=== PATIENT | male | born 1935 | race Caucasian/White ===

== ENCOUNTER → 2017-08-29 12:03 | Outpatient (CLI) | payer MEDICARE, SELFPAY ==
[2017-08-29 13:37] LABS: Absolute Lymphocyte Count 1.17 X10^3/ul (0.83-4.51); Absolute Neutrophil Count 4.5 X10^3/uL (2.0-7.7); Basophil# 0.01 X10^3/uL; Basophil% 0.2 % (0-1); Eosinophil# 0.05 X10^3/uL; Eosinophils% 0.8 % (0-5); Hematocrit 30.3 % (40-54); Hemoglobin 9.4 g/dl (13.0-16.5); Lymphocyte # 1.17 X10^3/ul (4.0); Lymphocyte % 18.6 % (19-41); Mean Corpuscular Volume 83.9 fL (80-94); Mean Platelet Vol. 10.6 fl (6.2-12.0); Monocyte# 0.54 X10^3/uL; Monocyte% 8.6 % (0-10); Neutrophil % 71.6 % (47-70); Platelet Count 216 K/mm3 (150-450); RBC Distribution Width CV 19.3 % (11.6-14.6); RBC Distribution Width SD 59.4 fl (35.1-43.9); Red Blood Count 3.61 M/mm3 (4.6-6.2); White Blood Count 6.3 K/mm3 (4.4-11.0)
[2017-08-29 13:38] LABS: POSITIVE COUNT NO; POSITIVE DIFFERENTIAL NO; POSITIVE MORPHOLOGY NO
== END ==
PROVIDERS: Family Provider Family Medicine Geriatric Medicine; PCP Family Medicine Geriatric Medicine; Visit Provider Family Medicine Geriatric Medicine
DX: D64.9 Anemia, unspecified (principal)
CPT/HCPCS: 36415; 85025

== ENCOUNTER → 2017-09-11 12:28 | Outpatient (CLI) | payer MEDICARE, SELFPAY ==
[2017-09-11 14:30] LABS: Ferritin 17 ng/mL (26-388); Hematocrit 31.2 % (40-54); Hemoglobin 9.6 g/dl (13.0-16.5); Immature Platelet Fraction 3.8 % (1.0-7.9); Iron 30 ug/dL (65-175); Mean Corp Hgb Conc 30.8 g/gl (32-36); Mean Corpuscular Hgb 25.3 pg (27.0-32.0); Mean Corpuscular Volume 82.3 fL (80-94); Mean Platelet Vol. 10.1 fl (6.2-12.0); Platelet Count 220 K/mm3 (150-450); RBC Distribution Width CV 18.1 % (11.6-14.6); RBC Distribution Width SD 54.8 fl (35.1-43.9); RET-HE 19.5 pg (30-35); Red Blood Count 3.79 M/mm3 (4.6-6.2); White Blood Count 5.5 K/mm3 (4.4-11.0)
[2017-09-11 14:34] LABS: Scan Indicated on CBC? Y/N YES- FLAGS NOTED
== END ==
PROVIDERS: Family Provider Family Medicine Geriatric Medicine; PCP Family Medicine Geriatric Medicine; Visit Provider Internal Medicine Gastroenterology
DX: D50.9 Iron deficiency anemia, unspecified (principal)
CPT/HCPCS: 36415; 82728; 83540; 85027; 85045

== ENCOUNTER → 2017-09-16 10:05 | Outpatient (CLI) | payer MEDICARE, SELFPAY ==
[2017-09-16 11:02] LABS: Absolute Lymphocyte Count 1.08 X10^3/ul (0.83-4.51); Absolute Neutrophil Count 4.4 X10^3/uL (2.0-7.7); Eosinophil# 0.04 X10^3/uL; Eosinophils% 0.7 % (0-5); Hematocrit 30.4 % (40-54); Hemoglobin 9.4 g/dl (13.0-16.5); Lymphocyte # 1.08 X10^3/ul (4.0); Lymphocyte % 17.9 % (19-41); Mean Corp Hgb Conc 30.9 g/gl (32-36); Mean Corpuscular Hgb 25.2 pg (27.0-32.0); Mean Corpuscular Volume 81.5 fL (80-94); Mean Platelet Vol. 9.7 fl (6.2-12.0); Monocyte# 0.56 X10^3/uL; Monocyte% 9.3 % (0-10); Neutrophil # 4.36 X10^3/uL (2.7-7.7); Neutrophil % 71.9 % (47-70); Platelet Count 211 K/mm3 (150-450); RBC Distribution Width CV 18.5 % (11.6-14.6); RBC Distribution Width SD 55.3 fl (35.1-43.9); Red Blood Count 3.73 M/mm3 (4.6-6.2); White Blood Count 6.1 K/mm3 (4.4-11.0)
[2017-09-16 11:08] LABS: POSITIVE COUNT NO; POSITIVE DIFFERENTIAL NO; POSITIVE MORPHOLOGY NO
[2017-09-16 11:50] LABS: AST(SGOT) 17 U/L (15-37); Alanine Aminotransfer ALT/SGPT 15 U/L (16-61); Albumin, Serum 3.4 g/dL (3.2-5.0); Alkaline Phosphatase 130 U/L (45-117); Anion Gap 8 (5-15); BUN 36 mg/dL (7-18); BUN/Creat Ratio 22.1 RATIO (10-20); Calcium,Total 8.7 mg/dL (8.5-10.1); Chloride 105 mmol/L (98-107); Creatinine, Serum 1.63 mg/dL (0.70-1.30); EST Glomerular Filtration Rate 43 mL/min (>60); Est Glom Filt Rate - Afr Amer 52 mL/min (>60); Globulin 3.4 g/dL (2.2-4.2); Glucose 112 mg/dL (74-106); Potassium 3.8 mmol/L (3.5-5.1); Protein, Total 6.8 g/dL (6.4-8.2); Sodium Level 138 mmol/L (136-145); Thyroid Stim Hormone (TSH) 3.49 uIU/mL (0.358-3.74)
== END ==
PROVIDERS: Family Provider Family Medicine Geriatric Medicine; PCP Family Medicine Geriatric Medicine; Visit Provider Family Medicine Geriatric Medicine
DX: I10 Essential (primary) hypertension (principal)
CPT/HCPCS: 36415; 80053; 84443; 85025

== ENCOUNTER 2017-09-27 11:54 | Emergency (ER) | payer MEDICARE, SELFPAY ==
[2017-09-27 11:55] VITALS: BP 85/64; PULSE 85; RESP 22; TEMP 36.1; O2SAT 95; BMI 24.0
[2017-09-27 11:59] VITALS: BP 96/61; PULSE 95; RESP 22; O2SAT 96
--- NOTE | 2017-09-27 12:07 | EKG12_ITS ---
Test Reason : SOB Blood Pressure : / mmHG Vent. Rate : 082 BPM Atrial Rate : 048 BPM P-R Int : 000 ms QRS Dur : 110 ms QT Int : 402 ms P-R-T Axes : 000 -17 227 degrees QTc Int : 469 ms Atrial fibrillation with premature ventricular or aberrantly conducted complexes ST & T wave abnormality, consider inferolateral ischemia Prolonged QT Abnormal ECG Confirmed by DAYNE KESSLER ([id number]), advertising editor JAYLA BLOOD ([id number]) on 09/30/2017 1:34:46 PM Referred By: Confirmed By:DAYNE KESSLER
--- NOTE | 2017-09-27 12:07 | RAD_ITS ---
STUDY: X-RAY CHEST REASON FOR EXAM: Male, 81 years old. Shortness of breath. TECHNIQUE: AP and lateral views of the chest. COMPARISON: Comparison is made with prior examination dated July 06, 2017. FINDINGS: EKG electrodes are seen. Mild increase in the left pleural effusion with left basilar atelectasis. Blunting of the right costophrenic angle. Sternal cerclage wires and vascular clips are present from a prior sternotomy and coronary artery bypass graft procedure (CABG). Borderline cardiomegaly. Normal mediastinum and johny. Normal visualized pulmonary arteries. There is atherosclerotic calcification of the aortic arch with tortuosity. There are diffuse degenerative changes of the visualized thoracic spine. Normal visualized ribs, clavicles, and shoulders. There is no demonstrated abnormality of the visualized soft tissue structures of the upper abdomen. RAD/Chest PA and Lateral IMPRESSION: Increased small left pleural effusion with left basilar atelectasis. Blunting of the right costophrenic angle. Electronically Signed: Camilo Deras MD at 13:03 EDT Tel [phone], Service support ,
--- NOTE | 2017-09-27 12:14 | ED.VISSUMM ---
- ER Visit Summary Date of Service: 09/27/17 Chief Complaint: Increasing shortness of breath over the past 1 week History of Present Illness: The patient is a 81 M who is status post IL complicated by cardia pulmonary arrest 1 month ago who presents with increased shortness of breath over the past 1 week. He does report leg swelling, which is abnormal for him. He denies discoloration or pain. He denies any type of chest discomfort. He denies fever, chills night sweats. He denies runny nose, earache, sore throat postnasal drainage. He denies cough. He does complain of dyspnea on exertion. Denies orthopnea or PND. He denies any abdominal pain or back pain. He denies black or maroon stool. He denies any urologic symptoms. He denies history of PE or DVT. He is on Eliquis. He states he is compliant with his medication. Records from the [facility] were received and reviewed. Physical Examination: Vital signs remarkable blood pressure 96/61 rest rate 22. He is not hypoxic, febrile or tachycardic. Review of prior records and specifically the past 3 months his blood pressure has varied between 82 systolic to a high of 97. Head is atraumatic normocephalic. Pupils are equal round reactive. Extraocular muscles are intact. TMs are pearly white with landmarks noted. Nares patent with no drainage. Posterior pharynx without erythema or exudate. Uvula is midline. There is no dysphonia or dysphasia. Trachea is midline. There is no stridor with auscultation of the neck. Heart is irregularly regular. Lungs are clear to auscultation without rales, rhonchi or wheezing. Abdomen is soft nontender. He has a well-healed midsternal scar noted. There is no palpable subtle mass of the abdominal aorta and there is no bruit. He does have 1-2+ pitting edema of the right and left lower extremity distal to the knees. He is hard of hearing. He is alert he is oriented ?3. Motor sensory are intact. Did not assess gait. Test Results: EKG reveals atrial fibrillation with ST-T wave changes inferolateral leads which is unchanged from prior EKG dated July 06, 2017. At that time the research neuropsychologist interpreted him in to have a sinus rhythm. His rhythm was irregular. Chest x-ray reveals normal cardiac silhouette with bilateral pleural effusions and mild venous congestion. H&H 10.5 and 34.8. BUN is 48 with a creatinine of 2.86. Troponin is indeterminate at 0.20. BNP is 703. His indeterminate troponin could be related to his recent IL and CHF. Emergency Department Course and Treatment: To evaluate patient's increasing shortness breath over the past month chest x-ray was obtained to evaluate for CHF, pneumonia or pneumothorax, pleural effusion. With gradual onset and gradual becoming worse with edema unlikely pulmonary embolus. And as previously documented patient states he is compliant with his Eliquis. Treatment Plan: 80 mg of Lasix p.o. and 2.5 mg of Zaroxolyn p.o. in the emergency department and increase Lasix to 80 mg a day for the next 5 days and follow-up with Dr. Cedeño within the next 5-7 days Disposition: Discharged to home Impression: 1. Exacerbation of CHF with bilateral pleural effusions 2. Atrial fibrillation, chronic History of ischemic cardiomyopathy History of hypertension History of hypercholesterolemia History of coronary disease status post cardiopulmonary arrest This note was generated with [employer] software. It may contain incorrect words, spelling, and punctuation that were not noted in review of the chart prior to signing ED Disposition - Plan for ED Patient: Disposition: Home or Assisted Living Chief Complaint: Shortness of Breath Instructions: ED CHF General Referrals: Hardik Puga Chi, MD [Primary Care Provider] - Ko Cedeño MD [STAFF PHYSICIAN] - 5-7 Days Additional Instructions: Increase Lasix to 80 mg a day for the next [address] Cedeño's office to be seen next week.
--- NOTE | 2017-09-27 12:23 | ED.DCSUM_ITS ---
- ER Visit Summary Date of Service: 09/27/17 Chief Complaint: Increasing shortness of breath over the past 1 week History of Present Illness: The patient is a 81 M who is status post [place] complicated by cardia pulmonary arrest 1 month ago who presents with increased shortness of breath over the past 1 week. He does report leg swelling, which is abnormal for him. He denies discoloration or pain. He denies any type of chest discomfort. He denies fever, chills night sweats. He denies runny nose, earache, sore throat postnasal drainage. He denies cough. He does complain of dyspnea on exertion. Denies orthopnea or PND. He denies any abdominal pain or back pain. He denies black or maroon stool. He denies any urologic symptoms. He denies history of PE or DVT. He is on Eliquis. He states he is compliant with his medication. Records from the [facility] were received and reviewed. Physical Examination: Vital signs remarkable blood pressure 96/61 rest rate 22. He is not hypoxic, febrile or tachycardic. Review of prior records and specifically the past 3 months his blood pressure has varied between 82 systolic to a high of 97. Head is atraumatic normocephalic. Pupils are equal round reactive. Extraocular muscles are intact. TMs are pearly white with landmarks noted. Nares patent with no drainage. Posterior pharynx without erythema or exudate. Uvula is midline. There is no dysphonia or dysphasia. Trachea is midline. There is no stridor with auscultation of the neck. Heart is irregularly regular. Lungs are clear to auscultation without rales, rhonchi or wheezing. Abdomen is soft nontender. He has a well-healed midsternal scar noted. There is no palpable subtle mass of the abdominal aorta and there is no bruit. He does have 1-2+ pitting edema of the right and left lower extremity distal to the knees. He is hard of hearing. He is alert he is oriented ?3. Motor sensory are intact. Did not assess gait. Test Results: EKG reveals atrial fibrillation with ST-T wave changes inferolateral leads which is unchanged from prior EKG dated July 06, 2017. At that time the filling station equipment mechanic interpreted him in to have a sinus rhythm. His rhythm was irregular. Chest x-ray reveals normal cardiac silhouette with bilateral pleural effusions and mild venous congestion. H&H 10.5 and 34.8. BUN is 48 with a creatinine of 2.86. Troponin is indeterminate at 0.20. BNP is 703. His indeterminate troponin could be related to his recent VT and CHF. Emergency Department Course and Treatment: To evaluate patient's increasing shortness breath over the past month chest x-ray was obtained to evaluate for CHF, pneumonia or pneumothorax, pleural effusion. With gradual onset and gradual becoming worse with edema unlikely pulmonary embolus. And as previously documented patient states he is compliant with his Eliquis. Treatment Plan: 80 mg of Lasix p.o. and 2.5 mg of Zaroxolyn p.o. in the emergency department and increase Lasix to 80 mg a day for the next 5 days and follow-up with Dr. Cedeño within the next 5-7 days Disposition: Discharged to home Impression: 1. Exacerbation of CHF with bilateral pleural effusions 2. Atrial fibrillation, chronic History of ischemic cardiomyopathy History of hypertension History of hypercholesterolemia History of coronary disease status post cardiopulmonary arrest This note was generated with [employer] software. It may contain incorrect words, spelling, and punctuation that were not noted in review of the chart prior to signing ED Disposition - Plan for ED Patient: Disposition: Home or Assisted Living Chief Complaint: Shortness of Breath Instructions: ED CHF General Referrals: Hardik Puga Chi, MD [Primary Care Provider] - Ko Cedeño MD [STAFF PHYSICIAN] - 5-7 Days Additional Instructions: Increase Lasix to 80 mg a day for the next [address] Cedeño's office to be seen next week.
[2017-09-27 12:32] LABS: Absolute Lymphocyte Count 0.88 X10^3/ul (0.83-4.51); Absolute Neutrophil Count 4.3 X10^3/uL (2.0-7.7); Basophil# 0.01 X10^3/uL; Basophil% 0.2 % (0-1); Differential Indicated SCAN CRITERIA MET; Eosinophil# 0.01 X10^3/uL; Eosinophils% 0.2 % (0-5); Hematocrit 34.8 % (40-54); Hemoglobin 10.5 g/dl (13.0-16.5); Lymphocyte # 0.88 X10^3/ul (4.0); Lymphocyte % 15.2 % (19-41); Mean Corp Hgb Conc 30.2 g/gl (32-36); Mean Corpuscular Hgb 25.7 pg (27.0-32.0); Mean Corpuscular Volume 85.1 fL (80-94); Mean Platelet Vol. 10.3 fl (6.2-12.0); Monocyte% 10.3 % (0-10); Neutrophil # 4.29 X10^3/uL (2.7-7.7); Neutrophil % 73.9 % (47-70); POSITIVE COUNT NO; POSITIVE DIFFERENTIAL NO; POSITIVE MORPHOLOGY YES; Platelet Count 193 K/mm3 (150-450); RBC Distribution Width SD 64.3 fl (35.1-43.9); Red Blood Count 4.09 M/mm3 (4.6-6.2); White Blood Count 5.8 K/mm3 (4.4-11.0)
[2017-09-27 12:47] LABS: Anion Gap 14 (5-15); BUN 48 mg/dL (7-18); BUN/Creat Ratio 16.8 RATIO (10-20); Calcium,Total 9.2 mg/dL (8.5-10.1); Chloride 104 mmol/L (98-107); Creatinine, Serum 2.86 mg/dL (0.70-1.30); EST Glomerular Filtration Rate 23 mL/min (>60); Est Glom Filt Rate - Afr Amer 27 mL/min (>60); Estimated Creatinine Clearance 21.86 ml/min; Glucose 94 mg/dL (74-106); Sodium Level 138 mmol/L (136-145)
[2017-09-27 13:00] LABS: BNP,B-Type NATRIURETIC PEPTIDE 703.8 pg/mL (0-100)
[2017-09-27 13:01] LABS: Anisocytosis 1+; Burr Cells RARE
[2017-09-27 13:02] LABS: Acanthocytes RARE; Ovalocyte RARE; Platelet Estimate SLT DEC (ADEQ)
[2017-09-27 13:48] VITALS: BP 91/63; PULSE 80; RESP 16; O2SAT 94
[2017-09-27] MEDS: Furosemide 40 MG Tablet 80 MG PO (14:17)
[2017-09-27] MEDS: Metolazone 2.5 MG Tablet PO (14:18)
[2017-09-27 14:19] VITALS: BP 96/82; PULSE 98; RESP 22; O2SAT 93
[2017-09-27 15:05] VITALS: BP 91/68
[2017-09-27 15:19] VITALS: BP 91/62; PULSE 81; RESP 17; O2SAT 94
== END 2017-09-27 16:01 | disposition home or self-care (01) ==
PROVIDERS: Emergency Provider Emergency Medicine; Family Provider Family Medicine Geriatric Medicine; PCP Family Medicine Geriatric Medicine
DX: I13.2 Hypertensive heart and chronic kidney disease with heart failure and with stage 5 chronic kidney disease, or end stage renal disease (principal); N18.6 End stage renal disease; D63.1 Anemia in chronic kidney disease; I50.9 Heart failure, unspecified; J90 Pleural effusion, not elsewhere classified; I48.2 Chronic atrial fibrillation; I25.5 Ischemic cardiomyopathy; E78.00 Pure hypercholesterolemia, unspecified; I25.10 Atherosclerotic heart disease of native coronary artery without angina pectoris; I25.2 Old myocardial infarction; I45.10 Unspecified right bundle-branch block; Z87.2 Personal history of diseases of the skin and subcutaneous tissue; Z95.1 Presence of aortocoronary bypass graft; Z79.01 Long term (current) use of anticoagulants; Z79.82 Long term (current) use of aspirin; Z79.899 Other long term (current) drug therapy
CPT/HCPCS: 71046; 80048; 83880; 84484; 85025; 93005; 99285; A4216

== ENCOUNTER → 2017-10-28 11:55 | Outpatient (CLI) | payer MEDICARE, SELFPAY ==
[2017-10-28 14:23] LABS: Absolute Lymphocyte Count 1.09 X10^3/ul (0.83-4.51); Absolute Neutrophil Count 4.9 X10^3/uL (2.0-7.7); Basophil# 0.01 X10^3/uL; Basophil% 0.1 % (0-1); Eosinophil# 0.07 X10^3/uL; Hematocrit 34.9 % (40-54); Hemoglobin 11.1 g/dl (13.0-16.5); Lymphocyte # 1.09 X10^3/ul (4.0); Lymphocyte % 16.1 % (19-41); Mean Corp Hgb Conc 31.8 g/gl (32-36); Mean Corpuscular Hgb 27.1 pg (27.0-32.0); Mean Corpuscular Volume 85.3 fL (80-94); Mean Platelet Vol. 10.2 fl (6.2-12.0); Monocyte# 0.68 X10^3/uL; Neutrophil # 4.92 X10^3/uL (2.7-7.7); Neutrophil % 72.7 % (47-70); Platelet Count 285 K/mm3 (150-450); RBC Distribution Width CV 18.9 % (11.6-14.6); RBC Distribution Width SD 58.8 fl (35.1-43.9); Red Blood Count 4.09 M/mm3 (4.6-6.2); White Blood Count 6.8 K/mm3 (4.4-11.0)
[2017-10-28 14:30] LABS: POSITIVE COUNT NO; POSITIVE DIFFERENTIAL NO; POSITIVE MORPHOLOGY NO
[2017-10-28 14:31] LABS: Ferritin 41 ng/mL (26-388); Iron 60 ug/dL (65-175)
== END ==
PROVIDERS: Family Provider Family Medicine Geriatric Medicine; PCP Family Medicine Geriatric Medicine; Visit Provider Internal Medicine Gastroenterology
DX: D50.9 Iron deficiency anemia, unspecified (principal)
CPT/HCPCS: 36415; 82728; 83540; 85025

== ENCOUNTER 2017-11-19 07:01 | Inpatient (IN) | payer MEDICARE, SELFPAY ==
[2017-11-19] VITALS (16 sets, daily range): BP systolic 94–117; BP diastolic 51–69; PULSE 63–98; RESP 14–18; TEMP 36.4–36.9; O2SAT 93–98; BMI 30.3; BMI 24.2
--- NOTE | 2017-11-19 07:20 | CT_ITS ---
STUDY: CT BRAIN WITHOUT CONTRAST REASON FOR EXAM: Male, 81 years old. History of fall. Large left scalp laceration. RADIATION DOSAGE (If Supplied By Facility): CTDIvol = ( 44.99 ) mGy, DLP = ( 779.24 ) mGycm TECHNIQUE: Transaxial CT imaging of the brain was performed without administration of intravenous contrast material. Individualized dose optimization techniques were used for this CT. COMPARISON: Comparison is made with prior study dated October 09, 2014. FINDINGS: There is evidence of scalp laceration with sara overlying the left frontal parietal bone. Normal calvarium. There is mild cerebral atrophy with widening of the extra-axial spaces and ventricular dilatation. There are areas of decreased attenuation within the white matter tracts of the supratentorial brain, consistent with microvascular disease changes. Normal basal ganglia and thalami. Normal brainstem. Normal cerebellum. There is no intracranial hemorrhage. There are no findings of an acute ischemic infarction. Atherosclerotic calcification of the vertebral arteries and cavernous portions of the internal carotid arteries bilaterally. Normal visualized paranasal sinuses. CT/Brain/Head without Contrast IMPRESSION: Chronic involutional changes of the brain. Scalp laceration with metallic sutures overlying the left frontal parietal bones. Electronically Signed: Camilo Deras MD at 8:46 EDT Tel [phone], Service support ,
--- NOTE | 2017-11-19 07:21 | CT_ITS ---
STUDY: CT CERVICAL SPINE WITHOUT CONTRAST REASON FOR EXAM: Male, 81 years old. History of fall. Large left scalp laceration. RADIATION DOSAGE (If Supplied By Facility): CTDIvol = ( 21.93 ) mGy, DLP = ( 401.10 ) mGycm TECHNIQUE: High resolution transaxial imaging was performed without contrast material. Sagittal and coronal images were reconstructed. Individualized dose optimization techniques were used for this CT. COMPARISON: None FINDINGS: Normal craniovertebral junction. Normal anterior atlantoaxial articulation. Normal odontoid process. Normal cervical lordosis. Multilevel spondylosis. C2-3: Moderate degree of disc space narrowing. Spondylosis. Uncovertebral arthrosis. Facet joint osteoarthritis. C3-4: Marked degree of disc space narrowing with spondylosis and uncovertebral arthrosis. Facet joint osteoarthritis. Bilateral neural foraminal stenosis. C4-5: Marked degree of disc space narrowing with spondylosis and uncovertebral arthrosis. Facet joint osteoarthritis and hypertrophy with the neural foraminal stenosis bilaterally. C5-6: Marked degree of disc space narrowing with spondylosis. Uncovertebral arthrosis. Bilateral neural foraminal stenosis. Facet joint osteoarthritis and hypertrophy. C6-7: Marked degree of narrowing. Spondylosis. Uncovertebral arthrosis and facet joint osteoarthritis. C7-T1: Marked degree of disc space narrowing with spondylosis. Facet joint osteoarthritis. Atherosclerotic plaque seen in the right vertebral artery and the carotid bifurcations bilaterally. Bilateral pleural effusions with the scarring in the upper lobes. CT/Spine Cervical without Contras IMPRESSION: Multilevel degenerative changes, as described above. Bilateral pleural effusions and scarring in both upper lobes. Electronically Signed: Camilo Deras MD at 8:32 EDT Tel [phone], Service support ,
[2017-11-19] MEDS: 0.9% Normal Saline 1,000 ML 1000 ML IV (07:26)
[2017-11-19 07:30] LABS: Absolute Lymphocyte Count 1.29 X10^3/ul (0.83-4.51); Absolute Neutrophil Count 3.6 X10^3/uL (2.0-7.7); Basophil# 0.01 X10^3/uL; Basophil% 0.2 % (0-1); Eosinophil# 0.07 X10^3/uL; Eosinophils% 1.2 % (0-5); Hematocrit 30.9 % (40-54); Hemoglobin 9.8 g/dl (13.0-16.5); Lymphocyte # 1.29 X10^3/ul (4.0); Lymphocyte % 22.6 % (19-41); Mean Corp Hgb Conc 31.7 g/gl (32-36); Mean Corpuscular Hgb 27.6 pg (27.0-32.0); Mean Platelet Vol. 10.3 fl (6.2-12.0); Monocyte# 0.69 X10^3/uL; Monocyte% 12.1 % (0-10); Neutrophil # 3.64 X10^3/uL (2.7-7.7); Neutrophil % 63.7 % (47-70); Platelet Count 195 K/mm3 (150-450); RBC Distribution Width CV 19.3 % (11.6-14.6); RBC Distribution Width SD 59.6 fl (35.1-43.9); Red Blood Count 3.55 M/mm3 (4.6-6.2); White Blood Count 5.7 K/mm3 (4.4-11.0)
[2017-11-19 07:31] LABS: POSITIVE COUNT NO; POSITIVE DIFFERENTIAL NO; POSITIVE MORPHOLOGY NO
[2017-11-19 07:35] LABS: Anion Gap 6 (5-15); BUN 33 mg/dL (7-18); Calcium,Total 8.8 mg/dL (8.5-10.1); Chloride 103 mmol/L (98-107); Creatinine, Serum 1.32 mg/dL (0.70-1.30); EST Glomerular Filtration Rate 55 mL/min (>60); Est Glom Filt Rate - Afr Amer 67 mL/min (>60); Estimated Creatinine Clearance 44.55 ml/min; Glucose 126 mg/dL (74-106); International Normalized Ratio 1.7; Potassium 4.6 mmol/L (3.5-5.1); Prothrombin Time (Protime)PT. 19.8 SECONDS (11.7-14.9); Sodium Level 139 mmol/L (136-145)
[2017-11-19 07:36] LABS: Partial Thromboplast Time 38.2 Seconds (24.1-36.2)
--- NOTE | 2017-11-19 07:45 | ED.VISSUMM ---
- ER Visit Summary Date of Service: 11/19/17 Chief Complaint: Head injury History of Present Illness: The patient is a 81 M who presents via EMS with head injury. Patient states he got up to walk to the bathroom early this morning and fell, striking his head on a TV stand. He has a large laceration noted to the left side of his head. He denies loss of consciousness. Other than headache he denies any other complaints. Patient is currently on blood thinners and per computer report appears to be Eliquis. Physical Examination: Vital signs are unremarkable. Head neck examination reveals saturated dressing placed around the head. He has no C-spine tenderness. Heart is irregular. Lung sounds are clear. Abdomen is soft nontender. Neuro exam reveals no focal deficits. Test Results: CBC is significant for hemoglobin of 9.8 and hematocrit of 30.9. Hemoglobin was 11.1 in October. Chemistry studies reveal mild renal insufficiency with a creatinine 1.32. His INR is 1.7 and PTT is 38.2. Emergency Department Course and Treatment: Suture setup is undertaken and dressing is slowly pulled down from his wound. He appears to have a 12 cm laceration. Wound is injected with lidocaine with epinephrine locally. Wound is stapled and Surgifoam was placed over the wound with dressing. Patient was given a liter of IV fluids. On repeat evaluation blood has soaked through the dressing. It is taken back down and 3 sara were removed from the wound. Arterial bleeders were noted and tied off. Dressing is replaced. Repeat hemoglobin is obtained and is 8.2. On final repeat evaluation at this time dressing is dry. Blood pressure and heart rate have remained stable throughout his stay. I have recommended observation to monitor his hemoglobin counts and wound. Type and screen order has been placed. Dr. Kaplan presented to the emergency room to evaluate the patient. He will admit the patient to PCU for further monitoring. Treatment Plan: [] Disposition: Admit Impression: 1. Mechanical fall 2. Closed head injury 3. Scalp laceration 4. Anemia 5. Coagulopathy secondary to Eliquis This note was generated with [employer] software. It may contain incorrect words, spelling, and punctuation that were not noted in review of the chart prior to signing ED Disposition - Plan for ED Patient: Chief Complaint: Laceration Referrals: Hardik Puga Chi, MD [Primary Care Provider] -
--- NOTE | 2017-11-19 08:06 | NURSING ---
LEFT MESSAGE ON DR THOMPSON'S NURSE LINE FOR MED LIST
--- NOTE | 2017-11-19 08:50 | NURSING ---
CALLED DR ROBERTS'S OFFICE FOR MED LIST
[2017-11-19 09:28] LABS: Hemoglobin 8.4 g/dl (13.0-16.5)
--- NOTE | 2017-11-19 09:54 | NURSING ---
DR MACKENZIE FOR DR ALICEA
--- NOTE | 2017-11-19 10:06 | NURSING ---
DR MACKENZIE IN ER
--- NOTE | 2017-11-19 10:07 | NURSING ---
[place] ([facility]) [phone]
--- NOTE | 2017-11-19 10:28 | NURSING ---
PCU OBS FALL, SCALP LAC WITH ACUTE ANEMIA GURDEEP
--- NOTE | 2017-11-19 11:16 | EKG12_ITS ---
Test Reason : ADM EKG Blood Pressure : / mmHG Vent. Rate : 082 BPM Atrial Rate : 214 BPM P-R Int : 000 ms QRS Dur : 102 ms QT Int : 400 ms P-R-T Axes : 000 -02 189 degrees QTc Int : 467 ms Atrial fibrillation with premature ventricular or aberrantly conducted complexes T wave abnormality, consider anterolateral ischemia Prolonged QT Abnormal ECG Confirmed by ALEJANDRA WALDRON, BÁRBARA ([id number]), assistant production editor JAYLA BLOOD ([id number]) on 11/26/2017 2:16:35 PM Referred By: GURDEEP Confirmed By:BÁRBARA ROBERTS MD
--- NOTE | 2017-11-19 11:16 | RAD_ITS ---
STUDY: X-RAY CHEST REASON FOR EXAM: Male, 81 years old. Pleural effusion TECHNIQUE: Single AP portable view of the chest. COMPARISON: 09/27/2017 FINDINGS: Cardiac monitoring leads overlie the chest. The lungs are clear and expanded. There are bilateral pleural effusions. Sternal cerclage wires and vascular clips are present from a prior sternotomy and coronary artery bypass graft procedure (CABG). Normal mediastinum and johny. Normal visualized pulmonary arteries. Normal visualized aortic arch and descending thoracic aorta. Normal visualized thoracic spine. Normal visualized ribs, clavicles, and shoulders. There is no demonstrated abnormality of the visualized soft tissue structures of the upper abdomen. RAD/Chest 1 View (Portable) IMPRESSION: Bilateral pleural effusions. Postoperative changes of coronary artery bypass graft. Electronically Signed: Carlos Moore DO at 12:24 EDT Tel , Service support ,
--- NOTE | 2017-11-19 11:41 | HP.PCM_ITS ---
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 Qualified Code(s): D50.0 - Iron deficiency anemia secondary to blood loss (chronic) (4) Atherosclerosis of [place] coronary artery of [place] heart without angina pectoris Status: Chronic Comment: CABG 01/22/2000 NGO to LAD, reverse SVG as a sequential graft to DX and LCX, reverse SVG to the two ventricular branches of the right (5) Bilateral lower extremity edema Status: Chronic (6) Chronic systolic (congestive) heart failure Status: Chronic (7) Chronic ulcer of left leg, limited to breakdown of skin Status: Chronic (8) Coronary artery disease involving autologous artery coronary bypass graft Status: Chronic Qualifiers: Comment: CAB01/22/2000 NGO to LAD, reverse SVG as a sequential graft to DX and LCX, reverse SVG to the two ventricular branches of the right (9) Dyslipidemia Status: Chronic (10) Hypertension Status: Chronic Qualifiers: Hypertension type: essential hypertension Qualified Code(s): I10 - Essential (primary) hypertension (11) Ischemic cardiomyopathy Status: Chronic (12) Paroxysmal atrial fibrillation Status: Chronic Comment: [facility] January 2000; (13) Fall Status: Acute History of Present Illness Date of Admission: 11/19/17 Chief Complaint: Fall and head injury The patient is a 81 year old M with multiple comorbidities including paroxysmal A. fib on Eliquis 2.5 mg twice daily, chronic systolic heart failure with marked lower extremity edema was brought in to ER by squad after he had fall and hit his head on the TV stand. He said he did not feel dizzy, lightheaded or arrhythmia but he lost the balance that caused a fall. He had multiple, about 6 surgeries in the left knee and thigh including myocutaneous flap/graft artery after he had kneecap fracture and then infection possible septic arthritis in the past. In ED, his blood pressure was low 107/68, heart rate 82 but no hypoxia. Per ER physician, Dr. Lind he had about 12 cm laceration on left frontoparietal area for he had a sara. Later on in the ER dressing was soaked with blood and was found that he has arterial bleed which was tied and bleeding was controlled. CT head does not show intracranial bleed. Chest x-ray shows bilateral pleural effusion and scarring and atelectasis. H&H dropped from 9.8 g percent to 8.4%. Past Medical History Past Medical History (Chronic Problems): Chronic Problems (Last Reviewed 10/02/17 @ 11:33 by Meredith Velasquez) Bilateral lower extremity edema (Chronic) Chronic systolic (congestive) heart failure (Chronic) Paroxysmal atrial fibrillation (Chronic) DCCV January 2000; Atherosclerosis of [place] coronary artery of [place] heart without angina pectoris (Chronic) CABG 01/22/2000 NGO to LAD, reverse SVG as a sequential graft to DX and LCX, reverse SVG to the two ventricular branches of the right Ischemic cardiomyopathy (Chronic) Chronic ulcer of left leg, 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) Dyslipidemia (Chronic) Coronary artery disease involving autologous artery coronary bypass graft ( Chronic) CAB01/22/2000 NGO to LAD, reverse SVG as a sequential graft to DX and LCX, reverse SVG to the two ventricular branches of the right Hypertension (Chronic) Anemia (Chronic) Allergies No Known Allergies Allergy (Verified 10/02/17 11:34) Home Medications: Ambulatory Orders Medication Instructions Recorded Aspirin [Aspirin, Baby] 81 mg PO DAILY@0800 #30 tab.chew 10/10/14 acetaminophen 325 mg tablet 650 mg PO Q4H PRN 08/08/17 atorvastatin 20 mg tablet 20 mg PO QDAY 08/08/17 carvedilol 6.25 mg tablet 6.25 mg PO BID 08/08/17 pantoprazole 40 mg tablet,delayed 40 mg PO QDAY 08/08/17 release Citalopram [Celexa] 10 mg PO DAILY 09/27/17 Ferrous Sulfate [Iron] 325 mg PO DAILY 09/27/17 apixaban 2.5 mg tablet 2.5 mg PO BID #180 tab 10/02/17 Furosemide [Lasix] 80 mg PO DAILY 11/19/17 Surgical History: coronary bypass surgery, - Smoking Status: Never smoker - *Family History Paternal History Items: High Cholesterol, Heart Disease, Hypertension, - Review of Systems Constitutional: Denies: Chills, Fever, Weight Change HEENT: Reports: Head Aches. Denies: Sinus Congestion, Sinus Drainage Cardiovascular: Denies: Chest Pain, Palpitations Respiratory: Denies: Cough, Shortness of breath at rest, Sputum production Gastrointestinal: Denies: Abdominal Pain, Nausea, Vomiting Genitourinary: Denies: Dysuria Musculoskeletal: Reports: Joint Pain. Denies: Joint Tenderness Skin: Denies: Rash, Wounds Neurological: Denies: Numbness, Tingling, Focal weakness Psychiatric: Denies: Anxiety, Depression, Homicidal Ideations, Suicidal Ideations Hematologic/ Lymphatic: Reports: Easy Bruising, Easy Bleeding VTE Information - Inpt Only VTE Present on Admission: No VTE Pharm Prophylaxis ordered?: No Reason prophylaxis not ordered:: Medical Contraindication - Active scalp hemorrhage Patient Problems: Active and Suspected Problems (Last Reviewed 10/02/17 @ 11:33 by Meredith Velasquez) Acute blood loss anemia (Acute) Scalp laceration with hemorrhage (Acute) Fall (Acute) - Physical Exam General: Alert, Oriented x3, Cooperative HEENT: Atraumatic, PERRLA, EOMI, Normocephalic Oral: Dry Mucosa Neck: Supple, No JVD, Negative Carotid Bruits Lungs: Clear to auscultation, Diminished - In both lower lobes of lung Cardiovascular: Normal S1, Normal S2, No murmurs, Irregular Rate, - - CABG scar Abdomen: Bowel Sounds Present, Soft, Non Tender, Non-Distended Extremities: Capillary Refill Less than 3 Seconds, Edema Skin: - - Scar promise of chronic wound with myocutaneous flap at left knee joint and thigh Musculoskeletal: No Tenderness to Palpation of Joints or Extremities, Arthritic Changes Neurological: Cranial nerves II-XII grossly intact, - - No obvious signs of a stroke including new or exacerbated muscle weakness, numbness or tingling or hemianopia, diplopia or dysarthria or dysphagia Psych/Mental Status: Normal Affect, Appropriate Vital Signs Temp Pulse Resp BP Pulse Ox 98.5 F 91 17 106/58 L 96 11/19/17 10:55 11/19/17 10:55 11/19/17 10:55 11/19/17 10:55 11/19/17 10:55 Oxygen Delivery Method Room Air Weight: 178 lb 5.663 oz Body Mass Index (BMI) 24.2 Assessment/Plan Active and Suspected Problems (Last Reviewed 10/02/17 @ 11:33 by Meredith Velasquez) Acute blood loss anemia (Acute) Scalp laceration with hemorrhage (Acute) Fall (Acute) The patient is a 81 year old M with multiple comorbidities including paroxysmal A. fib on Eliquis 2.5 mg twice daily, chronic systolic heart failure with marked lower extremity edema was brought in to ER by squad after he had fall and hit his head on the TV stand. He said he did not feel dizzy, lightheaded or arrhythmia but he lost the balance that caused a fall. He had multiple, about 6 surgeries in the left knee and thigh including myocutaneous flap/graft artery after he had kneecap fracture and then infection possible septic arthritis in the past. In ED, his blood pressure was low 107/68, heart rate 82 but no hypoxia. Per ER physician, Dr. Lind he had about 12 cm laceration on left frontoparietal area for he had a sara. Later on in the ER dressing was soaked with blood and was found that he has arterial bleed which was tied and bleeding was controlled. CT head does not show intracranial bleed. Chest x-ray shows bilateral pleural effusion and scarring and atelectasis. H&H dropped from 9.8 g percent to 8.4%. The patient had 1 L of normal saline bolus in the ER 1. Fall with major scalp laceration consistent with head injury: Seems fall was mainly mechanical after he lost balance on walker. Denies near syncope or syncope symptoms. 2. Cardiac disease: Coronary artery disease status post CABG, paroxysmal A. fi status post cardioversion in 1999 and chronic systolic heart failure: Currently , denies active chest symptoms. On secured entrance monitor. Twelve-lead EKG ordered. Troponin ordered. Aspirin and Eliquis on hold in view of major hemorrhage. 2D echo done in June 2017 shows EF 47% with normal LV size. Left atrium mildly enlarged RA mildly enlarged. Normal RV size and systolic function. Mild TR, RVSP 28 mmHg. Mild eccentric MR. Mild diffuse mitral valve thickening with mild annular calcification. Mild diffuse aortic wall thickening. Resume Lasix from tomorrow. 3. Acute blood loss anemia secondary to scalp laceration and external hemorrhage: H&H monitoring every 6 hourly and if hemoglobin drops less than 8 g percent we will transfuse PRBC. On IV fluid normal saline 100 mL/h. Monitor intake and output. Avoid fluid overload/pulmonary edema as he has heart failure. 4. 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 Blood pressure is running on the lower side. Hold antihypertensive medication. DVT prophylaxis on bilateral SCDs. Pharmacological prophylaxis contraindicated This note was generated with [employer] dictation software. Every effort was made to ensure accuracy, however computerized sorter pricer mistakes may persist. Code Visit Inpatient E&M: 04559 Init Hosp L3
[2017-11-19] MEDS: 0.9% Normal Saline 1,000 ML 100 ML IV (11:54)
[2017-11-19 13:14] LABS: Hemoglobin 7.7 g/dl (13.0-16.5)
[2017-11-19] MEDS: Ferrous Sulfate 325 MG Tablet PO (17:12)
[2017-11-19 19:25] LABS: Hematocrit 23.9 % (40-54); Hemoglobin 7.5 g/dl (13.0-16.5)
[2017-11-19] MEDS: 0.9% NaCl Peripheral Flush Adult/Peds IV (20:32)
[2017-11-19] MEDS: Carvedilol 6.25 MG Tablet PO (21:34)
[2017-11-19] MEDS: Atorvastatin Calcium 20 MG Tablet PO (21:34)
[2017-11-20] VITALS (18 sets, daily range): BP systolic 100–114; BP diastolic 56–84; PULSE 71–97; RESP 16–20; TEMP 36.3–37; O2SAT 92–99
[2017-11-20] MEDS: 0.9% Normal Saline 1,000 ML 100 ML IV (00:45)
[2017-11-20 00:57] LABS: Hemoglobin 8.3 g/dl (13.0-16.5)
[2017-11-20 05:41] LABS: Hematocrit 25.5 % (40-54); Hemoglobin 8.2 g/dl (13.0-16.5); Mean Corp Hgb Conc 32.2 g/gl (32-36); Mean Corpuscular Hgb 28.1 pg (27.0-32.0); Mean Corpuscular Volume 87.3 fL (80-94); Mean Platelet Vol. 10.2 fl (6.2-12.0); Platelet Count 159 K/mm3 (150-450); RBC Distribution Width CV 18.5 % (11.6-14.6); Red Blood Count 2.92 M/mm3 (4.6-6.2)
[2017-11-20 05:46] LABS: Scan Indicated on CBC? Y/N NO
--- NOTE | 2017-11-20 05:55 | CT_ITS ---
STUDY: CT BRAIN WITHOUT CONTRAST REASON FOR EXAM: Male, 81 years old. Trauma, status post fall RADIATION DOSAGE (If Supplied By Facility): CTDIvol = ( 44.99 ) mGy, DLP = ( 762.36 ) mGycm TECHNIQUE: Transaxial CT imaging of the brain was performed without administration of intravenous contrast material. Sagittal and coronal reconstructed images are provided and reviewed. Individualized dose optimization techniques were used for this CT. COMPARISON: 11/19/2017 FINDINGS: [place] project over the left frontal and parietal scalp. Normal calvarium. There is mild cerebral atrophy with widening of the extra-axial spaces and ventricular dilatation. There are areas of decreased attenuation within the white matter tracts of the supratentorial brain, consistent with microvascular disease changes. Normal basal ganglia and thalami. Normal brainstem. Normal cerebellum. There is no intracranial hemorrhage. There are no findings of an acute ischemic infarction. Normal visualized paranasal sinuses. CT/Brain/Head without Contrast IMPRESSION: Chronic involutional changes. No acute intracranial abnormality. [place] are seen along the left scalp laceration. Electronically Signed: Carlos Moore DO at 8:21 EDT Tel , Service support ,
[2017-11-20 06:01] LABS: Anion Gap 9 (5-15); BUN 29 mg/dL (7-18); BUN/Creat Ratio 21.3 RATIO (10-20); Calcium,Total 8.3 mg/dL (8.5-10.1); Chloride 107 mmol/L (98-107); Creatinine, Serum 1.36 mg/dL (0.70-1.30); EST Glomerular Filtration Rate 53 mL/min (>60); Est Glom Filt Rate - Afr Amer 64 mL/min (>60); Estimated Creatinine Clearance 45.96 ml/min; Glucose 138 mg/dL (74-106); Potassium 4.1 mmol/L (3.5-5.1); Sodium Level 143 mmol/L (136-145)
[2017-11-20] MEDS: Ferrous Sulfate 325 MG Tablet PO ×2 (08:24→16:26)
[2017-11-20] MEDS: Furosemide 80 MG Tablet PO (08:25)
[2017-11-20] MEDS: Pantoprazole Sodium 40 MG Tablet PO (08:25)
[2017-11-20] MEDS: Carvedilol 6.25 MG Tablet PO ×2 (08:25→21:44)
[2017-11-20] MEDS: Citalopram 10 MG Tablet PO (08:25)
--- NOTE | 2017-11-20 12:00 | CASEMGMT ---
This RN CM to room to complete CM assessment and RN is at bedside completing care. Will attempt again later. SStaten RN CM
--- NOTE | 2017-11-20 13:08 | NURSING ---
wound photo: left posterior lower leg
--- NOTE | 2017-11-20 14:08 | CASEMGMT ---
Face to Face with patient for initial transition planning/care coordination assessment. RN MARIE introduced self and role at [facility], pt voices understanding and consents to assessment at this time. Pt is sitting up in chair in no distress at this time. Pt is A/O x4 at this time and answers all questions appropriately at this time. Care providers, pharmacy, and demographics verified. See attached link. Pt voices no further concerns/needs at this time. Advised pt to ask for CM if any further questions/concerns/needs arise, voices understanding. CM to f/u regarding pt's SNF decision. Doug ARREDONDO aware of pt indecision, voices understanding. PLAN: Home [facility] SUSAN SALAZAR
--- NOTE | 2017-11-20 14:17 | PCM.PN.HOSP ---
Patient Problems: Active and Suspected Problems (Last Reviewed 10/02/17 @ 11:33 by Meredith Velasquez) Acute blood loss anemia (Acute) Scalp laceration with hemorrhage (Acute) Fall (Acute) Subjective: The patient had significant drop in H&H secondary to large lacerated wound/scalp laceration in left frontoparietal region. Hemoglobin dropped to 7.5 g percent. He had 1 unit of PRBC yesterday. Patient has diarrhea, mainly semisolid mushy in consistency. Chronic in nature. Has not taken recent antibiotics most probably last one in July 2017 No abdominal pain or tenderness so C. difficile less probability stool for occult blood, WBC and C. difficile ordered Vitals/I&O's: Vital Signs Temp Pulse Resp BP Pulse Ox 98.4 F 74 16 112/82 H 97 11/20/17 13:20 11/20/17 13:20 11/20/17 13:20 11/20/17 13:20 11/20/17 13:20 Oxygen Delivery Method Room Air Weight: 178 lb 5.663 oz Body Mass Index (BMI) 24.2 Intake and Output for Last 24 Hours 11/18/17 11/19/17 11/20/17 23:59 23:59 23:59 Intake Total 2071 / 1 1661 / 1661 Output Total 300 / 300 Balance 1771 / 1771 1661 / 1661 General: Alert, Oriented x3, Cooperative HEENT: Atraumatic, PERRLA, EOMI, Normocephalic Neck: Supple, No JVD, Negative Carotid Bruits Lungs: Clear to auscultation, Normal air movement Cardiovascular: Regular rate, Normal S1, Normal S2, No murmurs Abdomen: Bowel Sounds Present, Soft, Non Tender, Non-Distended Extremities: No edema, Capillary Refill Less than 3 Seconds Skin: Ulcer/ Wound - Large stapled lacerated wound in left frontoparietal region. No active bleeding Musculoskeletal: No Tenderness to Palpation of Joints or Extremities Neurological: Cranial nerves II-XII grossly intact, Neuro grossly intact Psych/Mental Status: Normal Affect, Appropriate Microbiology Past 72 Hours 11/20/17 13:10 Stool Stool Occult Blood (KAREN) - Final 11/20/17 13:10 Stool Stool Lactoferrin - Final Laboratory Results 11/19/17 19:14: Hgb 7.5 L, Hct 23.9 L 11/20/17 00:49: Hgb 8.3 L, Hct 26.0 L 11/20/17 05:10: WBC 7.0, RBC 2.92 L, Hgb 8.2 L, Hct 25.5 L, MCV 87.3, MCH 28.1, MCHC 32.2, RDW 18.5 H, RDW Differential 58.0 H, Plt Count 159, MPV 10.2 11/20/17 05:10: Sodium 143, Potassium 4.1, Chloride 107, Carbon Dioxide 27.0, Anion Gap 9, BUN 29 H, Creatinine 1.36 H, Estim Creat Clear Calc 45.96, Est GFR (MDRD) Af Amer 64, Est GFR (MDRD) Non-Af 53 L, BUN/Creatinine Ratio 21.3 H, Glucose 138 H, Calcium 8.3 L Current Medications Acetaminophen (Tylenol) 650 mg PO Q4H PRN PRN PRN Reason: PAIN Albuterol/Ipratropium (Duoneb) 3 ml INHALATION Q4H PRN PRN PRN Reason: sob Atorvastatin Calcium (Lipitor) 20 mg PO DAILY@2200 [facility] Last Admin: 11/19/17 21:34 Dose: 20 mg Carvedilol (Coreg) 6.25 mg PO BID [facility] Last Admin: 11/20/17 08:25 Dose: 6.25 mg Citalopram Hydrobromide (Celexa) 10 mg PO DAILY [facility] Last Admin: 11/20/17 08:25 Dose: 10 mg [facility] Last Admin: 11/20/17 08:24 Dose: 325 mg Furosemide (Lasix) 80 mg PO DAILY [facility] Last Admin: 11/20/17 08:25 Dose: 80 mg Nutritional Formula (Lactose Free) (Ensure Enlive) 120 ml PO 4X/DAY [facility] Last Admin: 11/20/17 08:33 Dose: 120 ml Pantoprazole Sodium (Protonix) 40 mg PO DAILY [facility] Last Admin: 11/20/17 08:25 Dose: 40 mg Sodium Chloride () 5 - 30 ml IV UD PRN PRN Reason: SALINE FLUSH Last Admin: 11/19/17 20:32 Dose: 20 ml Medical Necessity - Tobacco Use Smoking Status: Never smoker Assessment/Plan Active and Suspected Problems (Last Reviewed 10/02/17 @ 11:33 by Meredith Velasquez) Acute blood loss anemia (Acute) Scalp laceration with hemorrhage (Acute) Fall (Acute) The patient is a 81 year old M with multiple comorbidities including paroxysmal A. fib on Eliquis 2.5 mg twice daily, chronic systolic heart failure with marked lower extremity edema was brought in to ER by squad after he had fall and hit his head on the TV stand. He said he did not feel dizzy, lightheaded or arrhythmia but he lost the balance that caused a fall. He had multiple, about 6 surgeries in the left knee and thigh including myocutaneous flap/graft artery after he had kneecap fracture and then infection possible septic arthritis in the past. In ED, his blood pressure was low 107/68, heart rate 82 but no hypoxia. Per ER physician, Dr. Lind he had about 12 cm laceration on left frontoparietal area for he had a sara. Later on in the ER dressing was soaked with blood and was found that he has arterial bleed which was tied and bleeding was controlled. CT head does not show intracranial bleed. Chest x-ray shows bilateral pleural effusion and scarring and atelectasis. H&H dropped from 9.8 g percent to 8.4%. The patient had 1 L of normal saline bolus in the ER 1. Fall with major scalp laceration with active arterial bleed, consistent with head injury; present on admission: Seems fall was mainly mechanical after he lost balance on walker. Denies near syncope or syncope symptoms. PT and OT ordered. 2. Acute blood loss anemia secondary to scalp laceration and external hemorrhage: Hemoglobin dropped from 9.8-7.5 and then 1 unit of PRBC transfused. Repeat posttransfusion H&H 8.2 g percent. One more unit to be transfused today. Posttransfusion H&H. Mild hypotension resolved. Discontinue the IV fluid Monitor intake and output. Avoid fluid overload/pulmonary edema as he has heart failure. 3. Cardiac disease: Coronary artery disease status post CABG, paroxysmal A. fi status post cardioversion in 1999 and chronic systolic heart failure: Currently, denies active chest symptoms. On color television console monitor. Twelve-lead EKG ordered. Troponin ordered. Aspirin and Eliquis on hold in view of major hemorrhage. 2D echo done in June 2017 shows EF 47% with normal LV size. Left atrium mildly enlarged RA mildly enlarged. Normal RV size and systolic function. Mild TR, RVSP 28 mmHg. Mild eccentric MR. Mild diffuse mitral valve thickening with mild annular calcification. Mild diffuse aortic wall thickening. Lasix resume today 4. Subacute/chronic diarrhea; most probably from stool softener/laxative: Stool for occult blood and lactoferrin negative. 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 Hold antihypertensive medication. Blood pressure profile is better today. DVT prophylaxis on bilateral SCDs. Pharmacological prophylaxis contraindicated. This note was generated with [employer] dictation software. Every effort was made to ensure accuracy, however computerized horologist mistakes may persist. Microbiology Past 72 Hours 11/20/17 13:10 Stool Stool Occult Blood (KAREN) - Final 11/20/17 13:10 Stool Stool Lactoferrin - Final Laboratory Results 11/19/17 07:05: Crossmatch See Detail 11/19/17 19:14: Hgb 7.5 L, Hct 23.9 L 11/20/17 00:49: Hgb 8.3 L, Hct 26.0 L 11/20/17 05:10: WBC 7.0, RBC 2.92 L, Hgb 8.2 L, Hct 25.5 L, MCV 87.3, MCH 28.1, MCHC 32.2, RDW 18.5 H, RDW Differential 58.0 H, Plt Count 159, MPV 10.2 11/20/17 05:10: Sodium 143, Potassium 4.1, Chloride 107, Carbon Dioxide 27.0, Anion Gap 9, BUN 29 H, Creatinine 1.36 H, Estim Creat Clear Calc 45.96, Est GFR (MDRD) Af Amer 64, Est GFR (MDRD) Non-Af 53 L, BUN/Creatinine Ratio 21.3 H, Glucose 138 H, Calcium 8.3 L Clinical Impression(s) from Imaging Studies Brain CT 11/19/17 07:20 IMPRESSION: Chronic involutional changes of the brain. Scalp laceration with metallic sutures overlying the left frontal parietal bones. Electronically Signed: Camilo Deras MD at 8:46 EDT Tel [phone], Service support , Cervical Spine CT 11/19/17 07:21 IMPRESSION: Multilevel degenerative changes, as described above. Bilateral pleural effusions and scarring in both upper lobes. Electronically Signed: Camilo Deras MD at 8:32 EDT Tel [phone], Service support , Chest X-Ray 11/19/17 11:16 IMPRESSION: Bilateral pleural effusions. Postoperative changes of coronary artery bypass graft. Brain CT 11/20/17 05:55 IMPRESSION: Chronic involutional changes. No acute intracranial abnormality. [place] are seen along the left scalp laceration. Code Visit Inpatient E&M: 86166 Subs Hosp L2
--- NOTE | 2017-11-20 14:26 | PN_ITS ---
Patient Problems: Active and Suspected Problems (Last Reviewed 10/02/17 @ 11:33 by Meredith Velasquez) Acute blood loss anemia (Acute) Scalp laceration with hemorrhage (Acute) Fall (Acute) Subjective: The patient had significant drop in H&H secondary to large lacerated wound/ scalp laceration in left frontoparietal region. Hemoglobin dropped to 7.5 g percent. He had 1 unit of PRBC yesterday. Patient has diarrhea, mainly semisolid mushy in consistency. Chronic in nature. Has not taken recent antibiotics most probably last one in July 2017 No abdominal pain or tenderness so C. difficile less probability stool for occult blood, WBC and C. difficile ordered Vitals/I&O's: Vital Signs Temp Pulse Resp BP Pulse Ox 98.4 F 74 16 112/82 H 97 11/20/17 13:20 11/20/17 13:20 11/20/17 13:20 11/20/17 13:20 11/20/17 13:20 Oxygen Delivery Method Room Air Weight: 178 lb 5.663 oz Body Mass Index (BMI) 24.2 Intake and Output for Last 24 Hours 11/18/17 11/19/17 11/20/17 23:59 23:59 23:59 Intake Total 2071 / 1 1661 / 1661 Output Total 300 / 300 Balance 1771 / 1771 1661 / 1661 General: Alert, Oriented x3, Cooperative HEENT: Atraumatic, PERRLA, EOMI, Normocephalic Neck: Supple, No JVD, Negative Carotid Bruits Lungs: Clear to auscultation, Normal air movement Cardiovascular: Regular rate, Normal S1, Normal S2, No murmurs Abdomen: Bowel Sounds Present, Soft, Non Tender, Non-Distended Extremities: No edema, Capillary Refill Less than 3 Seconds Skin: Ulcer/ Wound - Large stapled lacerated wound in left frontoparietal region. No active bleeding Musculoskeletal: No Tenderness to Palpation of Joints or Extremities Neurological: Cranial nerves II-XII grossly intact, Neuro grossly intact Psych/Mental Status: Normal Affect, Appropriate Microbiology Past 72 Hours 11/20/17 13:10 Stool Stool Occult Blood (KAREN) - Final 11/20/17 13:10 Stool Stool Lactoferrin - Final Laboratory Results 11/19/17 19:14: Hgb 7.5 L, Hct 23.9 L 11/20/17 00:49: Hgb 8.3 L, Hct 26.0 L 11/20/17 05:10: WBC 7.0, RBC 2.92 L, Hgb 8.2 L, Hct 25.5 L, MCV 87.3, MCH 28.1, MCHC 32.2, RDW 18.5 H, RDW Differential 58.0 H, Plt Count 159, MPV 10.2 11/20/17 05:10: Sodium 143, Potassium 4.1, Chloride 107, Carbon Dioxide 27.0, Anion Gap 9, BUN 29 H, Creatinine 1.36 H, Estim Creat Clear Calc 45.96, Est GFR (MDRD) Af Amer 64, Est GFR (MDRD) Non-Af 53 L, BUN/Creatinine Ratio 21.3 H, Glucose 138 H, Calcium 8.3 L Current Medications Acetaminophen (Tylenol) 650 mg PO Q4H PRN PRN PRN Reason: PAIN Albuterol/Ipratropium (Duoneb) 3 ml INHALATION Q4H PRN PRN PRN Reason: sob Atorvastatin Calcium (Lipitor) 20 mg PO DAILY@2200 [facility] Last Admin: 11/19/17 21:34 Dose: 20 mg Carvedilol (Coreg) 6.25 mg PO BID [facility] Last Admin: 11/20/17 08:25 Dose: 6.25 mg Citalopram Hydrobromide (Celexa) 10 mg PO DAILY [facility] Last Admin: 11/20/17 08:25 Dose: 10 mg [facility] Admin: 11/20/17 08:24 Dose: 325 mg Furosemide (Lasix) 80 mg PO DAILY [facility] Last Admin: 11/20/17 08:25 Dose: 80 mg Nutritional Formula (Lactose Free) (Ensure Enlive) 120 ml PO 4X/DAY [facility] Last Admin: 11/20/17 08:33 Dose: 120 ml Pantoprazole Sodium (Protonix) 40 mg PO DAILY [facility] Last Admin: 11/20/17 08:25 Dose: 40 mg Sodium Chloride () 5 - 30 ml IV UD PRN PRN Reason: SALINE FLUSH Last Admin: 11/19/17 20:32 Dose: 20 ml Medical Necessity - Tobacco Use Smoking Status: Never smoker Assessment/Plan Active and Suspected Problems (Last Reviewed 10/02/17 @ 11:33 by Meredith Velasquez) Acute blood loss anemia (Acute) Scalp laceration with hemorrhage (Acute) Fall (Acute) The patient is a 81 year old M with multiple comorbidities including paroxysmal A. fib on Eliquis 2.5 mg twice daily, chronic systolic heart failure with marked lower extremity edema was brought in to ER by squad after he had fall and hit his head on the TV stand. He said he did not feel dizzy, lightheaded or arrhythmia but he lost the balance that caused a fall. He had multiple, about 6 surgeries in the left knee and thigh including myocutaneous flap/graft artery after he had kneecap fracture and then infection possible septic arthritis in the past. In ED, his blood pressure was low 107/68, heart rate 82 but no hypoxia. Per ER physician, Dr. Lind he had about 12 cm laceration on left frontoparietal area for he had a oni. Later on in the ER dressing was soaked with blood and was found that he has arterial bleed which was tied and bleeding was controlled. CT head does not show intracranial bleed. Chest x-ray shows bilateral pleural effusion and scarring and atelectasis. H&H dropped from 9.8 g percent to 8.4%. The patient had 1 L of normal saline bolus in the ER 1. Fall with major scalp laceration with active arterial bleed, consistent with head injury; present on admission: Seems fall was mainly mechanical after he lost balance on walker. Denies near syncope or syncope symptoms. PT and OT ordered. 2. Acute blood loss anemia secondary to scalp laceration and external hemorrhage: Hemoglobin dropped from 9.8-7.5 and then 1 unit of PRBC transfused. Repeat posttransfusion H&H 8.2 g percent. One more unit to be transfused today. Posttransfusion H&H. Mild hypotension resolved. Discontinue the IV fluid Monitor intake and output. Avoid fluid overload/pulmonary edema as he has heart failure. 3. Cardiac disease: Coronary artery disease status post CABG, paroxysmal A. fi status post cardioversion in 1999 and chronic systolic heart failure: Currently , denies active chest symptoms. 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 Twelve-lead EKG ordered. Troponin ordered. Aspirin and Eliquis on hold in view of major hemorrhage. 2D echo done in June 2017 shows EF 47% with normal LV size. Left atrium mildly enlarged RA mildly enlarged. Normal RV size and systolic function. Mild TR, RVSP 28 mmHg. Mild eccentric MR. Mild diffuse mitral valve thickening with mild annular calcification. Mild diffuse aortic wall thickening. Lasix resume today 4. Subacute/chronic diarrhea; most probably from stool softener/laxative: Stool for occult blood and lactoferrin negative. 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 Hold antihypertensive medication. Blood pressure profile is better today. DVT prophylaxis on bilateral SCDs. Pharmacological prophylaxis contraindicated. This note was generated with [employer] dictation software. Every effort was made to ensure accuracy, however computerized refinery operator mistakes may persist. Microbiology Past 72 Hours 11/20/17 13:10 Stool Stool Occult Blood (KAREN) - Final 11/20/17 13:10 Stool Stool Lactoferrin - Final Laboratory Results 11/19/17 07:05: Crossmatch See Detail 11/19/17 19:14: Hgb 7.5 L, Hct 23.9 L 11/20/17 00:49: Hgb 8.3 L, Hct 26.0 L 11/20/17 05:10: WBC 7.0, RBC 2.92 L, Hgb 8.2 L, Hct 25.5 L, MCV 87.3, MCH 28.1, MCHC 32.2, RDW 18.5 H, RDW Differential 58.0 H, Plt Count 159, MPV 10.2 11/20/17 05:10: Sodium 143, Potassium 4.1, Chloride 107, Carbon Dioxide 27.0, Anion Gap 9, BUN 29 H, Creatinine 1.36 H, Estim Creat Clear Calc 45.96, Est GFR (MDRD) Af Amer 64, Est GFR (MDRD) Non-Af 53 L, BUN/Creatinine Ratio 21.3 H, Glucose 138 H, Calcium 8.3 L Clinical Impression(s) from Imaging Studies Brain CT 11/19/17 07:20 IMPRESSION: Chronic involutional changes of the brain. Scalp laceration with metallic sutures overlying the left frontal parietal bones. Electronically Signed: Camilo Deras MD at 8:46 EDT Tel [phone], Service support , Cervical Spine CT 11/19/17 07:21 IMPRESSION: Multilevel degenerative changes, as described above. Bilateral pleural effusions and scarring in both upper lobes. Electronically Signed: Camilo Deras MD at 8:32 EDT Tel [phone], Service support , Chest X-Ray 11/19/17 11:16 IMPRESSION: Bilateral pleural effusions. Postoperative changes of coronary artery bypass graft. Brain CT 11/20/17 05:55 IMPRESSION: Chronic involutional changes. No acute intracranial abnormality. Oni are seen along the left scalp laceration. Code Visit Inpatient E&M: 36817 Subs Hosp L2
[2017-11-20 20:47] LABS: Hematocrit 29.8 % (40-54); Hemoglobin 9.6 g/dl (13.0-16.5)
[2017-11-20 21:16] LABS: Magnesium 2.1 mg/dL (1.6-2.6)
[2017-11-20] MEDS: Atorvastatin Calcium 20 MG Tablet PO (21:43)
[2017-11-21 03:01] VITALS: PULSE 96
[2017-11-21 03:30] VITALS: BP 101/58; PULSE 87; RESP 18; TEMP 36.9; O2SAT 94
[2017-11-21 06:32] LABS: Absolute Lymphocyte Count 1.16 X10^3/ul (0.83-4.51); Absolute Neutrophil Count 4.4 X10^3/uL (2.0-7.7); Eosinophil# 0.07 X10^3/uL; Eosinophils% 1.1 % (0-5); Hematocrit 27.9 % (40-54); Hemoglobin 8.8 g/dl (13.0-16.5); Lymphocyte # 1.16 X10^3/ul (4.0); Lymphocyte % 18.4 % (19-41); Mean Corp Hgb Conc 31.5 g/gl (32-36); Mean Corpuscular Hgb 27.8 pg (27.0-32.0); Mean Platelet Vol. 10.7 fl (6.2-12.0); Monocyte# 0.63 X10^3/uL; Neutrophil # 4.43 X10^3/uL (2.7-7.7); Neutrophil % 70.2 % (47-70); Platelet Count 159 K/mm3 (150-450); RBC Distribution Width CV 18.5 % (11.6-14.6); RBC Distribution Width SD 57.5 fl (35.1-43.9); Red Blood Count 3.17 M/mm3 (4.6-6.2); White Blood Count 6.3 K/mm3 (4.4-11.0)
[2017-11-21 06:37] LABS: POSITIVE COUNT NO; POSITIVE DIFFERENTIAL NO; POSITIVE MORPHOLOGY NO
[2017-11-21 06:47] LABS: Anion Gap 8 (5-15); BUN 27 mg/dL (7-18); BUN/Creat Ratio 21.4 RATIO (10-20); Calcium,Total 8.6 mg/dL (8.5-10.1); Chloride 105 mmol/L (98-107); Creatinine, Serum 1.26 mg/dL (0.70-1.30); EST Glomerular Filtration Rate 58 mL/min (>60); Est Glom Filt Rate - Afr Amer 70 mL/min (>60); Estimated Creatinine Clearance 49.61 ml/min; Glucose 145 mg/dL (74-106); Potassium 4.2 mmol/L (3.5-5.1); Sodium Level 141 mmol/L (136-145)
[2017-11-21 07:12] VITALS: PULSE 80
[2017-11-21 07:45] VITALS: O2SAT 92
[2017-11-21 10:14] VITALS: BP 104/50; PULSE 77; RESP 18; TEMP 36.8; O2SAT 94
[2017-11-21] MEDS: Ferrous Sulfate 325 MG Tablet PO (10:19)
[2017-11-21] MEDS: Citalopram 10 MG Tablet PO (10:20)
[2017-11-21] MEDS: Furosemide 80 MG Tablet PO (10:20)
[2017-11-21] MEDS: Carvedilol 6.25 MG Tablet PO (10:20)
[2017-11-21] MEDS: Pantoprazole Sodium 40 MG Tablet PO (10:20)
--- NOTE | 2017-11-21 10:53 | PCM.DC ---
- Discharge Diagnoses Current Active Problems: Current Active and Chronic Problems (Last Reviewed 10/02/17 @ 11:33 by Meredith Velasquez) Acute blood loss anemia (Acute) Scalp laceration with hemorrhage (Acute) Fall (Acute) You will use the following diet at home:: Cardiac Your food should be the consistency of: Regular Discharge Activity: May Not Drive Additional Instructions: Outpatient PT and OT rehab. Need removal of scalp sara after 6 days Allergies/Adverse Reactions: Allergies No Known Allergies Allergy (Verified 10/02/17 11:34) Medications to take at Discharge acetaminophen 325 mg tablet 650 mg PO Q4H PRN 08/08/17 atorvastatin 20 mg tablet 20 mg PO QDAY 08/08/17 carvedilol 6.25 mg tablet 6.25 mg PO BID 08/08/17 pantoprazole 40 mg tablet,delayed release 40 mg PO QDAY 08/08/17 Citalopram [Celexa] 10 mg PO DAILY 09/27/17 Furosemide [Lasix] 80 mg PO DAILY 11/19/17 Apixaban [Eliquis] 2.5 mg PO BID #180 tab 11/21/17 Aspirin [Aspirin, Baby] 81 mg PO DAILY@0800 #30 tab.chew 11/21/17 Ferrous Sulfate [Iron] 325 mg PO DAILY #60 tab 11/21/17 The following prescriptions were given: Ferrous Sulfate [Iron] 325 mg PO DAILY #60 tab Primary Care Physician: Hardik Puga Chi, MD [Primary Care Provider] - Please follow up with your Primary Care Physician in: IN 1-2 weeks Please Follow Up With: Ko Cedeño MD When: big lac wound on eliquis
--- NOTE | 2017-11-21 10:56 | DS.PCM_ITS ---
Discharge Date and Diagnosis Date of Admission: 11/19/17 Date of Discharge: 11/21/17 - Primary Discharge Diagnosis Active and Suspected Problems (Last Reviewed 10/02/17 @ 11:33 by Meredith Velasquez) 1. Fall with major scalp laceration with active arterial bleed, consistent with head injury; present on admission: 2. Acute blood loss anemia secondary to scalp laceration and external hemorrhage - Secondary Discharge Diagnosis Chronic Problems (Last Reviewed 10/02/17 @ 11:33 by Meredith Velasquez) Bilateral lower extremity edema (Chronic) Chronic systolic (congestive) heart failure (Chronic) Paroxysmal atrial fibrillation (Chronic) DCCV January 2000; Atherosclerosis of [place] coronary artery of [place] heart without angina pectoris (Chronic) CABG 01/22/2000 NGO to LAD, reverse SVG as a sequential graft to DX and LCX, reverse SVG to the two ventricular branches of the right Ischemic cardiomyopathy (Chronic) Chronic ulcer of left leg, 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 fib on Eliquis 2.5 mg twice daily, chronic systolic heart failure with marked lower extremity edema was brought in to ER by squad after he had fall and hit his head on the TV stand. He said he did not feel dizzy, lightheaded or arrhythmia but he lost the balance that caused a fall. He had multiple, about 6 surgeries in the left knee and thigh including myocutaneous flap/graft artery after he had kneecap fracture and then infection possible septic arthritis in the past. In ED, his blood pressure was low 107/68, heart rate 82 but no hypoxia. Per ER physician, Dr. Lind he had about 12 cm laceration on left frontoparietal area for he had a sara. Later on in the ER dressing was soaked with blood and was found that he has arterial bleed which was tied and bleeding was controlled. CT head does not show intracranial bleed. Chest x-ray shows bilateral pleural effusion and scarring and atelectasis. H&H dropped from 9.8 g percent to 8.4%. The patient had 1 L of normal saline bolus in the ER. Patient was seen and examined. H&H is stable. Denies near syncope symptoms. General: Alert, Oriented x3, Cooperative HEENT: Atraumatic, PERRLA, EOMI, Normocephalic Neck: Supple, No JVD, Negative Carotid Bruits Lungs: Clear to auscultation, Normal air movement Cardiovascular: Regular rate, Normal S1, Normal S2, No murmurs Abdomen: Bowel Sounds Present, Soft, Non Tender, Non-Distended Extremities: No edema, Capillary Refill Less than 3 Seconds Skin: Ulcer/ Wound - Large stapled lacerated wound in left frontoparietal region. No active bleeding Musculoskeletal: No Tenderness to Palpation of Joints or Extremities Neurological: Cranial nerves II-XII grossly intact, Neuro grossly intact Psych/Mental Status: Normal Affect, Appropriate 1. Fall with major scalp laceration with active arterial bleed, consistent with head injury; present on admission: Seems fall was mainly mechanical after he lost balance on walker. Denies near syncope or syncope symptoms. PT and OT was done and patient walked good. Does not require SNF placement as per PT recommendation. 2. Acute blood loss anemia secondary to scalp laceration and external hemorrhage: Hemoglobin dropped from 9.8-7.5 and and had 2 units of PRBC transfusion over 2 days. Posttransfusion H&H 9.6 and 8.8 g percent. Patient was given 200 grams IV Venofer. Patient had adequate resuscitation. Patient was resumed on diuretics. Monitor intake and output. 3. Cardiac disease: Coronary artery disease status post CABG, paroxysmal A. fi status post cardioversion in 1999 and chronic systolic heart failure: Currently , denies active chest symptoms. 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 Twelve-lead EKG ordered. Troponin ordered. Aspirin and Eliquis on hold in view of major hemorrhage. 2D echo done in June 2017 shows EF 47% with normal LV size. Left atrium mildly enlarged RA mildly enlarged. Normal RV size and systolic function. Mild TR, RVSP 28 mmHg. Mild eccentric MR. Mild diffuse mitral valve thickening with mild annular calcification. Mild diffuse aortic wall thickening. 4. Subacute/chronic diarrhea; most probably from stool softener/laxative: Stool for occult blood and lactoferrin negative. 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 Hold antihypertensive medication. Blood pressure profile is better today. DVT prophylaxis on bilateral SCDs. Pharmacological prophylaxis contraindicated. Patient follows Dr. reddy. Via great holding aspirin aspirin for 5 days and Eliquis for 7 days. Follow with PCP in 1-[address] Reddy. Prescription for ferrous sulfate given. Discharge medication reconciliation done. Discharge follow-up instructions completed. Total time spent, exact 35 minutes on discharge meds reconciliation, examination , review of imaging and blood test and discussion with the patient on follow-up instructions. Discharge Activity: May Not Drive Home Medications: Medications to take at Discharge acetaminophen 325 mg tablet 650 mg PO Q4H PRN 08/08/17 atorvastatin 20 mg tablet 20 mg PO QDAY 08/08/17 carvedilol 6.25 mg tablet 6.25 mg PO BID 08/08/17 pantoprazole 40 mg tablet,delayed release 40 mg PO QDAY 08/08/17 Citalopram [Celexa] 10 mg PO DAILY 09/27/17 Furosemide [Lasix] 80 mg PO DAILY 11/19/17 Apixaban [Eliquis] 2.5 mg PO BID #180 tab 11/21/17 Aspirin [Aspirin, Baby] 81 mg PO DAILY@0800 #30 tab.chew 11/21/17 Ferrous Sulfate [Iron] 325 mg PO DAILY #60 tab 11/21/17 Following Prescrptions Were Given to Patient: Ferrous Sulfate [Iron] 325 mg PO DAILY #60 tab Primary Care Physician: Hardik Puga Chi, MD [Primary Care Provider] - Please follow up with your Primary Care Physician in: IN 1-2 weeks Please Follow Up With: Ko Reddy MD When: big lac wound on eliquis Medical Necessity - Tobacco Use Smoking Status: Never smoker Meaningful Use Info Meaningful Use Diagnoses (Choose all that apply): None applicable Code Visit Inpatient E&M: 30551 Disch Hosp
--- NOTE | 2017-11-21 11:14 | CASEMGMT ---
MARIA ELENA spoke with patient and he said he is going home. MARIA ELENA asked him if he would like SW to set up home health so therapy can see him at home. He said he does his own therapy. Katie DUTTA
[2017-11-21 11:39] VITALS: PULSE 77
[2017-11-21] MEDS: 0.9% NaCl Peripheral Flush Adult/Peds IV (11:49)
--- NOTE | 2017-11-22 11:49 | CASEMGMT ---
Phone call received from Jam at [facility]. They are active with patient and requested information be faxed. MARIA ELENA faxed order to resume services, d/c instructions, and H&P. Katie STATON MSW
--- NOTE | 2017-11-25 14:50 | CASEMGMT ---
RN MAREI DC Phone call. Intro role of CM to patient in room. Pt states he has been feeling better since discharge. Inquired if pt had questions re: prescriptions, DC instructions, follow up appts. Pt states he does not have questions. No suggestions given re: improving care, pt states everything was alright. SUSAN SALAZAR thanked pt for choosing [facility], no further questions per pt. Estefania LOGANN RN ACM
== END 2017-11-21 14:33 | disposition home or self-care (01) | DRG 812 ==
LOC: ED 07:33 → PCU 11-20 02:47
PROVIDERS: Family Medicine; Admitting Provider Internal Medicine; Emergency Provider Emergency Medicine; Family Provider Family Medicine Geriatric Medicine; PCP Family Medicine Geriatric Medicine; Visit Provider Internal Medicine
DX: D62 Acute posthemorrhagic anemia (principal); I25.810 Atherosclerosis of coronary artery bypass graft(s) without angina pectoris; I50.22 Chronic systolic (congestive) heart failure; L97.921 Non-pressure chronic ulcer of unspecified part of left lower leg limited to breakdown of skin; S01.01XA Laceration without foreign body of scalp, initial encounter; W18.30XA Fall on same level, unspecified, initial encounter; I48.0 Paroxysmal atrial fibrillation; I25.10 Atherosclerotic heart disease of native coronary artery without angina pectoris; I25.5 Ischemic cardiomyopathy; E78.5 Hyperlipidemia, unspecified; I11.0 Hypertensive heart disease with heart failure; Z79.01 Long term (current) use of anticoagulants; Z95.1 Presence of aortocoronary bypass graft
CPT/HCPCS: 36415; 70450; 71045; 72125; 80048; 82274; 83630; 83735; 84484; 85014; 85018; 85025; 85027; 85610; 85730; 86850; 86900; 86920; 87493; 93005; 97110; 97116; 97162; 97165; 97530; 99285; J1756; J7030; P9016; A4216

== ENCOUNTER 2018-01-01 08:00 | Outpatient (RCR) | payer MEDICARE, SELFPAY ==
[2018-01-01 08:12] VITALS: BP 116/70; PULSE 77; RESP 18; TEMP 36.3
--- NOTE | 2018-01-01 08:42 | PCM.WC.PN ---
(1) Ulcer of left lower extremity with fat layer exposed Status: Chronic Current Visit: Yes Code(s): L97.922 - Non-pressure chronic ulcer of unspecified part of left lower leg with fat layer exposed (2) Bilateral lower extremity edema Status: Chronic Current Visit: No Code(s): R60.0 - Localized edema Type of Wound Date of Service: 01/01/18 Chief Complaint: nonpressure ulcer left lower extremity. Swelling of both legs History of Wound: Being seen here for recurrent left lower extremity ulcer. However last seen here 2 week ago. No new complaints at this time. Not properly applying compression. - Physical Exam Vital Signs Temp Pulse Resp BP 97.3 F L 77 18 116/70 01/01/18 08:12 01/01/18 08:12 01/01/18 08:12 01/01/18 08:12 General: Alert, Oriented x3, Cooperative, No apparent distress HEENT: Atraumatic Oral: Moist Mucosa Neck: Supple Lungs: Normal air movement Abdomen: Non Tender Extremities: No cyanosis, Edema Skin: Ulcer/ Wound Wound Measurements and Assessment WC - Nurse 1 - General Ulcer Measurement Start: 12/30/17 15:25 Freq: Status: Active Protocol: Activity Type Activity Date Activity User E-Sign Co-Sign Detail Recorded Client Recorded Date Recorded By Document 01/01/18 08:12 CAMILA [id number] 01/01/18 08:28 CAMILA 01/01/18 08:12 Wound Center Nurse 1 [Ulcer Assessment] #8 LEFT POSTERIOR CALF -Combined with other wound No -Current Size (cm) - Length 1.9 -Current Size (cm) - Width 0.3 -Current Size (cm) - Depth 0.2 -Total Square Cm 0.57 -Date of Last Picture (Recall this 12/25/17 field) -Photo Taken No -Epithelialization None Present -Tunneling No -Undermining/Tunneling No -Circular Undermining No -Classification - Thickness Full Thickness without Exposed Support Structure -Change in Wound Grade/Stage No Query Text:If change please identify the Stage/Grade in the comment (ie. S2 G3) -Exudate Amt Small (1-33%) -Exudate Type Serous -Wound Margin Distinct, Outline Attached -Granulation Amt None Present (0 %) -Granulation Quality N/A -Slough/Fibrin Yes -Necrosis Amt None Present (0 %) -Necrotic Tissue Type Adherent Slough -Structure Exposed None/Limited to Skin Breakdown -Texture (Elisa-wound Skin Appearance) No Abnormality Localized Edema -Moisture (Elisa-wound Skin Appearance No Abnormality ) -Color (Elisa-wound Skin Appearance) No Abnormality -Temperature (Elisa-wound Skin No Abnormality Appearance) (Pt Warm) -Tenderness on Palpation (Elisa-wound No Skin Appearance) -Ulcer Cleansing Rinsed/ Irrigated with Saline -Foul Odor after Cleansing No -Anesthetic Used 4% Lidocaine Solution [Edema Assessment] -Lower Limb Edema Present Yes -Right Calf (cm) 41.0 -Right Ankle (cm) 23.7 -Left Calf (cm) 39.5 -Left Ankle (cm) 22.0 Musculoskeletal: No Muscle Wasting Neurological: Cranial nerves II-XII grossly intact Psych/Mental Status: Normal Affect Debridement Note Wound debrided: Left lower extremity ( Posterior ) Wound Grade/Stage: Stage II Type of Debridement: Excisional debridement Anesthesia Used: 4% Lidocaine Solution Depth: Down to and including healthy tissue, in the subcutaneous layer Percentage of wound debrided: 100 Instrument Used: 3mm curette Tissue Removed: Slough and devitalized tissue Severity: Fat Layer Exposed Amount of bleeding with debridement: Mild Bleeding Controlled with: Pressure Patient tolerated procedure well Assessment/Plan Active Problems (Last Updated 12/03/17 @ 09:34 by Chato Moran) 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 Bilaterl lower extremity edema Plan: Wound is showing good improvement. Debridement done as documented above, procedure was well tolerated. Apply pomogran, leave in place for 1 week. Improperly applying surepress so, will switch to light 3M wraps. Elevate lower extremity when sitted and in bed. Continue increased protein intake and supplements. Advised to call with any questions or concerns. Follow up next week for a nurse visit and in 2 weeks with me.
== END 2018-01-11 23:59 ==
LOC: WC 08:00
PROVIDERS: Family Provider Family Medicine Geriatric Medicine; PCP Family Medicine Geriatric Medicine; Visit Provider Internal Medicine
DX: R60.0 Localized edema (principal); M79.89 Other specified soft tissue disorders; L97.822 Non-pressure chronic ulcer of other part of left lower leg with fat layer exposed
CPT/HCPCS: 11042; 29581; 99212; 99213; G0463

== ENCOUNTER → 2018-01-02 11:34 | Outpatient (CLI) | payer MEDICARE, SELFPAY ==
[2018-01-02 12:47] LABS: Absolute Lymphocyte Count 0.86 X10^3/ul (0.83-4.51); Absolute Neutrophil Count 3.6 X10^3/uL (2.0-7.7); Basophil# 0.01 X10^3/uL; Basophil% 0.2 % (0-1); Eosinophil# 0.07 X10^3/uL; Eosinophils% 1.4 % (0-5); Hematocrit 32.8 % (40-54); Hemoglobin 10.6 g/dl (13.0-16.5); Lymphocyte # 0.86 X10^3/ul (4.0); Lymphocyte % 17.3 % (19-41); Mean Corp Hgb Conc 32.3 g/gl (32-36); Mean Corpuscular Hgb 28.6 pg (27.0-32.0); Mean Corpuscular Volume 88.6 fL (80-94); Mean Platelet Vol. 10.7 fl (6.2-12.0); Monocyte# 0.45 X10^3/uL; Monocyte% 9.1 % (0-10); Neutrophil # 3.56 X10^3/uL (2.7-7.7); Neutrophil % 71.8 % (47-70); Platelet Count 187 K/mm3 (150-450); RBC Distribution Width CV 16.6 % (11.6-14.6); RBC Distribution Width SD 52.8 fl (35.1-43.9)
[2018-01-02 12:50] LABS: POSITIVE COUNT NO; POSITIVE DIFFERENTIAL NO; POSITIVE MORPHOLOGY NO
[2018-01-02 13:12] LABS: ALB/GLOB Ratio 0.9 RATIO (0.9-2.4); AST(SGOT) 39 U/L (15-37); Alanine Aminotransfer ALT/SGPT 38 U/L (16-61); Albumin, Serum 3.4 g/dL (3.2-5.0); Alkaline Phosphatase 174 U/L (45-117); Anion Gap 7 (5-15); BUN 29 mg/dL (7-18); BUN/Creat Ratio 22.1 RATIO (10-20); Calcium,Total 8.9 mg/dL (8.5-10.1); Chloride 102 mmol/L (98-107); Creatinine, Serum 1.31 mg/dL (0.70-1.30); EST Glomerular Filtration Rate 56 mL/min (>60); Est Glom Filt Rate - Afr Amer 67 mL/min (>60); Globulin 3.6 g/dL (2.2-4.2); Glucose 142 mg/dL (74-106); Potassium 3.7 mmol/L (3.5-5.1); Sodium Level 137 mmol/L (136-145)
[2018-01-03 09:55] LABS: Vitamin D,25 Hydroxy 23.1 ng/mL (29.95-100.01)
[2018-01-07 09:22] VITALS: BP 109/65; PULSE 78; RESP 16; TEMP 36.6
== END ==
PROVIDERS: Family Provider Family Medicine Geriatric Medicine; PCP Family Medicine Geriatric Medicine; Visit Provider Family Medicine Geriatric Medicine
DX: E55.9 Vitamin D deficiency, unspecified (principal); I10 Essential (primary) hypertension
CPT/HCPCS: 36415; 80053; 82306; 84443; 85025

== ENCOUNTER 2018-02-06 10:00 | Outpatient (RCR) | payer MEDICARE, SELFPAY ==
[2018-01-12 01:09] VITALS: BP 116/70; PULSE 77; RESP 18; TEMP 36.3
[2018-01-16 08:09] VITALS: BP 124/73; PULSE 79; RESP 18; TEMP 36.3
--- NOTE | 2018-01-16 08:25 | PCM.WC.PN ---
(1) Bilateral lower extremity edema Status: Chronic Current Visit: No Code(s): R60.0 - Localized edema (2) Ulcer of left lower extremity with fat layer exposed Status: Chronic Current Visit: No Code(s): L97.922 - Non-pressure chronic ulcer of unspecified part of left lower leg with fat layer exposed Type of Wound Date of Service: 01/16/18 Chief Complaint: nonpressure ulcer left lower extremity. Swelling of both legs History of Wound: Being seen here for recurrent left lower extremity ulcer. However last seen here 2 week ago. No new complaints at this time. Not properly applying compression. Progress of Wound: Improving. - Physical Exam Vital Signs Temp Pulse Resp BP 97.3 F L 79 18 124/73 H 01/16/18 08:09 01/16/18 08:09 01/16/18 08:09 01/16/18 08:09 General: Alert, Oriented x3, Cooperative, No apparent distress HEENT: Atraumatic Oral: Moist Mucosa Neck: Supple Lungs: Normal air movement Abdomen: Non Tender Extremities: No cyanosis, Edema Skin: Ulcer/ Wound Wound Measurements and Assessment WC - Nurse 1 - General Ulcer Measurement Start: 01/16/18 08:09 Freq: Status: Active Protocol: Activity Type Activity Date Activity User E-Sign Co-Sign Detail Recorded Client Recorded Date Recorded By Document 01/16/18 08:09 ANDREY [id number] 01/16/18 08:12 ANDREY 01/16/18 08:09 Wound Center Nurse 1 [Ulcer Assessment] #8 LEFT POSTERIOR CALF -Combined with other wound No -Current Size (cm) - Length 0.1 -Current Size (cm) - Width 0.1 -Current Size (cm) - Depth 0.1 -Total Square Cm 0.01 -Photo Taken No -Epithelialization Large 67-100% -Tunneling No -Undermining/Tunneling No -Circular Undermining No -Exudate Amt None Present (0 %) -Wound Margin Indistinct, Non -Visible -Granulation Amt None Present (0 %) -Slough/Fibrin Yes -Necrosis Amt Large (67-100%) -Necrotic Tissue Type Adherent Slough -Structure Exposed N/A -Texture (Elisa-wound Skin Appearance) Assessed Localized Edema Scarring -Moisture (Elisa-wound Skin Appearance Assessed ) Dry/Scaly -Color (Elisa-wound Skin Appearance) Assessed -Temperature (Elisa-wound Skin No Abnormality Appearance) (Pt Warm) -Tenderness on Palpation (Elisa-wound No Skin Appearance) -Ulcer Cleansing Wound Cleanser -Foul Odor after Cleansing No -Anesthetic Used 4% Lidocaine Solution [Edema Assessment] -Lower Limb Edema Present Yes -Right Calf (cm) 32.7 -Right Ankle (cm) 21.3 -Left Calf (cm) 29.5 -Left Ankle (cm) 21.0 Musculoskeletal: No Muscle Wasting Neurological: Cranial nerves II-XII grossly intact Psych/Mental Status: Normal Affect Debridement Note Wound debrided: Left lower extremity ( Posterior ) Wound Grade/Stage: Stage II Type of Debridement: Excisional debridement Anesthesia Used: 4% Lidocaine Solution Depth: Down to and including healthy tissue Percentage of wound debrided: 100 Instrument Used: 3mm curette Tissue Removed: Devitalized tissue Severity: Limited To Skin Breakdown Amount of bleeding with debridement: None Patient tolerated procedure well Assessment/Plan Assessment: Recurrent left lower extremity ulcer. Bilaterl lower extremity edema Plan: Wound is showing good improvement. Debridement done as documented above, procedure was well tolerated. Anticipate complete healing in a week. Continue pomogran, leave in place for 1 week. Continue 3M for edema management. Elevate lower extremity when sitted and in bed. Continue increased protein intake and supplements. Advised to call with any questions or concerns. Follow up in 1 week. This note was generated with [employer] dictation software. It may contain incorrect words, spelling, and punctuation that were not noted in checking the note before signing.
[2018-01-23 09:02] VITALS: BP 119/70; PULSE 69; RESP 18; TEMP 36.1
--- NOTE | 2018-01-23 09:43 | PCM.WC.PN ---
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 Swelling of both legs History of Wound: Being seen here for recurrent left lower extremity ulcer. However last seen here 2 week ago. No new complaints at this time. Not properly applying compression. Progress of Wound: Improving. - Physical Exam Vital Signs Temp Pulse Resp BP 97 F L 69 18 119/70 01/23/18 09:02 01/23/18 09:02 01/23/18 09:02 01/23/18 09:02 General: Alert, Oriented x3, Cooperative, No apparent distress HEENT: Atraumatic Oral: Moist Mucosa Neck: Supple Lungs: Normal air movement Abdomen: Non Tender Extremities: No cyanosis, Edema Skin: Ulcer/ Wound Wound Measurements and Assessment WC - Nurse 1 - General Ulcer Measurement Start: 01/16/18 08:09 Freq: Status: Active Protocol: Activity Type Activity Date Activity User E-Sign Co-Sign Detail Recorded Client Recorded Date Recorded By Document 01/23/18 09:02 CLEMENCIA [id number] 01/23/18 09:07 CLEMENCIA 01/23/18 09:02 Wound Center Nurse 1 [Ulcer Assessment] #8 LEFT POSTERIOR CALF -Current Size (cm) - Length 0.1 -Current Size (cm) - Width 0.1 -Current Size (cm) - Depth 0.1 -Total Square Cm 0.01 -Photo Taken Yes -Exudate Amt None Present (0 %) -Wound Margin Flat & Intact -Granulation Amt Large (67-100%) -Granulation Quality Pale [place] -Necrosis Amt None Present (0 %) -Necrotic Tissue Type Adherent Slough -Structure Exposed N/A -Texture (Elisa-wound Skin Appearance) Scarring -Moisture (Elisa-wound Skin Appearance No Abnormality ) -Color (Elisa-wound Skin Appearance) No Abnormality -Ulcer Cleansing Rinsed/ Irrigated with Saline -Foul Odor after Cleansing No -Anesthetic Used 4% Lidocaine Solution [Edema Assessment] -Left Calf (cm) 28.8 -Left Ankle (cm) 19.5 - Nurse 2 - General Ulcer CM Notes Start: 01/16/18 08:09 Freq: Status: Active Protocol: Activity Type Activity Date Activity User E-Sign Co-Sign Detail Recorded Client Recorded Date Recorded By Document 01/23/18 09:39 [id number] 01/23/18 09:40 01/23/18 09:39 Wound Center Nurse 2 [Procedure/Treatment] #8 LEFT POSTERIOR CALF -Time 09:39 -Correct Patient Yes -Correct Side, Site, Position Yes -Correct Procedure Yes -Procedure Performed Yes -Type of Procedure Debridement -Clinical Debridement Subcutaneous -Post Debridement Size (cm) - Length 0.8 -Post Debridement Size (cm) - Width 0.3 -Post Debridement Size (cm) - Depth 0.1 -Total Square Cm 0.24 -Wound/Ulcer Outcome Not Healed -Ulcer Cleansing Rinsed/ Irrigated with Saline -Foul Odor after Cleansing No -Bioengineered Tissue No -Topical Lidocaine (%) 4 -Lidocaine (ml) 5 -Bleeding Controlled with NA -Treatment Response Procedure Tolerated Well [See Physician Procedure note for Specifics] Musculoskeletal: No Muscle Wasting Neurological: Cranial nerves II-XII grossly intact Psych/Mental Status: Normal Affect Debridement Note Post-Debridement Measurements/Treatment WC - Nurse 2 - General Ulcer CM Notes Start: 01/16/18 08:09 Freq: Status: Active Protocol: Activity Type Activity Date Activity User E-Sign Co-Sign Detail Recorded Client Recorded Date Recorded By Document 01/16/18 08:44 [id number] 01/16/18 08:45 Document 01/23/18 09:39 [id number] 01/23/18 09:40 01/16/18 01/23/18 08:44 09:39 Wound Center Nurse 2 #8 LEFT POSTERIOR CALF -Time 08:44 09:39 -Correct Patient Yes Yes -Correct Side, Site, Position Yes Yes -Correct Procedure Yes Yes -Procedure Performed Yes Yes -Type of Procedure Debridement Debridement -Clinical Debridement Subcutaneous Subcutaneous -Post Debridement Size (cm) - Length 2.0 0.8 -Post Debridement Size (cm) - Width 0.3 0.3 -Post Debridement Size (cm) - Depth 0.2 0.1 -Total Square Cm 0.60 0.24 -Wound/Ulcer Outcome Not Healed Not Healed -Ulcer Cleansing Rinsed/ Rinsed/ Irrigated with Irrigated with Saline Saline -Foul Odor after Cleansing No No -Bioengineered Tissue No No -Topical Lidocaine (%) 4 4 -Lidocaine (ml) 5 5 -Bleeding Controlled with NA NA -Treatment Response Procedure Procedure Tolerated Well Tolerated Well Pain Scale: 0-10 Numeric Is Patient Pain Free? 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 Bilateral lower extremity edema. Plan: Wound continues to show good improvement. Debridement done as documented above, procedure was well tolerated. Continue promogran with adaptic over top and leave in placee for 1 week. Continue 3M for edema management. Elevate lower extremity when sitted and in bed. Continue increased protein intake and supplements. Advised to call with any questions or concerns. Follow up in 1 week. This note was generated with [employer] dictation software. It may contain incorrect words, spelling, and punctuation that were not noted in checking the note before signing.
--- NOTE | 2018-01-23 09:46 | PN.PCM_ITS ---
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 Swelling of both legs History of Wound: Being seen here for recurrent left lower extremity ulcer. However last seen here 2 week ago. No new complaints at this time. Not properly applying compression. Progress of Wound: Improving. - Physical Exam Vital Signs Temp Pulse Resp BP 97 F L 69 18 119/70 01/23/18 09:02 01/23/18 09:02 01/23/18 09:02 01/23/18 09:02 General: Alert, Oriented x3, Cooperative, No apparent distress HEENT: Atraumatic Oral: Moist Mucosa Neck: Supple Lungs: Normal air movement Abdomen: Non Tender Extremities: No cyanosis, Edema Skin: Ulcer/ Wound Wound Measurements and Assessment WC - Nurse 1 - General Ulcer Measurement Start: 01/16/18 08:09 Freq: Status: Active Protocol: Activity Type Activity Date Activity User E-Sign Co-Sign Detail Recorded Client Recorded Date Recorded By Document 01/23/18 09:02 CLEMENCIA [id number] 01/23/18 09:07 CLEMENCIA 01/23/18 09:02 Wound Center Nurse 1 [Ulcer Assessment] #8 LEFT POSTERIOR CALF -Current Size (cm) - Length 0.1 -Current Size (cm) - Width 0.1 -Current Size (cm) - Depth 0.1 -Total Square Cm 0.01 -Photo Taken Yes -Exudate Amt None Present (0 %) -Wound Margin Flat & Intact -Granulation Amt Large (67-100%) -Granulation Quality Pale [place] -Necrosis Amt None Present (0 %) -Necrotic Tissue Type Adherent Slough -Structure Exposed N/A -Texture (Elisa-wound Skin Appearance) Scarring -Moisture (Elisa-wound Skin Appearance No Abnormality ) -Color (Elisa-wound Skin Appearance) No Abnormality -Ulcer Cleansing Rinsed/ Irrigated with Saline -Foul Odor after Cleansing No -Anesthetic Used 4% Lidocaine Solution [Edema Assessment] -Left Calf (cm) 28.8 -Left Ankle (cm) 19.5 - Nurse 2 - General Ulcer CM Notes Start: 01/16/18 08:09 Freq: Status: Active Protocol: Activity Type Activity Date Activity User E-Sign Co-Sign Detail Recorded Client Recorded Date Recorded By Document 01/23/18 09:39 [id number] 01/23/18 09:40 01/23/18 09:39 Wound Center Nurse 2 [Procedure/Treatment] #8 LEFT POSTERIOR CALF -Time 09:39 -Correct Patient Yes -Correct Side, Site, Position Yes -Correct Procedure Yes -Procedure Performed Yes -Type of Procedure Debridement -Clinical Debridement Subcutaneous -Post Debridement Size (cm) - Length 0.8 -Post Debridement Size (cm) - Width 0.3 -Post Debridement Size (cm) - Depth 0.1 -Total Square Cm 0.24 -Wound/Ulcer Outcome Not Healed -Ulcer Cleansing Rinsed/ Irrigated with Saline -Foul Odor after Cleansing No -Bioengineered Tissue No -Topical Lidocaine (%) 4 -Lidocaine (ml) 5 -Bleeding Controlled with NA -Treatment Response Procedure Tolerated Well [See Physician Procedure note for Specifics] Musculoskeletal: No Muscle Wasting Neurological: Cranial nerves II-XII grossly intact Psych/Mental Status: Normal Affect Debridement Note Post-Debridement Measurements/Treatment WC - Nurse 2 - General Ulcer CM Notes Start: 01/16/18 08:09 Freq: Status: Active Protocol: Activity Type Activity Date Activity User E-Sign Co-Sign Detail Recorded Client Recorded Date Recorded By Document 01/16/18 08:44 [id number] 01/16/18 08:45 Document 01/23/18 09:39 [id number] 01/23/18 09:40 01/16/18 01/23/18 08:44 09:39 Wound Center Nurse 2 #8 LEFT POSTERIOR CALF -Time 08:44 09:39 -Correct Patient Yes Yes -Correct Side, Site, Position Yes Yes -Correct Procedure Yes Yes -Procedure Performed Yes Yes -Type of Procedure Debridement Debridement -Clinical Debridement Subcutaneous Subcutaneous -Post Debridement Size (cm) - Length 2.0 0.8 -Post Debridement Size (cm) - Width 0.3 0.3 -Post Debridement Size (cm) - Depth 0.2 0.1 -Total Square Cm 0.60 0.24 -Wound/Ulcer Outcome Not Healed Not Healed -Ulcer Cleansing Rinsed/ Rinsed/ Irrigated with Irrigated with Saline Saline -Foul Odor after Cleansing No No -Bioengineered Tissue No No -Topical Lidocaine (%) 4 4 -Lidocaine (ml) 5 5 -Bleeding Controlled with NA NA -Treatment Response Procedure Procedure Tolerated Well Tolerated Well Pain Scale: 0-10 Numeric Is Patient Pain Free? 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 Bilateral lower extremity edema. Plan: Wound continues to show good improvement. Debridement done as documented above, procedure was well tolerated. Continue promogran with adaptic over top and leave in placee for 1 week. Continue 3M for edema management. Elevate lower extremity when sitted and in bed. Continue increased protein intake and supplements. Advised to call with any questions or concerns. Follow up in 1 week. This note was generated with [employer] dictation software. It may contain incorrect words, spelling, and punctuation that were not noted in checking the note before signing.
[2018-01-30 08:40] VITALS: BP 101/55; PULSE 69; RESP 18; TEMP 36
--- NOTE | 2018-01-30 09:27 | PCM.WC.PN ---
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 Swelling of both legs History of Wound: Being seen here for recurrent left lower extremity ulcer. However last seen here 2 week ago. No new complaints at this time. Not properly applying compression. Progress of Wound: Improving. - Physical Exam Vital Signs Temp Pulse Resp BP 96.8 F L 69 18 101/55 L 01/30/18 08:40 01/30/18 08:40 01/30/18 08:40 01/30/18 08:40 General: Alert, Oriented x3, Cooperative, No apparent distress HEENT: Atraumatic Oral: Moist Mucosa Neck: Supple Lungs: Normal air movement Abdomen: Non Tender Extremities: No cyanosis, Edema Skin: Ulcer/ Wound Wound Measurements and Assessment WC - Nurse 1 - General Ulcer Measurement Start: 01/16/18 08:09 Freq: Status: Active Protocol: Activity Type Activity Date Activity User E-Sign Co-Sign Detail Recorded Client Recorded Date Recorded By Document 01/30/18 08:40 [id number] 01/30/18 08:52 RB 01/30/18 08:40 Wound Center Nurse 1 [Ulcer Assessment] #8 LEFT POSTERIOR CALF -Combined with other wound No -Current Size (cm) - Length 1.8 -Current Size (cm) - Width 0.1 -Current Size (cm) - Depth 0.1 -Total Square Cm 0.18 -Photo Taken No -Epithelialization Small 1-33% -Tunneling No -Undermining/Tunneling No -Circular Undermining No -Classification - Thickness Full Thickness without Exposed Support Structure -Exudate Amt Small (1-33%) -Exudate Type Serosanguineous -Wound Margin Distinct, Outline Attached -Granulation Amt Large (67-100%) -Granulation Quality [place] -Slough/Fibrin Yes -Necrosis Amt Small (1-33%) -Necrotic Tissue Type Adherent Slough -Structure Exposed N/A -Texture (Elisa-wound Skin Appearance) Assessed -Moisture (Elisa-wound Skin Appearance Assessed ) -Color (Elisa-wound Skin Appearance) Assessed -Temperature (Elisa-wound Skin No Abnormality Appearance) (Pt Warm) -Tenderness on Palpation (Elisa-wound No Skin Appearance) -Ulcer Cleansing Wound Cleanser -Foul Odor after Cleansing No -Anesthetic Used 4% Lidocaine Solution [Edema Assessment] -Lower Limb Edema Present Yes -Right Calf (cm) 40 -Right Ankle (cm) 21.5 -Left Calf (cm) 38 -Left Ankle (cm) 19.6 - Nurse 2 - General Ulcer CM Notes Start: 01/16/18 08:09 Freq: Status: Active Protocol: Activity Type Activity Date Activity User E-Sign Co-Sign Detail Recorded Client Recorded Date Recorded By Document 01/30/18 09:24 [id number] 01/30/18 09:25 01/30/18 09:24 Wound Center Nurse 2 [Procedure/Treatment] #8 LEFT POSTERIOR CALF -Time 09:24 -Correct Patient Yes -Correct Side, Site, Position Yes -Correct Procedure Yes -Procedure Performed Yes -Type of Procedure Debridement -Clinical Debridement Subcutaneous -Post Debridement Size (cm) - Length 1.0 -Post Debridement Size (cm) - Width 0.2 -Post Debridement Size (cm) - Depth 0.1 -Total Square Cm 0.20 -Wound/Ulcer Outcome Not Healed -Ulcer Cleansing Rinsed/ Irrigated with Saline -Foul Odor after Cleansing No -Bioengineered Tissue No -Topical Lidocaine (%) 5 -Bleeding Controlled with NA -Treatment Response Procedure Tolerated Well [See Physician Procedure note for Specifics] Musculoskeletal: No Muscle Wasting Neurological: Cranial nerves II-XII grossly intact Psych/Mental Status: Normal Affect Debridement Note Post-Debridement Measurements/Treatment - Nurse 2 - General Ulcer CM Notes Start: 01/16/18 08:09 Freq: Status: Active Protocol: Activity Type Activity Date Activity User E-Sign Co-Sign Detail Recorded Client Recorded Date Recorded By Document 01/16/18 08:44 [id number] 01/16/18 08:45 JS Document 01/23/18 09:39 [id number] 01/23/18 09:40 JS Document 01/30/18 09:24 [id number] 01/30/18 09:25 01/16/18 01/23/18 01/30/18 08:44 09:39 09:24 Wound Center Nurse 2 #8 LEFT POSTERIOR CALF -Time 08:44 09:39 09:24 -Correct Patient Yes Yes Yes -Correct Side, Site, Position Yes Yes Yes -Correct Procedure Yes Yes Yes -Procedure Performed Yes Yes Yes -Type of Procedure Debridement Debridement Debridement -Clinical Debridement Subcutaneous Subcutaneous Subcutaneous -Post Debridement Size (cm) - Length 2.0 0.8 1.0 -Post Debridement Size (cm) - Width 0.3 0.3 0.2 -Post Debridement Size (cm) - Depth 0.2 0.1 0.1 -Total Square Cm 0.60 0.24 0.20 -Wound/Ulcer Outcome Not Healed Not Healed Not Healed -Ulcer Cleansing Rinsed/ Rinsed/ Rinsed/ Irrigated with Irrigated with Irrigated with Saline Saline Saline -Foul Odor after Cleansing No No No -Bioengineered Tissue No No No -Topical Lidocaine (%) 4 4 5 -Lidocaine (ml) 5 5 -Bleeding Controlled with NA NA NA -Treatment Response Procedure Procedure Procedure Tolerated Well Tolerated Well Tolerated Well Pain Scale: 0-10 Numeric Is Patient Pain Free? 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 Bilateral lower extremity edema. Plan: Wound continues to show good improvement. Debridement done as documented above, procedure was well tolerated. Continue promogran with adaptic over top. 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 Elevate lower extremity when sitted and in bed. Continue increased protein intake and supplements. Advised to call with any questions or concerns. Follow up in 1 week. This note was generated with [employer] software. It may contain incorrect words, spelling, and punctuation that were not noted in checking the note before signing.
--- NOTE | 2018-01-30 09:35 | PN.PCM_ITS ---
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 Swelling of both legs History of Wound: Being seen here for recurrent left lower extremity ulcer. However last seen here 2 week ago. No new complaints at this time. Not properly applying compression. Progress of Wound: Improving. - Physical Exam Vital Signs Temp Pulse Resp BP 96.8 F L 69 18 101/55 L 01/30/18 08:40 01/30/18 08:40 01/30/18 08:40 01/30/18 08:40 General: Alert, Oriented x3, Cooperative, No apparent distress HEENT: Atraumatic Oral: Moist Mucosa Neck: Supple Lungs: Normal air movement Abdomen: Non Tender Extremities: No cyanosis, Edema Skin: Ulcer/ Wound Wound Measurements and Assessment WC - Nurse 1 - General Ulcer Measurement Start: 01/16/18 08:09 Freq: Status: Active Protocol: Activity Type Activity Date Activity User E-Sign Co-Sign Detail Recorded Client Recorded Date Recorded By Document 01/30/18 08:40 [id number] 01/30/18 08:52 RB 01/30/18 08:40 Wound Center Nurse 1 [Ulcer Assessment] #8 LEFT POSTERIOR CALF -Combined with other wound No -Current Size (cm) - Length 1.8 -Current Size (cm) - Width 0.1 -Current Size (cm) - Depth 0.1 -Total Square Cm 0.18 -Photo Taken No -Epithelialization Small 1-33% -Tunneling No -Undermining/Tunneling No -Circular Undermining No -Classification - Thickness Full Thickness without Exposed Support Structure -Exudate Amt Small (1-33%) -Exudate Type Serosanguineous -Wound Margin Distinct, Outline Attached -Granulation Amt Large (67-100%) -Granulation Quality [place] -Slough/Fibrin Yes -Necrosis Amt Small (1-33%) -Necrotic Tissue Type Adherent Slough -Structure Exposed N/A -Texture (Eilsa-wound Skin Appearance) Assessed -Moisture (Elisa-wound Skin Appearance Assessed ) -Color (Elisa-wound Skin Appearance) Assessed -Temperature (Elisa-wound Skin No Abnormality Appearance) (Pt Warm) -Tenderness on Palpation (Elisa-wound No Skin Appearance) -Ulcer Cleansing Wound Cleanser -Foul Odor after Cleansing No -Anesthetic Used 4% Lidocaine Solution [Edema Assessment] -Lower Limb Edema Present Yes -Right Calf (cm) 40 -Right Ankle (cm) 21.5 -Left Calf (cm) 38 -Left Ankle (cm) 19.6 - Nurse 2 - General Ulcer CM Notes Start: 01/16/18 08:09 Freq: Status: Active Protocol: Activity Type Activity Date Activity User E-Sign Co-Sign Detail Recorded Client Recorded Date Recorded By Document 01/30/18 09:24 [id number] 01/30/18 09:25 01/30/18 09:24 Wound Center Nurse 2 [Procedure/Treatment] #8 LEFT POSTERIOR CALF -Time 09:24 -Correct Patient Yes -Correct Side, Site, Position Yes -Correct Procedure Yes -Procedure Performed Yes -Type of Procedure Debridement -Clinical Debridement Subcutaneous -Post Debridement Size (cm) - Length 1.0 -Post Debridement Size (cm) - Width 0.2 -Post Debridement Size (cm) - Depth 0.1 -Total Square Cm 0.20 -Wound/Ulcer Outcome Not Healed -Ulcer Cleansing Rinsed/ Irrigated with Saline -Foul Odor after Cleansing No -Bioengineered Tissue No -Topical Lidocaine (%) 5 -Bleeding Controlled with NA -Treatment Response Procedure Tolerated Well [See Physician Procedure note for Specifics] Musculoskeletal: No Muscle Wasting Neurological: Cranial nerves II-XII grossly intact Psych/Mental Status: Normal Affect Debridement Note Post-Debridement Measurements/Treatment - Nurse 2 - General Ulcer CM Notes Start: 01/16/18 08:09 Freq: Status: Active Protocol: Activity Type Activity Date Activity User E-Sign Co-Sign Detail Recorded Client Recorded Date Recorded By Document 01/16/18 08:44 [id number] 01/16/18 08:45 JS Document 01/23/18 09:39 [id number] 01/23/18 09:40 JS Document 01/30/18 09:24 [id number] 01/30/18 09:25 01/16/18 01/23/18 01/30/18 08:44 09:39 09:24 Wound Center Nurse 2 #8 LEFT POSTERIOR CALF -Time 08:44 09:39 09:24 -Correct Patient Yes Yes Yes -Correct Side, Site, Position Yes Yes Yes -Correct Procedure Yes Yes Yes -Procedure Performed Yes Yes Yes -Type of Procedure Debridement Debridement Debridement -Clinical Debridement Subcutaneous Subcutaneous Subcutaneous -Post Debridement Size (cm) - Length 2.0 0.8 1.0 -Post Debridement Size (cm) - Width 0.3 0.3 0.2 -Post Debridement Size (cm) - Depth 0.2 0.1 0.1 -Total Square Cm 0.60 0.24 0.20 -Wound/Ulcer Outcome Not Healed Not Healed Not Healed -Ulcer Cleansing Rinsed/ Rinsed/ Rinsed/ Irrigated with Irrigated with Irrigated with Saline Saline Saline -Foul Odor after Cleansing No No No -Bioengineered Tissue No No No -Topical Lidocaine (%) 4 4 5 -Lidocaine (ml) 5 5 -Bleeding Controlled with NA NA NA -Treatment Response Procedure Procedure Procedure Tolerated Well Tolerated Well Tolerated Well Pain Scale: 0-10 Numeric Is Patient Pain Free? 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 Bilateral lower extremity edema. Plan: Wound continues to show good improvement. Debridement done as documented above, procedure was well tolerated. Continue promogran with adaptic over top. Change daily.Switch to double layer Tubi toolmaker helper for edema management. Elevate lower extremity when sitted and in bed. Continue increased protein intake and supplements. Advised to call with any questions or concerns. Follow up in 1 week. This note was generated with [employer] software. It may contain incorrect words, spelling, and punctuation that were not noted in checking the note before signing.
[2018-02-06 10:17] VITALS: BP 108/70; PULSE 66; RESP 18; TEMP 36.4
--- NOTE | 2018-02-06 11:22 | PCM.WC.PN ---
(1) Bilateral lower extremity edema Status: Chronic Current Visit: Yes Code(s): R60.0 - Localized edema (2) Ulcer of left lower extremity with fat layer exposed Status: Chronic Current Visit: Yes Code(s): L97.922 - Non-pressure chronic ulcer of unspecified part of left lower leg with fat layer exposed Type of Wound Date of Service: 02/06/18 Chief Complaint: nonpressure ulcer left lower extremity. Swelling of both legs History of Wound: Being seen here for recurrent left lower extremity ulcer. However last seen here 2 week ago. No new complaints at this time. Not properly applying compression. Progress of Wound: Improving. - Physical Exam Vital Signs Temp Pulse Resp BP 97.5 F L 66 18 108/70 02/06/18 10:17 02/06/18 10:17 02/06/18 10:17 02/06/18 10:17 General: Alert, Oriented x3, Cooperative HEENT: Atraumatic Oral: Moist Mucosa Neck: Supple Lungs: Normal air movement Extremities: No cyanosis, Edema Skin: Ulcer/ Wound Wound Measurements and Assessment WC - Nurse 1 - General Ulcer Measurement Start: 01/16/18 08:09 Freq: Status: Active Protocol: Activity Type Activity Date Activity User E-Sign Co-Sign Detail Recorded Client Recorded Date Recorded By Document 02/06/18 10:17 DL [id number] 02/06/18 10:26 DL 02/06/18 10:17 Wound Center Nurse 1 [Ulcer Assessment] #8 LEFT POSTERIOR CALF -Current Size (cm) - Length 2 -Current Size (cm) - Width 0.3 -Current Size (cm) - Depth 0.1 -Total Square Cm 0.6 -Photo Taken No -Exudate Amt None Present (0 %) -Wound Margin Thickened -Granulation Amt Small (1-33%) -Granulation Quality Pale -Necrosis Amt Large (67-100%) -Necrotic Tissue Type Adherent Slough -Structure Exposed N/A -Texture (Elisa-wound Skin Appearance) Localized Edema Scarring -Moisture (Elisa-wound Skin Appearance Dry/Scaly ) -Color (Elisa-wound Skin Appearance) No Abnormality Hemosiderin Staining -Temperature (Elisa-wound Skin No Abnormality Appearance) (Pt Warm) -Ulcer Cleansing Rinsed/ Irrigated with Saline -Foul Odor after Cleansing No -Anesthetic Used 4% Lidocaine Solution [Edema Assessment] -Right Calf (cm) 37.5 -Right Ankle (cm) 23 -Left Calf (cm) 35 -Left Ankle (cm) 24.5 Musculoskeletal: No Muscle Wasting Neurological: Cranial nerves II-XII grossly intact Psych/Mental Status: Normal Affect Debridement Note Post-Debridement Measurements/Treatment WC - Nurse 2 - General Ulcer CM Notes Start: 01/16/18 08:09 Freq: Status: Active Protocol: Activity Type Activity Date Activity User E-Sign Co-Sign Detail Recorded Client Recorded Date Recorded By Document 01/16/18 08:44 [id number] 01/16/18 08:45 JS Document 01/23/18 09:39 JS [id number] 01/23/18 09:40 JS Document 01/30/18 09:24 JS [id number] 01/30/18 09:25 JS 01/16/18 01/23/18 01/30/18 08:44 09:39 09:24 Wound Center Nurse 2 #8 LEFT POSTERIOR CALF -Time 08:44 09:39 09:24 -Correct Patient Yes Yes Yes -Correct Side, Site, Position Yes Yes Yes -Correct Procedure Yes Yes Yes -Procedure Performed Yes Yes Yes -Type of Procedure Debridement Debridement Debridement -Clinical Debridement Subcutaneous Subcutaneous Subcutaneous -Post Debridement Size (cm) - Length 2.0 0.8 1.0 -Post Debridement Size (cm) - Width 0.3 0.3 0.2 -Post Debridement Size (cm) - Depth 0.2 0.1 0.1 -Total Square Cm 0.60 0.24 0.20 -Wound/Ulcer Outcome Not Healed Not Healed Not Healed -Ulcer Cleansing Rinsed/ Rinsed/ Rinsed/ Irrigated with Irrigated with Irrigated with Saline Saline Saline -Foul Odor after Cleansing No No No -Bioengineered Tissue No No No -Topical Lidocaine (%) 4 4 5 -Lidocaine (ml) 5 5 -Bleeding Controlled with NA NA NA -Treatment Response Procedure Procedure Procedure Tolerated Well Tolerated Well Tolerated Well Pain Scale: 0-10 Numeric Is Patient Pain Free? 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 Bilateral lower extremity edema. Plan: Wound continues to show good improvement. Debridement done as documented above, procedure was well tolerated. Continue promogran with adaptic over top. leave in for a week. 3M wraps for edema management. Elevate lower extremity when seated and in bed. Continue increased protein intake and supplements. Advised to call with any questions or concerns. Follow up in 1 week. This note was generated with [employer] dictation software. It may contain incorrect words, spelling, and punctuation that were not noted in checking the note before signing.
--- NOTE | 2018-02-06 11:25 | PN.PCM_ITS ---
(1) Bilateral lower extremity edema Status: Chronic Current Visit: Yes Code(s): R60.0 - Localized edema (2) Ulcer of left lower extremity with fat layer exposed Status: Chronic Current Visit: Yes Code(s): L97.922 - Non-pressure chronic ulcer of unspecified part of left lower leg with fat layer exposed Type of Wound Date of Service: 02/06/18 Chief Complaint: nonpressure ulcer left lower extremity. Swelling of both legs History of Wound: Being seen here for recurrent left lower extremity ulcer. However last seen here 2 week ago. No new complaints at this time. Not properly applying compression. Progress of Wound: Improving. - Physical Exam Vital Signs Temp Pulse Resp BP 97.5 F L 66 18 108/70 02/06/18 10:17 02/06/18 10:17 02/06/18 10:17 02/06/18 10:17 General: Alert, Oriented x3, Cooperative HEENT: Atraumatic Oral: Moist Mucosa Neck: Supple Lungs: Normal air movement Extremities: No cyanosis, Edema Skin: Ulcer/ Wound Wound Measurements and Assessment WC - Nurse 1 - General Ulcer Measurement Start: 01/16/18 08:09 Freq: Status: Active Protocol: Activity Type Activity Date Activity User E-Sign Co-Sign Detail Recorded Client Recorded Date Recorded By Document 02/06/18 10:17 DL [id number] 02/06/18 10:26 DL 02/06/18 10:17 Wound Center Nurse 1 [Ulcer Assessment] #8 LEFT POSTERIOR CALF -Current Size (cm) - Length 2 -Current Size (cm) - Width 0.3 -Current Size (cm) - Depth 0.1 -Total Square Cm 0.6 -Photo Taken No -Exudate Amt None Present (0 %) -Wound Margin Thickened -Granulation Amt Small (1-33%) -Granulation Quality Pale -Necrosis Amt Large (67-100%) -Necrotic Tissue Type Adherent Slough -Structure Exposed N/A -Texture (Elisa-wound Skin Appearance) Localized Edema Scarring -Moisture (Elisa-wound Skin Appearance Dry/Scaly ) -Color (Elisa-wound Skin Appearance) No Abnormality Hemosiderin Staining -Temperature (Elisa-wound Skin No Abnormality Appearance) (Pt Warm) -Ulcer Cleansing Rinsed/ Irrigated with Saline -Foul Odor after Cleansing No -Anesthetic Used 4% Lidocaine Solution [Edema Assessment] -Right Calf (cm) 37.5 -Right Ankle (cm) 23 -Left Calf (cm) 35 -Left Ankle (cm) 24.5 Musculoskeletal: No Muscle Wasting Neurological: Cranial nerves II-XII grossly intact Psych/Mental Status: Normal Affect Debridement Note Post-Debridement Measurements/Treatment WC - Nurse 2 - General Ulcer CM Notes Start: 01/16/18 08:09 Freq: Status: Active Protocol: Activity Type Activity Date Activity User E-Sign Co-Sign Detail Recorded Client Recorded Date Recorded By Document 01/16/18 08:44 [id number] 01/16/18 08:45 JS Document 01/23/18 09:39 JS [id number] 01/23/18 09:40 JS Document 01/30/18 09:24 JS [id number] 01/30/18 09:25 JS 01/16/18 01/23/18 01/30/18 08:44 09:39 09:24 Wound Center Nurse 2 #8 LEFT POSTERIOR CALF -Time 08:44 09:39 09:24 -Correct Patient Yes Yes Yes -Correct Side, Site, Position Yes Yes Yes -Correct Procedure Yes Yes Yes -Procedure Performed Yes Yes Yes -Type of Procedure Debridement Debridement Debridement -Clinical Debridement Subcutaneous Subcutaneous Subcutaneous -Post Debridement Size (cm) - Length 2.0 0.8 1.0 -Post Debridement Size (cm) - Width 0.3 0.3 0.2 -Post Debridement Size (cm) - Depth 0.2 0.1 0.1 -Total Square Cm 0.60 0.24 0.20 -Wound/Ulcer Outcome Not Healed Not Healed Not Healed -Ulcer Cleansing Rinsed/ Rinsed/ Rinsed/ Irrigated with Irrigated with Irrigated with Saline Saline Saline -Foul Odor after Cleansing No No No -Bioengineered Tissue No No No -Topical Lidocaine (%) 4 4 5 -Lidocaine (ml) 5 5 -Bleeding Controlled with NA NA NA -Treatment Response Procedure Procedure Procedure Tolerated Well Tolerated Well Tolerated Well Pain Scale: 0-10 Numeric Is Patient Pain Free? 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 Bilateral lower extremity edema. Plan: Wound continues to show good improvement. Debridement done as documented above, procedure was well tolerated. Continue promogran with adaptic over top. leave in for a week. 3M wraps for edema management. Elevate lower extremity when seated and in bed. Continue increased protein intake and supplements. Advised to call with any questions or concerns. Follow up in 1 week. This note was generated with [employer] dictation software. It may contain incorrect words, spelling, and punctuation that were not noted in checking the note before signing.
== END 2018-02-11 23:59 ==
LOC: WC 10:00
PROVIDERS: Family Provider Family Medicine Geriatric Medicine; PCP Family Medicine Geriatric Medicine; Visit Provider Internal Medicine
DX: L97.822 Non-pressure chronic ulcer of other part of left lower leg with fat layer exposed (principal); R60.0 Localized edema; M79.89 Other specified soft tissue disorders
CPT/HCPCS: 11042; 29581

== ENCOUNTER 2018-03-13 09:30 | Outpatient (RCR) | payer MEDICARE, SELFPAY ==
[2018-02-12 01:04] VITALS: BP 108/70; PULSE 66; RESP 18; TEMP 36.4
[2018-02-13 09:33] VITALS: BP 106/61; PULSE 76; RESP 16; TEMP 36.3
--- NOTE | 2018-02-13 10:25 | PCM.WC.PN ---
(1) Ulcer of left lower extremity with fat layer exposed Status: Chronic Current Visit: Yes Code(s): L97.922 - Non-pressure chronic ulcer of unspecified part of left lower leg with fat layer exposed (2) Bilateral lower extremity edema Status: Chronic Current Visit: Yes Code(s): R60.0 - Localized edema (3) Ischemic cardiomyopathy Status: Chronic Current Visit: No Code(s): I25.5 - Ischemic cardiomyopathy Type of Wound Date of Service: 02/13/18 Chief Complaint: nonpressure ulcer left lower extremity. Swelling of both legs History of Wound: Being seen here for recurrent left lower extremity ulcer. However last seen here 2 week ago. No new complaints at this time. Not properly applying compression. Progress of Wound: Improving. - Physical Exam Vital Signs Temp Pulse Resp BP 97.3 F L 76 16 106/61 02/13/18 09:33 02/13/18 09:33 02/13/18 09:33 02/13/18 09:33 General: Alert, Oriented x3, Cooperative, No apparent distress HEENT: Atraumatic Oral: Moist Mucosa Neck: Supple Extremities: No cyanosis, Edema Skin: Ulcer/ Wound Wound Measurements and Assessment WC - Nurse 1 - General Ulcer Measurement Start: 02/13/18 09:33 Freq: Status: Active Protocol: Activity Type Activity Date Activity User E-Sign Co-Sign Detail Recorded Client Recorded Date Recorded By Document 02/13/18 09:33 MW [id number] 02/13/18 09:36 MW 02/13/18 09:33 Wound Center Nurse 1 [Ulcer Assessment] #8 LEFT POSTERIOR CALF -Combined with other wound No -Current Size (cm) - Length 2.3 -Current Size (cm) - Width 0.5 -Current Size (cm) - Depth 0.1 -Total Square Cm 1.15 -Photo Taken No -Epithelialization Small 1-33% -Tunneling No -Undermining/Tunneling No -Circular Undermining No -Exudate Amt None Present (0 %) -Granulation Amt None Present (0 %) -Granulation Quality N/A -Slough/Fibrin Yes -Necrosis Amt Large (67-100%) -Necrotic Tissue Type Adherent Slough -Structure Exposed None/Limited to Skin Breakdown -Texture (Elisa-wound Skin Appearance) No Abnormality Localized Edema Scarring -Moisture (Elisa-wound Skin Appearance Assessed ) Dry/Scaly -Color (Elisa-wound Skin Appearance) Assessed Rubor -Temperature (Elisa-wound Skin No Abnormality Appearance) (Pt Warm) -Tenderness on Palpation (Elisa-wound No Skin Appearance) -Ulcer Cleansing Rinsed/ Irrigated with Saline -Foul Odor after Cleansing No -Anesthetic Used 4% Lidocaine Solution [Edema Assessment] -Lower Limb Edema Present Yes -Left Calf (cm) 32.8 -Point of Measurement (cm from the 23.0 medial instep) WC - Nurse 2 - General Ulcer CM Notes Start: 02/13/18 09:33 Freq: Status: Active Protocol: Activity Type Activity Date Activity User E-Sign Co-Sign Detail Recorded Client Recorded Date Recorded By Document 02/13/18 10:06 MW [id number] 02/13/18 10:12 MW 02/13/18 10:06 Wound Center Nurse 2 [Procedure/Treatment] #8 LEFT POSTERIOR CALF -Time 10:07 -Correct Patient Yes -Correct Side, Site, Position Yes -Correct Procedure Yes -Procedure Performed Yes -Type of Procedure Debridement -Clinical Debridement Selective -Post Debridement Size (cm) - Length 0.3 -Post Debridement Size (cm) - Width 0.2 -Post Debridement Size (cm) - Depth 0.1 -Total Square Cm 0.06 -Wound/Ulcer Outcome Not Healed -Ulcer Cleansing Rinsed/ Irrigated with Saline -Foul Odor after Cleansing No -Bioengineered Tissue No -Bleeding Controlled with Pressure -Treatment Response Procedure Tolerated Well [See Physician Procedure note for Specifics] Pain Scale: 0-10 Numeric [Pain] -Is Patient Pain Free? Yes Musculoskeletal: No Muscle Wasting Neurological: Cranial nerves II-XII grossly intact Psych/Mental Status: Normal Affect Debridement Note Post-Debridement Measurements/Treatment WC - Nurse 2 - General Ulcer CM Notes Start: 02/13/18 09:33 Freq: Status: Active Protocol: Activity Type Activity Date Activity User E-Sign Co-Sign Detail Recorded Client Recorded Date Recorded By Document 02/13/18 10:06 MW [id number] 02/13/18 10:12 MW 02/13/18 10:06 Wound Center Nurse 2 #8 LEFT POSTERIOR CALF -Time 10:07 -Correct Patient Yes -Correct Side, Site, Position Yes -Correct Procedure Yes -Procedure Performed Yes -Type of Procedure Debridement -Clinical Debridement Selective -Post Debridement Size (cm) - Length 0.3 -Post Debridement Size (cm) - Width 0.2 -Post Debridement Size (cm) - Depth 0.1 -Total Square Cm 0.06 -Wound/Ulcer Outcome Not Healed -Ulcer Cleansing Rinsed/ Irrigated with Saline -Foul Odor after Cleansing No -Bioengineered Tissue No -Bleeding Controlled with Pressure -Treatment Response Procedure Tolerated Well Pain Scale: 0-10 Numeric Is Patient Pain Free? 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 Bilateral lower extremity edema. Plan: Minimal area left. Debridement done as documented above, procedure was well tolerated. Continue promogran with adaptic over top. leave in for a week. 3M wraps for edema management. Elevate lower extremity when seated and in bed. Continue increased protein intake and supplements. Advised to call with any questions or concerns. Follow up in 1 week. This note was generated with [employer] software. It may contain incorrect words, spelling, and punctuation that were not noted in checking the note before signing.
[2018-02-20 09:48] VITALS: BP 114/74; PULSE 83; RESP 20; TEMP 36.6
--- NOTE | 2018-02-20 10:09 | PCM.WC.PN ---
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 Swelling of both legs History of Wound: Being seen here for recurrent left lower extremity ulcer. However last seen here 2 week ago. No new complaints at this time. Not properly applying compression. Progress of Wound: Worsened lower extremity edema. He has been without compression for 6 days. Tooks his 3M wraps off on saturday. - Physical Exam Vital Signs Temp Pulse Resp BP 98 F 83 20 H 114/74 02/20/18 09:48 02/20/18 09:48 02/20/18 09:48 02/20/18 09:48 General: Alert, Oriented x3, Cooperative, No apparent distress HEENT: Atraumatic Oral: Moist Mucosa Neck: Supple Lungs: Normal air movement Extremities: No cyanosis, Edema Skin: Ulcer/ Wound Wound Measurements and Assessment WC - Nurse 1 - General Ulcer Measurement Start: 02/13/18 09:33 Freq: Status: Active Protocol: Activity Type Activity Date Activity User E-Sign Co-Sign Detail Recorded Client Recorded Date Recorded By Document 02/20/18 09:48 DL [id number] 02/20/18 09:54 DL 02/20/18 09:48 Wound Center Nurse 1 [Ulcer Assessment] #8 LEFT POSTERIOR CALF -Current Size (cm) - Length 2.9 -Current Size (cm) - Width 0.4 -Current Size (cm) - Depth 0.1 -Total Square Cm 1.16 -Photo Taken No -Exudate Amt None Present (0 %) -Wound Margin Thickened -Granulation Amt None Present (0 %) -Necrosis Amt Large (67-100%) -Necrotic Tissue Type Adherent Slough -Structure Exposed N/A -Texture (Elisa-wound Skin Appearance) Localized Edema Scarring -Moisture (Elisa-wound Skin Appearance No Abnormality ) -Color (Elisa-wound Skin Appearance) No Abnormality -Temperature (Elisa-wound Skin No Abnormality Appearance) (Pt Warm) -Ulcer Cleansing Wound Cleanser -Foul Odor after Cleansing No -Anesthetic Used 4% Lidocaine Solution [Edema Assessment] -Right Calf (cm) 41.1 -Right Ankle (cm) 26.5 -Left Calf (cm) 35 -Left Ankle (cm) 23.2 WC - Nurse 2 - General Ulcer CM Notes Start: 02/13/18 09:33 Freq: Status: Active Protocol: Activity Type Activity Date Activity User E-Sign Co-Sign Detail Recorded Client Recorded Date Recorded By Document 02/20/18 10:03 MW [id number] 02/20/18 10:07 MW 02/20/18 10:03 Wound Center Nurse 2 [Procedure/Treatment] #8 LEFT POSTERIOR CALF -Time 10:03 -Correct Patient Yes -Correct Side, Site, Position Yes -Correct Procedure Yes -Procedure Performed Yes -Type of Procedure Debridement -Clinical Debridement Subcutaneous -Post Debridement Size (cm) - Length 1.0 -Post Debridement Size (cm) - Width 0.3 -Post Debridement Size (cm) - Depth 0.1 -Total Square Cm 0.30 -Wound/Ulcer Outcome Not Healed -Ulcer Cleansing Rinsed/ Irrigated with Saline -Foul Odor after Cleansing No -Bioengineered Tissue No -Bleeding Controlled with Pressure -Treatment Response Procedure Tolerated Well [See Physician Procedure note for Specifics] Pain Scale: 0-10 Numeric [Pain] -Is Patient Pain Free? Yes Musculoskeletal: No Muscle Wasting Neurological: Cranial nerves II-XII grossly intact Psych/Mental Status: Normal Affect Debridement Note Post-Debridement Measurements/Treatment - Nurse 2 - General Ulcer CM Notes Start: 02/13/18 09:33 Freq: Status: Active Protocol: Activity Type Activity Date Activity User E-Sign Co-Sign Detail Recorded Client Recorded Date Recorded By Document 02/13/18 10:06 MW [id number] 02/13/18 10:12 MW Document 02/20/18 10:03 MW [id number] 02/20/18 10:07 MW 02/13/18 02/20/18 10:06 10:03 Wound Center Nurse 2 #8 LEFT POSTERIOR CALF -Time 10:07 10:03 -Correct Patient Yes Yes -Correct Side, Site, Position Yes Yes -Correct Procedure Yes Yes -Procedure Performed Yes Yes -Type of Procedure Debridement Debridement -Clinical Debridement Selective Subcutaneous -Post Debridement Size (cm) - Length 0.3 1.0 -Post Debridement Size (cm) - Width 0.2 0.3 -Post Debridement Size (cm) - Depth 0.1 0.1 -Total Square Cm 0.06 0.30 -Wound/Ulcer Outcome Not Healed Not Healed -Ulcer Cleansing Rinsed/ Rinsed/ Irrigated with Irrigated with Saline Saline -Foul Odor after Cleansing No No -Bioengineered Tissue No No -Bleeding Controlled with Pressure Pressure -Treatment Response Procedure Procedure Tolerated Well Tolerated Well Pain Scale: 0-10 Numeric Is Patient Pain Free? 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 Bilateral lower extremity edema. Plan: Increased wound circumference due to increased edema. Debridement done as documented above, procedure was well tolerated. Continue promogran with adaptic over top. leave in for a week. 3M wraps for edema management. Apply lightly. Patient advised to call the wound center if he has any problems with his wraps. Elevate lower extremity when seated and in bed. Continue increased protein intake and supplements. Advised to call with any questions or concerns. Follow up in 1 week. This note was generated with [employer] software. It may contain incorrect words, spelling, and punctuation that were not noted in checking the note before signing.
--- NOTE | 2018-02-20 10:13 | PN.PCM_ITS ---
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 Swelling of both legs History of Wound: Being seen here for recurrent left lower extremity ulcer. However last seen here 2 week ago. No new complaints at this time. Not properly applying compression. Progress of Wound: Worsened lower extremity edema. He has been without compression for 6 days. Tooks his 3M wraps off on saturday. - Physical Exam Vital Signs Temp Pulse Resp BP 98 F 83 20 H 114/74 02/20/18 09:48 02/20/18 09:48 02/20/18 09:48 02/20/18 09:48 General: Alert, Oriented x3, Cooperative, No apparent distress HEENT: Atraumatic Oral: Moist Mucosa Neck: Supple Lungs: Normal air movement Extremities: No cyanosis, Edema Skin: Ulcer/ Wound Wound Measurements and Assessment WC - Nurse 1 - General Ulcer Measurement Start: 02/13/18 09:33 Freq: Status: Active Protocol: Activity Type Activity Date Activity User E-Sign Co-Sign Detail Recorded Client Recorded Date Recorded By Document 02/20/18 09:48 DL [id number] 02/20/18 09:54 DL 02/20/18 09:48 Wound Center Nurse 1 [Ulcer Assessment] #8 LEFT POSTERIOR CALF -Current Size (cm) - Length 2.9 -Current Size (cm) - Width 0.4 -Current Size (cm) - Depth 0.1 -Total Square Cm 1.16 -Photo Taken No -Exudate Amt None Present (0 %) -Wound Margin Thickened -Granulation Amt None Present (0 %) -Necrosis Amt Large (67-100%) -Necrotic Tissue Type Adherent Slough -Structure Exposed N/A -Texture (Elisa-wound Skin Appearance) Localized Edema Scarring -Moisture (Elisa-wound Skin Appearance No Abnormality ) -Color (Elisa-wound Skin Appearance) No Abnormality -Temperature (Elisa-wound Skin No Abnormality Appearance) (Pt Warm) -Ulcer Cleansing Wound Cleanser -Foul Odor after Cleansing No -Anesthetic Used 4% Lidocaine Solution [Edema Assessment] -Right Calf (cm) 41.1 -Right Ankle (cm) 26.5 -Left Calf (cm) 35 -Left Ankle (cm) 23.2 WC - Nurse 2 - General Ulcer CM Notes Start: 02/13/18 09:33 Freq: Status: Active Protocol: Activity Type Activity Date Activity User E-Sign Co-Sign Detail Recorded Client Recorded Date Recorded By Document 02/20/18 10:03 MW [id number] 02/20/18 10:07 MW 02/20/18 10:03 Wound Center Nurse 2 [Procedure/Treatment] #8 LEFT POSTERIOR CALF -Time 10:03 -Correct Patient Yes -Correct Side, Site, Position Yes -Correct Procedure Yes -Procedure Performed Yes -Type of Procedure Debridement -Clinical Debridement Subcutaneous -Post Debridement Size (cm) - Length 1.0 -Post Debridement Size (cm) - Width 0.3 -Post Debridement Size (cm) - Depth 0.1 -Total Square Cm 0.30 -Wound/Ulcer Outcome Not Healed -Ulcer Cleansing Rinsed/ Irrigated with Saline -Foul Odor after Cleansing No -Bioengineered Tissue No -Bleeding Controlled with Pressure -Treatment Response Procedure Tolerated Well [See Physician Procedure note for Specifics] Pain Scale: 0-10 Numeric [Pain] -Is Patient Pain Free? Yes Musculoskeletal: No Muscle Wasting Neurological: Cranial nerves II-XII grossly intact Psych/Mental Status: Normal Affect Debridement Note Post-Debridement Measurements/Treatment - Nurse 2 - General Ulcer CM Notes Start: 02/13/18 09:33 Freq: Status: Active Protocol: Activity Type Activity Date Activity User E-Sign Co-Sign Detail Recorded Client Recorded Date Recorded By Document 02/13/18 10:06 MW [id number] 02/13/18 10:12 MW Document 02/20/18 10:03 MW [id number] 02/20/18 10:07 MW 02/13/18 02/20/18 10:06 10:03 Wound Center Nurse 2 #8 LEFT POSTERIOR CALF -Time 10:07 10:03 -Correct Patient Yes Yes -Correct Side, Site, Position Yes Yes -Correct Procedure Yes Yes -Procedure Performed Yes Yes -Type of Procedure Debridement Debridement -Clinical Debridement Selective Subcutaneous -Post Debridement Size (cm) - Length 0.3 1.0 -Post Debridement Size (cm) - Width 0.2 0.3 -Post Debridement Size (cm) - Depth 0.1 0.1 -Total Square Cm 0.06 0.30 -Wound/Ulcer Outcome Not Healed Not Healed -Ulcer Cleansing Rinsed/ Rinsed/ Irrigated with Irrigated with Saline Saline -Foul Odor after Cleansing No No -Bioengineered Tissue No No -Bleeding Controlled with Pressure Pressure -Treatment Response Procedure Procedure Tolerated Well Tolerated Well Pain Scale: 0-10 Numeric Is Patient Pain Free? 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 Bilateral lower extremity edema. Plan: Increased wound circumference due to increased edema. Debridement done as documented above, procedure was well tolerated. Continue promogran with adaptic over top. leave in for a week. 3M wraps for edema management. Apply lightly. Patient advised to call the wound center if he has any problems with his wraps. Elevate lower extremity when seated and in bed. Continue increased protein intake and supplements. Advised to call with any questions or concerns. Follow up in 1 week. This note was generated with [employer] software. It may contain incorrect words, spelling, and punctuation that were not noted in checking the note before signing.
[2018-02-20 10:18] VITALS: BP 133/78; PULSE 95; RESP 20; TEMP 36.1
[2018-02-27 09:45] VITALS: BP 97/62; PULSE 87; RESP 16; TEMP 36.9
--- NOTE | 2018-02-27 10:19 | PCM.WC.PN ---
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 Swelling of both legs History of Wound: Being seen here for recurrent left lower extremity ulcer. However last seen here 2 week ago. No new complaints at this time. Not properly applying compression. Progress of Wound: Improving. - Physical Exam Vital Signs Temp Pulse Resp BP 98.4 F 87 16 97/62 02/27/18 09:45 02/27/18 09:45 02/27/18 09:45 02/27/18 09:45 General: Alert, Oriented x3, Cooperative, No apparent distress HEENT: Atraumatic Oral: Moist Mucosa Neck: Supple Lungs: Normal air movement Abdomen: Non Tender Extremities: No cyanosis, Edema Skin: Ulcer/ Wound Wound Measurements and Assessment WC - Nurse 1 - General Ulcer Measurement Start: 02/13/18 09:33 Freq: Status: Active Protocol: Activity Type Activity Date Activity User E-Sign Co-Sign Detail Recorded Client Recorded Date Recorded By Document 02/27/18 09:45 [facility] [id number] 02/27/18 09:55 [facility] 02/27/18 09:45 Wound Center Nurse 1 [Ulcer Assessment] #8 LEFT POSTERIOR CALF -Combined with other wound No -Current Size (cm) - Length 0.3 -Current Size (cm) - Width 0.3 -Current Size (cm) - Depth 0.1 -Total Square Cm 0.09 -Date of Last Picture (Recall this 02/27/18 field) -Photo Taken Yes -Epithelialization Medium 34-66% -Tunneling No -Undermining/Tunneling No -Circular Undermining No -Exudate Amt Small (1-33%) -Exudate Type Serosanguineous -Wound Margin Distinct, Outline Attached -Granulation Amt Large (67-100%) -Granulation Quality [place] -Slough/Fibrin No -Necrosis Amt None Present (0 %) -Structure Exposed None/Limited to Skin Breakdown -Texture (Elisa-wound Skin Appearance) Scarring -Moisture (Elisa-wound Skin Appearance Dry/Scaly ) -Color (Elisa-wound Skin Appearance) Assessed -Temperature (Elisa-wound Skin No Abnormality Appearance) (Pt Warm) -Tenderness on Palpation (Elisa-wound No Skin Appearance) -Ulcer Cleansing Wound Cleanser -Foul Odor after Cleansing No -Anesthetic Used 4% Lidocaine Solution [Edema Assessment] -Lower Limb Edema Present Yes -Right Calf (cm) 34.6 -Right Ankle (cm) 23.9 -Left Calf (cm) 29.6 -Left Ankle (cm) 23.9 WC - Nurse 2 - General Ulcer CM Notes Start: 02/13/18 09:33 Freq: Status: Active Protocol: Activity Type Activity Date Activity User E-Sign Co-Sign Detail Recorded Client Recorded Date Recorded By Document 02/27/18 10:13 JS [id number] 02/27/18 10:17 JS 02/27/18 10:13 Wound Center Nurse 2 [Procedure/Treatment] #8 LEFT POSTERIOR CALF -Time 10:13 -Correct Patient Yes -Correct Side, Site, Position Yes -Correct Procedure Yes -Procedure Performed Yes -Type of Procedure Debridement -Clinical Debridement Subcutaneous -Post Debridement Size (cm) - Length 2.0 -Post Debridement Size (cm) - Width 0.3 -Post Debridement Size (cm) - Depth 0.1 -Total Square Cm 0.60 -Wound/Ulcer Outcome Not Healed -Ulcer Cleansing Not Cleansed -Foul Odor after Cleansing No -Bioengineered Tissue No -Bleeding Controlled with NA -Treatment Response Procedure Tolerated Well [See Physician Procedure note for Specifics] Neurological: Cranial nerves II-XII grossly intact Psych/Mental Status: Normal Affect Debridement Note Post-Debridement Measurements/Treatment WC - Nurse 2 - General Ulcer CM Notes Start: 02/13/18 09:33 Freq: Status: Active Protocol: Activity Type Activity Date Activity User E-Sign Co-Sign Detail Recorded Client Recorded Date Recorded By Document 02/13/18 10:06 MW [id number] 02/13/18 10:12 MW Document 02/20/18 10:03 MW [id number] 02/20/18 10:07 MW Document 02/27/18 10:13 JS [id number] 02/27/18 10:17 JS [id number] 02/27/18 10:06 10:03 10:13 Wound Center Nurse 2 #8 LEFT POSTERIOR CALF -Time 10:07 10:03 10:13 -Correct Patient Yes Yes Yes -Correct Side, Site, Position Yes Yes Yes -Correct Procedure Yes Yes Yes -Procedure Performed Yes Yes Yes -Type of Procedure Debridement Debridement Debridement -Clinical Debridement Selective Subcutaneous Subcutaneous -Post Debridement Size (cm) - Length 0.3 1.0 2.0 -Post Debridement Size (cm) - Width 0.2 0.3 0.3 -Post Debridement Size (cm) - Depth 0.1 0.1 0.1 -Total Square Cm 0.06 0.30 0.60 -Wound/Ulcer Outcome Not Healed Not Healed Not Healed -Ulcer Cleansing Rinsed/ Rinsed/ Not Cleansed Irrigated with Irrigated with Saline Saline -Foul Odor after Cleansing No No No -Bioengineered Tissue No No No -Bleeding Controlled with Pressure Pressure NA -Treatment Response Procedure Procedure Procedure Tolerated Well Tolerated Well Tolerated Well Pain Scale: 0-10 Numeric Is Patient Pain Free? 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 Bilateral lower extremity edema. Plan: Improved wond. Minimal areas left however seperated by an island. Debridement done as documented above, procedure was well tolerated. Continue moistened promogran with adaptic over top. leave in for a week. 3M wraps for edema management. Apply lightly. Patient advised to call the wound center if he has any problems with his wraps. Elevate lower extremity when seated and in bed. Continue increased protein intake and supplements. Advised to call with any questions or concerns. Follow up in 1 week. This note was generated with [employer] software. It may contain incorrect words, spelling, and punctuation that were not noted in checking the note before signing.
--- NOTE | 2018-02-27 10:22 | PN.PCM_ITS ---
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 Swelling of both legs History of Wound: Being seen here for recurrent left lower extremity ulcer. However last seen here 2 week ago. No new complaints at this time. Not properly applying compression. Progress of Wound: Improving. - Physical Exam Vital Signs Temp Pulse Resp BP 98.4 F 87 16 97/62 02/27/18 09:45 02/27/18 09:45 02/27/18 09:45 02/27/18 09:45 General: Alert, Oriented x3, Cooperative, No apparent distress HEENT: Atraumatic Oral: Moist Mucosa Neck: Supple Lungs: Normal air movement Abdomen: Non Tender Extremities: No cyanosis, Edema Skin: Ulcer/ Wound Wound Measurements and Assessment WC - Nurse 1 - General Ulcer Measurement Start: 02/13/18 09:33 Freq: Status: Active Protocol: Activity Type Activity Date Activity User E-Sign Co-Sign Detail Recorded Client Recorded Date Recorded By Document 02/27/18 09:45 [facility] [id number] 02/27/18 09:55 BMF 02/27/18 09:45 Wound Center Nurse 1 [Ulcer Assessment] #8 LEFT POSTERIOR CALF -Combined with other wound No -Current Size (cm) - Length 0.3 -Current Size (cm) - Width 0.3 -Current Size (cm) - Depth 0.1 -Total Square Cm 0.09 -Date of Last Picture (Recall this 02/27/18 field) -Photo Taken Yes -Epithelialization Medium 34-66% -Tunneling No -Undermining/Tunneling No -Circular Undermining No -Exudate Amt Small (1-33%) -Exudate Type Serosanguineous -Wound Margin Distinct, Outline Attached -Granulation Amt Large (67-100%) -Granulation Quality [place] -Slough/Fibrin No -Necrosis Amt None Present (0 %) -Structure Exposed None/Limited to Skin Breakdown -Texture (Elisa-wound Skin Appearance) Scarring -Moisture (Elisa-wound Skin Appearance Dry/Scaly ) -Color (Elisa-wound Skin Appearance) Assessed -Temperature (Elisa-wound Skin No Abnormality Appearance) (Pt Warm) -Tenderness on Palpation (Elisa-wound No Skin Appearance) -Ulcer Cleansing Wound Cleanser -Foul Odor after Cleansing No -Anesthetic Used 4% Lidocaine Solution [Edema Assessment] -Lower Limb Edema Present Yes -Right Calf (cm) 34.6 -Right Ankle (cm) 23.9 -Left Calf (cm) 29.6 -Left Ankle (cm) 23.9 WC - Nurse 2 - General Ulcer CM Notes Start: 02/13/18 09:33 Freq: Status: Active Protocol: Activity Type Activity Date Activity User E-Sign Co-Sign Detail Recorded Client Recorded Date Recorded By Document 02/27/18 10:13 JS [id number] 02/27/18 10:17 JS 02/27/18 10:13 Wound Center Nurse 2 [Procedure/Treatment] #8 LEFT POSTERIOR CALF -Time 10:13 -Correct Patient Yes -Correct Side, Site, Position Yes -Correct Procedure Yes -Procedure Performed Yes -Type of Procedure Debridement -Clinical Debridement Subcutaneous -Post Debridement Size (cm) - Length 2.0 -Post Debridement Size (cm) - Width 0.3 -Post Debridement Size (cm) - Depth 0.1 -Total Square Cm 0.60 -Wound/Ulcer Outcome Not Healed -Ulcer Cleansing Not Cleansed -Foul Odor after Cleansing No -Bioengineered Tissue No -Bleeding Controlled with NA -Treatment Response Procedure Tolerated Well [See Physician Procedure note for Specifics] Neurological: Cranial nerves II-XII grossly intact Psych/Mental Status: Normal Affect Debridement Note Post-Debridement Measurements/Treatment WC - Nurse 2 - General Ulcer CM Notes Start: 02/13/18 09:33 Freq: Status: Active Protocol: Activity Type Activity Date Activity User E-Sign Co-Sign Detail Recorded Client Recorded Date Recorded By Document 02/13/18 10:06 MW [id number] 02/13/18 10:12 MW Document 02/20/18 10:03 MW [id number] 02/20/18 10:07 MW Document 02/27/18 10:13 JS [id number] 02/27/18 10:17 JS [id number] 02/27/18 10:06 10:03 10:13 Wound Center Nurse 2 #8 LEFT POSTERIOR CALF -Time 10:07 10:03 10:13 -Correct Patient Yes Yes Yes -Correct Side, Site, Position Yes Yes Yes -Correct Procedure Yes Yes Yes -Procedure Performed Yes Yes Yes -Type of Procedure Debridement Debridement Debridement -Clinical Debridement Selective Subcutaneous Subcutaneous -Post Debridement Size (cm) - Length 0.3 1.0 2.0 -Post Debridement Size (cm) - Width 0.2 0.3 0.3 -Post Debridement Size (cm) - Depth 0.1 0.1 0.1 -Total Square Cm 0.06 0.30 0.60 -Wound/Ulcer Outcome Not Healed Not Healed Not Healed -Ulcer Cleansing Rinsed/ Rinsed/ Not Cleansed Irrigated with Irrigated with Saline Saline -Foul Odor after Cleansing No No No -Bioengineered Tissue No No No -Bleeding Controlled with Pressure Pressure NA -Treatment Response Procedure Procedure Procedure Tolerated Well Tolerated Well Tolerated Well Pain Scale: 0-10 Numeric Is Patient Pain Free? 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 Bilateral lower extremity edema. Plan: Improved wond. Minimal areas left however seperated by an island. Debridement done as documented above, procedure was well tolerated. Continue moistened promogran with adaptic over top. leave in for a week. 3M wraps for edema management. Apply lightly. Patient advised to call the wound center if he has any problems with his wraps. Elevate lower extremity when seated and in bed. Continue increased protein intake and supplements. Advised to call with any questions or concerns. Follow up in 1 week. This note was generated with [employer] software. It may contain incorrect words, spelling, and punctuation that were not noted in checking the note before signing.
[2018-03-06 10:31] VITALS: BP 115/66; PULSE 79; RESP 16; TEMP 36.2
--- NOTE | 2018-03-06 11:38 | PCM.WC.PN ---
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 Swelling of both legs History of Wound: Being seen here for recurrent left lower extremity ulcer. However last seen here 2 week ago. No new complaints at this time. Not properly applying compression. Progress of Wound: Essentially healed. - Physical Exam Vital Signs Temp Pulse Resp BP 97.1 F L 79 16 115/66 03/06/18 10:31 03/06/18 10:31 03/06/18 10:31 03/06/18 10:31 General: Alert, Oriented x3, Cooperative, No apparent distress HEENT: Atraumatic Oral: Moist Mucosa Neck: Supple Lungs: Normal air movement Abdomen: Soft, Non Tender Extremities: No cyanosis, Edema Wound Measurements and Assessment - Nurse 1 - General Ulcer Measurement Start: 02/13/18 09:33 Freq: Status: Active Protocol: Activity Type Activity Date Activity User E-Sign Co-Sign Detail Recorded Client Recorded Date Recorded By Document 03/06/18 10:31 [facility] [id number] 03/06/18 10:43 [facility] 03/06/18 10:31 Wound Center Nurse 1 [Ulcer Assessment] #8 LEFT POSTERIOR CALF -Combined with other wound No -Current Size (cm) - Length 0.1 -Current Size (cm) - Width 0.1 -Current Size (cm) - Depth 0.1 -Total Square Cm 0.01 -Epithelialization Large 67-100% -Temperature (Elisa-wound Skin No Abnormality Appearance) (Pt Warm) -Tenderness on Palpation (Elisa-wound No Skin Appearance) -Ulcer Cleansing Wound Cleanser -Foul Odor after Cleansing No -Anesthetic Used 5% Lidocaine Gel [Edema Assessment] -Lower Limb Edema Present Yes -Right Calf (cm) 34.1 -Right Ankle (cm) 23.6 -Left Calf (cm) 31 -Left Ankle (cm) 21.5 WC - Nurse 2 - General Ulcer CM Notes Start: 02/13/18 09:33 Freq: Status: Active Protocol: Activity Type Activity Date Activity User E-Sign Co-Sign Detail Recorded Client Recorded Date Recorded By Document 03/06/18 11:06 MW [id number] 03/06/18 11:07 MW 03/06/18 11:06 Wound Center Nurse 2 [Procedure/Treatment] #8 LEFT POSTERIOR CALF -Time 11:07 -Correct Patient Yes -Correct Side, Site, Position Yes -Correct Procedure Yes -Procedure Performed Yes -Type of Procedure Debridement -Clinical Debridement Selective -Post Debridement Size (cm) - Length 0.1 -Post Debridement Size (cm) - Width 0.1 -Post Debridement Size (cm) - Depth 0.1 -Total Square Cm 0.01 -Wound/Ulcer Outcome Not Healed -Ulcer Cleansing Wound Cleanser -Foul Odor after Cleansing No -Bioengineered Tissue No -Bleeding Controlled with Pressure -Treatment Response Procedure Tolerated Well [See Physician Procedure note for Specifics] Pain Scale: 0-10 Numeric [Pain] -Is Patient Pain Free? Yes Musculoskeletal: No Muscle Wasting Neurological: Cranial nerves II-XII grossly intact Psych/Mental Status: Normal Affect Debridement Note Post-Debridement Measurements/Treatment - Nurse 2 - General Ulcer CM Notes Start: 02/13/18 09:33 Freq: Status: Active Protocol: Activity Type Activity Date Activity User E-Sign Co-Sign Detail Recorded Client Recorded Date Recorded By Document 02/13/18 10:06 MW [id number] 02/13/18 10:12 MW Document 02/20/18 10:03 MW [id number] 02/20/18 10:07 MW Document 02/27/18 10:13 JS [id number] 02/27/18 10:17 JS Document 03/06/18 11:06 MW [id number] 03/06/18 11:07 MW 02/13/18 02/20/18 02/27/18 10:06 10:03 10:13 Wound Center Nurse 2 #8 LEFT POSTERIOR CALF -Time 10:07 10:03 10:13 -Correct Patient Yes Yes Yes -Correct Side, Site, Position Yes Yes Yes -Correct Procedure Yes Yes Yes -Procedure Performed Yes Yes Yes -Type of Procedure Debridement Debridement Debridement -Clinical Debridement Selective Subcutaneous Subcutaneous -Post Debridement Size (cm) - Length 0.3 1.0 2.0 -Post Debridement Size (cm) - Width 0.2 0.3 0.3 -Post Debridement Size (cm) - Depth 0.1 0.1 0.1 -Total Square Cm 0.06 0.30 0.60 -Wound/Ulcer Outcome Not Healed Not Healed Not Healed -Ulcer Cleansing Rinsed/ Rinsed/ Not Cleansed Irrigated with Irrigated with Saline Saline -Foul Odor after Cleansing No No No -Bioengineered Tissue No No No -Bleeding Controlled with Pressure Pressure NA -Treatment Response Procedure Procedure Procedure Tolerated Well Tolerated Well Tolerated Well Pain Scale: 0-10 Numeric Is Patient Pain Free? Yes Yes 03/06/18 11:06 Wound Center Nurse 2 #8 LEFT POSTERIOR CALF -Time 11:07 -Correct Patient Yes -Correct Side, Site, Position Yes -Correct Procedure Yes -Procedure Performed Yes -Type of Procedure Debridement -Clinical Debridement Selective -Post Debridement Size (cm) - Length 0.1 -Post Debridement Size (cm) - Width 0.1 -Post Debridement Size (cm) - Depth 0.1 -Total Square Cm 0.01 -Wound/Ulcer Outcome Not Healed -Ulcer Cleansing Wound Cleanser -Foul Odor after Cleansing No -Bioengineered Tissue No -Bleeding Controlled with Pressure -Treatment Response Procedure Tolerated Well Pain Scale: 0-10 Numeric Is Patient Pain Free? 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 Bilateral lower extremity edema. Plan: Wound has essentially healed. Selective debridement done today. Adaptic daily x 1 week. Advised to wear his compression appropraitely. Elevate lower extremity when seated and in bed. Continue increased protein intake and supplements. Advised to call with any questions or concerns. Follow up in 1 week and possibly discharge from the wound center. This note was generated with [employer] software. It may contain incorrect words, spelling, and punctuation that were not noted in checking the note before signing.
--- NOTE | 2018-03-06 11:44 | PN.PCM_ITS ---
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 Swelling of both legs History of Wound: Being seen here for recurrent left lower extremity ulcer. However last seen here 2 week ago. No new complaints at this time. Not properly applying compression. Progress of Wound: Essentially healed. - Physical Exam Vital Signs Temp Pulse Resp BP 97.1 F L 79 16 115/66 03/06/18 10:31 03/06/18 10:31 03/06/18 10:31 03/06/18 10:31 General: Alert, Oriented x3, Cooperative, No apparent distress HEENT: Atraumatic Oral: Moist Mucosa Neck: Supple Lungs: Normal air movement Abdomen: Soft, Non Tender Extremities: No cyanosis, Edema Wound Measurements and Assessment - Nurse 1 - General Ulcer Measurement Start: 02/13/18 09:33 Freq: Status: Active Protocol: Activity Type Activity Date Activity User E-Sign Co-Sign Detail Recorded Client Recorded Date Recorded By Document 03/06/18 10:31 [facility] [id number] 03/06/18 10:43 [facility] 03/06/18 10:31 Wound Center Nurse 1 [Ulcer Assessment] #8 LEFT POSTERIOR CALF -Combined with other wound No -Current Size (cm) - Length 0.1 -Current Size (cm) - Width 0.1 -Current Size (cm) - Depth 0.1 -Total Square Cm 0.01 -Epithelialization Large 67-100% -Temperature (Elisa-wound Skin No Abnormality Appearance) (Pt Warm) -Tenderness on Palpation (Elisa-wound No Skin Appearance) -Ulcer Cleansing Wound Cleanser -Foul Odor after Cleansing No -Anesthetic Used 5% Lidocaine Gel [Edema Assessment] -Lower Limb Edema Present Yes -Right Calf (cm) 34.1 -Right Ankle (cm) 23.6 -Left Calf (cm) 31 -Left Ankle (cm) 21.5 WC - Nurse 2 - General Ulcer CM Notes Start: 02/13/18 09:33 Freq: Status: Active Protocol: Activity Type Activity Date Activity User E-Sign Co-Sign Detail Recorded Client Recorded Date Recorded By Document 03/06/18 11:06 MW [id number] 03/06/18 11:07 MW 03/06/18 11:06 Wound Center Nurse 2 [Procedure/Treatment] #8 LEFT POSTERIOR CALF -Time 11:07 -Correct Patient Yes -Correct Side, Site, Position Yes -Correct Procedure Yes -Procedure Performed Yes -Type of Procedure Debridement -Clinical Debridement Selective -Post Debridement Size (cm) - Length 0.1 -Post Debridement Size (cm) - Width 0.1 -Post Debridement Size (cm) - Depth 0.1 -Total Square Cm 0.01 -Wound/Ulcer Outcome Not Healed -Ulcer Cleansing Wound Cleanser -Foul Odor after Cleansing No -Bioengineered Tissue No -Bleeding Controlled with Pressure -Treatment Response Procedure Tolerated Well [See Physician Procedure note for Specifics] Pain Scale: 0-10 Numeric [Pain] -Is Patient Pain Free? Yes Musculoskeletal: No Muscle Wasting Neurological: Cranial nerves II-XII grossly intact Psych/Mental Status: Normal Affect Debridement Note Post-Debridement Measurements/Treatment - Nurse 2 - General Ulcer CM Notes Start: 02/13/18 09:33 Freq: Status: Active Protocol: Activity Type Activity Date Activity User E-Sign Co-Sign Detail Recorded Client Recorded Date Recorded By Document 02/13/18 10:06 MW [id number] 02/13/18 10:12 MW Document 02/20/18 10:03 MW [id number] 02/20/18 10:07 MW Document 02/27/18 10:13 JS [id number] 02/27/18 10:17 JS Document 03/06/18 11:06 MW [id number] 03/06/18 11:07 MW 02/13/18 02/20/18 02/27/18 10:06 10:03 10:13 Wound Center Nurse 2 #8 LEFT POSTERIOR CALF -Time 10:07 10:03 10:13 -Correct Patient Yes Yes Yes -Correct Side, Site, Position Yes Yes Yes -Correct Procedure Yes Yes Yes -Procedure Performed Yes Yes Yes -Type of Procedure Debridement Debridement Debridement -Clinical Debridement Selective Subcutaneous Subcutaneous -Post Debridement Size (cm) - Length 0.3 1.0 2.0 -Post Debridement Size (cm) - Width 0.2 0.3 0.3 -Post Debridement Size (cm) - Depth 0.1 0.1 0.1 -Total Square Cm 0.06 0.30 0.60 -Wound/Ulcer Outcome Not Healed Not Healed Not Healed -Ulcer Cleansing Rinsed/ Rinsed/ Not Cleansed Irrigated with Irrigated with Saline Saline -Foul Odor after Cleansing No No No -Bioengineered Tissue No No No -Bleeding Controlled with Pressure Pressure NA -Treatment Response Procedure Procedure Procedure Tolerated Well Tolerated Well Tolerated Well Pain Scale: 0-10 Numeric Is Patient Pain Free? Yes Yes 03/06/18 11:06 Wound Center Nurse 2 #8 LEFT POSTERIOR CALF -Time 11:07 -Correct Patient Yes -Correct Side, Site, Position Yes -Correct Procedure Yes -Procedure Performed Yes -Type of Procedure Debridement -Clinical Debridement Selective -Post Debridement Size (cm) - Length 0.1 -Post Debridement Size (cm) - Width 0.1 -Post Debridement Size (cm) - Depth 0.1 -Total Square Cm 0.01 -Wound/Ulcer Outcome Not Healed -Ulcer Cleansing Wound Cleanser -Foul Odor after Cleansing No -Bioengineered Tissue No -Bleeding Controlled with Pressure -Treatment Response Procedure Tolerated Well Pain Scale: 0-10 Numeric Is Patient Pain Free? 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 Bilateral lower extremity edema. Plan: Wound has essentially healed. Selective debridement done today. Adaptic daily x 1 week. Advised to wear his compression appropraitely. Elevate lower extremity when seated and in bed. Continue increased protein intake and supplements. Advised to call with any questions or concerns. Follow up in 1 week and possibly discharge from the wound center. This note was generated with [employer] software. It may contain incorrect words, spelling, and punctuation that were not noted in checking the note before signing.
[2018-03-13 09:47] VITALS: BP 112/72; PULSE 105; RESP 18; TEMP 36.4
--- NOTE | 2018-03-13 10:10 | PCM.WC.PN ---
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 Swelling of both legs History of Wound: Being seen here for recurrent left lower extremity ulcer. However last seen here 2 week ago. No new complaints at this time. Not properly applying compression. Progress of Wound: Stable. More bilateral lower extremity swelling. Patient states that he has been compliant with his compression stockings. - Physical Exam Vital Signs Temp Pulse Resp BP 97.5 F L 105 H 18 112/72 03/13/18 09:47 03/13/18 09:47 03/13/18 09:47 03/13/18 09:47 General: Alert, Oriented x3, Cooperative, No apparent distress HEENT: Atraumatic Oral: Moist Mucosa Neck: Supple Lungs: Normal air movement Extremities: No cyanosis, Edema Wound Measurements and Assessment WC - Nurse 1 - General Ulcer Measurement Start: 02/13/18 09:33 Freq: Status: Active Protocol: Activity Type Activity Date Activity User E-Sign Co-Sign Detail Recorded Client Recorded Date Recorded By Document 03/13/18 09:47 DL [id number] 03/13/18 09:52 DL 03/13/18 09:47 Wound Center Nurse 1 [Ulcer Assessment] #8 LEFT POSTERIOR CALF -Combined with other wound No -Current Size (cm) - Length 1.2 -Current Size (cm) - Width 0.2 -Current Size (cm) - Depth 0.1 -Total Square Cm 0.24 -Photo Taken No -Epithelialization None Present -Tunneling No -Undermining/Tunneling No -Circular Undermining No -Exudate Amt Small (1-33%) -Exudate Type Serous -Wound Margin Distinct, Outline Attached -Granulation Amt Small (1-33%) -Granulation Quality [place] -Necrosis Amt Small (1-33%) -Necrotic Tissue Type Adherent Slough -Texture (Elisa-wound Skin Appearance) Scarring -Moisture (Elisa-wound Skin Appearance Maceration ) -Color (Elisa-wound Skin Appearance) Erythema Hemosiderin Staining -Temperature (Elisa-wound Skin No Abnormality Appearance) (Pt Warm) -Tenderness on Palpation (Elisa-wound No Skin Appearance) -Ulcer Cleansing Rinsed/ Irrigated with Saline -Foul Odor after Cleansing No -Anesthetic Used 4% Lidocaine Solution [Edema Assessment] -Left Calf (cm) 35 -Left Ankle (cm) 23 Musculoskeletal: No Muscle Wasting Neurological: Cranial nerves II-XII grossly intact Psych/Mental Status: Normal Affect Debridement Note Post-Debridement Measurements/Treatment WC - Nurse 2 - General Ulcer CM Notes Start: 02/13/18 09:33 Freq: Status: Active Protocol: Activity Type Activity Date Activity User E-Sign Co-Sign Detail Recorded Client Recorded Date Recorded By Document 02/13/18 10:06 MW [id number] 02/13/18 10:12 MW Document 02/20/18 10:03 MW [id number] 02/20/18 10:07 MW Document 02/27/18 10:13 JS [id number] 02/27/18 10:17 JS Document 03/06/18 11:06 MW [id number] 03/06/18 11:07 MW 02/13/18 02/20/18 02/27/18 10:06 10:03 10:13 Wound Center Nurse 2 #8 LEFT POSTERIOR CALF -Time 10:07 10:03 10:13 -Correct Patient Yes Yes Yes -Correct Side, Site, Position Yes Yes Yes -Correct Procedure Yes Yes Yes -Procedure Performed Yes Yes Yes -Type of Procedure Debridement Debridement Debridement -Clinical Debridement Selective Subcutaneous Subcutaneous -Post Debridement Size (cm) - Length 0.3 1.0 2.0 -Post Debridement Size (cm) - Width 0.2 0.3 0.3 -Post Debridement Size (cm) - Depth 0.1 0.1 0.1 -Total Square Cm 0.06 0.30 0.60 -Wound/Ulcer Outcome Not Healed Not Healed Not Healed -Ulcer Cleansing Rinsed/ Rinsed/ Not Cleansed Irrigated with Irrigated with Saline Saline -Foul Odor after Cleansing No No No -Bioengineered Tissue No No No -Bleeding Controlled with Pressure Pressure NA -Treatment Response Procedure Procedure Procedure Tolerated Well Tolerated Well Tolerated Well Pain Scale: 0-10 Numeric Is Patient Pain Free? Yes Yes 03/06/18 11:06 Wound Center Nurse 2 #8 LEFT POSTERIOR CALF -Time 11:07 -Correct Patient Yes -Correct Side, Site, Position Yes -Correct Procedure Yes -Procedure Performed Yes -Type of Procedure Debridement -Clinical Debridement Selective -Post Debridement Size (cm) - Length 0.1 -Post Debridement Size (cm) - Width 0.1 -Post Debridement Size (cm) - Depth 0.1 -Total Square Cm 0.01 -Wound/Ulcer Outcome Not Healed -Ulcer Cleansing Wound Cleanser -Foul Odor after Cleansing No -Bioengineered Tissue No -Bleeding Controlled with Pressure -Treatment Response Procedure Tolerated Well Pain Scale: 0-10 Numeric Is Patient Pain Free? 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 Bilateral lower extremity edema. Plan: More lower extremity edema noted today despite use of compression stockings. No debridement done today. Continue adaptic over top. Leave in place x 1 week. 3M wraps for edema management. Will switch to Circaid for edema management. Order placed. Elevate lower extremity when seated and in bed. Continue increased protein intake and supplements. Advised to call with any questions or concerns. Follow up in 1 week. This note was generated with [employer] dictation software. It may contain incorrect words, spelling, and punctuation that were not noted in checking the note before signing.
--- NOTE | 2018-03-13 10:14 | PN.PCM_ITS ---
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 Swelling of both legs History of Wound: Being seen here for recurrent left lower extremity ulcer. However last seen here 2 week ago. No new complaints at this time. Not properly applying compression. Progress of Wound: Stable. More bilateral lower extremity swelling. Patient states that he has been compliant with his compression stockings. - Physical Exam Vital Signs Temp Pulse Resp BP 97.5 F L 105 H 18 112/72 03/13/18 09:47 03/13/18 09:47 03/13/18 09:47 03/13/18 09:47 General: Alert, Oriented x3, Cooperative, No apparent distress HEENT: Atraumatic Oral: Moist Mucosa Neck: Supple Lungs: Normal air movement Extremities: No cyanosis, Edema Wound Measurements and Assessment WC - Nurse 1 - General Ulcer Measurement Start: 02/13/18 09:33 Freq: Status: Active Protocol: Activity Type Activity Date Activity User E-Sign Co-Sign Detail Recorded Client Recorded Date Recorded By Document 03/13/18 09:47 DL [id number] 03/13/18 09:52 DL 03/13/18 09:47 Wound Center Nurse 1 [Ulcer Assessment] #8 LEFT POSTERIOR CALF -Combined with other wound No -Current Size (cm) - Length 1.2 -Current Size (cm) - Width 0.2 -Current Size (cm) - Depth 0.1 -Total Square Cm 0.24 -Photo Taken No -Epithelialization None Present -Tunneling No -Undermining/Tunneling No -Circular Undermining No -Exudate Amt Small (1-33%) -Exudate Type Serous -Wound Margin Distinct, Outline Attached -Granulation Amt Small (1-33%) -Granulation Quality [place] -Necrosis Amt Small (1-33%) -Necrotic Tissue Type Adherent Slough -Texture (Elisa-wound Skin Appearance) Scarring -Moisture (Elisa-wound Skin Appearance Maceration ) -Color (Elisa-wound Skin Appearance) Erythema Hemosiderin Staining -Temperature (Elisa-wound Skin No Abnormality Appearance) (Pt Warm) -Tenderness on Palpation (Elisa-wound No Skin Appearance) -Ulcer Cleansing Rinsed/ Irrigated with Saline -Foul Odor after Cleansing No -Anesthetic Used 4% Lidocaine Solution [Edema Assessment] -Left Calf (cm) 35 -Left Ankle (cm) 23 Musculoskeletal: No Muscle Wasting Neurological: Cranial nerves II-XII grossly intact Psych/Mental Status: Normal Affect Debridement Note Post-Debridement Measurements/Treatment WC - Nurse 2 - General Ulcer CM Notes Start: 02/13/18 09:33 Freq: Status: Active Protocol: Activity Type Activity Date Activity User E-Sign Co-Sign Detail Recorded Client Recorded Date Recorded By Document 02/13/18 10:06 MW [id number] 02/13/18 10:12 MW Document 02/20/18 10:03 MW [id number] 02/20/18 10:07 MW Document 02/27/18 10:13 JS [id number] 02/27/18 10:17 JS Document 03/06/18 11:06 MW [id number] 03/06/18 11:07 MW 02/13/18 02/20/18 02/27/18 10:06 10:03 10:13 Wound Center Nurse 2 #8 LEFT POSTERIOR CALF -Time 10:07 10:03 10:13 -Correct Patient Yes Yes Yes -Correct Side, Site, Position Yes Yes Yes -Correct Procedure Yes Yes Yes -Procedure Performed Yes Yes Yes -Type of Procedure Debridement Debridement Debridement -Clinical Debridement Selective Subcutaneous Subcutaneous -Post Debridement Size (cm) - Length 0.3 1.0 2.0 -Post Debridement Size (cm) - Width 0.2 0.3 0.3 -Post Debridement Size (cm) - Depth 0.1 0.1 0.1 -Total Square Cm 0.06 0.30 0.60 -Wound/Ulcer Outcome Not Healed Not Healed Not Healed -Ulcer Cleansing Rinsed/ Rinsed/ Not Cleansed Irrigated with Irrigated with Saline Saline -Foul Odor after Cleansing No No No -Bioengineered Tissue No No No -Bleeding Controlled with Pressure Pressure NA -Treatment Response Procedure Procedure Procedure Tolerated Well Tolerated Well Tolerated Well Pain Scale: 0-10 Numeric Is Patient Pain Free? Yes Yes 03/06/18 11:06 Wound Center Nurse 2 #8 LEFT POSTERIOR CALF -Time 11:07 -Correct Patient Yes -Correct Side, Site, Position Yes -Correct Procedure Yes -Procedure Performed Yes -Type of Procedure Debridement -Clinical Debridement Selective -Post Debridement Size (cm) - Length 0.1 -Post Debridement Size (cm) - Width 0.1 -Post Debridement Size (cm) - Depth 0.1 -Total Square Cm 0.01 -Wound/Ulcer Outcome Not Healed -Ulcer Cleansing Wound Cleanser -Foul Odor after Cleansing No -Bioengineered Tissue No -Bleeding Controlled with Pressure -Treatment Response Procedure Tolerated Well Pain Scale: 0-10 Numeric Is Patient Pain Free? 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 Bilateral lower extremity edema. Plan: More lower extremity edema noted today despite use of compression stockings. No debridement done today. Continue adaptic over top. Leave in place x 1 week. 3M wraps for edema management. Will switch to Circaid for edema management. Order placed. Elevate lower extremity when seated and in bed. Continue increased protein intake and supplements. Advised to call with any questions or concerns. Follow up in 1 week. This note was generated with [employer] dictation software. It may contain incorrect words, spelling, and punctuation that were not noted in checking the note before signing.
== END 2018-03-14 23:59 ==
LOC: WC 09:30
PROVIDERS: Family Provider Family Medicine Geriatric Medicine; PCP Family Medicine Geriatric Medicine; Visit Provider Internal Medicine
DX: L97.822 Non-pressure chronic ulcer of other part of left lower leg with fat layer exposed (principal); R60.0 Localized edema; M79.89 Other specified soft tissue disorders; I25.5 Ischemic cardiomyopathy
CPT/HCPCS: 11042; 29581; 97597; 99213; G0463

== ENCOUNTER 2018-04-02 10:45 | Outpatient (RCR) | payer MEDICARE, SELFPAY ==
[2018-03-15 01:09] VITALS: BP 112/72; PULSE 105; RESP 18; TEMP 36.4
[2018-03-20 09:44] VITALS: BP 120/69; PULSE 95; RESP 16; TEMP 36.2
--- NOTE | 2018-03-20 10:59 | PCM.WC.PN ---
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 Swelling of both legs History of Wound: Being seen here for recurrent left lower extremity ulcer. However last seen here 2 week ago. No new complaints at this time. Not properly applying compression. Progress of Wound: Wound stays essentially healed however still significant sweling especially of his right and patient is yet to get his compresson stockings. - Physical Exam Vital Signs Temp Pulse Resp BP 97.1 F L 95 16 120/69 03/20/18 09:44 03/20/18 09:44 03/20/18 09:44 03/20/18 09:44 General: Alert, Oriented x3, Cooperative, No apparent distress HEENT: Atraumatic Oral: Moist Mucosa Neck: Supple Lungs: Normal air movement Extremities: No cyanosis, Edema Wound Measurements and Assessment WC - Nurse 1 - General Ulcer Measurement Start: 03/20/18 09:44 Freq: Status: Active Protocol: Activity Type Activity Date Activity User E-Sign Co-Sign Detail Recorded Client Recorded Date Recorded By Document 03/20/18 09:44 [id number] 03/20/18 09:48 03/20/18 09:44 Wound Center Nurse 1 [Ulcer Assessment] #8 LEFT POSTERIOR CALF -Combined with other wound No -Current Size (cm) - Length 0 -Current Size (cm) - Width 0 -Current Size (cm) - Depth 0 -Total Square Cm 0 -Photo Taken Yes -Epithelialization Large 67-100% [Edema Assessment] -Lower Limb Edema Present Yes -Right Calf (cm) 39.4 -Right Ankle (cm) 24.8 -Left Calf (cm) 38.0 -Left Ankle (cm) 22.0 - Nurse 2 - General Ulcer CM Notes Start: 03/20/18 09:44 Freq: Status: Active Protocol: Activity Type Activity Date Activity User E-Sign Co-Sign Detail Recorded Client Recorded Date Recorded By Document 03/20/18 10:05 MW [id number] 03/20/18 10:08 MW 09/06/18 10:05 Wound Center Nurse 2 [Procedure/Treatment] #8 LEFT POSTERIOR CALF -Time 10:05 -Correct Patient Yes -Correct Side, Site, Position Yes -Correct Procedure Yes -Procedure Performed Yes -Type of Procedure Debridement -Clinical Debridement Selective -Post Debridement Size (cm) - Length 0.1 -Post Debridement Size (cm) - Width 0.1 -Post Debridement Size (cm) - Depth 0.1 -Total Square Cm 0.01 -Wound/Ulcer Outcome Not Healed -Ulcer Cleansing Rinsed/ Irrigated with Saline -Foul Odor after Cleansing No -Bioengineered Tissue No -Bleeding Controlled with Pressure -Treatment Response Procedure Tolerated Well [See Physician Procedure note for Specifics] Pain Scale: 0-10 Numeric [Pain] -Is Patient Pain Free? Yes Musculoskeletal: No Muscle Wasting Neurological: Cranial nerves II-XII grossly intact Psych/Mental Status: Normal Affect Debridement Note Post-Debridement Measurements/Treatment WC - Nurse 2 - General Ulcer CM Notes Start: 03/20/18 09:44 Freq: Status: Active Protocol: Activity Type Activity Date Activity User E-Sign Co-Sign Detail Recorded Client Recorded Date Recorded By Document 03/20/18 10:05 MW [id number] 03/20/18 10:08 MW 03/20/18 10:05 Wound Center Nurse 2 #8 LEFT POSTERIOR CALF -Time 10:05 -Correct Patient Yes -Correct Side, Site, Position Yes -Correct Procedure Yes -Procedure Performed Yes -Type of Procedure Debridement -Clinical Debridement Selective -Post Debridement Size (cm) - Length 0.1 -Post Debridement Size (cm) - Width 0.1 -Post Debridement Size (cm) - Depth 0.1 -Total Square Cm 0.01 -Wound/Ulcer Outcome Not Healed -Ulcer Cleansing Rinsed/ Irrigated with Saline -Foul Odor after Cleansing No -Bioengineered Tissue No -Bleeding Controlled with Pressure -Treatment Response Procedure Tolerated Well Pain Scale: 0-10 Numeric Is Patient Pain Free? 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 Bilateral lower extremity edema. Plan: Edema still present especially of his right lower extremity which did not have 3M wraps over the past week. Selective debridement done today. procedure well tolerated. Continue adaptic over top. Leave in place x 1 week. Bilateral 3M wraps for edema management. Will switch to Circaid for edema management. Order placed however, patient is yet to recieve it. Hopefully in the next week. Elevate lower extremity when seated and in bed. Continue increased protein intake and supplements. Advised to call with any questions or concerns. Follow up in 1 week. This note was generated with [employer] dictation software. It may contain incorrect words, spelling, and punctuation that were not noted in checking the note before signing.
--- NOTE | 2018-03-20 11:03 | PN.PCM_ITS ---
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 Swelling of both legs History of Wound: Being seen here for recurrent left lower extremity ulcer. However last seen here 2 week ago. No new complaints at this time. Not properly applying compression. Progress of Wound: Wound stays essentially healed however still significant sweling especially of his right and patient is yet to get his compresson stockings. - Physical Exam Vital Signs Temp Pulse Resp BP 97.1 F L 95 16 120/69 03/20/18 09:44 03/20/18 09:44 03/20/18 09:44 03/20/18 09:44 General: Alert, Oriented x3, Cooperative, No apparent distress HEENT: Atraumatic Oral: Moist Mucosa Neck: Supple Lungs: Normal air movement Extremities: No cyanosis, Edema Wound Measurements and Assessment WC - Nurse 1 - General Ulcer Measurement Start: 03/20/18 09:44 Freq: Status: Active Protocol: Activity Type Activity Date Activity User E-Sign Co-Sign Detail Recorded Client Recorded Date Recorded By Document 03/20/18 09:44 [id number] 03/20/18 09:48 03/20/18 09:44 Wound Center Nurse 1 [Ulcer Assessment] #8 LEFT POSTERIOR CALF -Combined with other wound No -Current Size (cm) - Length 0 -Current Size (cm) - Width 0 -Current Size (cm) - Depth 0 -Total Square Cm 0 -Photo Taken Yes -Epithelialization Large 67-100% [Edema Assessment] -Lower Limb Edema Present Yes -Right Calf (cm) 39.4 -Right Ankle (cm) 24.8 -Left Calf (cm) 38.0 -Left Ankle (cm) 22.0 - Nurse 2 - General Ulcer CM Notes Start: 03/20/18 09:44 Freq: Status: Active Protocol: Activity Type Activity Date Activity User E-Sign Co-Sign Detail Recorded Client Recorded Date Recorded By Document 03/20/18 10:05 MW [id number] 03/20/18 10:08 MW 09/06/18 10:05 Wound Center Nurse 2 [Procedure/Treatment] #8 LEFT POSTERIOR CALF -Time 10:05 -Correct Patient Yes -Correct Side, Site, Position Yes -Correct Procedure Yes -Procedure Performed Yes -Type of Procedure Debridement -Clinical Debridement Selective -Post Debridement Size (cm) - Length 0.1 -Post Debridement Size (cm) - Width 0.1 -Post Debridement Size (cm) - Depth 0.1 -Total Square Cm 0.01 -Wound/Ulcer Outcome Not Healed -Ulcer Cleansing Rinsed/ Irrigated with Saline -Foul Odor after Cleansing No -Bioengineered Tissue No -Bleeding Controlled with Pressure -Treatment Response Procedure Tolerated Well [See Physician Procedure note for Specifics] Pain Scale: 0-10 Numeric [Pain] -Is Patient Pain Free? Yes Musculoskeletal: No Muscle Wasting Neurological: Cranial nerves II-XII grossly intact Psych/Mental Status: Normal Affect Debridement Note Post-Debridement Measurements/Treatment WC - Nurse 2 - General Ulcer CM Notes Start: 03/20/18 09:44 Freq: Status: Active Protocol: Activity Type Activity Date Activity User E-Sign Co-Sign Detail Recorded Client Recorded Date Recorded By Document 03/20/18 10:05 MW [id number] 03/20/18 10:08 MW 03/20/18 10:05 Wound Center Nurse 2 #8 LEFT POSTERIOR CALF -Time 10:05 -Correct Patient Yes -Correct Side, Site, Position Yes -Correct Procedure Yes -Procedure Performed Yes -Type of Procedure Debridement -Clinical Debridement Selective -Post Debridement Size (cm) - Length 0.1 -Post Debridement Size (cm) - Width 0.1 -Post Debridement Size (cm) - Depth 0.1 -Total Square Cm 0.01 -Wound/Ulcer Outcome Not Healed -Ulcer Cleansing Rinsed/ Irrigated with Saline -Foul Odor after Cleansing No -Bioengineered Tissue No -Bleeding Controlled with Pressure -Treatment Response Procedure Tolerated Well Pain Scale: 0-10 Numeric Is Patient Pain Free? 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 Bilateral lower extremity edema. Plan: Edema still present especially of his right lower extremity which did not have 3M wraps over the past week. Selective debridement done today. procedure well tolerated. Continue adaptic over top. Leave in place x 1 week. Bilateral 3M wraps for edema management. Will switch to Circaid for edema management. Order placed however, patient is yet to recieve it. Hopefully in the next week. Elevate lower extremity when seated and in bed. Continue increased protein intake and supplements. Advised to call with any questions or concerns. Follow up in 1 week. This note was generated with [employer] dictation software. It may contain incorrect words, spelling, and punctuation that were not noted in checking the note before signing.
[2018-04-02 10:59] VITALS: BP 120/74; PULSE 95; RESP 20; TEMP 36.3
--- NOTE | 2018-04-02 12:10 | PCM.WC.PN ---
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 Swelling of both legs History of Wound: Being seen here for recurrent left lower extremity ulcer. However last seen here 2 week ago. No new complaints at this time. Not properly applying compression. Progress of Wound: Wound stays healed. Patient did not come in with his compression stockings. - Physical Exam Vital Signs Temp Pulse Resp BP 97.3 F L 95 20 H 120/74 04/02/18 10:59 04/02/18 10:59 04/02/18 10:59 04/02/18 10:59 General: Alert, Oriented x3, Cooperative, No apparent distress HEENT: Atraumatic Oral: Moist Mucosa Neck: Supple Lungs: Normal air movement Abdomen: Non Tender Extremities: No cyanosis, Edema Wound Measurements and Assessment WC - Nurse 1 - General Ulcer Measurement Start: 03/20/18 09:44 Freq: Status: Active Protocol: Activity Type Activity Date Activity User E-Sign Co-Sign Detail Recorded Client Recorded Date Recorded By Document 04/02/18 10:59 DV [id number] 04/02/18 11:01 DV 04/02/18 10:59 Wound Center Nurse 1 [Ulcer Assessment] #8 LEFT POSTERIOR CALF -Combined with other wound No -Current Size (cm) - Length 0.1 -Current Size (cm) - Width 0.1 -Current Size (cm) - Depth 0.1 -Total Square Cm 0.01 -Photo Taken No -Epithelialization None Present -Tunneling No -Undermining/Tunneling No -Circular Undermining No -Classification - Thickness Full Thickness with Exposed Support Structure -Exudate Amt None Present (0 %) -Wound Margin Flat & Intact -Slough/Fibrin No -Necrosis Amt None Present (0 %) -Structure Exposed N/A -Texture (Elisa-wound Skin Appearance) Assessed Localized Edema Scarring -Moisture (Elisa-wound Skin Appearance Assessed ) Dry/Scaly -Color (Elisa-wound Skin Appearance) No Abnormality Assessed -Temperature (Elisa-wound Skin No Abnormality Appearance) (Pt Warm) -Ulcer Cleansing Wound Cleanser -Foul Odor after Cleansing No [Edema Assessment] -Lower Limb Edema Present Yes -Right Calf (cm) 40.5 -Right Ankle (cm) 23.0 -Left Calf (cm) 36.5 -Left Ankle (cm) 21.5 WC - Nurse 2 - General Ulcer CM Notes Start: 03/20/18 09:44 Freq: Status: Active Protocol: Activity Type Activity Date Activity User E-Sign Co-Sign Detail Recorded Client Recorded Date Recorded By Document 04/02/18 11:49 MW [id number] 04/02/18 11:50 MW 04/02/18 11:49 Wound Center Nurse 2 [Procedure/Treatment] #8 LEFT POSTERIOR CALF -Time 11:49 -Correct Patient Yes -Correct Side, Site, Position Yes -Correct Procedure No -Procedure Performed No -Post Debridement Size (cm) - Length 0 -Post Debridement Size (cm) - Width 0 -Post Debridement Size (cm) - Depth 0 -Total Square Cm 0 -Wound/Ulcer Outcome Healed- Epithelialized -Ulcer Cleansing Not Cleansed -Foul Odor after Cleansing No -Bioengineered Tissue No -Bleeding Controlled with NA -Treatment Response Procedure Tolerated Well [See Physician Procedure note for Specifics] Pain Scale: 0-10 Numeric [Pain] -Is Patient Pain Free? Yes Musculoskeletal: No Muscle Wasting Neurological: Cranial nerves II-XII grossly intact Psych/Mental Status: Normal Affect Debridement Note Post-Debridement Measurements/Treatment WC - Nurse 2 - General Ulcer CM Notes Start: 03/20/18 09:44 Freq: Status: Active Protocol: Activity Type Activity Date Activity User E-Sign Co-Sign Detail Recorded Client Recorded Date Recorded By Document 03/20/18 10:05 MW [id number] 03/20/18 10:08 MW Document 04/02/18 11:49 MW [id number] 04/02/18 11:50 MW 03/20/18 04/02/18 10:05 11:49 Wound Center Nurse 2 #8 LEFT POSTERIOR CALF -Time 10:05 11:49 -Correct Patient Yes Yes -Correct Side, Site, Position Yes Yes -Correct Procedure Yes No -Procedure Performed Yes No -Type of Procedure Debridement -Clinical Debridement Selective -Post Debridement Size (cm) - Length 0.1 0 -Post Debridement Size (cm) - Width 0.1 0 -Post Debridement Size (cm) - Depth 0.1 0 -Total Square Cm 0.01 0 -Wound/Ulcer Outcome Not Healed Healed- Epithelialized -Ulcer Cleansing Rinsed/ Not Cleansed Irrigated with Saline -Foul Odor after Cleansing No No -Bioengineered Tissue No No -Bleeding Controlled with Pressure NA -Treatment Response Procedure Procedure Tolerated Well Tolerated Well Pain Scale: 0-10 Numeric Is Patient Pain Free? 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 Bilateral lower extremity edema. Plan: Wound stays healed however patient is still not here with his compression stockings. I do not see the need to keep coming here as he is stated without a wound for about 2-3 weeks. Will refer to the lymphedema clinic. Double layer Tubigrip for now. Strongly counseled to use his compression stockings at home and when he receives a CircAid compliance is also strongly encouraged. He was advised to sleep laying in bed and not sitting in a chair, elevate lower extremities when seated. Elevate lower extremity when seated and in bed. Continue increased protein intake and supplements. Advised to call with any questions or concerns. Discharge from the wound clinic. This note was generated with [employer] dictation software. It may contain incorrect words, spelling, and punctuation that were not noted in checking the note before signing.
--- NOTE | 2018-04-02 12:13 | PN.PCM_ITS ---
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 Swelling of both legs History of Wound: Being seen here for recurrent left lower extremity ulcer. However last seen here 2 week ago. No new complaints at this time. Not properly applying compression. Progress of Wound: Wound stays healed. Patient did not come in with his compression stockings. - Physical Exam Vital Signs Temp Pulse Resp BP 97.3 F L 95 20 H 120/74 04/02/18 10:59 04/02/18 10:59 04/02/18 10:59 04/02/18 10:59 General: Alert, Oriented x3, Cooperative, No apparent distress HEENT: Atraumatic Oral: Moist Mucosa Neck: Supple Lungs: Normal air movement Abdomen: Non Tender Extremities: No cyanosis, Edema Wound Measurements and Assessment WC - Nurse 1 - General Ulcer Measurement Start: 03/20/18 09:44 Freq: Status: Active Protocol: Activity Type Activity Date Activity User E-Sign Co-Sign Detail Recorded Client Recorded Date Recorded By Document 04/02/18 10:59 DV [id number] 04/02/18 11:01 DV 04/02/18 10:59 Wound Center Nurse 1 [Ulcer Assessment] #8 LEFT POSTERIOR CALF -Combined with other wound No -Current Size (cm) - Length 0.1 -Current Size (cm) - Width 0.1 -Current Size (cm) - Depth 0.1 -Total Square Cm 0.01 -Photo Taken No -Epithelialization None Present -Tunneling No -Undermining/Tunneling No -Circular Undermining No -Classification - Thickness Full Thickness with Exposed Support Structure -Exudate Amt None Present (0 %) -Wound Margin Flat & Intact -Slough/Fibrin No -Necrosis Amt None Present (0 %) -Structure Exposed N/A -Texture (Elisa-wound Skin Appearance) Assessed Localized Edema Scarring -Moisture (Elisa-wound Skin Appearance Assessed ) Dry/Scaly -Color (Elisa-wound Skin Appearance) No Abnormality Assessed -Temperature (Elisa-wound Skin No Abnormality Appearance) (Pt Warm) -Ulcer Cleansing Wound Cleanser -Foul Odor after Cleansing No [Edema Assessment] -Lower Limb Edema Present Yes -Right Calf (cm) 40.5 -Right Ankle (cm) 23.0 -Left Calf (cm) 36.5 -Left Ankle (cm) 21.5 WC - Nurse 2 - General Ulcer CM Notes Start: 03/20/18 09:44 Freq: Status: Active Protocol: Activity Type Activity Date Activity User E-Sign Co-Sign Detail Recorded Client Recorded Date Recorded By Document 04/02/18 11:49 MW [id number] 04/02/18 11:50 MW 04/02/18 11:49 Wound Center Nurse 2 [Procedure/Treatment] #8 LEFT POSTERIOR CALF -Time 11:49 -Correct Patient Yes -Correct Side, Site, Position Yes -Correct Procedure No -Procedure Performed No -Post Debridement Size (cm) - Length 0 -Post Debridement Size (cm) - Width 0 -Post Debridement Size (cm) - Depth 0 -Total Square Cm 0 -Wound/Ulcer Outcome Healed- Epithelialized -Ulcer Cleansing Not Cleansed -Foul Odor after Cleansing No -Bioengineered Tissue No -Bleeding Controlled with NA -Treatment Response Procedure Tolerated Well [See Physician Procedure note for Specifics] Pain Scale: 0-10 Numeric [Pain] -Is Patient Pain Free? Yes Musculoskeletal: No Muscle Wasting Neurological: Cranial nerves II-XII grossly intact Psych/Mental Status: Normal Affect Debridement Note Post-Debridement Measurements/Treatment WC - Nurse 2 - General Ulcer CM Notes Start: 03/20/18 09:44 Freq: Status: Active Protocol: Activity Type Activity Date Activity User E-Sign Co-Sign Detail Recorded Client Recorded Date Recorded By Document 03/20/18 10:05 MW [id number] 03/20/18 10:08 MW Document 04/02/18 11:49 MW [id number] 04/02/18 11:50 MW 03/20/18 04/02/18 10:05 11:49 Wound Center Nurse 2 #8 LEFT POSTERIOR CALF -Time 10:05 11:49 -Correct Patient Yes Yes -Correct Side, Site, Position Yes Yes -Correct Procedure Yes No -Procedure Performed Yes No -Type of Procedure Debridement -Clinical Debridement Selective -Post Debridement Size (cm) - Length 0.1 0 -Post Debridement Size (cm) - Width 0.1 0 -Post Debridement Size (cm) - Depth 0.1 0 -Total Square Cm 0.01 0 -Wound/Ulcer Outcome Not Healed Healed- Epithelialized -Ulcer Cleansing Rinsed/ Not Cleansed Irrigated with Saline -Foul Odor after Cleansing No No -Bioengineered Tissue No No -Bleeding Controlled with Pressure NA -Treatment Response Procedure Procedure Tolerated Well Tolerated Well Pain Scale: 0-10 Numeric Is Patient Pain Free? 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 Bilateral lower extremity edema. Plan: Wound stays healed however patient is still not here with his compression stockings. I do not see the need to keep coming here as he is stated without a wound for about 2-3 weeks. Will refer to the lymphedema clinic. Double layer Tubigrip for now. Strongly counseled to use his compression stockings at home and when he receives a CircAid compliance is also strongly encouraged. He was advised to sleep laying in bed and not sitting in a chair, elevate lower extremities when seated. Elevate lower extremity when seated and in bed. Continue increased protein intake and supplements. Advised to call with any questions or concerns. Discharge from the wound clinic. This note was generated with [employer] dictation software. It may contain incorrect words, spelling, and punctuation that were not noted in checking the note before signing.
== END 2018-04-13 23:59 ==
LOC: WC 10:45
PROVIDERS: Family Provider Family Medicine Geriatric Medicine; PCP Family Medicine Geriatric Medicine; Visit Provider Internal Medicine
DX: L97.822 Non-pressure chronic ulcer of other part of left lower leg with fat layer exposed (principal); R60.0 Localized edema; M79.89 Other specified soft tissue disorders
CPT/HCPCS: 29581; 97597; 99212; G0463

== ENCOUNTER → 2018-04-03 11:47 | Outpatient (CLI) | payer MEDICARE, SELFPAY ==
[2018-04-03 12:49] LABS: Absolute Lymphocyte Count 1.08 X10^3/ul (0.83-4.51); Eosinophil# 0.08 X10^3/uL; Eosinophils% 1.4 % (0-5); Hematocrit 34.6 % (40-54); Hemoglobin 10.9 g/dl (13.0-16.5); Lymphocyte # 1.08 X10^3/ul (4.0); Lymphocyte % 18.7 % (19-41); Mean Corp Hgb Conc 31.5 g/gl (32-36); Mean Corpuscular Hgb 28.4 pg (27.0-32.0); Mean Corpuscular Volume 90.1 fL (80-94); Mean Platelet Vol. 9.8 fl (6.2-12.0); Monocyte# 0.64 X10^3/uL; Monocyte% 11.1 % (0-10); Neutrophil # 3.98 X10^3/uL (2.7-7.7); Neutrophil % 68.8 % (47-70); Platelet Count 179 K/mm3 (150-450); RBC Distribution Width CV 17.4 % (11.6-14.6); RBC Distribution Width SD 57.4 fl (35.1-43.9); Red Blood Count 3.84 M/mm3 (4.6-6.2); White Blood Count 5.8 K/mm3 (4.4-11.0)
[2018-04-03 12:52] LABS: POSITIVE COUNT NO; POSITIVE DIFFERENTIAL NO; POSITIVE MORPHOLOGY NO
[2018-04-03 13:03] LABS: Vitamin D,25 Hydroxy 24.3 ng/mL (29.95-100.01)
[2018-04-03 13:06] LABS: AST(SGOT) 15 U/L (15-37); Alanine Aminotransfer ALT/SGPT 18 U/L (16-61); Albumin, Serum 3.7 g/dL (3.2-5.0); Alkaline Phosphatase 156 U/L (45-117); Anion Gap 11 (5-15); BUN 29 mg/dL (7-18); BUN/Creat Ratio 20.4 RATIO (10-20); Calcium,Total 9.2 mg/dL (8.5-10.1); Chloride 104 mmol/L (98-107); Creatinine, Serum 1.42 mg/dL (0.70-1.30); EST Glomerular Filtration Rate 51 mL/min (>60); Est Glom Filt Rate - Afr Amer 61 mL/min (>60); Globulin 3.6 g/dL (2.2-4.2); Glucose 146 mg/dL (74-106); Potassium 4.6 mmol/L (3.5-5.1); Protein, Total 7.3 g/dL (6.4-8.2); Sodium Level 140 mmol/L (136-145); Thyroid Stim Hormone (TSH) 3.57 uIU/mL (0.358-3.74)
== END ==
PROVIDERS: Family Provider Family Medicine Geriatric Medicine; PCP Family Medicine Geriatric Medicine; Visit Provider Family Medicine Geriatric Medicine
DX: E55.9 Vitamin D deficiency, unspecified (principal); I10 Essential (primary) hypertension
CPT/HCPCS: 36415; 80053; 82306; 84443; 85025

== ENCOUNTER → 2018-05-05 10:00 | Outpatient (CLI) | payer MEDICARE, SELFPAY ==
[2018-05-05 12:17] LABS: Absolute Lymphocyte Count 1.12 X10^3/ul (0.83-4.51); Absolute Neutrophil Count 3.6 X10^3/uL (2.0-7.7); Basophil# 0.01 X10^3/uL; Basophil% 0.2 % (0-1); Eosinophil# 0.06 X10^3/uL; Eosinophils% 1.1 % (0-5); Hemoglobin 12.2 g/dl (13.0-16.5); Lymphocyte # 1.12 X10^3/ul (4.0); Lymphocyte % 20.9 % (19-41); Mean Corp Hgb Conc 31.3 g/gl (32-36); Mean Corpuscular Hgb 28.5 pg (27.0-32.0); Mean Corpuscular Volume 91.1 fL (80-94); Monocyte# 0.55 X10^3/uL; Monocyte% 10.2 % (0-10); Neutrophil # 3.62 X10^3/uL (2.7-7.7); Neutrophil % 67.4 % (47-70); Platelet Count 161 K/mm3 (150-450); RBC Distribution Width CV 15.6 % (11.6-14.6); RBC Distribution Width SD 51.2 fl (35.1-43.9); Red Blood Count 4.28 M/mm3 (4.6-6.2); White Blood Count 5.4 K/mm3 (4.4-11.0)
[2018-05-05 12:22] LABS: POSITIVE COUNT NO; POSITIVE DIFFERENTIAL NO; POSITIVE MORPHOLOGY NO
[2018-05-05 12:29] LABS: Anion Gap 8 (5-15); BUN 21 mg/dL (7-18); BUN/Creat Ratio 16.8 RATIO (10-20); Calcium,Total 9.1 mg/dL (8.5-10.1); Chloride 104 mmol/L (98-107); Creatinine, Serum 1.25 mg/dL (0.70-1.30); EST Glomerular Filtration Rate 59 mL/min (>60); Est Glom Filt Rate - Afr Amer 71 mL/min (>60); Glucose 109 mg/dL (74-106); Potassium 3.8 mmol/L (3.5-5.1); Sodium Level 141 mmol/L (136-145)
[2018-05-05 13:08] LABS: M R Staph aureus DNA By PCR Negative (Negative); Probe Check PASS; Staph aureus DNA By PCR POSITIVE (Negative)
== END ==
PROVIDERS: Family Provider Family Medicine Geriatric Medicine; PCP Family Medicine Geriatric Medicine; Visit Provider Family Medicine Geriatric Medicine
DX: B95.62 Methicillin resistant Staphylococcus aureus infection as the cause of diseases classified elsewhere (principal); L03.119 Cellulitis of unspecified part of limb
CPT/HCPCS: 36415; 80048; 85025; 87070; 87077; 87186; 87205; 87640

== ENCOUNTER 2018-06-12 09:00 | Outpatient (RCR) | payer MEDICARE, SELFPAY ==
[2018-04-14 00:54] VITALS: BP 120/74; PULSE 95; RESP 20; TEMP 36.3
[2018-05-15 08:56] VITALS: BP 116/83; PULSE 81; RESP 16; TEMP 36.5; BMI 24.4
--- NOTE | 2018-05-15 11:57 | PCM.WC.HP ---
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 Swelling of both legs History of Wound: Mr. Garcia is an 82-year-old who is well-known to the wound center due to recurrent reopening of left lower extremity ulcer. He has had recurrent episodes of left lower extremity ulcers since his surgery a couple of years ago. Also has significant bilateral lower extremity edema and is not very compliant with compression. Denies any significant concerns at this time. No chills, fever or feeling of unwell. 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) Nonrheumatic mitral valve insufficiency (Chronic) Non-rheumatic tricuspid valve insufficiency (Chronic) Acute blood loss anemia (Chronic) Scalp laceration with hemorrhage (Chronic) Fall (Chronic) Bilateral lower extremity edema (Chronic) Paroxysmal atrial fibrillation (Chronic) DCCV January 2000; Atherosclerosis of [place] coronary artery of [place] heart without angina pectoris (Chronic) CABG 01/22/2000 NGO to LAD, reverse SVG as a sequential graft to DX and LCX, reverse SVG to the two ventricular branches of the right Ischemic cardiomyopathy (Chronic) Chronic ulcer of left leg, 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) Dyslipidemia (Chronic) 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) CAB01/22/2000 NGO to LAD, reverse SVG as a sequential graft to DX and LCX, reverse SVG to the two ventricular branches of the right Hypertension (Chronic) Anemia (Chronic) Surgical History: coronary bypass surgery, - Allergies/Adverse Reactions: Allergies No Known Allergies Allergy (Verified 12/03/17 09:40) Home Medications: Ambulatory Orders Medication Instructions Recorded acetaminophen 325 mg tablet 650 mg PO Q4H PRN 08/08/17 atorvastatin 20 mg tablet 20 mg PO QDAY 08/08/17 carvedilol 6.25 mg tablet 6.25 mg PO BID 08/08/17 pantoprazole 40 mg tablet,delayed 40 mg PO QDAY 08/08/17 release Citalopram [Celexa] 10 mg PO DAILY 09/27/17 Furosemide [Lasix] 80 mg PO DAILY 11/19/17 Apixaban [Eliquis] 2.5 mg PO BID #180 tab 11/21/17 Aspirin [Aspirin, Baby] 81 mg PO DAILY@0800 #30 tab.chew 11/21/17 Ferrous Sulfate [Iron] 325 mg PO DAILY #60 tab 11/21/17 - Family History Paternal Family History: Family History (Last Reviewed 12/03/17 @ 09:39 by Chato Moran) Mother CVA (cerebral vascular accident) CAD (coronary artery disease) Myocardial infarction Father CAD (coronary artery disease) Myocardial infarction Brother CAD (coronary artery disease) Myocardial infarction Brother CAD (coronary artery disease) Myocardial infarction High Cholesterol, Heart Disease, Hypertension, - Smoking Status: Never smoker Review of Systems Constitutional: Denies: Anorexia, Chills, Fever Eyes: Denies: Pain, Redness Cardiovascular: Denies: Chest Pain, Chest Tightness Respiratory: Denies: Cough, Hemoptysis Gastrointestinal: Denies: Abdominal Pain, Hematemesis, Vomiting Skin: Denies: Jaundice - Physical Exam Vital Signs Temp Pulse Resp BP 97.7 F L 81 16 116/83 H 05/15/18 08:56 05/15/18 08:56 05/15/18 08:56 05/15/18 08:56 General: Alert, Oriented x3, Cooperative, No apparent distress HEENT: Atraumatic Oral: Moist Mucosa Neck: Supple Lungs: Normal air movement Abdomen: Non Tender Extremities: No cyanosis, Edema Skin: Ulcer/ Wound Wound Measurements and Assessment WC - Nurse 1 - General Ulcer Measurement Start: 05/15/18 08:56 Freq: Status: Active Protocol: Activity Type Activity Date Activity User E-Sign Co-Sign Detail Recorded Client Recorded Date Recorded By Document 05/15/18 08:56 [id number] 05/15/18 09:04 05/15/18 08:56 Wound Center Nurse 1 [Ulcer Assessment] #10 LEFT HOLLIS LATERAL -Combined with other wound No -Current Size (cm) - Length 0.3 -Current Size (cm) - Width 0.4 -Current Size (cm) - Depth 0.1 -Total Square Cm 0.12 -Date of Last Picture (Recall this 05/15/18 field) -Photo Taken Yes -Epithelialization None Present -Tunneling No -Undermining/Tunneling No -Circular Undermining No -Exudate Amt None Present (0 %) -Wound Margin Distinct, Outline Attached -Granulation Amt Large (67-100%) -Granulation Quality Red -Slough/Fibrin Yes -Necrosis Amt None Present (0 %) -Necrotic Tissue Type Adherent Slough -Structure Exposed None/Limited to Skin Breakdown -Texture (Elisa-wound Skin Appearance) No Abnormality Assessed -Moisture (Elisa-wound Skin Appearance Assessed ) Weeping -Color (Elisa-wound Skin Appearance) No Abnormality Assessed -Temperature (Elisa-wound Skin No Abnormality Appearance) (Pt Warm) -Tenderness on Palpation (Elisa-wound No Skin Appearance) -Ulcer Cleansing Rinsed/ Irrigated with Saline -Foul Odor after Cleansing No -Anesthetic Used 4% Lidocaine Solution #9 LEFT POST. CALF -Combined with other wound No -Current Size (cm) - Length 2.1 -Current Size (cm) - Width 0.6 -Current Size (cm) - Depth 0.2 -Total Square Cm 1.26 -Date of Last Picture (Recall this 05/15/18 field) -Photo Taken Yes -Epithelialization None Present -Tunneling No -Undermining/Tunneling No -Circular Undermining No -Exudate Amt Small (1-33%) -Exudate Type Serosanguineous -Wound Margin Distinct, Outline Attached -Granulation Amt Medium (34-66%) -Granulation Quality Pale [place] -Slough/Fibrin Yes -Necrosis Amt None Present (0 %) -Necrotic Tissue Type Adherent Slough -Structure Exposed None/Limited to Skin Breakdown -Texture (Elisa-wound Skin Appearance) Scarring -Moisture (Elisa-wound Skin Appearance No Abnormality ) Assessed -Color (Elisa-wound Skin Appearance) Assessed Rubor -Temperature (Elisa-wound Skin No Abnormality Appearance) (Pt Warm) -Tenderness on Palpation (Elisa-wound No Skin Appearance) -Ulcer Cleansing Rinsed/ Irrigated with Saline -Anesthetic Used 4% Lidocaine Solution [Edema Assessment] -Lower Limb Edema Present Yes -Right Calf (cm) 37.6 -Point of measurement (cm from the 23 medial instep) -Left Calf (cm) 35 -Left Ankle (cm) 22.2 WC - Nurse 2 - General Ulcer CM Notes Start: 05/15/18 08:56 Freq: Status: Active Protocol: Activity Type Activity Date Activity User E-Sign Co-Sign Detail Recorded Client Recorded Date Recorded By Document 05/15/18 09:21 MW [id number] 05/15/18 09:24 MW 05/15/18 09:21 Wound Center Nurse 2 [Procedure/Treatment] #10 LEFT HOLLIS LATERAL -Time 09:22 -Correct Patient Yes -Correct Side, Site, Position Yes -Correct Procedure Yes -Procedure Performed Yes -Type of Procedure Debridement -Clinical Debridement Subcutaneous -Post Debridement Size (cm) - Length 0.8 -Post Debridement Size (cm) - Width 1.4 -Post Debridement Size (cm) - Depth 0.1 -Total Square Cm 1.12 -Wound/Ulcer Outcome Not Healed -Ulcer Cleansing Rinsed/ Irrigated with Saline -Foul Odor after Cleansing No -Bioengineered Tissue No -Bleeding Controlled with Pressure -Treatment Response Procedure Tolerated Well #9 LEFT POST. CALF -Time 09:22 -Correct Patient Yes -Correct Side, Site, Position Yes -Correct Procedure Yes -Procedure Performed Yes -Type of Procedure Debridement -Clinical Debridement Subcutaneous -Post Debridement Size (cm) - Length 3.0 -Post Debridement Size (cm) - Width 0.9 -Post Debridement Size (cm) - Depth 0.2 -Total Square Cm 2.70 -Wound/Ulcer Outcome Not Healed -Ulcer Cleansing Rinsed/ Irrigated with Saline -Foul Odor after Cleansing No -Bioengineered Tissue No -Bleeding Controlled with Pressure -Treatment Response Procedure Tolerated Well [See Physician Procedure note for Specifics] Pain Scale: 0-10 Numeric [Pain] -Is Patient Pain Free? Yes Musculoskeletal: No Muscle Wasting Neurological: Cranial nerves II-XII grossly intact Psych/Mental Status: Normal Affect Debridement Note Post-Debridement Measurements/Treatment WC - Nurse 2 - General Ulcer CM Notes Start: 05/15/18 08:56 Freq: Status: Active Protocol: Activity Type Activity Date Activity User E-Sign Co-Sign Detail Recorded Client Recorded Date Recorded By Document 05/15/18 09:21 MW [id number] 05/15/18 09:24 MW 05/15/18 09:21 Wound Center Nurse 2 #10 LEFT HOLLIS LATERAL -Time 09:22 -Correct Patient Yes -Correct Side, Site, Position Yes -Correct Procedure Yes -Procedure Performed Yes -Type of Procedure Debridement -Clinical Debridement Subcutaneous -Post Debridement Size (cm) - Length 0.8 -Post Debridement Size (cm) - Width 1.4 -Post Debridement Size (cm) - Depth 0.1 -Total Square Cm 1.12 -Wound/Ulcer Outcome Not Healed -Ulcer Cleansing Rinsed/ Irrigated with Saline -Foul Odor after Cleansing No -Bioengineered Tissue No -Bleeding Controlled with Pressure -Treatment Response Procedure Tolerated Well #9 LEFT POST. CALF -Time 09:22 -Correct Patient Yes -Correct Side, Site, Position Yes -Correct Procedure Yes -Procedure Performed Yes -Type of Procedure Debridement -Clinical Debridement Subcutaneous -Post Debridement Size (cm) - Length 3.0 -Post Debridement Size (cm) - Width 0.9 -Post Debridement Size (cm) - Depth 0.2 -Total Square Cm 2.70 -Wound/Ulcer Outcome Not Healed -Ulcer Cleansing Rinsed/ Irrigated with Saline -Foul Odor after Cleansing No -Bioengineered Tissue No -Bleeding Controlled with Pressure -Treatment Response Procedure Tolerated Well Pain Scale: 0-10 Numeric Is Patient Pain Free? 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 Bilateral lower extremity edema. Plan: Back with reopening of his left lower extremity ulcer. Also has bilateral lower extremity edema. He admits to not being very compliant with compression. Debridement done as documented above, procedure was well-tolerated. Promogran with Adaptic over top and bilateral 3M wraps. Follow-up on Saturday for a nurse visit and in 1 week with me. We will subsequently leave wraps on for a week. Elevate lower extremity when seated and in bed. Increased protein intake recommended. Avoid idle standing. Exercise as tolerated. Follow-up in 1 week. All his questions were answered and he was asked to call with any further questions or concerns. This note was generated with [employer] software. It may contain incorrect words, spelling, and punctuation that were not noted in checking the note before signing. This note was generated with [employer] software. It may contain incorrect words, spelling, and punctuation that were not noted in checking the note before signing.
[2018-05-19 09:32] VITALS: BP 114/70; PULSE 84; RESP 18; TEMP 36.8; BMI 24.4
[2018-05-22 09:04] VITALS: TEMP 37.1; BMI 24.4
--- NOTE | 2018-05-22 09:37 | PCM.WC.PN ---
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 Swelling of both legs History of Wound: Mr. Garcia is an 82-year-old who is well-known to the wound center due to recurrent reopening of left lower extremity ulcer. He has had recurrent episodes of left lower extremity ulcers since his surgery a couple of years ago. Also has significant bilateral lower extremity edema and is not very compliant with compression. Denies any significant concerns at this time. No chills, fever or feeling of unwell. Progress of Wound: Stable. No new complaints at this time. - Physical Exam Vital Signs Temp Pulse Resp BP 98.7 F 84 18 114/70 05/22/18 09:04 05/19/18 09:32 05/19/18 09:32 05/19/18 09:32 General: Alert, Oriented x3, Cooperative, No apparent distress HEENT: Atraumatic, Normocephalic Oral: Moist Mucosa Neck: Supple Lungs: Normal air movement Extremities: No cyanosis Skin: Ulcer/ Wound Wound Measurements and Assessment WC - Nurse 1 - General Ulcer Measurement Start: 05/15/18 08:56 Freq: Status: Active Protocol: Activity Type Activity Date Activity User E-Sign Co-Sign Detail Recorded Client Recorded Date Recorded By Document 05/19/18 09:32 [id number] 05/19/18 09:35 Document 05/22/18 09:04 [id number] 05/22/18 09:11 05/19/18 05/22/18 09:32 09:04 Wound Center Nurse 1 [Ulcer Assessment] #10 LEFT NELSON LATERAL -Combined with other wound No No -Current Size (cm) - Length 0.5 0.5 -Current Size (cm) - Width 0.7 0.5 -Current Size (cm) - Depth 0.1 0.1 -Total Square Cm 0.35 0.25 -Photo Taken No No -Epithelialization Small 1-33% None Present -Tunneling No No -Undermining/Tunneling No No -Circular Undermining No No -Exudate Amt Small (1-33%) None Present (0 %) -Exudate Type Serosanguineous -Wound Margin Distinct, Distinct, Outline Outline Attached Attached -Granulation Amt Small (1-33%) Medium (34-66%) -Granulation Quality Pale Pale [place] Red -Slough/Fibrin Yes Yes -Necrosis Amt Small (1-33%) None Present (0 %) -Necrotic Tissue Type Adherent Slough Adherent Slough -Structure Exposed None/Limited to Skin Breakdown -Texture (Elisa-wound Skin Appearance) Assessed No Abnormality Scarring Assessed -Moisture (Elisa-wound Skin Appearance Assessed No Abnormality ) Dry/Scaly Assessed -Color (Elisa-wound Skin Appearance) No Abnormality No Abnormality Assessed Assessed -Temperature (Elisa-wound Skin No Abnormality No Abnormality Appearance) (Pt Warm) (Pt Warm) -Tenderness on Palpation (Elisa-wound No No Skin Appearance) -Ulcer Cleansing Wound Cleanser Rinsed/ Irrigated with Saline -Foul Odor after Cleansing No No -Anesthetic Used 4% Lidocaine Solution #9 LEFT POST. CALF -Combined with other wound No No -Current Size (cm) - Length 1.5 1.5 -Current Size (cm) - Width 0.5 0.4 -Current Size (cm) - Depth 0.2 0.1 -Total Square Cm 0.75 0.60 -Photo Taken No No -Epithelialization Small 1-33% None Present -Tunneling No No -Undermining/Tunneling No No -Circular Undermining No -Exudate Amt Small (1-33%) Medium (34-66%) -Exudate Type Serosanguineous Serosanguineous -Wound Margin Distinct, Distinct, Outline Outline Attached Attached -Granulation Amt Medium (34-66%) Small (1-33%) -Granulation Quality Pale [place] Red -Slough/Fibrin Yes Yes -Necrosis Amt Small (1-33%) None Present (0 %) -Necrotic Tissue Type Adherent Slough Adherent Slough -Structure Exposed None/Limited to Skin Breakdown -Texture (Elisa-wound Skin Appearance) Assessed No Abnormality Scarring Assessed -Moisture (Elisa-wound Skin Appearance Assessed No Abnormality ) Dry/Scaly Assessed -Color (Elisa-wound Skin Appearance) No Abnormality No Abnormality Assessed Assessed -Temperature (Elisa-wound Skin No Abnormality No Abnormality Appearance) (Pt Warm) (Pt Warm) -Tenderness on Palpation (Elisa-wound No No Skin Appearance) -Ulcer Cleansing Wound Cleanser Rinsed/ Irrigated with Saline -Foul Odor after Cleansing No No -Anesthetic Used 4% Lidocaine Solution [Edema Assessment] -Lower Limb Edema Present No -Right Calf (cm) 35.5 35 -Right Ankle (cm) 22.5 22.3 -Left Calf (cm) 31 32 -Left Ankle (cm) 22 22 WC - Nurse 2 - General Ulcer CM Notes Start: 05/15/18 08:56 Freq: Status: Active Protocol: Activity Type Activity Date Activity User E-Sign Co-Sign Detail Recorded Client Recorded Date Recorded By Document 05/22/18 09:22 MW [id number] 05/22/18 09:27 MW 05/22/18 09:22 Wound Center Nurse 2 [Procedure/Treatment] #10 LEFT NELSON LATERAL -Time 09:24 -Correct Patient Yes -Correct Side, Site, Position Yes -Correct Procedure Yes -Procedure Performed No -Post Debridement Size (cm) - Length 0 -Post Debridement Size (cm) - Width 0 -Post Debridement Size (cm) - Depth 0 -Total Square Cm 0 -Wound/Ulcer Outcome Healed- Epithelialized #9 LEFT POST. CALF -Time 09:24 -Correct Patient Yes -Correct Side, Site, Position Yes -Correct Procedure Yes -Procedure Performed Yes -Type of Procedure Debridement -Clinical Debridement Subcutaneous -Post Debridement Size (cm) - Length 2.0 -Post Debridement Size (cm) - Width 0.5 -Post Debridement Size (cm) - Depth 0.2 -Total Square Cm 1.00 -Wound/Ulcer Outcome Not Healed -Ulcer Cleansing Rinsed/ Irrigated with Saline -Foul Odor after Cleansing No -Bioengineered Tissue No -Bleeding Controlled with Pressure -Treatment Response Procedure Tolerated Well [See Physician Procedure note for Specifics] Pain Scale: 0-10 Numeric [Pain] -Is Patient Pain Free? Yes Musculoskeletal: No Muscle Wasting Neurological: Cranial nerves II-XII grossly intact Psych/Mental Status: Normal Affect Debridement Note Post-Debridement Measurements/Treatment WC - Nurse 2 - General Ulcer CM Notes Start: 05/15/18 08:56 Freq: Status: Active Protocol: Activity Type Activity Date Activity User E-Sign Co-Sign Detail Recorded Client Recorded Date Recorded By Document 05/15/18 09:21 MW [id number] 11/01/18 09:24 MW Document 05/22/18 09:22 MW [id number] 05/22/18 09:27 MW 05/15/18 05/22/18 09:21 09:22 Wound Center Nurse 2 #10 LEFT NELSON LATERAL -Time : 09:24 -Correct Patient Yes Yes -Correct Side, Site, Position Yes Yes -Correct Procedure Yes Yes -Procedure Performed Yes No -Type of Procedure Debridement -Clinical Debridement Subcutaneous -Post Debridement Size (cm) - Length 0.8 0 -Post Debridement Size (cm) - Width 1.4 0 -Post Debridement Size (cm) - Depth 0.1 0 -Total Square Cm 1.12 0 -Wound/Ulcer Outcome Not Healed Healed- Epithelialized -Ulcer Cleansing Rinsed/ Irrigated with Saline -Foul Odor after Cleansing No -Bioengineered Tissue No -Bleeding Controlled with Pressure -Treatment Response Procedure Tolerated Well #9 LEFT POST. CALF -Time 09: 09:24 -Correct Patient Yes Yes -Correct Side, Site, Position Yes Yes -Correct Procedure Yes Yes -Procedure Performed Yes Yes -Type of Procedure Debridement Debridement -Clinical Debridement Subcutaneous Subcutaneous -Post Debridement Size (cm) - Length 3.0 2.0 -Post Debridement Size (cm) - Width 0.9 0.5 -Post Debridement Size (cm) - Depth 0.2 0.2 -Total Square Cm 2.70 1.00 -Wound/Ulcer Outcome Not Healed Not Healed -Ulcer Cleansing Rinsed/ Rinsed/ Irrigated with Irrigated with Saline Saline -Foul Odor after Cleansing No No -Bioengineered Tissue No No -Bleeding Controlled with Pressure Pressure -Treatment Response Procedure Procedure Tolerated Well Tolerated Well Pain Scale: 0-10 Numeric Is Patient Pain Free? Yes Yes Wound debrided: Left lower extremity posterior. 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 Bilateral lower extremity edema. Plan: Improving. Debridement done as documented above. Procedure was well-tolerated. Nelson ulcer has healed. Continue Promogran with Adaptic over top. 3M wraps for edema management. Elevate lower extremity when seated and in bed. Increased protein intake recommended. Avoid idle standing. Exercise as tolerated. Follow-up in 1 week. All his questions were answered and he was asked to call with any further questions or concerns. This note was generated with [employer] software. It may contain incorrect words, spelling, and punctuation that were not noted in checking the note before signing. This note was generated with [employer] software. It may contain incorrect words, spelling, and punctuation that were not noted in checking the note before signing.
--- NOTE | 2018-05-22 09:40 | PN.PCM_ITS ---
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 Swelling of both legs History of Wound: Mr. Garcia is an 82-year-old who is well-known to the wound center due to recurrent reopening of left lower extremity ulcer. He has had recurrent episodes of left lower extremity ulcers since his surgery a couple of years ago. Also has significant bilateral lower extremity edema and is not very compliant with compression. Denies any significant concerns at this time. No chills, fever or feeling of unwell. Progress of Wound: Stable. No new complaints at this time. - Physical Exam Vital Signs Temp Pulse Resp BP 98.7 F 84 18 114/70 05/22/18 09:04 05/19/18 09:32 05/19/18 09:32 05/19/18 09:32 General: Alert, Oriented x3, Cooperative, No apparent distress HEENT: Atraumatic, Normocephalic Oral: Moist Mucosa Neck: Supple Lungs: Normal air movement Extremities: No cyanosis Skin: Ulcer/ Wound Wound Measurements and Assessment WC - Nurse 1 - General Ulcer Measurement Start: 05/15/18 08:56 Freq: Status: Active Protocol: Activity Type Activity Date Activity User E-Sign Co-Sign Detail Recorded Client Recorded Date Recorded By Document 05/19/18 09:32 [id number] 05/19/18 09:35 Document 05/22/18 09:04 [id number] 05/22/18 09:11 05/19/18 05/22/18 09:32 09:04 Wound Center Nurse 1 [Ulcer Assessment] #10 LEFT NELSON LATERAL -Combined with other wound No No -Current Size (cm) - Length 0.5 0.5 -Current Size (cm) - Width 0.7 0.5 -Current Size (cm) - Depth 0.1 0.1 -Total Square Cm 0.35 0.25 -Photo Taken No No -Epithelialization Small 1-33% None Present -Tunneling No No -Undermining/Tunneling No No -Circular Undermining No No -Exudate Amt Small (1-33%) None Present (0 %) -Exudate Type Serosanguineous -Wound Margin Distinct, Distinct, Outline Outline Attached Attached -Granulation Amt Small (1-33%) Medium (34-66%) -Granulation Quality Pale Pale [place] Red -Slough/Fibrin Yes Yes -Necrosis Amt Small (1-33%) None Present (0 %) -Necrotic Tissue Type Adherent Slough Adherent Slough -Structure Exposed None/Limited to Skin Breakdown -Texture (Elisa-wound Skin Appearance) Assessed No Abnormality Scarring Assessed -Moisture (Elisa-wound Skin Appearance Assessed No Abnormality ) Dry/Scaly Assessed -Color (Elisa-wound Skin Appearance) No Abnormality No Abnormality Assessed Assessed -Temperature (Elisa-wound Skin No Abnormality No Abnormality Appearance) (Pt Warm) (Pt Warm) -Tenderness on Palpation (Elisa-wound No No Skin Appearance) -Ulcer Cleansing Wound Cleanser Rinsed/ Irrigated with Saline -Foul Odor after Cleansing No No -Anesthetic Used 4% Lidocaine Solution #9 LEFT POST. CALF -Combined with other wound No No -Current Size (cm) - Length 1.5 1.5 -Current Size (cm) - Width 0.5 0.4 -Current Size (cm) - Depth 0.2 0.1 -Total Square Cm 0.75 0.60 -Photo Taken No No -Epithelialization Small 1-33% None Present -Tunneling No No -Undermining/Tunneling No No -Circular Undermining No -Exudate Amt Small (1-33%) Medium (34-66%) -Exudate Type Serosanguineous Serosanguineous -Wound Margin Distinct, Distinct, Outline Outline Attached Attached -Granulation Amt Medium (34-66%) Small (1-33%) -Granulation Quality Pale [place] Red -Slough/Fibrin Yes Yes -Necrosis Amt Small (1-33%) None Present (0 %) -Necrotic Tissue Type Adherent Slough Adherent Slough -Structure Exposed None/Limited to Skin Breakdown -Texture (Elisa-wound Skin Appearance) Assessed No Abnormality Scarring Assessed -Moisture (Elisa-wound Skin Appearance Assessed No Abnormality ) Dry/Scaly Assessed -Color (Elisa-wound Skin Appearance) No Abnormality No Abnormality Assessed Assessed -Temperature (Elisa-wound Skin No Abnormality No Abnormality Appearance) (Pt Warm) (Pt Warm) -Tenderness on Palpation (Elisa-wound No No Skin Appearance) -Ulcer Cleansing Wound Cleanser Rinsed/ Irrigated with Saline -Foul Odor after Cleansing No No -Anesthetic Used 4% Lidocaine Solution [Edema Assessment] -Lower Limb Edema Present No -Right Calf (cm) 35.5 35 -Right Ankle (cm) 22.5 22.3 -Left Calf (cm) 31 32 -Left Ankle (cm) 22 22 WC - Nurse 2 - General Ulcer CM Notes Start: 05/15/18 08:56 Freq: Status: Active Protocol: Activity Type Activity Date Activity User E-Sign Co-Sign Detail Recorded Client Recorded Date Recorded By Document 05/22/18 09:22 MW [id number] 05/22/18 09:27 MW 05/22/18 09:22 Wound Center Nurse 2 [Procedure/Treatment] #10 LEFT NELSON LATERAL -Time 09:24 -Correct Patient Yes -Correct Side, Site, Position Yes -Correct Procedure Yes -Procedure Performed No -Post Debridement Size (cm) - Length 0 -Post Debridement Size (cm) - Width 0 -Post Debridement Size (cm) - Depth 0 -Total Square Cm 0 -Wound/Ulcer Outcome Healed- Epithelialized #9 LEFT POST. CALF -Time 09:24 -Correct Patient Yes -Correct Side, Site, Position Yes -Correct Procedure Yes -Procedure Performed Yes -Type of Procedure Debridement -Clinical Debridement Subcutaneous -Post Debridement Size (cm) - Length 2.0 -Post Debridement Size (cm) - Width 0.5 -Post Debridement Size (cm) - Depth 0.2 -Total Square Cm 1.00 -Wound/Ulcer Outcome Not Healed -Ulcer Cleansing Rinsed/ Irrigated with Saline -Foul Odor after Cleansing No -Bioengineered Tissue No -Bleeding Controlled with Pressure -Treatment Response Procedure Tolerated Well [See Physician Procedure note for Specifics] Pain Scale: 0-10 Numeric [Pain] -Is Patient Pain Free? Yes Musculoskeletal: No Muscle Wasting Neurological: Cranial nerves II-XII grossly intact Psych/Mental Status: Normal Affect Debridement Note Post-Debridement Measurements/Treatment WC - Nurse 2 - General Ulcer CM Notes Start: 05/15/18 08:56 Freq: Status: Active Protocol: Activity Type Activity Date Activity User E-Sign Co-Sign Detail Recorded Client Recorded Date Recorded By Document 05/15/18 09:21 MW [id number] 11/01/18 09:24 MW Document 05/22/18 09:22 MW [id number] 05/22/18 09:27 MW 05/15/18 05/22/18 09:21 09:22 Wound Center Nurse 2 #10 LEFT NELSON LATERAL -Time : 09:24 -Correct Patient Yes Yes -Correct Side, Site, Position Yes Yes -Correct Procedure Yes Yes -Procedure Performed Yes No -Type of Procedure Debridement -Clinical Debridement Subcutaneous -Post Debridement Size (cm) - Length 0.8 0 -Post Debridement Size (cm) - Width 1.4 0 -Post Debridement Size (cm) - Depth 0.1 0 -Total Square Cm 1.12 0 -Wound/Ulcer Outcome Not Healed Healed- Epithelialized -Ulcer Cleansing Rinsed/ Irrigated with Saline -Foul Odor after Cleansing No -Bioengineered Tissue No -Bleeding Controlled with Pressure -Treatment Response Procedure Tolerated Well #9 LEFT POST. CALF -Time 09: 09:24 -Correct Patient Yes Yes -Correct Side, Site, Position Yes Yes -Correct Procedure Yes Yes -Procedure Performed Yes Yes -Type of Procedure Debridement Debridement -Clinical Debridement Subcutaneous Subcutaneous -Post Debridement Size (cm) - Length 3.0 2.0 -Post Debridement Size (cm) - Width 0.9 0.5 -Post Debridement Size (cm) - Depth 0.2 0.2 -Total Square Cm 2.70 1.00 -Wound/Ulcer Outcome Not Healed Not Healed -Ulcer Cleansing Rinsed/ Rinsed/ Irrigated with Irrigated with Saline Saline -Foul Odor after Cleansing No No -Bioengineered Tissue No No -Bleeding Controlled with Pressure Pressure -Treatment Response Procedure Procedure Tolerated Well Tolerated Well Pain Scale: 0-10 Numeric Is Patient Pain Free? Yes Yes Wound debrided: Left lower extremity posterior. 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 Bilateral lower extremity edema. Plan: Improving. Debridement done as documented above. Procedure was well- tolerated. Nelson ulcer has healed. Continue Promogran with Adaptic over top. 3M wraps for edema management. Elevate lower extremity when seated and in bed. Increased protein intake recommended. Avoid idle standing. Exercise as tolerated. Follow-up in 1 week. All his questions were answered and he was asked to call with any further questions or concerns. This note was generated with [employer] software. It may contain incorrect words, spelling, and punctuation that were not noted in checking the note before signing. This note was generated with [employer] software. It may contain incorrect words, spelling, and punctuation that were not noted in checking the note before signing.
[2018-05-29 08:57] VITALS: BP 106/64; PULSE 80; RESP 18; TEMP 36.2; BMI 24.4
--- NOTE | 2018-05-29 12:15 | PCM.WC.PN ---
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 Swelling of both legs History of Wound: Mr. Garcia is an 82-year-old who is well-known to the wound center due to recurrent reopening of left lower extremity ulcer. He has had recurrent episodes of left lower extremity ulcers since his surgery a couple of years ago. Also has significant bilateral lower extremity edema and is not very compliant with compression. Denies any significant concerns at this time. No chills, fever or feeling of unwell. Progress of Wound: Improving. - Physical Exam Vital Signs Temp Pulse Resp BP 97.1 F L 80 18 106/64 05/29/18 08:57 05/29/18 08:57 05/29/18 08:57 05/29/18 08:57 General: Alert, Oriented x3, Cooperative, No apparent distress HEENT: Atraumatic, Normocephalic Oral: Moist Mucosa Neck: Supple Lungs: Normal air movement Extremities: No cyanosis, Edema Skin: Ulcer/ Wound Wound Measurements and Assessment WC - Nurse 1 - General Ulcer Measurement Start: 05/15/18 08:56 Freq: Status: Active Protocol: Activity Type Activity Date Activity User E-Sign Co-Sign Detail Recorded Client Recorded Date Recorded By Document 05/29/18 08:57 [id number] 05/29/18 09:04 05/29/18 08:57 Wound Center Nurse 1 [Ulcer Assessment] #9 LEFT POST. CALF -Combined with other wound No -Current Size (cm) - Length 2 -Current Size (cm) - Width 0.4 -Current Size (cm) - Depth 0.2 -Total Square Cm 0.8 -Photo Taken No -Epithelialization None Present -Tunneling No -Undermining/Tunneling No -Circular Undermining No -Exudate Amt Small (1-33%) -Exudate Type Serosanguineous -Wound Margin Distinct, Outline Attached -Granulation Amt Medium (34-66%) -Granulation Quality Pale [place] -Slough/Fibrin Yes -Necrosis Amt None Present (0 %) -Necrotic Tissue Type Adherent Slough -Texture (Elisa-wound Skin Appearance) Callus Scarring -Moisture (Elisa-wound Skin Appearance Dry/Scaly ) -Color (Elisa-wound Skin Appearance) No Abnormality Assessed -Temperature (Elisa-wound Skin No Abnormality Appearance) (Pt Warm) -Tenderness on Palpation (Elisa-wound No Skin Appearance) -Ulcer Cleansing Wound Cleanser -Anesthetic Used 5% Lidocaine Gel [Edema Assessment] -Lower Limb Edema Present No -Right Calf (cm) 32 -Right Ankle (cm) 21.2 -Left Calf (cm) 28 -Left Ankle (cm) 21 WC - Nurse 2 - General Ulcer CM Notes Start: 05/15/18 08:56 Freq: Status: Active Protocol: Activity Type Activity Date Activity User E-Sign Co-Sign Detail Recorded Client Recorded Date Recorded By Document 05/29/18 09:30 MW [id number] 05/29/18 09:32 MW 05/29/18 09:30 Wound Center Nurse 2 [Procedure/Treatment] #9 LEFT POST. CALF -Time 09:30 -Correct Patient Yes -Correct Side, Site, Position Yes -Correct Procedure Yes -Procedure Performed Yes -Type of Procedure Debridement -Clinical Debridement Subcutaneous -Post Debridement Size (cm) - Length 1.9 -Post Debridement Size (cm) - Width 0.4 -Post Debridement Size (cm) - Depth 0.2 -Total Square Cm 0.76 -Wound/Ulcer Outcome Not Healed -Ulcer Cleansing Rinsed/ Irrigated with Saline -Foul Odor after Cleansing No -Bioengineered Tissue No -Bleeding Controlled with Pressure -Treatment Response Procedure Tolerated Well [See Physician Procedure note for Specifics] Pain Scale: 0-10 Numeric [Pain] -Is Patient Pain Free? Yes Musculoskeletal: No Muscle Wasting Neurological: Cranial nerves II-XII grossly intact Psych/Mental Status: Normal Affect Debridement Note Post-Debridement Measurements/Treatment WC - Nurse 2 - General Ulcer CM Notes Start: 05/15/18 08:56 Freq: Status: Active Protocol: Activity Type Activity Date Activity User E-Sign Co-Sign Detail Recorded Client Recorded Date Recorded By Document 05/15/18 09:21 MW [id number] 05/15/18 09:24 MW Document 05/22/18 09:22 MW [id number] 05/22/18 09:27 MW Document 11/15/18 09:30 MW [id number] 05/29/18 09:32 MW 05/15/18 05/22/18 05/29/18 09:21 09:22 09:30 Wound Center Nurse 2 #10 LEFT HOLLIS LATERAL -Time : 09:24 -Correct Patient Yes Yes -Correct Side, Site, Position Yes Yes -Correct Procedure Yes Yes -Procedure Performed Yes No -Type of Procedure Debridement -Clinical Debridement Subcutaneous -Post Debridement Size (cm) - Length 0.8 0 -Post Debridement Size (cm) - Width 1.4 0 -Post Debridement Size (cm) - Depth 0.1 0 -Total Square Cm 1.12 0 -Wound/Ulcer Outcome Not Healed Healed- Epithelialized -Ulcer Cleansing Rinsed/ Irrigated with Saline -Foul Odor after Cleansing No -Bioengineered Tissue No -Bleeding Controlled with Pressure -Treatment Response Procedure Tolerated Well #9 LEFT POST. CALF -Time : 09:24 09:30 -Correct Patient Yes Yes Yes -Correct Side, Site, Position Yes Yes Yes -Correct Procedure Yes Yes Yes -Procedure Performed Yes Yes Yes -Type of Procedure Debridement Debridement Debridement -Clinical Debridement Subcutaneous Subcutaneous Subcutaneous -Post Debridement Size (cm) - Length 3.0 2.0 1.9 -Post Debridement Size (cm) - Width 0.9 0.5 0.4 -Post Debridement Size (cm) - Depth 0.2 0.2 0.2 -Total Square Cm 2.70 1.00 0.76 -Wound/Ulcer Outcome Not Healed Not Healed Not Healed -Ulcer Cleansing Rinsed/ Rinsed/ Rinsed/ Irrigated with Irrigated with Irrigated with Saline Saline Saline -Foul Odor after Cleansing No No No -Bioengineered Tissue No No No -Bleeding Controlled with Pressure Pressure Pressure -Treatment Response Procedure Procedure Procedure Tolerated Well Tolerated Well Tolerated Well Pain Scale: 0-10 Numeric Is Patient Pain Free? 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 Bilateral lower extremity edema. Plan: Improving. Debridement done as documented above. Procedure was well-tolerated. Continue Promogran with Adaptic over top. 3M wraps for edema management. Elevate lower extremity when seated and in bed. Increased protein intake recommended. Avoid idle standing. Exercise as tolerated. Follow-up in 1 week. All his questions were answered and he was asked to call with any further questions or concerns. This note was generated with [employer] software. It may contain incorrect words, spelling, and punctuation that were not noted in checking the note before signing. This note was generated with [employer] software. It may contain incorrect words, spelling, and punctuation that were not noted in checking the note before signing.
--- NOTE | 2018-05-29 12:19 | PN.PCM_ITS ---
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 Swelling of both legs History of Wound: Mr. Garcia is an 82-year-old who is well-known to the wound center due to recurrent reopening of left lower extremity ulcer. He has had recurrent episodes of left lower extremity ulcers since his surgery a couple of years ago. Also has significant bilateral lower extremity edema and is not very compliant with compression. Denies any significant concerns at this time. No chills, fever or feeling of unwell. Progress of Wound: Improving. - Physical Exam Vital Signs Temp Pulse Resp BP 97.1 F L 80 18 106/64 05/29/18 08:57 05/29/18 08:57 05/29/18 08:57 05/29/18 08:57 General: Alert, Oriented x3, Cooperative, No apparent distress HEENT: Atraumatic, Normocephalic Oral: Moist Mucosa Neck: Supple Lungs: Normal air movement Extremities: No cyanosis, Edema Skin: Ulcer/ Wound Wound Measurements and Assessment WC - Nurse 1 - General Ulcer Measurement Start: 05/15/18 08:56 Freq: Status: Active Protocol: Activity Type Activity Date Activity User E-Sign Co-Sign Detail Recorded Client Recorded Date Recorded By Document 05/29/18 08:57 [id number] 05/29/18 09:04 05/29/18 08:57 Wound Center Nurse 1 [Ulcer Assessment] #9 LEFT POST. CALF -Combined with other wound No -Current Size (cm) - Length 2 -Current Size (cm) - Width 0.4 -Current Size (cm) - Depth 0.2 -Total Square Cm 0.8 -Photo Taken No -Epithelialization None Present -Tunneling No -Undermining/Tunneling No -Circular Undermining No -Exudate Amt Small (1-33%) -Exudate Type Serosanguineous -Wound Margin Distinct, Outline Attached -Granulation Amt Medium (34-66%) -Granulation Quality Pale [place] -Slough/Fibrin Yes -Necrosis Amt None Present (0 %) -Necrotic Tissue Type Adherent Slough -Texture (Elisa-wound Skin Appearance) Callus Scarring -Moisture (Elisa-wound Skin Appearance Dry/Scaly ) -Color (Elisa-wound Skin Appearance) No Abnormality Assessed -Temperature (Elisa-wound Skin No Abnormality Appearance) (Pt Warm) -Tenderness on Palpation (Elisa-wound No Skin Appearance) -Ulcer Cleansing Wound Cleanser -Anesthetic Used 5% Lidocaine Gel [Edema Assessment] -Lower Limb Edema Present No -Right Calf (cm) 32 -Right Ankle (cm) 21.2 -Left Calf (cm) 28 -Left Ankle (cm) 21 WC - Nurse 2 - General Ulcer CM Notes Start: 05/15/18 08:56 Freq: Status: Active Protocol: Activity Type Activity Date Activity User E-Sign Co-Sign Detail Recorded Client Recorded Date Recorded By Document 05/29/18 09:30 MW [id number] 05/29/18 09:32 MW 05/29/18 09:30 Wound Center Nurse 2 [Procedure/Treatment] #9 LEFT POST. CALF -Time 09:30 -Correct Patient Yes -Correct Side, Site, Position Yes -Correct Procedure Yes -Procedure Performed Yes -Type of Procedure Debridement -Clinical Debridement Subcutaneous -Post Debridement Size (cm) - Length 1.9 -Post Debridement Size (cm) - Width 0.4 -Post Debridement Size (cm) - Depth 0.2 -Total Square Cm 0.76 -Wound/Ulcer Outcome Not Healed -Ulcer Cleansing Rinsed/ Irrigated with Saline -Foul Odor after Cleansing No -Bioengineered Tissue No -Bleeding Controlled with Pressure -Treatment Response Procedure Tolerated Well [See Physician Procedure note for Specifics] Pain Scale: 0-10 Numeric [Pain] -Is Patient Pain Free? Yes Musculoskeletal: No Muscle Wasting Neurological: Cranial nerves II-XII grossly intact Psych/Mental Status: Normal Affect Debridement Note Post-Debridement Measurements/Treatment WC - Nurse 2 - General Ulcer CM Notes Start: 05/15/18 08:56 Freq: Status: Active Protocol: Activity Type Activity Date Activity User E-Sign Co-Sign Detail Recorded Client Recorded Date Recorded By Document 05/15/18 09:21 MW [id number] 05/15/18 09:24 MW Document 05/22/18 09:22 MW [id number] 05/22/18 09:27 MW Document 11/15/18 09:30 MW [id number] 05/29/18 09:32 MW 05/15/18 05/22/18 05/29/18 09:21 09:22 09:30 Wound Center Nurse 2 #10 LEFT HOLLIS LATERAL -Time : 09:24 -Correct Patient Yes Yes -Correct Side, Site, Position Yes Yes -Correct Procedure Yes Yes -Procedure Performed Yes No -Type of Procedure Debridement -Clinical Debridement Subcutaneous -Post Debridement Size (cm) - Length 0.8 0 -Post Debridement Size (cm) - Width 1.4 0 -Post Debridement Size (cm) - Depth 0.1 0 -Total Square Cm 1.12 0 -Wound/Ulcer Outcome Not Healed Healed- Epithelialized -Ulcer Cleansing Rinsed/ Irrigated with Saline -Foul Odor after Cleansing No -Bioengineered Tissue No -Bleeding Controlled with Pressure -Treatment Response Procedure Tolerated Well #9 LEFT POST. CALF -Time : 09:24 09:30 -Correct Patient Yes Yes Yes -Correct Side, Site, Position Yes Yes Yes -Correct Procedure Yes Yes Yes -Procedure Performed Yes Yes Yes -Type of Procedure Debridement Debridement Debridement -Clinical Debridement Subcutaneous Subcutaneous Subcutaneous -Post Debridement Size (cm) - Length 3.0 2.0 1.9 -Post Debridement Size (cm) - Width 0.9 0.5 0.4 -Post Debridement Size (cm) - Depth 0.2 0.2 0.2 -Total Square Cm 2.70 1.00 0.76 -Wound/Ulcer Outcome Not Healed Not Healed Not Healed -Ulcer Cleansing Rinsed/ Rinsed/ Rinsed/ Irrigated with Irrigated with Irrigated with Saline Saline Saline -Foul Odor after Cleansing No No No -Bioengineered Tissue No No No -Bleeding Controlled with Pressure Pressure Pressure -Treatment Response Procedure Procedure Procedure Tolerated Well Tolerated Well Tolerated Well Pain Scale: 0-10 Numeric Is Patient Pain Free? 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 Bilateral lower extremity edema. Plan: Improving. Debridement done as documented above. Procedure was well- tolerated. Continue Promogran with Adaptic over top. 3M wraps for edema management. Elevate lower extremity when seated and in bed. Increased protein intake recommended. Avoid idle standing. Exercise as tolerated. Follow-up in 1 week. All his questions were answered and he was asked to call with any further questions or concerns. This note was generated with [employer] software. It may contain incorrect words, spelling, and punctuation that were not noted in checking the note before signing. This note was generated with [employer] software. It may contain incorrect words, spelling, and punctuation that were not noted in checking the note before signing.
[2018-06-04 09:02] VITALS: BP 122/81; PULSE 86; RESP 18; TEMP 36.9; BMI 24.4
--- NOTE | 2018-06-04 09:20 | PN.PCM_ITS ---
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 Swelling of both legs History of Wound: Mr. Garcia is an 82-year-old who is well-known to the wound center due to recurrent reopening of left lower extremity ulcer. He has had recurrent episodes of left lower extremity ulcers since his surgery a couple of years ago. Also has significant bilateral lower extremity edema and is not very compliant with compression. Denies any significant concerns at this time. No chills, fever or feeling of unwell. Progress of Wound: Improving. - Physical Exam Vital Signs Temp Pulse Resp BP 98.4 F 86 18 122/81 H 06/04/18 09:02 06/04/18 09:02 06/04/18 09:02 06/04/18 09:02 General: Alert, Oriented x3, Cooperative, No apparent distress HEENT: Atraumatic Oral: Moist Mucosa Neck: Supple Lungs: Normal air movement Abdomen: Non Tender Extremities: No cyanosis Skin: Ulcer/ Wound Wound Measurements and Assessment WC - Nurse 1 - General Ulcer Measurement Start: 05/15/18 08:56 Freq: Status: Active Protocol: Activity Type Activity Date Activity User E-Sign Co-Sign Detail Recorded Client Recorded Date Recorded By Document 06/04/18 09:02 [id number] 06/04/18 09:04 RB 06/04/18 09:02 Wound Center Nurse 1 [Ulcer Assessment] #9 LEFT POST. CALF -Combined with other wound No -Current Size (cm) - Length 1.5 -Current Size (cm) - Width 0.3 -Current Size (cm) - Depth 0.2 -Total Square Cm 0.45 -Photo Taken No -Tunneling No -Undermining/Tunneling No -Circular Undermining No -Exudate Amt Small (1-33%) -Exudate Type Serosanguineous -Wound Margin Distinct, Outline Attached -Granulation Amt Medium (34-66%) -Granulation Quality [place] -Necrosis Amt Medium (34-66%) -Necrotic Tissue Type Adherent Slough -Structure Exposed N/A -Texture (Elisa-wound Skin Appearance) Assessed -Moisture (Elisa-wound Skin Appearance Assessed ) -Color (Elisa-wound Skin Appearance) Assessed -Temperature (Elisa-wound Skin No Abnormality Appearance) (Pt Warm) -Tenderness on Palpation (Elisa-wound No Skin Appearance) -Ulcer Cleansing Rinsed/ Irrigated with Saline -Foul Odor after Cleansing No -Anesthetic Used 5% Lidocaine Gel [Edema Assessment] -Lower Limb Edema Present Yes -Right Calf (cm) 34.5 -Right Ankle (cm) 21.7 -Left Calf (cm) 37.5 -Left Ankle (cm) 21.5 WC - Nurse 2 - General Ulcer CM Notes Start: 05/15/18 08:56 Freq: Status: Active Protocol: Activity Type Activity Date Activity User E-Sign Co-Sign Detail Recorded Client Recorded Date Recorded By Document 06/04/18 09:18 MW [id number] 06/04/18 09:18 MW 06/04/18 09:18 Wound Center Nurse 2 [Procedure/Treatment] #9 LEFT POST. CALF -Time 09:18 -Correct Patient Yes -Correct Side, Site, Position Yes -Correct Procedure Yes -Procedure Performed Yes -Type of Procedure Debridement -Clinical Debridement Subcutaneous -Post Debridement Size (cm) - Length 1.5 -Post Debridement Size (cm) - Width 0.3 -Post Debridement Size (cm) - Depth 0.2 -Total Square Cm 0.45 -Wound/Ulcer Outcome Not Healed -Ulcer Cleansing Rinsed/ Irrigated with Saline -Foul Odor after Cleansing No -Bioengineered Tissue No -Bleeding Controlled with Pressure -Treatment Response Procedure Tolerated Well [See Physician Procedure note for Specifics] Pain Scale: 0-10 Numeric [Pain] -Is Patient Pain Free? Yes Musculoskeletal: No Muscle Wasting Neurological: Cranial nerves II-XII grossly intact Psych/Mental Status: Normal Affect Debridement Note Post-Debridement Measurements/Treatment WC - Nurse 2 - General Ulcer CM Notes Start: 05/15/18 08:56 Freq: Status: Active Protocol: Activity Type Activity Date Activity User E-Sign Co-Sign Detail Recorded Client Recorded Date Recorded By Document 05/15/18 09:21 MW [id number] 05/15/18 09:24 MW Document 05/22/18 09:22 MW [id number] 05/22/18 09:27 MW Document 05/29/18 09:30 MW [id number] 05/29/18 09:32 MW Document 06/04/18 09:18 MW [id number] 06/04/18 09:18 MW 05/15/18 05/22/18 05/29/18 09:21 09:22 09:30 Wound Center Nurse 2 #10 LEFT HOLLIS LATERAL -Time 09: 09:24 -Correct Patient Yes Yes -Correct Side, Site, Position Yes Yes -Correct Procedure Yes Yes -Procedure Performed Yes No -Type of Procedure Debridement -Clinical Debridement Subcutaneous -Post Debridement Size (cm) - Length 0.8 0 -Post Debridement Size (cm) - Width 1.4 0 -Post Debridement Size (cm) - Depth 0.1 0 -Total Square Cm 1.12 0 -Wound/Ulcer Outcome Not Healed Healed- Epithelialized -Ulcer Cleansing Rinsed/ Irrigated with Saline -Foul Odor after Cleansing No -Bioengineered Tissue No -Bleeding Controlled with Pressure -Treatment Response Procedure Tolerated Well #9 LEFT POST. CALF -Time : 09:24 09:30 -Correct Patient Yes Yes Yes -Correct Side, Site, Position Yes Yes Yes -Correct Procedure Yes Yes Yes -Procedure Performed Yes Yes Yes -Type of Procedure Debridement Debridement Debridement -Clinical Debridement Subcutaneous Subcutaneous Subcutaneous -Post Debridement Size (cm) - Length 3.0 2.0 1.9 -Post Debridement Size (cm) - Width 0.9 0.5 0.4 -Post Debridement Size (cm) - Depth 0.2 0.2 0.2 -Total Square Cm 2.70 1.00 0.76 -Wound/Ulcer Outcome Not Healed Not Healed Not Healed -Ulcer Cleansing Rinsed/ Rinsed/ Rinsed/ Irrigated with Irrigated with Irrigated with Saline Saline Saline -Foul Odor after Cleansing No No No -Bioengineered Tissue No No No -Bleeding Controlled with Pressure Pressure Pressure -Treatment Response Procedure Procedure Procedure Tolerated Well Tolerated Well Tolerated Well Pain Scale: 0-10 Numeric Is Patient Pain Free? Yes Yes Yes 06/04/18 09:18 Wound Center Nurse 2 #10 LEFT HOLLIS LATERAL -Time -Correct Patient -Correct Side, Site, Position -Correct Procedure -Procedure Performed -Type of Procedure -Clinical Debridement -Post Debridement Size (cm) - Length -Post Debridement Size (cm) - Width -Post Debridement Size (cm) - Depth -Total Square Cm -Wound/Ulcer Outcome -Ulcer Cleansing -Foul Odor after Cleansing -Bioengineered Tissue -Bleeding Controlled with -Treatment Response #9 LEFT POST. CALF -Time 09:18 -Correct Patient Yes -Correct Side, Site, Position Yes -Correct Procedure Yes -Procedure Performed Yes -Type of Procedure Debridement -Clinical Debridement Subcutaneous -Post Debridement Size (cm) - Length 1.5 -Post Debridement Size (cm) - Width 0.3 -Post Debridement Size (cm) - Depth 0.2 -Total Square Cm 0.45 -Wound/Ulcer Outcome Not Healed -Ulcer Cleansing Rinsed/ Irrigated with Saline -Foul Odor after Cleansing No -Bioengineered Tissue No -Bleeding Controlled with Pressure -Treatment Response Procedure Tolerated Well Pain Scale: 0-10 Numeric Is Patient Pain Free? 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 Bilateral lower extremity edema. Plan: Improving ulcer. No concerns at this time. Debridement done as documented above. Procedure was well-tolerated. Continue Promogran with Adaptic over top. 3M wraps for edema management. Elevate lower extremity when seated and in bed. Increased protein intake recommended. Avoid idle standing. Exercise as tolerated. Follow-up in 1 week. All his questions were answered and he was asked to call with any further questions or concerns. This note was generated with [employer] software. It may contain incorrect words, spelling, and punctuation that were not noted in checking the note before signing. This note was generated with [employer] software. It may contain incorrect words, spelling, and punctuation that were not noted in checking the note before signing.
[2018-06-12 08:58] VITALS: BP 124/86; PULSE 90; RESP 18; TEMP 35.9; BMI 24.4
--- NOTE | 2018-06-12 09:40 | PN.PCM_ITS ---
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 Swelling of both legs History of Wound: Mr. Garcia is an 82-year-old who is well-known to the wound center due to recurrent reopening of left lower extremity ulcer. He has had recurrent episodes of left lower extremity ulcers since his surgery a couple of years ago. Also has significant bilateral lower extremity edema and is not very compliant with compression. Denies any significant concerns at this time. No chills, fever or feeling of unwell. Progress of Wound: Improving. - Physical Exam Vital Signs Temp Pulse Resp BP 96.7 F L 90 18 124/86 H 06/12/18 08:58 06/12/18 08:58 06/12/18 08:58 06/12/18 08:58 General: Alert, Oriented x3, Cooperative, No apparent distress HEENT: Atraumatic, Normocephalic Oral: Moist Mucosa Neck: Supple Lungs: Normal air movement Extremities: No cyanosis, Edema Skin: Ulcer/ Wound Wound Measurements and Assessment WC - Nurse 1 - General Ulcer Measurement Start: 05/15/18 08:56 Freq: Status: Active Protocol: Activity Type Activity Date Activity User E-Sign Co-Sign Detail Recorded Client Recorded Date Recorded By Document 06/12/18 08:58 [id number] 06/12/18 09:08 DL 06/12/18 08:58 Wound Center Nurse 1 [Ulcer Assessment] #9 LEFT POST. CALF -Current Size (cm) - Length 1.1 -Current Size (cm) - Width 0.2 -Current Size (cm) - Depth 0.1 -Total Square Cm 0.22 -Photo Taken No -Exudate Amt None Present (0 %) -Wound Margin Thickened -Granulation Amt Large (67-100%) -Granulation Quality [place] -Structure Exposed N/A -Texture (Elisa-wound Skin Appearance) Scarring -Moisture (Elisa-wound Skin Appearance Dry/Scaly ) -Color (Elisa-wound Skin Appearance) Hemosiderin Staining -Temperature (Elisa-wound Skin No Abnormality Appearance) (Pt Warm) -Tenderness on Palpation (Elisa-wound No Skin Appearance) -Ulcer Cleansing Wound Cleanser -Foul Odor after Cleansing No -Anesthetic Used 4% Lidocaine Solution [Edema Assessment] -Right Calf (cm) 32.4 -Right Ankle (cm) 21.4 -Left Calf (cm) 31 -Left Ankle (cm) 20 WC - Nurse 2 - General Ulcer CM Notes Start: 05/15/18 08:56 Freq: Status: Active Protocol: Activity Type Activity Date Activity User E-Sign Co-Sign Detail Recorded Client Recorded Date Recorded By Document 06/12/18 09:19 MW [id number] 06/12/18 09:21 MW 06/12/18 09:19 Wound Center Nurse 2 [Procedure/Treatment] #9 LEFT POST. CALF -Time 09:19 -Correct Patient Yes -Correct Side, Site, Position Yes -Correct Procedure Yes -Procedure Performed Yes -Type of Procedure Debridement -Clinical Debridement Subcutaneous -Post Debridement Size (cm) - Length 1.2 -Post Debridement Size (cm) - Width 0.3 -Post Debridement Size (cm) - Depth 0.2 -Total Square Cm 0.36 -Wound/Ulcer Outcome Not Healed -Ulcer Cleansing Rinsed/ Irrigated with Saline -Foul Odor after Cleansing No -Bioengineered Tissue No -Bleeding Controlled with Pressure -Offloading No -Treatment Response Procedure Tolerated Well [See Physician Procedure note for Specifics] Pain Scale: 0-10 Numeric [Pain] -Is Patient Pain Free? Yes Musculoskeletal: No Muscle Wasting Neurological: Cranial nerves II-XII grossly intact Psych/Mental Status: Normal Affect Debridement Note Post-Debridement Measurements/Treatment - Nurse 2 - General Ulcer CM Notes Start: 05/15/18 08:56 Freq: Status: Active Protocol: Activity Type Activity Date Activity User E-Sign Co-Sign Detail Recorded Client Recorded Date Recorded By Document 05/15/18 09:21 MW [id number] 05/15/18 09:24 MW Document 05/22/18 09:22 MW [id number] 05/22/18 09:27 MW Document 05/29/18 09:30 MW [id number] 05/29/18 09:32 MW Document 06/04/18 09:18 MW [id number] 06/04/18 09:18 MW Document 06/12/18 09:19 MW [id number] 06/12/18 09:21 MW 05/15/18 05/22/18 11 09:21 09:22 09:30 Wound Center Nurse 2 #10 LEFT HOLLIS LATERAL -Time : 09:24 -Correct Patient Yes Yes -Correct Side, Site, Position Yes Yes -Correct Procedure Yes Yes -Procedure Performed Yes No -Type of Procedure Debridement -Clinical Debridement Subcutaneous -Post Debridement Size (cm) - Length 0.8 0 -Post Debridement Size (cm) - Width 1.4 0 -Post Debridement Size (cm) - Depth 0.1 0 -Total Square Cm 1.12 0 -Wound/Ulcer Outcome Not Healed Healed- Epithelialized -Ulcer Cleansing Rinsed/ Irrigated with Saline -Foul Odor after Cleansing No -Bioengineered Tissue No -Bleeding Controlled with Pressure -Treatment Response Procedure Tolerated Well #9 LEFT POST. CALF -Time : 09:24 09:30 -Correct Patient Yes Yes Yes -Correct Side, Site, Position Yes Yes Yes -Correct Procedure Yes Yes Yes -Procedure Performed Yes Yes Yes -Type of Procedure Debridement Debridement Debridement -Clinical Debridement Subcutaneous Subcutaneous Subcutaneous -Post Debridement Size (cm) - Length 3.0 2.0 1.9 -Post Debridement Size (cm) - Width 0.9 0.5 0.4 -Post Debridement Size (cm) - Depth 0.2 0.2 0.2 -Total Square Cm 2.70 1.00 0.76 -Wound/Ulcer Outcome Not Healed Not Healed Not Healed -Ulcer Cleansing Rinsed/ Rinsed/ Rinsed/ Irrigated with Irrigated with Irrigated with Saline Saline Saline -Foul Odor after Cleansing No No No -Bioengineered Tissue No No No -Bleeding Controlled with Pressure Pressure Pressure -Offloading -Treatment Response Procedure Procedure Procedure Tolerated Well Tolerated Well Tolerated Well Pain Scale: 0-10 Numeric Is Patient Pain Free? Yes Yes Yes 06/04/18 06/12/18 09:18 09:19 Wound Center Nurse 2 #10 LEFT HOLLIS LATERAL -Time -Correct Patient -Correct Side, Site, Position -Correct Procedure -Procedure Performed -Type of Procedure -Clinical Debridement -Post Debridement Size (cm) - Length -Post Debridement Size (cm) - Width -Post Debridement Size (cm) - Depth -Total Square Cm -Wound/Ulcer Outcome -Ulcer Cleansing -Foul Odor after Cleansing -Bioengineered Tissue -Bleeding Controlled with -Treatment Response #9 LEFT POST. CALF -Time 09:18 09:19 -Correct Patient Yes Yes -Correct Side, Site, Position Yes Yes -Correct Procedure Yes Yes -Procedure Performed Yes Yes -Type of Procedure Debridement Debridement -Clinical Debridement Subcutaneous Subcutaneous -Post Debridement Size (cm) - Length 1.5 1.2 -Post Debridement Size (cm) - Width 0.3 0.3 -Post Debridement Size (cm) - Depth 0.2 0.2 -Total Square Cm 0.45 0.36 -Wound/Ulcer Outcome Not Healed Not Healed -Ulcer Cleansing Rinsed/ Rinsed/ Irrigated with Irrigated with Saline Saline -Foul Odor after Cleansing No No -Bioengineered Tissue No No -Bleeding Controlled with Pressure Pressure -Offloading No -Treatment Response Procedure Procedure Tolerated Well Tolerated Well Pain Scale: 0-10 Numeric Is Patient Pain Free? 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 Bilateral lower extremity e manuel. Plan: Improving ulcer. No concerns at this time. Debridement done as documented above. Procedure was well-tolerated. Continue Promogran with Adaptic over top. 3M wraps for edema management. Elevate lower extremity when seated and in bed. Increased protein intake recommended. Avoid idle standing. Exercise as tolerated. Follow-up in 1 week for a nurse visist and in 2 weeks with me. All his questions were answered and he was asked to call with any further questions or concerns. This note was generated with [employer] software. It may contain incorrect words, spelling, and punctuation that were not noted in checking the note before signing. This note was generated with [employer] software. It may contain incorrect words, spelling, and punctuation that were not noted in checking the note before signing.
== END 2018-06-13 23:59 ==
LOC: WC 09:00
PROVIDERS: Family Provider Family Medicine Geriatric Medicine; PCP Family Medicine Geriatric Medicine; Visit Provider Internal Medicine
DX: L97.822 Non-pressure chronic ulcer of other part of left lower leg with fat layer exposed (principal); R60.0 Localized edema; M79.89 Other specified soft tissue disorders; I48.0 Paroxysmal atrial fibrillation; I25.10 Atherosclerotic heart disease of native coronary artery without angina pectoris; Z95.1 Presence of aortocoronary bypass graft; E78.5 Hyperlipidemia, unspecified; I10 Essential (primary) hypertension; Z79.899 Other long term (current) drug therapy; Z79.01 Long term (current) use of anticoagulants; Z79.82 Long term (current) use of aspirin
CPT/HCPCS: 11042; 29581; 99213; G0463

== ENCOUNTER → 2018-07-01 15:32 | Outpatient (CLI) | payer MEDICARE, SELFPAY ==
[2018-06-30 08:50] VITALS: BMI 24.4
[2018-07-01 17:00] LABS: Absolute Lymphocyte Count 0.91 X10^3/ul (0.83-4.51); Absolute Neutrophil Count 3.2 X10^3/uL (2.0-7.7); Basophil# 0.01 X10^3/uL; Basophil% 0.2 % (0-1); Eosinophil# 0.05 X10^3/uL; Eosinophils% 1.1 % (0-5); Hematocrit 36.2 % (40-54); Hemoglobin 11.4 g/dl (13.0-16.5); Lymphocyte # 0.91 X10^3/ul (4.0); Lymphocyte % 19.6 % (19-41); Mean Corp Hgb Conc 31.5 g/gl (32-36); Mean Corpuscular Hgb 28.1 pg (27.0-32.0); Mean Corpuscular Volume 89.4 fL (80-94); Mean Platelet Vol. 10.7 fl (6.2-12.0); Monocyte% 10.8 % (0-10); Neutrophil # 3.18 X10^3/uL (2.7-7.7); Neutrophil % 68.3 % (47-70); Platelet Count 169 K/mm3 (150-450); RBC Distribution Width CV 16.7 % (11.6-14.6); RBC Distribution Width SD 53.5 fl (35.1-43.9); Red Blood Count 4.05 M/mm3 (4.6-6.2); White Blood Count 4.7 K/mm3 (4.4-11.0)
[2018-07-01 17:03] LABS: POSITIVE COUNT NO; POSITIVE DIFFERENTIAL NO; POSITIVE MORPHOLOGY NO
[2018-07-01 17:17] LABS: Vitamin D,25 Hydroxy 27.3 ng/mL (29.95-100.01)
[2018-07-01 17:21] LABS: AST(SGOT) 23 U/L (15-37); Alanine Aminotransfer ALT/SGPT 31 U/L (16-61); Albumin, Serum 3.6 g/dL (3.2-5.0); Alkaline Phosphatase 168 U/L (45-117); Anion Gap 9 (5-15); BUN 25 mg/dL (7-18); BUN/Creat Ratio 17.4 RATIO (10-20); Chloride 103 mmol/L (98-107); Creatinine, Serum 1.44 mg/dL (0.70-1.30); EST Glomerular Filtration Rate 50 mL/min (>60); Est Glom Filt Rate - Afr Amer 60 mL/min (>60); Globulin 3.6 g/dL (2.2-4.2); Glucose 75 mg/dL (74-106); Potassium 4.6 mmol/L (3.5-5.1); Protein, Total 7.2 g/dL (6.4-8.2); Sodium Level 141 mmol/L (136-145)
--- OUTSIDE RECORDS SUMMARY | 2018-10-03 04:35 | XMS RPT_ITS ---
:1935 Author Organization OHIP Support Name Relationship Address Phone R Unavailable Unavailable Unavailable GILA, SHAINA (POA) Unavailable Unavailable + [place] [address] R Unavailable Unavailable Unavailable GILA, SHAINA (POA) Unavailable Unavailable + [place] [address] R Unavailable Unavailable Unavailable GILA, SHAINA (POA) Unavailable Unavailable + [place] [address] R Unavailable Unavailable Unavailable GILA, SHAINA (POA) Unavailable Unavailable + [place] [address] R Unavailable Unavailable Unavailable GILA, SHAINA (POA) Unavailable Unavailable + [place] [address] R Unavailable Unavailable Unavailable GILA, SHAINA (POA) Unavailable Unavailable + [place] [address] R Unavailable Unavailable Unavailable GILA, SHAINA (POA) Unavailable Unavailable + [place] [address] R Unavailable Unavailable Unavailable GILA, SHAINA (POA) Unavailable Unavailable + [place] [address] R Unavailable Unavailable Unavailable GILA, SHAINA (POA) Unavailable Unavailable + [place] [address] R Unavailable Unavailable Unavailable GILA, SHAINA (POA) Unavailable Unavailable + [place] [address] R Unavailable Unavailable Unavailable GILA, SHAINA (POA) Unavailable Unavailable + [place] [address] R Unavailable Unavailable Unavailable GILA, SHAINA (POA) Unavailable Unavailable + [place] [address] R Unavailable Unavailable Unavailable GILA, SHAINA (POA) Unavailable Unavailable + [place] [address] R Unavailable Unavailable Unavailable GILA, SHAINA (POA) Unavailable Unavailable + [place] [address] R Unavailable Unavailable Unavailable GILA, SHAINA (POA) Unavailable Unavailable + [place] [address] R Unavailable Unavailable Unavailable GILA, SHAINA (POA) Unavailable Unavailable + [place] [address] R Unavailable Unavailable Unavailable GILA, SHAINA (POA) Unavailable Unavailable + [place] [address] R Unavailable Unavailable Unavailable GILA, SHAINA (POA) Unavailable Unavailable + [place] [address] R Unavailable Unavailable Unavailable GILA, SHAINA (POA) Unavailable Unavailable + [place] [address] R Unavailable Unavailable Unavailable GILA, SHAINA (POA) Unavailable Unavailable + [place] [address] R Unavailable Unavailable Unavailable GILA, SHAINA (POA) Unavailable Unavailable + [place] [address] R Unavailable Unavailable Unavailable GILA, SHAINA (POA) Unavailable Unavailable + [place] [address] R Unavailable Unavailable Unavailable GILA, SHAINA (POA) Unavailable Unavailable + [place] [address] R Unavailable Unavailable Unavailable GILA, SHAINA (POA) Unavailable Unavailable + [place] [address] R Unavailable Unavailable Unavailable GILA, SHAINA (POA) Unavailable Unavailable + [place] [address] R Unavailable Unavailable Unavailable GILA, SHAINA (POA) Unavailable Unavailable + [place] [address] R Unavailable Unavailable Unavailable GILA, SHAINA (POA) Unavailable Unavailable + [place] [address] R Unavailable Unavailable Unavailable GILA, SHAINA (POA) Unavailable Unavailable + [place] [address] R Unavailable Unavailable Unavailable GILA, SHAINA (POA) Unavailable Unavailable + [place] [address] R Unavailable Unavailable Unavailable GILA, SHAINA (POA) Unavailable Unavailable + [place] [address] R Unavailable Unavailable Unavailable GILA, SHAINA (POA) Unavailable Unavailable + [place] [address] R Unavailable Unavailable Unavailable GILA, SHAINA (POA) Unavailable Unavailable + [place] [address] R Unavailable Unavailable Unavailable GILA, SHAINA (POA) Unavailable Unavailable + [place] [address] R Unavailable Unavailable Unavailable GILA, SHAINA (POA) Unavailable . + [place] [address] R Unavailable Unavailable Unavailable GILA, SHAINA (POA) Unavailable Unavailable + [place] [address] R Unavailable Unavailable Unavailable GILA, SHAINA (POA) Unavailable Unavailable + [place] [address] R Unavailable Unavailable Unavailable GILA, SHAINA (POA) Unavailable Unavailable + [place] [address] R Unavailable Unavailable Unavailable GILA, SHAINA (POA) Unavailable . + [place] [address] R Unavailable Unavailable Unavailable GILA, SHAINA (POA) Unavailable . + [place] [address] R Unavailable Unavailable Unavailable GILA, SHAINA (POA) Unavailable . + [place] [address] R Unavailable Unavailable Unavailable GILA, SHAINA (POA) Unavailable Unavailable + R Unavailable Unavailable Unavailable GILA, SHAINA (POA) Unavailable Unavailable + R Unavailable Unavailable Unavailable R Unavailable Unavailable Unavailable R Unavailable Unavailable Unavailable R Unavailable Unavailable Unavailable R Unavailable Unavailable Unavailable ROXANE BRAYAN Unavailable . + ., [place] [address] R Unavailable Unavailable Unavailable Care Team Providers Name Role Phone Katie Morganbe Attending Unavailable Oleghe, Efewongbe Referring Unavailable Edd, Hardik Chi Attending Unavailable Edd, Hardik Chi Primary Care Unavailable Cathy, Efewongbe Attending Unavailable Edd, Hardik Chi Primary Care Unavailable Olejoele Efewongbe Attending Unavailable Oleghe, Efewongbe Referring Unavailable Oleghe Efewongbe Attending Unavailable Oleghe, Efewongbe Referring Unavailable Kilner, Jojo Attending Unavailable Roof, Elmer H Attending Unavailable Roof, Elmer H Attending Unavailable Edd, Hardik Chi Referring Unavailable Edd, Hardik Chi Primary Care Unavailable Edd, Hardik Chi Attending Unavailable Edd, Hardik Chi Primary Care Unavailable Jabour, Vincent Attending Unavailable Jabour, Vincent Referring Unavailable Edd, Hardik Chi Primary Care Unavailable Edd, Hardik Chi Attending Unavailable Edd, Hardik Chi Primary Care Unavailable Edd, Hardik Chi Primary Care Unavailable Joseph Roland Attending Unavailable Kilner, Jojo Attending Unavailable Davidson, Ko Attending Unavailable Edd, Hardik Chi Referring Unavailable Edd, Hardik Chi Primary Care Unavailable Jabour, Vincent Attending Unavailable Edd, Hardik Chi Primary Care Unavailable Chato Moran Attending Unavailable Edd, Hardik Chi Primary Care Unavailable Gurdeep, Hong Admitting Unavailable Gurdeep, Hong Attending Unavailable Gurdeep, Hong Admitting Unavailable Gurdeep, Hong Attending Unavailable Edd, Hardik Chi Primary Care Unavailable Gurdeep, Hong Consulting Unavailable Gurdeep, Hong Admitting Unavailable Gurdeep, Hong Attending Unavailable Edd, Hardik Chi Primary Care Unavailable Gurdeep, Hong Consulting Unavailable Gurdeep, Hong Admitting Unavailable Gurdeep, Hong Attending Unavailable Edd, Hardik Chi Primary Care Unavailable Gurdeep, Hong Consulting Unavailable Jasmyn Paez Attending Unavailable Roof, Elmer H Attending Unavailable Edd, Hardik Chi Referring Unavailable Edd, Hardik Chi Primary Care Unavailable Oleghe, Efewongbe Attending Unavailable Edd, Hardik Chi Primary Care Unavailable Edd, Hardik Chi Attending Unavailable Edd, Hardik Chi Primary Care Unavailable Rik Reddyril Attending Unavailable Gurdeep, Hong Referring Unavailable Oleghe, Efewongbe Attending Unavailable Edd, [...] Oleghe, Efewongbe Attending Unavailable Edd, Hardik Chi Attending Unavailable [...] Referring Unavailable Oleghe, Efewongbe Attending Unavailable Edd, Haridk Chi Primary Care Unavailable PROBLEMS PROBLEMS DATE TYPE CONDITION / CODE ATTENDING STATUS SOURCE 07/16/2018 Unknown 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, 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 / L97.922(ICD-10) 07/16/2018 Unknown L97.921 - Non-pressure [place], Active [place] 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 limited Repository to breakdown of skin / L97.921(ICD-10) 07/16/2018 Unknown R60.0 - Localized [place], Active [place] edema / R60.0(ICD-10) [facility] Hospital Repository 01/03/2018 Unknown I48.0 - Paroxysmal Davidson, Herscher Active [place] atrial fibrillation / Community I48.0(ICD-10) Hospital Repository 01/03/2018 Unknown I25.810 - Davidson, Herscher Active [place] Atherosclerosis of Community coronary artery bypass Hospital graft(s) without Repository angina pectoris / I25.810(ICD-10) 01/03/2018 Unknown R94.31 - Abnormal Davidson, Herscher Active [place] electrocardiogram Community [ECG] [EKG] / Hospital R94.31(ICD-10) Repository 01/03/2018 Unknown I50.22 - Chronic Davidson, Ko Active [place] systolic (congestive) Community heart failure / Hospital I50.22(ICD-10) Repository 10/02/2017 Unknown I10 - Essential Davidson, Herscher Active [place] (primary) hypertension Community / I10(ICD-10) Hospital Repository 10/02/2017 Unknown R54 - Age-related Davidson, Ko Active [place] physical debility / Community R54(ICD-10) Hospital Repository 10/02/2017 Unknown I50.9 - Heart failure, Davidson, Ko Active [place] unspecified / Community I50.9(ICD-10) Hospital Repository 08/30/2017 Unknown D64.9 - Anemia, Edd, Hardik Chi Active [place] unspecified / Community D64.9(ICD-10) Hospital Repository 08/12/2017 Unknown I25.10 - Elmer Martin Active [place] Atherosclerotic heart [facility] disease [facility] coronary artery Repository without angina pectoris / I25.10(ICD-10) 08/12/2017 Unknown I25.5 - Ischemic RoofElmer Active [place] cardiomyopathy / Community I25.5(ICD-10) Hospital Repository 08/12/2017 Unknown I38 - Endocarditis, 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 [place], [place], [address] VITAMIN D,25 HYDROXY Collected: 07/01/2018 Status: F Source: [place] 3:38 PM [facility] REPOSITORY TYPE CODE TESTS RESULT OUT OF REFERENCE UNITS RANGE LAB L506.1000 29.95-100.01 ng/mL Low Vitamin D 27.3 25-OH Result Comment: Vitamin D 25(OH) Status Range Deficiency <20 ng/mL (50nmol/L) Insuffciency 20 - 30 ng/mL (50 - 75 nmol/L) Sufficiency 30 - 100 ng/mL (75 - 250 nmol/L) Toxicity >100 ng/mL (>250 nmol/L) Performed By: #### L506.1000 #### [facility] [address] [place], [address] COMPREHENSIVE METABOLIC Collected: 07/01/2018 Status: F Source: [facility] 3:38 PM [facility] REPOSITORY TYPE CODE TESTS RESULT OUT [...] 9 Performed By: #### L500.4050, L501.9520 #### [facility] [address] [place], [place], [address] THYROID STIM HORMONE Collected: 07/01/2018 Status: F Source: [place] (TSH) 3:38 PM [facility] REPOSITORY TYPE CODE TESTS RESULT OUT OF RANGE REFERENCE UNITS LAB L501.9520 0.358-3.74 uIU/mL Normal TSH 3.20 Performed By: #### L500.4050, L501.9520 #### [facility] [address] 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) CABG 01/22/2000 [...] Recorded Date Recorded By Document 05/15/18 08:56 [id number] 05/15/18 09:04 Wound Center Nurse 1 [Ulcer Assessment] #10 LEFT [place]IS LATERAL -Combined with other wound No -Current Size (cm) - Length 0.3 WC - Nurse 2 - General Ulcer CM Notes Start: 05/15/18 08:56 Freq: Status: Active Protocol: Activity Type Activity Date Activity User E-Sign Co-Sign Detail Recorded Client Recorded Date Recorded By Document 05/15/18 09:21 MW [id number] 05/15/18 09:24 MW Wound Center Nurse 2 [Procedure/Treatment] Musculoskeletal: No Muscle Wasting Neurological: Cranial nerves II-XII grossly intact Psych/Mental Status: Normal Affect Debridement Note Post-Debridement Measurements/Treatment WC - Nurse 2 - General Ulcer CM Notes Start: 05/15/18 08:56 Freq: Status: Active Protocol: Activity Type Activity Date Activity User E-Sign Co-Sign Detail Recorded Client Recorded Date Recorded By Document 05/15/18 09:21 MW [id number] 05/15/18 09:24 MW Wound Center Nurse 2 [...] or concerns. This note was generated with [employer] ( [employer] )ation software. It may contain incorrect words, spelling, and punctuation that were not noted in checking the note before signing. This note was generated with [employer] ( H[employer] )ation software. It may contain incorrect words, spelling, and punctuation that were not noted in checking the note before signing. 05/20/18 1653 <Electronically signed by Jignesh Morgan MD> Date Jignesh Morgan MD CC: Signed CBC W/DIFF, AUTOMATED Collected: 05/05/2018 Status: F Source: [place] 10:02 AM [facility] REPOSITORY TYPE CODE TESTS RESULT OUT [...] Lymph 1.12 Performed By: #### L100.0100 #### [facility] [address] [place], [place], [address] BASIC METABOLIC Collected: 05/05/2018 Status: F Source: [place] PROFILE (BMP) 10:02 AM [facility] REPOSITORY TYPE CODE TESTS RESULT OUT [...] GAP 8 Performed By: #### L500.2500 #### [facility] [address] [place], [place], [address] MRSA WOUND DNA BY Collected: 05/05/2018 Status: F Source: [place] PCR 10:02 AM [facility] REPOSITORY Order Comment: Specimen Source? LEFT LEG TYPE CODE TESTS RESULT OUT OF RANGE REFERENCE UNITS LAB L8200.1100 Negative Normal MRSA Negative RESULT LAB L8200.1150 Negative High SA RESULT POSITIVE Performed By: #### L8200.1075 #### [facility] [address] [place], [address] Observed: 05/05/2018 Status: F Source: [place] CULTURE, WOUND 10:02 AM [facility] REPOSITORY Gram Stain Gram Stain 4+ Gram [...] <=0.5 S (NF) indicates non-formulary drug at [facility]. Approval by Infectious Disease Specialist required before non-formulary drugs may be ordered and/or dispensed. * CLSI guidelines does not recommend testing of cephalosporins. This interpretation is deduced from Beta-lactam/penicillin results. Performed By: #### M100.1400 #### [facility] [address] [place] [place], [address] CBC W/DIFF, AUTOMATED Collected: 04/03/2018 Status: F Source: [place] 11:48 AM [facility] REPOSITORY TYPE CODE TESTS RESULT OUT [...] Lymph 1.08 Performed By: #### L100.0100 #### [facility] [address] [place] [address], [id number] VITAMIN D,25 HYDROXY Collected: 04/03/2018 Status: F Source: [place] 11:48 AM [facility] REPOSITORY TYPE CODE TESTS RESULT OUT OF REFERENCE UNITS RANGE LAB L506.1000 29.95-100.01 ng/mL Low Vitamin D 24.3 25-OH Result Comment: Vitamin D 25(OH) Status Range Deficiency <20 ng/mL (50nmol/L) Insuffciency 20 - 30 ng/mL (50 - 75 nmol/L) Sufficiency 30 - 100 ng/mL (75 - 250 nmol/L) Toxicity >100 ng/mL (>250 nmol/L) Performed By: #### L506.1000 #### [facility] [address] [place], [place], [address] COMPREHENSIVE METABOLIC Collected: 04/03/2018 Status: F Source: [place] REYES 11:48 AM [facility] REPOSITORY TYPE CODE TESTS RESULT OUT [...] 11 Performed By: #### L500.4050, L501.9520 #### [facility] [address] [place], [address] THYROID STIM HORMONE Collected: 04/03/2018 Status: F Source: [place] (TSH) 11:48 AM [facility] REPOSITORY TYPE CODE TESTS RESULT OUT OF RANGE REFERENCE UNITS LAB L501.9520 0.358-3.74 uIU/mL Normal TSH 3.57 Performed By: #### L500.4050, L501.9520 #### [facility] [address] [place], [address] CBC W/DIFF, AUTOMATED Collected: 01/02/2018 Status: F Source: [place] 11:36 AM [facility] REPOSITORY TYPE CODE TESTS RESULT OUT [...] Lymph 0.86 Performed By: #### L100.0100 #### [facility] [address] [place], [address] COMPREHENSIVE METABOLIC Collected: 01/02/2018 Status: F Source: [place] [facility] 11:36 AM [facility] REPOSITORY TYPE CODE TESTS RESULT OUT [...] 7 Performed By: #### L500.4050, L501.9520 #### [facility] [address] [place], [address] THYROID STIM HORMONE Collected: 01/02/2018 Status: F Source: [place] (TSH) 11:36 AM [facility] REPOSITORY TYPE CODE TESTS RESULT OUT OF RANGE REFERENCE UNITS LAB L501.9520 0.358-3.74 uIU/mL Normal TSH 2.90 Performed By: #### L500.4050, L501.9520 #### [facility] [address] [place], [address] VITAMIN D,25 HYDROXY Collected: 01/02/2018 Status: F Source: [place] 11:36 AM [facility] REPOSITORY TYPE CODE TESTS RESULT OUT OF REFERENCE UNITS RANGE LAB L506.1000 29.95-100.01 ng/mL Low Vitamin D 23.1 25-OH Result Comment: Vitamin D 25(OH) Status Range Deficiency <20 ng/mL (50nmol/L) Insuffciency 20 - 30 ng/mL (50 - 75 nmol/L) Sufficiency 30 - 100 ng/mL (75 - 250 nmol/L) Toxicity >100 ng/mL (>250 nmol/L) Performed By: #### L506.1000 #### [facility] [address] [place], [address] CARDIOLOGY VISIT Observed: 12/04/2017 Status: F Source: [place] REPORT 10:55 AM [facility] REPOSITORY [facility] [address] [place] [address] OFFICE VISIT Date of Service: 12/03/17 MR#: [id number] Acct: [id number] Name: KEIKO GARCIA Rep #: [id number] : 1935 Provider: RIAN Martin Age/Sex: 81/M Location: [facility] [place] Status: Signed HPI HPI Details: KEIKO GARCIA, [...] and valvular heart disease. 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 Assessment AND Plan 1. 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 I25.10 Paroxysmal atrial [...] 11/26/2017 Status: F Source: [place] 2:16 PM [facility] REPOSITORY [facility] Cardiovascular Services [address] [place] [address] 12 Lead EKG 11/19/17 1307 MR#: [id number] Acct: [id number] Name: KEIKO GARCIA Rep #: [id number] : 1935 81 From: Ko Reddy MD Attending Dr: Hong Kaplan MD Status: DIS IN Ordering Dr: Hong Kaplan MD Date: 11/19/17 Location: [facility] Sex: M C Admitted: 11/19/17 Test [...] ECG Confirmed by KO REDDY MD ([id number]), assistant editor JAYLA BLOOD ([id number]) on 11/26/2017 2:16:35 PM Referred By: GURDEEP Confirmed By:KO REDDY MD 11/26/17 1416 Date Ko Reddy MD CC: Hong Kaplan MD; Hardik Puga MD Signed DISCHARGE SUMMARY Observed: 11/22/2017 Status: F Source: [place] 4:09 PM [facility] REPOSITORY [facility] Medical Records Department [address] [place] [address] Discharge Summary 11/21/17 1056 MR#: [id number] Acct: [id number] Name: KEIKO GARCIA Rep #: [id number] : 1935 81 From: Hong Kaplan MD PCP: Edd WALDRON,Hardik [place] Status: DIS IN Y Location: [place] [id number] Discharge Date and Diagnosis Date of Admission: [...] fibrillation (Chronic) DCCV January 2000; 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 On color television console monitor. Twelve-lead EKG ordered. Troponin ordered. Aspirin [...] applicable Code Visit Inpatient E RADHIKA M: [id number] Disch Hosp 11/22/17 1609 <Electronically signed by Hong Kaplan MD> Date Hong Kaplan MD Cosigner Signature (if applicable): Date CC: Hong Kaplan MD; Hardik Puga MD Signed DISCHARGE INSTRUCTION Observed: 11/21/2017 Status: F Source: [place] 10:56 AM [facility] REPOSITORY [facility] Medical Records Department [address] [place] [address] Instructions for Home/Discharge Instructions 11/21/17 1053 MR#: [id number] Acct: [id number] Name: LOANKEIKO Rep #: [id number] : 1935 81 From: Hong Kaplan MD [...] 11/21/2017 Status: F Source: [place] 5:30 AM [facility] REPOSITORY TYPE CODE TESTS RESULT OUT [...] Lymph 1.16 Performed By: #### L100.0100 #### [facility] [address] [place], [place], [address] BASIC METABOLIC Collected: 11/21/2017 Status: F Source: [place] PROFILE (BMP) 5:30 AM [facility] REPOSITORY TYPE CODE TESTS RESULT OUT [...] GAP 8 Performed By: #### L500.2500 #### [facility] [address] [place], [address] HH, HEMOGLOBIN AND Collected: 11/20/2017 Status: F Source: [place] HEMATOCRIT 8:19 PM [facility] REPOSITORY Order Comment: Comments: Posttransfusion H AND H after second unit TYPE CODE TESTS RESULT OUT OF RANGE REFERENCE UNITS LAB L100.1300 13.0-16.5 g/dl Low HGB 9.6 LAB L100.1400 40-54 % Low HCT 29.8 Performed By: #### L100.0600 #### [facility] [place], [address] STOOL Observed: 11/20/2017 Status: F Source: [place] LACTOFERRIN/WBC 1:10 PM [facility] REPOSITORY Stool Lacto/WBC Normal Reference Range = Negative Fecal WBC Lactoferrin Negative: No Fecal WBC Lactoferrin present Performed By: #### M100.0605 #### [facility] [place], [address] Observed: 11/20/2017 Status: F Source: [place] STOOL OCCULT BLOOD 1:10 PM [facility] IFOB REPOSITORY STOB iFOB Occult Blood Negative Performed By: #### M100.7900 #### [facility] [place], [address] Observed: 11/20/2017 Status: F Source: [place] CDIFF (MOLECULAR) 1:10 PM [facility] REPOSITORY Cdiff-Molecular Normal Reference Range = Negative C. Diff DNA Negative- No toxigenic C. Diff DNA Detected NAAT METHOD Testing was performed using nucleic acid amplification Performed By: #### M100.6796 #### [facility] [place], [address] HISTORY AND PHYSICAL Observed: 11/20/2017 Status: F Source: [place] EXAM 7:27 AM [facility] REPOSITORY [facility] Medical Records Department [address] [place] [address] History and Physical 11/19/17 1140 MR#: [id number] Acct: [id number] Name: KEIKO GARCIA Rep #: [id number] : 1935 81 From: Hong Kaplan MD PCP: Hardik Puga MD, Chi Status: ADM IN Y Location: [place] [address] ADDENDUM by Hong Kaplan MD on 11/20/17 at 0727 Code Visit Back note from 11/19/2017 The patient is status was 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 On color television console monitor. Twelve-lead EKG ordered. Troponin ordered. Aspirin [...] prophylaxis contraindicated This note was generated with [employer] dictation software. Every effort was made to ensure accuracy, however computerized patient services assistant mistakes may persist. Code Visit Inpatient E AND M: [id number] Init Hosp L3 11/19/17 1214 <Electronically signed by Hnog Kaplan MD> Date Hong Kaplan MD Cosigner Signature: Date (if applicable) CC: Hong Kaplan MD; Hardik Puga MD Signed CBC-COMPLETE BLOOD CNT Collected: 11/20/2017 Status: F Source: [place] NO DIFF 5:10 AM [facility] REPOSITORY TYPE CODE TESTS RESULT OUT [...] MPV 10.2 Performed By: #### L100.0500 #### [facility] [address] [place], [address] BASIC METABOLIC Collected: 11/20/2017 Status: F Source: [place] PROFILE (BMP) 5:10 AM [facility] REPOSITORY TYPE CODE TESTS RESULT OUT [...] GAP 9 Performed By: #### L500.2500 #### [facility] [address] [place], [address] MAGNESIUM Collected: 11/20/2017 Status: F Source: [place] 5:10 AM [facility] REPOSITORY TYPE CODE TESTS RESULT OUT OF RANGE REFERENCE UNITS LAB L501.5200 1.6-2.6 mg/dL Normal MG 2.1 Performed By: #### L501.5200 #### [facility] [address] [place], [address] HH, HEMOGLOBIN AND Collected: 11/20/2017 Status: F Source: [place] HEMATOCRIT 12:49 AM [facility] REPOSITORY TYPE CODE TESTS RESULT OUT OF RANGE REFERENCE UNITS LAB L100.1300 13.0-16.5 g/dl Low HGB 8.3 LAB L100.1400 40-54 % Low HCT 26.0 Performed By: #### L100.0600 #### [facility] [address] [place], [address] BRAIN/HEAD WITHOUT Observed: 11/20/2017 Status: F Source: [place] CONTRAST 12:00 AM [facility] REPOSITORY [facility] Imaging Services [address] [place] [address] Brain/Head without Contrast MR#: [id number] Acct: [id number] Name: KEIKO GARCIA Rep #: [id number] : 1935 M 81 From: Carlos Moore DO PCP: Edd WALDRON,Hardik Escalona Status: ADM IN Study: Brain/Head without Contrast Date of Exam: 11/20/17 Exam# [id number] Ordering Dr: Hong Kaplan MD STUDY: CT [...] CC: Hong Kaplan MD; Hardik Puga MD Reroller Hand: Signed HH, HEMOGLOBIN AND Collected: 11/19/2017 Status: F Source: [place] HEMATOCRIT 7:14 PM [facility] REPOSITORY TYPE CODE TESTS RESULT OUT OF RANGE REFERENCE UNITS LAB L100.1300 13.0-16.5 g/dl Low HGB 7.5 LAB L100.1400 40-54 % Low HCT 23.9 Performed By: #### L100.0600 #### [facility] [address] [facility] [place], [address] EMERGENCY DEPARTMENT Observed: 11/19/2017 Status: F Source: [place] SUMMARY 4:19 PM [facility] REPOSITORY [facility] Medical Records Department [address] [place] [address] Emergency Department Summary 11/19/17 0745 MR#: [id number] Acct: [id number] Name: KEIKO GARCIA Rep #: [id number] : 1935 81 From: Aracelis Miller MD [...] your Primary Care Provider. Call [facility] ([phone]) or report to the closest Emergency Room. Call 911 if necessary. 11/19/17 1619 <Electronically signed by Aracelis Miller MD> Date Araeclis Miller MD Cosigner Signature (If Indicated): Date CC: Hardik Puga MD HH, HEMOGLOBIN AND Collected: 11/19/2017 Status: F Source: [place] HEMATOCRIT 1:05 PM [facility] REPOSITORY TYPE CODE TESTS RESULT OUT OF RANGE REFERENCE UNITS LAB L100.1300 13.0-16.5 g/dl Low HGB 7.7 LAB L100.1400 40-54 % Low HCT 25.0 Performed By: #### L100.0600 #### [facility] [address] [facility], [address] CHEST 1 VIEW Observed: 11/19/2017 Status: F Source: [place] (PORTABLE) 11:17 AM [facility] REPOSITORY [facility] Imaging Services [address] [place] [address] Chest 1 View (Portable) MR#: [id number] Acct: [id number] Name: KEIKO GARCIA Rep #: [id number] : 1935 M 81 From: Carlos Moore DO PCP: Hardik Puga MD, Chi Status: ADM ENEIDA Study: Chest 1 View (Portable) Date of Exam: 11/19/17 Exam# [id number] Ordering Dr: Hong Kaplan MD STUDY: X-RAY [...] CC: Hong Kaplan MD; Hardik Puga MD Reroller Hand: Signed HEMOGLOBIN Collected: 11/19/2017 Status: F Source: [place] 9:20 AM [facility] REPOSITORY TYPE CODE TESTS RESULT OUT OF RANGE REFERENCE UNITS LAB L100.1300 13.0-16.5 g/dl Low HGB 8.4 Performed By: #### L100.1300 #### [facility] [address] [place], [place], [address] SPINE CERVICAL Observed: 11/19/2017 Status: F Source: [place] WITHOUT CONTRAS 7:22 AM [facility] REPOSITORY [facility] Imaging Services [address] [place] [address] Spine Cervical without Contras MR#: [id number] Acct: [id number] Name: KEIKO GARCIA Rep #: [id number] : 1935 M 81 From: Camilo Deras MD PCP: Edd WALDRON,Shineon Status: REG ER Study: Spine Cervical without Contras Date of Exam: 11/19/17 Exam# [id number] Ordering Dr: Aracelis Miller MD STUDY: CT [...] Camilo Deras MD at 8:32 EDT Tel [phone], Service support , CC: Aracelis Miller MD; Hardik Puga MD Reroller Hand: Signed BRAIN/HEAD WITHOUT Observed: 11/19/2017 Status: F Source: [place] CONTRAST 7:22 AM [facility] REPOSITORY [facility] Imaging Services [address] [place] [address] Brain/Head without Contrast MR#: [id number] Acct: [id number] Name: KEIKO GARCIA Rep #: [id number] : 1935 M 81 From: Camilo Deras MD PCP: Hardik Puga MD, Chi Status: REG ER Study: Brain/Head without Contrast Date of Exam: 11/19/17 Exam# [id number] Ordering Dr: Aracelis Miller MD STUDY: CT [...] Camilo Deras MD at 8:46 EDT Tel [phone], Service support , CC: Aracelis Miller MD; Hardik Puga MD Reroller Hand: Signed CBC W/DIFF, AUTOMATED Collected: 11/19/2017 Status: F Source: [place] 7:05 AM [facility] REPOSITORY TYPE CODE TESTS RESULT OUT [...] Lymph 1.29 Performed By: #### L100.0100 #### [facility] [address] [place] [place], [address] BASIC METABOLIC Collected: 11/19/2017 Status: F Source: [place] PROFILE (BMP) 7:05 AM [facility] REPOSITORY TYPE CODE TESTS RESULT OUT [...] GAP 6 Performed By: #### L500.2500 #### [facility] [address] [place] [place], [address] PROTHROMBIN TIME W/INR Collected: 11/19/2017 Status: F Source: [place] 7:05 AM [facility] REPOSITORY TYPE CODE TESTS RESULT OUT OF RANGE REFERENCE UNITS LAB L300.4150 11.7-14.9 SECONDS High PROTIME 19.8 LAB L300.4200 Normal INR 1.7 Performed By: #### L300.3900, L300.4310 #### [facility] [address] [place], [address] PARTIAL THROMBOPLAST Collected: 11/19/2017 Status: F Source: [place] TIME 7:05 AM [facility] REPOSITORY TYPE CODE TESTS RESULT OUT OF REFERENCE UNITS RANGE LAB L300.4310 24.1-36.2 Seconds High PTT 38.2 Performed By: #### L300.3900, L300.4310 #### [facility] [address] [place], [address] TYPE AND SCREEN Collected: 11/19/2017 Status: F Source: [place] 7:05 AM [facility] REPOSITORY Order Comment: Reason for Type AND Screen/Red Cells: TRAUMA TYPE CODE TESTS RESULT OUT OF RANGE REFERENCE UNITS LAB B10.0800 A Normal BLOOD TYPE GEL POSITIVE LAB B100.4000 Normal Antibody NEGATIVE Screen Performed By: #### B101.7450 #### [facility] [place], [address] TROPONIN-I Collected: 11/19/2017 Status: F Source: [place] 7:05 AM [facility] REPOSITORY Order Comment: 'TROP' Serial specimen #1, #2, #3, or #4: 1 TYPE CODE TESTS RESULT OUT OF RANGE REFERENCE UNITS LAB L501.4010 <0.06 ng/mL Normal < 0.02 TROPONIN-I Result Comment: TROPONIN-I EXPECTED VALUES <0.05 NEGATIVE 0.06 - 0.59 AT RISK OF WI > OR = 0.60 SUGGEST WI Performed By: #### L501.4010 #### [facility] [address] [place], [address] RC Collected: 11/19/2017 Status: F Source: [place] 7:05 AM [facility] REPOSITORY TYPE CODE TESTS RESULT OUT OF REFERENCE UNITS RANGE LAB U100.0000 [id number] TRANSFUSED PRODUCT: T AND S with Crossmatch, Red Cells COUNT: 2 Performed By: #### U100.0000 #### [facility] - refer to report for specific site CBC W/DIFF, AUTOMATED Collected: 10/28/2017 Status: F Source: [place] 11:59 AM [facility] REPOSITORY TYPE CODE TESTS RESULT OUT [...] Lymph 1.09 Performed By: #### L100.0100 #### [facility] [address] [place], [place], [address] IRON Collected: 10/28/2017 Status: F Source: [place] 11:59 AM [facility] REPOSITORY TYPE CODE TESTS RESULT OUT OF RANGE REFERENCE UNITS LAB L503.6150 65-175 ug/dL Low IRON 60 Performed By: #### L503.6150, L503.6550 #### [facility] [address] [place], [address] FERRITIN Collected: 10/28/2017 Status: F Source: [place] 11:59 AM [facility] REPOSITORY TYPE CODE TESTS RESULT OUT OF RANGE REFERENCE UNITS LAB L503.6550 26-388 ng/mL Normal FERRITIN 41 Performed By: #### L503.6150, L503.6550 #### [facility] [address] [place], [address] CARDIOLOGY VISIT Observed: 10/02/2017 Status: F Source: [place] REPORT 12:11 PM [facility] REPOSITORY [facility] 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) Ischemic cardiomyopathy [...] LEAD ELECTROCARDIOGRAM Observed: 09/30/2017 Status: F Source: [place] 1:35 PM [facility] REPOSITORY [facility] Cardiovascular Services [address] [place] [address] 12 Lead EKG 09/27/17 1159 MR#: [id number] Acct: [id number] Name: KEIKO GARCIA Rep #: [id number] : 1935 81 From: Ulises Kessler MD [...] Abnormal ECG Confirmed by ULISES KESSLER ([id number]), assistant editor JAYLA BLOOD ([id number]) on 09/30/2017 1:34:46 PM Referred By: Confirmed By:ULISES KESSLER 09/30/17 1334 Date Ulises Kessler MD CC: Hardik Puga MD; Roland Joseph MD Signed EMERGENCY DEPARTMENT Observed: 09/27/2017 Status: F Source: [place] SUMMARY 1:50 PM [facility] REPOSITORY [facility] Medical Records Department [address] [place] [address] Emergency Department Summary 09/27/17 1214 MR#: [id number] Acct: [id number] Name: KEIKO GARCIA Rep #: [id number] : 1935 81 From: Roland Joseph MD PCP: Hardik Puga MD, Chi Status: REG ER - ER Visit Summary Date of Service: 09/27/17 Chief Complaint: Increasing shortness of breath over the past 1 week History of Present Illness: The patient is a 81 M who is status post WI complicated by cardia pulmonary arrest 1 month [...] compliant with his medication. Records from the [facility] were received and reviewed. Physical [...] July 06, 2017. At that time the plodder operator interpreted him in to have a sinus rhythm. His rhythm was irregular. Chest x-ray reveals normal cardiac silhouette with bilateral pleural effusions and mild venous congestion. H AND H 10.5 and 34.8. BUN is 48 with a creatinine of 2.86. Troponin is indeterminate at 0.20. BNP is 703. His indeterminate troponin could be related to his recent WI and CHF. Emergency Department Course and Treatment: [...] cardiopulmonary arrest This note was generated with [employer] ( H[employer] )ation software. It may contain incorrect words, spelling, [...] your Primary Care Provider. Call [facility] ([phone]) or report to the closest Emergency Room. Call 911 if necessary. 09/27/17 1350 <Electronically signed by Roland Joseph MD> Date Roland Joseph MD Cosigner Signature (If Indicated): Date CC: Ko Reddy MD; Hardik Puga MD CBC W/DIFF, AUTOMATED Collected: 09/27/2017 Status: F Source: [place] 12:10 PM [facility] REPOSITORY TYPE CODE TESTS RESULT OUT [...] Normal RARE Performed By: #### L100.0100 #### [facility] [address] [place], [place], [address] BASIC METABOLIC Collected: 09/27/2017 Status: F Source: [place] PROFILE (BMP) 12:10 PM [facility] REPOSITORY Order Comment: 'TROP' Serial specimen #1, [...] 14 Performed By: #### L500.2500, L501.4010 #### [facility] [address] [place], [address] TROPONIN-I Collected: 09/27/2017 Status: F Source: [place] 12:10 PM [facility] REPOSITORY Order Comment: 'TROP' Serial specimen #1, #2, #3, or #4: 1 TYPE CODE TESTS RESULT OUT OF RANGE REFERENCE UNITS LAB L501.4010 <0.06 ng/mL High 0.20 TROPONIN-I Result Comment: TROPONIN-I EXPECTED VALUES <0.05 NEGATIVE 0.06 - 0.59 AT RISK OF WI > OR = 0.60 SUGGEST WI Performed By: #### L500.2500, L501.4010 #### [facility] [address] [place], [place], [address] BNP,B-TYPE NATRIURETIC Collected: 09/27/2017 Status: F Source: [place] PEPTIDE 12:10 PM [facility] REPOSITORY TYPE CODE TESTS RESULT OUT OF RANGE REFERENCE UNITS LAB L503.6620 0-100 pg/mL High B-TYPE 703.8 KYA PEP Performed By: #### L503.6620 #### [facility] [address] [place], [place], [address] CHEST PA AND LATERAL Observed: 09/27/2017 Status: F Source: [place] 12:08 PM [facility] REPOSITORY [facility] Imaging Services [address] [place] [address] Chest PA and Lateral MR#: [id number] Acct: [id number] Name: KEIKO GARCIA Rep #: [id number] : 1935 M 81 From: Camilo Deras MD PCP: Hardik Puga MD, Chi Status: REG ER Study: Chest PA and Lateral Date of Exam: 09/27/17 Exam# [id number] Ordering Dr: Roland Joseph MD STUDY: X-RAY [...] Camilo Deras MD at 13:03 EDT Tel [phone], Service support , CC: Hardik Puga MD; Roland Joseph MD Reroller Hand: Signed CBC W/DIFF, AUTOMATED Collected: 09/16/2017 Status: F Source: [place] 10:07 AM [facility] REPOSITORY TYPE CODE TESTS RESULT OUT [...] Lymph 1.08 Performed By: #### L100.0100 #### [facility] [address] [place], [place], [address] COMPREHENSIVE METABOLIC Collected: 09/16/2017 Status: F Source: [facility] 10:07 AM [facility] REPOSITORY TYPE CODE TESTS RESULT OUT [...] 8 Performed By: #### L500.4050, L501.9520 #### [facility] [address] [place], [place], [address] THYROID STIM HORMONE Collected: 09/16/2017 Status: F Source: [place] (TSH) 10:07 AM [facility] REPOSITORY TYPE CODE TESTS RESULT OUT OF RANGE REFERENCE UNITS LAB L501.9520 0.358-3.74 uIU/mL Normal TSH 3.49 Performed By: #### L500.4050, L501.9520 #### [facility] [address] [place], [address] IRON Collected: 09/11/2017 Status: F Source: [place] 12:35 PM [facility] REPOSITORY TYPE CODE TESTS RESULT OUT OF RANGE REFERENCE UNITS LAB L503.6150 65-175 ug/dL Low IRON 30 Performed By: #### L503.6150, L503.6550 #### [facility] [address] [place], [address] FERRITIN Collected: 09/11/2017 Status: F Source: [place] 12:35 PM [facility] REPOSITORY TYPE CODE TESTS RESULT OUT OF REFERENCE UNITS RANGE LAB L503.6550 26-388 ng/mL Low FERRITIN 17 Performed By: #### L503.6150, L503.6550 #### [facility] [address] [facility] [place], [place], [address] CBC-COMPLETE BLOOD CNT Collected: 09/11/2017 Status: F Source: [place] NO DIFF 12:35 PM [facility] REPOSITORY TYPE CODE TESTS RESULT OUT [...] Performed By: #### L100.0500, L100.9950, L100.4500 #### [facility] [address] [place], [address] RETIC PANEL Collected: 09/11/2017 Status: F Source: [place] 12:35 PM [facility] REPOSITORY TYPE CODE TESTS RESULT OUT [...] Performed By: #### L100.0500, L100.9950, L100.4500 #### [facility] [address] [place], [address] DIFFERENTIAL COMMENT Collected: 09/11/2017 Status: F Source: [place] 12:35 PM [facility] REPOSITORY TYPE CODE TESTS RESULT OUT OF RANGE REFERENCE UNITS LAB L100.4500 Normal SMEAR COMMENT COMMENT Result Comment: SLIDE SCANNED - RARE SCHISTOCYTES, 1+ TARGET CELLS, 1+ HYPOCHROMIA. Performed By: #### L100.0500, L100.9950, L100.4500 #### [facility] [address] [place], [address] CBC W/DIFF, AUTOMATED Collected: 08/29/2017 Status: F Source: [place] 12:04 PM [facility] REPOSITORY TYPE CODE TESTS RESULT OUT [...] Lymph 1.17 Performed By: #### L100.0100 #### [facility] [address] [facility] [place], [place], [address] CARDIOLOGY VISIT Observed: 08/08/2017 Status: F Source: [place] REPORT 4:44 PM [facility] REPOSITORY [facility] [address] [place] [address] OFFICE VISIT Date of Service: 08/08/17 MR#: [id number] Acct: [id number] Name: KEIKO GARCIA Rep #: [id number] : 1935 Provider: RIAN Martin Age/Sex: 81/M Location: [facility] [place] Status: Signed HPI [facility] ER 07/06/17: Details: KEIKO GARCIA, is a [...] history of atrial fibrillation. Patient presented to [facility] in June 2017 after having multiple falls at home. Patient was found to have a upper GI bleed. Patient was also found to be hypotensive and required 4 L of normal saline. He was transferred for [facility] for further treatment/evaluation. Pt. is currently a resident at [facility]. He is undergoing physical therapy, which he states is going well. He currently uses his cane to help with ambulation. 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 Records from [facility] will be requested for further review. After [...] this. When reviewing his laboratory work from [facility] it appears at some point since [...] This will request will be sent to [facility] to have drawn with his next [...] Code Off vis,est,level 3 Diagnoses Atherosclerosis of standing rock coronary artery of standing rock heart without angina pectoris I25.10 Paroxysmal atrial [...] SEVERITY SOURCE 12/03/2017 Drug No Known Unknown [facility] Allergy/4160 Allergies/F00 Hospital 88640(SNOMED [id number](RXNOR Repository CT) M) ENCOUNTERS ENCOUNTERS ADMIT/DISCHARGE ACCOUNT ADMITTING ENCOUNTER LOCATION SOURCE NUMBER CLASS 08/06/2018 [id number] [facility] [place] [facility] Repository 07/22/2018 [id number] Ambulatory BMSBuilding:B [place] 4 [facility] Repository 07/11/2018/ [id number] Ambulatory [place] [facility] 9 [facility] Repository 07/03/2018 [id number] Ambulatory BMSBuilding:W [place] 4 Man [facility] Hospital Repository 07/01/2018 [id number] Ambulatory [place] 6 [facility] Hospital ing:POLAB3 Repository 06/26/2018 [id number] Ambulatory BMSBuilding:W [place] 1 Man [facility] Hospital Repository 06/12/2018 [id number] Ambulatory BMSBuilding:W [place] 3 Man [facility] Hospital Repository 06/12/2018/ [id number] Ambulatory [place] [facility] 0 [facility] ing: Repository 06/04/2018 [id number] Ambulatory BMSBuilding:W [place] 4 Man [facility] Hospital Repository 05/29/2018 [id number] Ambulatory BMSBuilding:W [place] 9 Man [facility] Hospital Repository 05/22/2018 [id number] Ambulatory BMSBuilding:W [place] 8 Man [facility] Hospital Repository 05/15/2018 [id number] Ambulatory BMSBuilding:W [place] 6 Man [facility] Hospital Repository 05/05/2018 [id number] Ambulatory [place] 1 [facility] ing[facility]POL[facility] Repository 04/03/2018 [id number] Ambulatory [place] 3 [facility] Repository 04/02/2018/ [id number] Ambulatory [place] 8 1 [facility] Hospital ing: Repository 04/02/2018 [id number] Ambulatory BMSBuilding:W [place] 9 Man [facility] Hospital Repository 03/20/2018 [id number] Ambulatory BMSBuilding:W [place] 1 Man [facility] Hospital Repository 03/13/2018/ [id number] Ambulatory [place] [facility] 7 [facility] ing: Repository 03/13/2018 [id number] Ambulatory BMSBuilding:W [place] 8 [facility] Hospital Repository 03/06/2018 [id number] Ambulatory BMSBuilding:W [place] 7 Man [facility] Hospital Repository 02/27/2018 [id number] Ambulatory BMSBuilding:W [place] 5 Man [facility] Hospital Repository 02/20/2018 [id number] Ambulatory BMSBuilding:W [place] 0 Man [facility] Hospital Repository 02/13/2018 [id number] Ambulatory BMSBuilding:W [place] 9 Man [facility] Hospital Repository 02/06/2018/ [id number] Ambulatory [place] 8 2 [facility] Hospital[facility] Hospital ing: Repository 02/06/2018 [id number] Ambulatory BMSBuilding:W [place] 7 Man [facility] Hospital Repository 01/30/2018 [id number] Ambulatory BMSBuilding:W [place] 6 Man [facility] Hospital Repository 01/23/2018 [id number] Ambulatory BMSBuilding:W [place] 5 Man [facility] Hospital Repository 01/16/2018 [id number] Ambulatory BMSBuilding:W [place] 4 Man [facility] Hospital Repository 01/02/2018 [id number] Ambulatory [place] 5 [facility] HospitalBuild Hospital ing:POLAB3 Repository 01/01/2018/ [id number] Ambulatory [place] 8 8 [facility] HospitalBuild Hospital ing: Repository 12/03/2017/ [id number] Ambulatory BMSBuilding:B [place] 8 4 [facility] Hospital Repository 11/26/2017 [id number] Ambulatory BMS [place] 3 [facility] Hospital Repository 11/19/2017/ [id number] Gurdeep, Inpatient [place] 8 6 [facility] Hospital ing:PCURoom: Repository [id number]: 1 11/19/2017 [id number] Gurdeep, Ambulatory BMSBuilding:B [place] 4 [place]Critical [facility] hospital Repository 11/19/2017 [id number] Gurdeep, Ambulatory BMSBuilding:B [place] 7 [place].Critical [facility] hospital Repository 11/19/2017 [id number] [facility], Ambulatory BMSBuilding:B [place] 0 [place].Critical access hospital Repository 11/19/2017/ [id number] Ambulatory BMSBuilding:W [place] 8 9 [facility] Repository 11/08/2017 [id number] Ambulatory BMSBuilding:B [place] 2 [facility] Repository 10/28/2017 [id number] Ambulatory [place] 0 [facility] ing:LAB.FUTUR Repository E 10/02/2017/ [id number] Ambulatory BMSBuilding:B [place] 8 4 [facility] Repository 10/01/2017 [id number] Ambulatory BMSBuilding:B [place] 9 [facility] Repository 09/27/2017/ [id number] Emergency [place] 8 5 [facility] Hospital ing:ED Repository 09/16/2017 [id number] Ambulatory [place] 9 [facility] Hospital ing:POLAB3 Repository 09/11/2017 [id number] Ambulatory [place] 1 [facility] Hospital ing:MTLAB Repository 08/29/2017 [id number] Ambulatory [place] 8 [facility] Hospital ing:POLAB3 Repository 08/08/2017/ [id number] Ambulatory BMSBuilding:B [place] 8 3 [facility] Repository 08/07/2017 [id number] Ambulatory BMSBuilding:B [place] 1 [facility] Repository PAYERS PAYERS ENCOUNTER GUARANTOR PAYER SUBSCRIBER SOURCE 08/06/2018 KEIKO [id number] Primary Insurance:ASHA GARCIADOB: [place] [facility] Number: [id number] Date:6363-55-77AS BOX Repository [address]Jjg: [phone] [place], [place] [phone] (HP) [address]XN: 08/06/2018 Secondary NOT GIVENUNK [place] Insurance:SELF PAY Community INSURANCEPolicy Number: Hospital Effective Repository Date:2018-07-15 07/22/2018 KEIKO B [id number] Primary Insurance:AETNA KEIKO B TRACYDOB: [place] FROST MCRPolicy Number: [id number] Date:3087-99-05GP BOX Repository 62265Ryt: [phone] [place], [place] [phone] (HP) [address]EA: 07/22/2018 Secondary NOT GIVENUNK [place] Insurance:SELF PAY Community INSURANCEPolicy Number: Hospital Effective Repository Date:2018-07-22 07/11/2018 KEIKO B [id number] Primary Insurance:AETNA KEIKO B TRACYDOB: [place] FROST MCRPolicy Number: [id number] Date:4481-27-46VD BOX Repository 59043Uym: [phone] [place], [place] [phone] (HP) [address]PU: 07/11/2018 Secondary NOT GIVENUNK [place] Insurance:SELF PAY Community INSURANCEPolicy Number: Hospital Effective Repository Date:2018-06-14 07/03/2018 KEIKO B [id number] Primary Insurance:AETNA KEIKO B TRACYDOB: [place] FROST MCRPolicy Number: [id number] Date:2867-58-46MF BOX Repository 17205Oxd: [phone] [place], [place] [phone] (HP) [address]OX: 07/03/2018 Secondary NOT GIVENUNK [place] Insurance:SELF PAY Community INSURANCEPolicy Number: Hospital Effective Repository Date:2018-07-03 07/01/2018 KEIKO B [id number] Primary Insurance:AETNA KEIKO B TRACYDOB: [place] FROST MCRPolicy Number: [id number] [address] Date:4390-30-30QY BOX Repository 94[address]Qaj: [phone]) [phone] [place] [phone] (HP) [address]ZU: 07/01/2018 Secondary KEIKO B TRACYDOB: [place] Insurance:MEDICARE PART [id number] [facility] A BPolicy Number: Hospital [id number] Repository Date:2018-07-01 07/01/2018 Tertiary Insurance:SELF NOT GIVENUNK [place] PAY INSURANCEPolicy Community Number: Effective Hospital Date:2018-07-01 Repository 06/26/2018 KEIKO B [id number] Primary Insurance:AETNA KEIKO B TRACYDOB: [place] FROST MCRPolicy Number: [id number] [address], [place] Date:2413-75-50EU BOX Repository 532[address]Met: [phone] [place] [phone] (HP) [address]RI: 06/26/2018 Secondary NOT GIVENUNK [place] Insurance:SELF PAY Community INSURANCEPolicy Number: Hospital Effective Repository Date:2018-06-26 06/12/2018 KEIKO B [id number] Primary Insurance:AETNA KEIKO B TRACYDOB: [place] FROST MCRPolicy Number: [id number] [address], [place] Date:3042-87-87DI BOX Repository 397[address]Pwf: [phone] [place] [phone] (HP) [address]WG: 06/12/2018 Secondary NOT GIVENUNK [place] Insurance:SELF PAY Community INSURANCEPolicy Number: Hospital Effective Repository Date:2018-06-12 06/12/2018 KEIKO B [id number] Primary Insurance:AETNA KEIKO B TRACYDOB: [place] FROST MCRPolicy Number: [id number] [address], [place] Date:5427-23-36IV BOX Repository [address]Pld: [phone] [place] [phone] () [address]MP: 06/12/2018 Secondary NOT GIVENUNK [place] Insurance:SELF PAY Community INSURANCEPolicy Number: Hospital Effective Repository Date:2018-04-14 06/04/2018 KEIKO B [id number] Primary Insurance:AETNA KEIKO B TRACYDOB: [place] FROST MCRPolicy Number: [id number] [address], [place] Date:4468-36-86MO BOX Repository 917[address]Yuj: [phone] [place] [phone] () [address]UQ: 06/04/2018 Secondary NOT GIVENUNK [place] Insurance:SELF PAY Community INSURANCEPolicy Number: Hospital Effective Repository Date:2018-06-04 05/29/2018 KEIKO B [id number] Primary Insurance:AETNA KEIKO B TRACYDOB: [place] FROST MCRPolicy Number: [id number] [address], [place] Date:4111-70-86DA BOX Repository 773[address]Utu: [phone] [place] [phone] (HP) [address]CJ: 05/29/2018 Secondary NOT GIVENUNK [place] Insurance:SELF PAY Community INSURANCEPolicy Number: Hospital Effective Repository Date:2018-05-29 05/22/2018 KEIKO B [id number] Primary Insurance:AETNA KEIKO B TRACYDOB: [place] FROST MCRPolicy Number: [id number] [address], [place] Date:6646-21-39WH BOX Repository 003[address]Ypm: [phone] [place] [phone] (HP) [address]FT: 05/22/2018 Secondary NOT GIVENUNK [place] Insurance:SELF PAY Community INSURANCEPolicy Number: Hospital Effective Repository Date:2018-05-22 05/15/2018 KEIKO B [id number] Primary Insurance:AETNA KEIKO B TRACYDOB: [place] FROST MCRPolicy Number: [id number], [place] Date:1253-88-90EZ BOX Repository 915[address]Pkt: [phone] [place], [place] [phone] (HP) [phone]: 05/15/2018 Secondary NOT GIVENUNK [place] Insurance:SELF PAY Community INSURANCEPolicy Number: Hospital Effective Repository Date:2018-05-15 05/05/2018 KEIKO B [id number] Primary Insurance:AETNA KEIKO B TRACYDOB: [place] FROST MCRPolicy Number: [id number] Date:5141-55-50FW BOX Repository 15[address]Rkg: [phone] [place], [place] [phone] (HP) [address]OK: 05/05/2018 Secondary NOT GIVENUNK [place] Insurance:SELF PAY Community INSURANCEPolicy Number: Hospital Effective Repository Date:2018-05-05 04/03/2018 KEIKO B [id number] Primary Insurance:AETNA KEIKO B TRACYDOB: [place] FROST MCRPolicy Number: [id number] [place] Date:1031-76-55WI BOX Repository [address]16[address]Usp: [phone] [place], [place] [phone] (HP) [phone]: 04/03/2018 Secondary NOT GIVENUNK [place] Insurance:SELF PAY Community INSURANCEPolicy Number: Hospital Effective Repository Date:2018-04-03 04/02/2018 KEIKO B [id number] Primary Insurance:AETNA KEIKO B TRACYDOB: [place] FROST MCRPolicy Number: [id number], [place] Date:8797-43-66BV BOX Repository 18[address]Pyt: [phone] [place] [phone] (HP) [address]TG: 04/02/2018 Secondary NOT GIVENUNK [place] Insurance:SELF PAY Community INSURANCEPolicy Number: Hospital Effective Repository Date:2018-03-15 04/02/2018 KEIKO B [id number] Primary Insurance:AETNA KEIKO B TRACYDOB: [place] FROST MCRPolicy Number: [id number] [address], [place] Date:3893-64-32OT BOX Repository 430[address]Bpp: [phone] [place] [phone] (HP) [address]VX: 04/02/2018 Secondary NOT GIVENUNK [place] Insurance:SELF PAY Community INSURANCEPolicy Number: Hospital Effective Repository Date:2018-04-02 03/20/2018 KEIKO B [id number] Primary Insurance:AETNA KEIKO B TRACYDOB: [place] FROST MCRPolicy Number: [id number] [address], [place] Date:4542-82-29DQ BOX Repository 65[address]Ola: [phone] [place], [place] [phone] (HP) [phone]: 03/20/2018 Secondary NOT GIVENUNK [place] Insurance:SELF PAY Community INSURANCEPolicy Number: Hospital Effective Repository Date:2018-03-20 03/13/2018 KEIKO B [id number] Primary Insurance:AETNA KEIKO B TRACYDOB: [place] FROST MCRPolicy Number: [id number] Date:3718-53-18UL BOX Repository 985[address]Gez: [phone] [place], [place] [phone] (HP) [address]TT: 03/13/2018 Secondary NOT GIVENUNK [place] Insurance:SELF PAY Community INSURANCEPolicy Number: Hospital Effective Repository Date:2018-02-12 03/13/2018 KEIKO B [id number] Primary Insurance:AETNA KEIKO B TRACYDOB: [place] FROST MCRPolicy Number: [id number] Date:4163-92-41ZM BOX Repository 98[address]Bfh: [phone] [place], [place] [phone] (HP) [address]PA: 03/13/2018 Secondary NOT GIVENUNK [place] Insurance:SELF PAY Community INSURANCEPolicy Number: Hospital Effective Repository Date:2018-03-13 03/06/2018 KEIKO B [id number] Primary Insurance:AETNA KEIKO B TRACYDOB: [place] FROST MCRPolicy Number: [id number] Date:7944-08-12EN BOX Repository 316[address]Nxx: [phone] [place] [phone] (HP) [phone]: 03/06/2018 Secondary NOT GIVENUNK [place] Insurance:SELF PAY Community INSURANCEPolicy Number: Hospital Effective Repository Date:2018-03-06 02/27/2018 KEIKO B [id number] Primary Insurance:AETNA KEIKO B TRACYDOB: [place] FROST MCRPolicy Number: [id number] Date:0512-59-14QT BOX Repository 58[address]Jxu: [phone] [place] [phone] (HP) [address]YQ: 02/27/2018 Secondary NOT GIVENUNK [place] Insurance:SELF PAY Community INSURANCEPolicy Number: Hospital Effective Repository Date:2018-02-27 02/20/2018 KEIKO B [id number] Primary Insurance:AETNA KEIKO B TRACYDOB: [place] FROST MCRPolicy Number: [id number] Date:9923-04-68ZS BOX Repository 147[address]Jyv: [phone] [place] [phone] (HP) [address]QI: 02/20/2018 Secondary NOT GIVENUNK [place] Insurance:SELF PAY Community INSURANCEPolicy Number: Hospital Effective Repository Date:2018-02-20 02/13/2018 KEIKO B [id number] Primary Insurance:AETNA KEIKO B TRACYDOB: [place] FROST MCRPolicy Number: [id number] [address], [place] Date:0173-48-31EV BOX Repository 487[address]Quw: [phone] [place] [phone] (HP) [address]SF: 02/13/2018 Secondary NOT GIVENUNK [place] Insurance:SELF PAY Community INSURANCEPolicy Number: Hospital Effective Repository Date:2018-02-13 02/06/2018 KEIKO B [id number] Primary Insurance:AETNA KEIKO B TRACYDOB: [place] FROST MCRPolicy Number: [id number], [place] Date:0758-84-63WN BOX Repository 61987Nzq: [phone] [place] [phone] (HP) [address]VU: 02/06/2018 Secondary NOT GIVENUNK [place] Insurance:SELF PAY Community INSURANCEPolicy Number: Hospital Effective Repository Date:2018-01-12 02/06/2018 KEIKO B [id number] Primary Insurance:AETNA KEIKO B TRACYDOB: [place] FROST MCRPolicy Number: [id number] [address], [place] Date:7901-25-20QC BOX Repository 585[address]Ffz: [phone] [place] [phone] (HP) [address]CU: 02/06/2018 Secondary NOT GIVENUNK [place] Insurance:SELF PAY Community INSURANCEPolicy Number: Hospital Effective Repository Date:2018-02-06 01/30/2018 KEIKO B [id number] Primary Insurance:AETNA KEIKO B TRACYDOB: [place] FROST MCRPolicy Number: [id number] Date:9767-13-94JC BOX Repository [address]Fpw: [phone] [place] [phone] (HP) [address]UU: 01/30/2018 Secondary NOT GIVENUNK [place] Insurance:SELF PAY Community INSURANCEPolicy Number: Hospital Effective Repository Date:2018-01-30 01/23/2018 KEIKO B [id number] Primary Insurance:AETNA KEIKO B TRACYDOB: [place] FROST MCRPolicy Number: [id number] [address], [place] Date:0818-10-34ZE BOX Repository [address]Apu: [phone] [place] [phone] (HP) [phone]: 01/23/2018 Secondary NOT GIVENUNK [place] Insurance:SELF PAY Community INSURANCEPolicy Number: Hospital Effective Repository Date:2018-01-23 01/16/2018 KEIKO B [id number] Primary Insurance:AETNA KEIKO B TRACYDOB: [place] FROST MCRPolicy Number: [id number] Date:9525-17-72YI BOX Repository 714[address]Qth: [phone] [place] [phone] (HP) [address]UY: 01/16/2018 Secondary NOT GIVENUNK [place] Insurance:SELF PAY Community INSURANCEPolicy Number: Hospital Effective Repository Date:2018-01-16 01/02/2018 KEIKO B [id number] Primary Insurance:AETNA KEIKO B TRACYDOB: [place] FROST MCRPolicy Number: [id number] Date:3130-01-12GQ BOX Repository 28[address]Zqi: [phone] [place] [phone] (HP) [address]XN: 01/02/2018 Secondary NOT GIVENUNK [place] Insurance:SELF PAY Community INSURANCEPolicy Number: Hospital Effective Repository Date:2018-01-02 01/01/2018 KEIKO B [id number] Primary Insurance:AETNA KEIKO B TRACYDOB: [place] FROST MCRPolicy Number: [id number] Date:2055-66-47BO BOX Repository [address]98[address]Jko: [phone] [place] [phone] (HP) [address]MU: 01/01/2018 Secondary NOT GIVENUNK [place] Insurance:SELF PAY Community INSURANCEPolicy Number: Hospital Effective Repository Date:2017-12-25 12/03/2017 KEIKO B [id number] Primary Insurance:AETNA KEIKO B TRACYDOB: [place] FROST MCRPolicy Number: [id number] Date:9630-64-35PM BOX Repository [address]26[address]Qwc: ([phone]) 249194UBJOSELNY [place] [phone] (HP) [address]HU: 12/03/2017 Secondary NOT GIVENUNK [place] Insurance:SELF PAY Community INSURANCEPolicy Number: Hospital Effective Repository Date:2017-11-08 11/26/2017 KEIKO B [id number] Primary Insurance:AETNA KEIKO B TRACYDOB: [place] LEIGH MCRPolicy Number: [id number] [address] [address]Lmj: (330) Date:5196-88-12KJ BOX Repository [phone] (HP) 059046MZJOSELYN [place] [address]XR: 11/26/2017 Secondary NOT GIVENUNK [place] Insurance:SELF PAY Community INSURANCEPolicy Number: Hospital Effective Repository Date:2017-11-26 11/19/2017 KEIKO B [id number] Primary Insurance:AETNA KEIKO B TRACYDOB: [place] LEIGH MCRPolicy Number: [id number] [address] [address]Pzs: (330) Date:3474-99-73QB BOX Repository [phone] (HP) [phone] [place] [address]HR: 11/19/2017 Secondary NOT GIVENUNK [place] Insurance:SELF PAY Community INSURANCEPolicy Number: Hospital Effective Repository Date:2017-11-19 11/19/2017 KEIKO B [id number] Primary Insurance:AETNA KEIKO B TRACYDOB: [place] LEIGH MCRPolicy Number: [id number] [address] [address]Nih: (330) Date:2765-48-29DM BOX Repository [phone] (HP) [phone] [place] [address]WM: 11/19/2017 Secondary NOT GIVENUNK [place] Insurance:SELF PAY Community INSURANCEPolicy Number: Hospital Effective Repository Date:2017-11-19 11/19/2017 KEIKO B [id number] Primary Insurance:AETNA KEIKO B TRACYDOB: [place] LEIGH MCRPolicy Number: [id number] [address] [address]Arc: (330) Date:8382-60-73KV BOX Repository [phone] (HP) 267344EE [place], [place] [address]LF: 11/19/2017 Secondary NOT GIVENUNK [place] Insurance:SELF PAY Community INSURANCEPolicy Number: Hospital Effective Repository Date:2017-11-19 11/19/2017 KEIKO B [id number] Primary Insurance:AETNA KEIKO B TRACYDOB: [place] FROST RDYOLANDA MCRPolicy Number: [id number] [address]Tld: (330) Date:0027-99-81TP BOX Repository [phone] (HP) [phone] [place] [address]RK: 11/19/2017 Secondary NOT GIVENUNK [place] Insurance:SELF PAY Community INSURANCEPolicy Number: Hospital Effective Repository Date:2017-11-19 11/19/2017 KEIKO B [id number] Primary Insurance:AETNA KEIKO B TRACYDOB: [place] FROST MCRPolicy Number: [id number] [address] Date:6239-23-81XH BOX Repository [address]Iul: ([phone]) [phone] [place] [phone] (HP) [address]JU: 11/19/2017 Secondary NOT GIVENUNK [place] Insurance:SELF PAY Community INSURANCEPolicy Number: Hospital Effective Repository Date:2017-11-19 11/08/2017 KEIKO B [id number] Primary Insurance:AETNA KEIKO B TRACYDOB: [place] FROST RDYOLANDA MCRPolicy Number: [id number] [address] [address]Ovv: (330) Date:8733-73-77DL BOX Repository [phone] (HP) [id number] [place], [place] [address]LI: 11/08/2017 Secondary NOT GIVENUNK [place] Insurance:SELF PAY Community INSURANCEPolicy Number: Hospital Effective Repository Date:2017-11-08 10/28/2017 KEIKO B [id number] Primary Insurance:AETNA KEIKO B TRACYDOB: [place] LEIGH MCRPolicy Number: [id number] [address] [address]Led: (330) Date:8542-34-47DR BOX Repository [phone] () [id number] [place] KNAPP [address]CE: 10/28/2017 Secondary NOT GIVENUNK [place] Insurance:SELF PAY Community INSURANCEPolicy Number: Hospital Effective Repository Date:2017-10-28 10/02/2017 KEIKO B [id number] Primary Insurance:AETNA KEIKO B TRACYDOB: [place] LEIGH MCRPolicy Number: [id number] [place] [id number]: (330) Date:0880-89-34BM BOX Repository [phone] () 105919BP [place] [address]UQ: 10/02/2017 Secondary NOT GIVENUNK [place] Insurance:SELF PAY Community INSURANCEPolicy Number: Hospital Effective Repository Date:2017-10-02 10/01/2017 KEIKO B [id number] Primary Insurance:AETNA KEIKO B TRACYDOB: [place] LEIGH MCRPolicy Number: [id number] [place] [id number]: (330) Date:4028-98-97XI BOX Repository [phone] (HP) [id number] [place] [address]PC: 10/01/2017 Secondary NOT GIVENUNK [place] Insurance:SELF PAY Community INSURANCEPolicy Number: Hospital Effective Repository Date:2017-10-01 09/27/2017 KEIKO B [id number] Primary Insurance:AETNA KEIKO B TRACYDOB: [place] LEIGH MCRPolicy Number: [id number] [place] [id number]: (330) Date:8651-82-08XP BOX Repository [phone] (HP) 660157ZDJOSELYN [place] [address]LM: 09/27/2017 Secondary NOT GIVENUNK [place] Insurance:SELF PAY Community INSURANCEPolicy Number: Hospital Effective Repository Date:2017-09-27 09/16/2017 KEIKO B [id number] Primary Insurance:AETNA KEIKO B TRACYDOB: [place] FROST RDLOT MCRPolicy Number: [id number] [address]Ruf: (330) Date:7606-30-27NQ BOX Repository [phone] (HP) 727473FVJOSELYN [place] [address]JR: 09/16/2017 Secondary NOT GIVENUNK [place] Insurance:SELF PAY Community INSURANCEPolicy Number: Hospital Effective Repository Date:2017-09-16 09/11/2017 KEIKO B [id number] Primary Insurance:AETNA KEIKO B TRACYDOB: [place] FROST ANDRESSALOT MCRPolicy Number: [id number] [address]Wrv: (330) Date:3700-95-69LO BOX Repository [phone] (HP) 471832EZJOSELYN [place] [address]WJ: 09/11/2017 Secondary NOT GIVENUNK [place] Insurance:SELF PAY Community INSURANCEPolicy Number: Hospital Effective Repository Date:2017-09-11 08/29/2017 KEIKO B [id number] Primary Insurance:AETNA KEIKO B TRACYDOB: [place] FROST RDLOT MCRPolicy Number: [id number] [address]Hdv: (330) Date:4642-62-99QE BOX Repository [phone] (HP) 748110SFJOSELYN [place] [address]QS: 08/29/2017 Secondary NOT GIVENUNK [place] Insurance:SELF PAY Community INSURANCEPolicy Number: Hospital Effective Repository Date:2017-08-29 08/08/2017 KEIKO B [id number] Primary Insurance:AETNA KEIKO B TRACYDOB: [place] FROST RDLOT MCRPolicy Number: [id number] [address] [facility] [address]Gvm: (330) Date:2282-07-84IS BOX Repository [phone] () [id number] [place] [address]NF: 08/08/2017 Secondary NOT GIVENUNK [place] Insurance:SELF PAY Community INSURANCEPolicy Number: Hospital Effective Repository Date:2017-07-24 08/07/2017 Keiko B [id number] Primary Keiko B TracyDOB: [place] Frost RdLot Insurance:MEDICARE PART [id number] [address] A BPolicy Number: Hospital [id number]: ([phone] [id number] Repository [phone] () Date:2017-08-07 08/07/2017 Secondary Keiko B TracyDOB: [place] Insurance:ANTHEMPolicy [id number] Community Number: Hospital [id number] Repository Date:1468-00-95[address]TG[place]ATNP, [place] [address]SX: 08/07/2017 Tertiary Insurance:SELF NOT GIVENUNK [place] PAY INSURANCEPolicy Community Number: Effective Hospital Date:2017-08-07 Repository
== END ==
PROVIDERS: Family Provider Family Medicine Geriatric Medicine; PCP Family Medicine Geriatric Medicine; Visit Provider Family Medicine Geriatric Medicine
DX: E55.9 Vitamin D deficiency, unspecified (principal); I10 Essential (primary) hypertension
CPT/HCPCS: 36415; 80053; 82306; 84443; 85025

== ENCOUNTER 2018-07-11 09:45 | Outpatient (RCR) | payer MEDICARE, SELFPAY ==
[2018-06-14 00:15] VITALS: BP 124/86; PULSE 90; RESP 18; TEMP 35.9
[2018-06-26 08:40] VITALS: BP 140/94; PULSE 96; RESP 16; TEMP 36.6; BMI 24.4
--- NOTE | 2018-06-26 11:47 | PN.PCM_ITS ---
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 Swelling of both legs History of Wound: Mr. Garcia is an 82-year-old who is well-known to the wound center due to recurrent reopening of left lower extremity ulcer. He has had recurrent episodes of left lower extremity ulcers since his surgery a couple of years ago. Also has significant bilateral lower extremity edema and is not very compliant with compression. Denies any significant concerns at this time. No chills, fever or feeling of unwell. Progress of Wound: He presents with worsening lower extremity swelling and new superficial ulcers/ blistering. He has been without compression for a week. - Physical Exam Vital Signs Temp Pulse Resp BP 97.8 F 96 16 140/94 H 06/26/18 08:40 06/26/18 08:40 06/26/18 08:40 06/26/18 08:40 General: Alert, Oriented x3, Cooperative, No apparent distress HEENT: Atraumatic, Normocephalic Oral: Moist Mucosa Neck: Supple Lungs: Normal air movement Abdomen: Non Tender Extremities: No cyanosis, Edema Skin: Ulcer/ Wound Wound Measurements and Assessment WC - Nurse 1 - General Ulcer Measurement Start: 06/26/18 08:40 Freq: Status: Active Protocol: Activity Type Activity Date Activity User E-Sign Co-Sign Detail Recorded Client Recorded Date Recorded By Document 06/26/18 08:40 CO [id number] 06/26/18 08:53 CO 06/26/18 08:40 Wound Center Nurse 1 [Ulcer Assessment] #12 Left Medial LE Superior -Combined with other wound No -Current Size (cm) - Length 8.3 -Current Size (cm) - Width 4.8 -Current Size (cm) - Depth 0.1 -Total Square Cm 39.84 -Date of Last Picture (Recall this 06/26/18 field) -Photo Taken Yes -Tunneling No -Undermining/Tunneling No -Circular Undermining No -Exudate Amt Small (1-33%) -Exudate Type Serosanguineous -Wound Margin Flat & Intact -Granulation Amt Medium (34-66%) -Granulation Quality [place] -Necrosis Amt Medium (34-66%) -Necrotic Tissue Type Adherent Slough -Texture (Elisa-wound Skin Appearance) Assessed Localized Edema -Moisture (Elisa-wound Skin Appearance Assessed ) Weeping -Color (Elisa-wound Skin Appearance) Assessed Erythema -Temperature (Elisa-wound Skin No Abnormality Appearance) (Pt Warm) -Tenderness on Palpation (Elisa-wound No Skin Appearance) -Ulcer Cleansing Rinsed/ Irrigated with Saline -Foul Odor after Cleansing No -Anesthetic Used 4% Lidocaine Solution 11 Left Nelson Lateral Cluster -Combined with other wound No -Current Size (cm) - Length 2.6 -Current Size (cm) - Width 1.7 -Current Size (cm) - Depth 0.1 -Total Square Cm 4.42 -Date of Last Picture (Recall this 06/26/18 field) -Photo Taken Yes -Tunneling No -Undermining/Tunneling No -Circular Undermining No -Exudate Amt Small (1-33%) -Exudate Type Serosanguineous -Wound Margin Flat & Intact -Granulation Amt Medium (34-66%) -Granulation Quality [place] -Necrosis Amt Medium (34-66%) -Necrotic Tissue Type Adherent Slough -Texture (Elisa-wound Skin Appearance) Assessed Localized Edema -Moisture (Elisa-wound Skin Appearance Assessed ) Weeping -Color (Elisa-wound Skin Appearance) Assessed Erythema -Temperature (Elisa-wound Skin No Abnormality Appearance) (Pt Warm) -Tenderness on Palpation (Elisa-wound No Skin Appearance) -Ulcer Cleansing Rinsed/ Irrigated with Saline -Foul Odor after Cleansing No -Anesthetic Used 4% Lidocaine Solution #9 LEFT POST. CALF -Combined with other wound No -Current Size (cm) - Length 2.4 -Current Size (cm) - Width 0.5 -Current Size (cm) - Depth 0.1 -Total Square Cm 1.20 -Photo Taken No -Exudate Amt Small (1-33%) -Exudate Type Serosanguineous -Wound Margin Flat & Intact -Granulation Amt Medium (34-66%) -Granulation Quality [place] -Necrosis Amt Medium (34-66%) -Necrotic Tissue Type Adherent Slough -Texture (Elisa-wound Skin Appearance) Assessed Localized Edema -Moisture (Elisa-wound Skin Appearance Assessed ) Weeping -Color (Elisa-wound Skin Appearance) Assessed Erythema -Temperature (Elisa-wound Skin No Abnormality Appearance) (Pt Warm) -Tenderness on Palpation (Elisa-wound Yes Skin Appearance) -Ulcer Cleansing Rinsed/ Irrigated with Saline -Foul Odor after Cleansing No -Anesthetic Used 4% Lidocaine Solution [Edema Assessment] -Lower Limb Edema Present Yes -Right Calf (cm) 38 -Right Ankle (cm) 25 -Left Calf (cm) 36 -Left Ankle (cm) 25 WC - Nurse 2 - General Ulcer CM Notes Start: 06/26/18 08:40 Freq: Status: Active Protocol: Activity Type Activity Date Activity User E-Sign Co-Sign Detail Recorded Client Recorded Date Recorded By Document 06/26/18 09:22 MW [id number] 06/26/18 09:32 MW 06/26/18 09:22 Wound Center Nurse 2 [Procedure/Treatment] # 13 Left medial LE inferior - cluster -Time 09:30 -Correct Patient Yes -Correct Side, Site, Position Yes -Correct Procedure Yes -Procedure Performed Yes -Type of Procedure Debridement -Clinical Debridement Selective -Post Debridement Size (cm) - Length 6.5 -Post Debridement Size (cm) - Width 2.0 -Post Debridement Size (cm) - Depth 0.1 -Total Square Cm 13.00 -Wound/Ulcer Outcome Not Healed -Ulcer Cleansing Rinsed/ Irrigated with Saline -Foul Odor after Cleansing No -Bioengineered Tissue No -Bleeding Controlled with Pressure -Offloading No -Treatment Response Procedure Tolerated Well #12 Left Medial LE Superior -Time 09:23 -Correct Patient Yes -Correct Side, Site, Position Yes -Correct Procedure Yes -Procedure Performed Yes -Type of Procedure Debridement -Clinical Debridement Selective -Post Debridement Size (cm) - Length 1.0 -Post Debridement Size (cm) - Width 0.9 -Post Debridement Size (cm) - Depth 0.1 -Total Square Cm 0.90 -Wound/Ulcer Outcome Not Healed -Ulcer Cleansing Rinsed/ Irrigated with Saline -Foul Odor after Cleansing No -Bioengineered Tissue No -Bleeding Controlled with Pressure -Offloading No -Treatment Response Procedure Tolerated Well 11 Left Nelson Lateral Cluster -Time 09:23 -Correct Patient Yes -Correct Side, Site, Position Yes -Correct Procedure Yes -Procedure Performed Yes -Type of Procedure Debridement -Clinical Debridement Selective -Post Debridement Size (cm) - Length 3.0 -Post Debridement Size (cm) - Width 0.6 -Post Debridement Size (cm) - Depth 0.1 -Total Square Cm 1.80 -Wound/Ulcer Outcome Not Healed -Ulcer Cleansing Rinsed/ Irrigated with Saline -Foul Odor after Cleansing No -Bioengineered Tissue No -Bleeding Controlled with Pressure -Offloading No -Treatment Response Procedure Tolerated Well #9 LEFT POST. CALF -Time 09:23 -Correct Patient Yes -Correct Side, Site, Position Yes -Correct Procedure Yes -Procedure Performed Yes -Type of Procedure Debridement -Clinical Debridement Subcutaneous -Post Debridement Size (cm) - Length 1.3 -Post Debridement Size (cm) - Width 0.3 -Post Debridement Size (cm) - Depth 0.2 -Total Square Cm 0.39 -Wound/Ulcer Outcome Not Healed -Ulcer Cleansing Rinsed/ Irrigated with Saline -Foul Odor after Cleansing No -Bioengineered Tissue No -Bleeding Controlled with Pressure -Offloading No -Treatment Response Procedure Tolerated Well [See Physician Procedure note for Specifics] Pain Scale: 0-10 Numeric [Pain] -Is Patient Pain Free? Yes Musculoskeletal: No Muscle Wasting Neurological: Cranial nerves II-XII grossly intact Psych/Mental Status: Normal Affect Debridement Note Post-Debridement Measurements/Treatment WC - Nurse 2 - General Ulcer CM Notes Start: 06/26/18 08:40 Freq: Status: Active Protocol: Activity Type Activity Date Activity User E-Sign Co-Sign Detail Recorded Client Recorded Date Recorded By Document 06/26/18 09:22 MW [id number] 06/26/18 09:32 MW 06/26/18 09:22 Wound Center Nurse 2 # 13 Left medial LE inferior - cluster -Time 09:30 -Correct Patient Yes -Correct Side, Site, Position Yes -Correct Procedure Yes -Procedure Performed Yes -Type of Procedure Debridement -Clinical Debridement Selective -Post Debridement Size (cm) - Length 6.5 -Post Debridement Size (cm) - Width 2.0 -Post Debridement Size (cm) - Depth 0.1 -Total Square Cm 13.00 -Wound/Ulcer Outcome Not Healed -Ulcer Cleansing Rinsed/ Irrigated with Saline -Foul Odor after Cleansing No -Bioengineered Tissue No -Bleeding Controlled with Pressure -Offloading No -Treatment Response Procedure Tolerated Well #12 Left Medial LE Superior -Time 09:23 -Correct Patient Yes -Correct Side, Site, Position Yes -Correct Procedure Yes -Procedure Performed Yes -Type of Procedure Debridement -Clinical Debridement Selective -Post Debridement Size (cm) - Length 1.0 -Post Debridement Size (cm) - Width 0.9 -Post Debridement Size (cm) - Depth 0.1 -Total Square Cm 0.90 -Wound/Ulcer Outcome Not Healed -Ulcer Cleansing Rinsed/ Irrigated with Saline -Foul Odor after Cleansing No -Bioengineered Tissue No -Bleeding Controlled with Pressure -Offloading No -Treatment Response Procedure Tolerated Well 11 Left Nelson Lateral Cluster -Time 09:23 -Correct Patient Yes -Correct Side, Site, Position Yes -Correct Procedure Yes -Procedure Performed Yes -Type of Procedure Debridement -Clinical Debridement Selective -Post Debridement Size (cm) - Length 3.0 -Post Debridement Size (cm) - Width 0.6 -Post Debridement Size (cm) - Depth 0.1 -Total Square Cm 1.80 -Wound/Ulcer Outcome Not Healed -Ulcer Cleansing Rinsed/ Irrigated with Saline -Foul Odor after Cleansing No -Bioengineered Tissue No -Bleeding Controlled with Pressure -Offloading No -Treatment Response Procedure Tolerated Well #9 LEFT POST. CALF -Time 09:23 -Correct Patient Yes -Correct Side, Site, Position Yes -Correct Procedure Yes -Procedure Performed Yes -Type of Procedure Debridement -Clinical Debridement Subcutaneous -Post Debridement Size (cm) - Length 1.3 -Post Debridement Size (cm) - Width 0.3 -Post Debridement Size (cm) - Depth 0.2 -Total Square Cm 0.39 -Wound/Ulcer Outcome Not Healed -Ulcer Cleansing Rinsed/ Irrigated with Saline -Foul Odor after Cleansing No -Bioengineered Tissue No -Bleeding Controlled with Pressure -Offloading No -Treatment Response Procedure Tolerated Well Pain Scale: 0-10 Numeric Is Patient Pain Free? Yes Wound debrided: Left lower extremity posterior Wound Grade/Stage: Stage II Type of Debridement: Excisional debridement Anesthesia Used: 4% Lidocaine Solution Depth: Down to and including healthy tissue, in the subcutaneous layer Percentage of wound debrided: 100 Instrument Used: 3mm curette Tissue Removed: Slough and devitalized tissue Severity: Fat Layer Exposed Amount of bleeding with debridement: Mild Bleeding Controlled with: Pressure Patient tolerated procedure well - Additional Wound Wound debrided: Left lower extremity lateral cluster Wound Grade/Stage: Stage II Type of Debridement: Selective debridement Anesthesia Used: 4% Lidocaine Solution Depth: Down to and including healthy tissue Percentage of wound debrided: 100 Instrument Used: 3mm curette Tissue Removed: Slough anddevitalized tissue Severity: Limited To Skin Breakdown Amount of bleeding with debridement: Mild Bleeding Controlled with: Pressure Patient tolerated procedure: Patient tolerated procedure well - Additional Wound Wound debrided: Left medial cluster Wound Grade/Stage: Stage II Type of Debridement: Selective debridement Anesthesia Used: 4% Lidocaine Solution Depth: Down to and including healthy tissue Percentage of wound debrided: 100 Instrument Used: 3mm curette Tissue Removed: Slough and devitalized tissue Severity: Limited To Skin Breakdown Amount of bleeding with debridement: Mild Bleeding Controlled with: Pressure Patient tolerated procedure: Patient tolerated procedure well - Additional Wound Wound debrided: Left medial superior Wound Grade/Stage: Stage II Type of Debridement: Selective debridement Anesthesia Used: 4% Lidocaine Solution Depth: Down to and including healthy tissue Percentage of wound debrided: 100 Instrument Used: 3mm curette Tissue Removed: Slough and devitalized tissue Severity: Limited To Skin Breakdown Amount of bleeding with debridement: Mild Bleeding Controlled with: Pressure Patient tolerated procedure: Patient tolerated procedure well Assessment/Plan Active Problems (Last Updated 12/03/17 @ 09:34 by Chato Moran) 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 Bilateral lower extremity edema. Plan: He presents with worsening bilateral lower extremity edema and new left lower extremity ulcers. Debridement done as documented above, procedure was well-tolerated. Continue Promogran with gauze over top. Adaptic over areas of excoriation. Bilateral 3 mm for edema management. Follow-up in Saturday for a nurse visit. Advised to elevate his lower extremity when seated and in bed. Increased protein intake also recommended. He was advised to call with any questions or concerns. Follow-up with me in 1 week. This note was generated with [employer] software. It may contain incorrect words, spelling, and punctuation that were not noted in checking the note before signing. This note was generated with [employer] software. It may contain incorrect words, spelling, and punctuation that were not noted in checking the note before signing.
[2018-06-30 08:50] VITALS: BMI 24.4
[2018-07-03 08:40] VITALS: BP 125/75; PULSE 92; RESP 18; TEMP 36.6; BMI 24.4
--- NOTE | 2018-07-03 09:09 | PCM.WC.PN ---
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 Swelling of both legs History of Wound: Mr. Garcia is an 82-year-old who is well-known to the wound center due to recurrent reopening of left lower extremity ulcer. He has had recurrent episodes of left lower extremity ulcers since his surgery a couple of years ago. Also has significant bilateral lower extremity edema and is not very compliant with compression. Denies any significant concerns at this time. No chills, fever or feeling of unwell. Progress of Wound: Improving. - Physical Exam Vital Signs Temp Pulse Resp BP 97.8 F 92 18 125/75 H 07/03/18 08:40 07/03/18 08:40 07/03/18 08:40 07/03/18 08:40 General: Alert, Oriented x3, Cooperative, No apparent distress HEENT: Atraumatic Oral: Moist Mucosa Neck: Supple Lungs: Normal air movement Abdomen: Non Tender Extremities: No cyanosis, Edema Skin: Ulcer/ Wound Wound Measurements and Assessment WC - Nurse 1 - General Ulcer Measurement Start: 06/26/18 08:40 Freq: Status: Active Protocol: Activity Type Activity Date Activity User E-Sign Co-Sign Detail Recorded Client Recorded Date Recorded By Document 06/30/18 08:50 DV [id number] 06/30/18 08:57 DV Document 07/03/18 08:40 DL [id number] 07/03/18 08:48 DL 06/30/18 07/03/18 08:50 08:40 Wound Center Nurse 1 [Ulcer Assessment] # 13 Left medial LE inferior - cluster -Combined with other wound No -Current Size (cm) - Length 4.5 0.6 -Current Size (cm) - Width 1.5 0.4 -Current Size (cm) - Depth 0.1 0.1 -Total Square Cm 6.75 0.24 -Photo Taken No No -Epithelialization None Present -Tunneling No -Circular Undermining No -Classification - Thickness Full Thickness without Exposed Support Structure -Exudate Amt Large (67-100%) Small (1-33%) -Exudate Type Serosanguineous Sanguineous -Wound Margin Distinct, Outline Attached -Granulation Amt Small (1-33%) Large (67-100%) -Granulation Quality Red Red -Slough/Fibrin Yes -Necrosis Amt Large (67-100%) None Present (0 %) -Necrotic Tissue Type Adherent Slough -Structure Exposed None/Limited to N/A Skin Breakdown -Texture (Elisa-wound Skin Appearance) Assessed Scarring Scarring -Moisture (Elisa-wound Skin Appearance Assessed No Abnormality ) Weeping -Color (Elisa-wound Skin Appearance) Assessed No Abnormality Erythema -Temperature (Elisa-wound Skin No Abnormality No Abnormality Appearance) (Pt Warm) (Pt Warm) -Tenderness on Palpation (Elisa-wound No Skin Appearance) -Ulcer Cleansing Rinsed/ Wound Cleanser Irrigated with Saline -Foul Odor after Cleansing No No -Anesthetic Used 4% Lidocaine Solution #12 Left Medial LE Superior -Combined with other wound No -Current Size (cm) - Length 0.5 0.1 -Current Size (cm) - Width 0.5 0.1 -Current Size (cm) - Depth 0.1 0.1 -Total Square Cm 0.25 0.01 -Photo Taken No No -Epithelialization None Present -Tunneling No -Undermining/Tunneling No -Circular Undermining No -Classification - Thickness Full Thickness without Exposed Support Structure -Exudate Amt Medium (34-66%) None Present (0 %) -Exudate Type Serosanguineous -Wound Margin Indistinct, Non Indistinct, Non -Visible -Visible -Granulation Amt Small (1-33%) Large (67-100%) -Granulation Quality Red Trumann -Slough/Fibrin Yes -Necrosis Amt Medium (34-66%) None Present (0 %) -Necrotic Tissue Type Adherent Slough -Structure Exposed None/Limited to N/A Skin Breakdown -Texture (Elisa-wound Skin Appearance) Assessed Scarring Scarring -Moisture (Elisa-wound Skin Appearance Assessed No Abnormality ) Weeping -Color (Elisa-wound Skin Appearance) Assessed No Abnormality Erythema -Temperature (Elisa-wound Skin No Abnormality No Abnormality Appearance) (Pt Warm) (Pt Warm) -Tenderness on Palpation (Elisa-wound No Skin Appearance) -Ulcer Cleansing Rinsed/ Wound Cleanser Irrigated with Saline -Foul Odor after Cleansing No No -Anesthetic Used 4% Lidocaine 5% Lidocaine Solution Gel 11 Left Nelson Lateral Cluster -Current Size (cm) - Length 0.1 -Current Size (cm) - Width 0.1 -Current Size (cm) - Depth 1 -Total Square Cm 0.01 -Photo Taken No -Exudate Amt None Present (0 %) -Wound Margin Flat & Intact -Granulation Amt Large (67-100%) -Granulation Quality Pale -Necrosis Amt Small (1-33%) -Necrotic Tissue Type Adherent Slough -Structure Exposed N/A -Texture (Elisa-wound Skin Appearance) Scarring -Moisture (Elisa-wound Skin Appearance Dry/Scaly ) -Color (Elisa-wound Skin Appearance) No Abnormality -Temperature (Elisa-wound Skin No Abnormality Appearance) (Pt Warm) -Tenderness on Palpation (Elisa-wound No Skin Appearance) -Ulcer Cleansing Wound Cleanser -Foul Odor after Cleansing No -Anesthetic Used 4% Lidocaine Solution #9 LEFT POST. CALF -Combined with other wound No -Current Size (cm) - Length 2.5 0.1 -Current Size (cm) - Width 0.3 0.1 -Current Size (cm) - Depth 0.1 0.1 -Total Square Cm 0.75 0.01 -Photo Taken No No -Epithelialization None Present -Tunneling No -Undermining/Tunneling No -Classification - Thickness Full Thickness without Exposed Support Structure -Exudate Amt Medium (34-66%) None Present (0 %) -Exudate Type Serosanguineous -Wound Margin Indistinct, Non Flat & Intact -Visible -Granulation Amt None Present (0 Large (67-100%) %) -Granulation Quality N/A Trumann -Slough/Fibrin Yes -Necrosis Amt Large (67-100%) Small (1-33%) -Necrotic Tissue Type Eschar Adherent Slough -Structure Exposed N/A N/A -Texture (Elisa-wound Skin Appearance) Assessed Scarring Scarring -Moisture (Elisa-wound Skin Appearance Assessed No Abnormality ) Dry/Scaly -Color (Elisa-wound Skin Appearance) Assessed No Abnormality Erythema -Temperature (Elisa-wound Skin No Abnormality No Abnormality Appearance) (Pt Warm) (Pt Warm) -Tenderness on Palpation (Elisa-wound No No Skin Appearance) -Ulcer Cleansing Rinsed/ Wound Cleanser Irrigated with Saline -Foul Odor after Cleansing No No -Anesthetic Used 5% Lidocaine Gel [Edema Assessment] -Lower Limb Edema Present No -Right Calf (cm) 34 33.5 -Point of measurement (cm from the 0 medial instep) -Right Ankle (cm) 23.5 22.2 -Point of Measurement (cm from the 30.5 distal point) -Left Calf (cm) 31.0 -Point of measurement (cm from the 21 medial instep) -Left Ankle (cm) 23.5 WC - Nurse 2 - General Ulcer CM Notes Start: 06/26/18 08:40 Freq: Status: Active Protocol: Activity Type Activity Date Activity User E-Sign Co-Sign Detail Recorded Client Recorded Date Recorded By Document 07/03/18 08:55 MW [id number] 07/03/18 09:03 MW 07/03/18 08:55 Wound Center Nurse 2 [Procedure/Treatment] # 13 Left medial LE inferior - cluster -Time 08:58 -Correct Patient Yes -Correct Side, Site, Position Yes -Correct Procedure Yes -Procedure Performed Yes -Type of Procedure Debridement -Clinical Debridement Subcutaneous -Post Debridement Size (cm) - Length 0.4 -Post Debridement Size (cm) - Width 0.2 -Post Debridement Size (cm) - Depth 0.1 -Total Square Cm 0.08 -Wound/Ulcer Outcome Not Healed #12 Left Medial LE Superior -Time 08:57 -Correct Patient Yes -Correct Side, Site, Position Yes -Correct Procedure Yes -Procedure Performed No -Post Debridement Size (cm) - Length 0 -Post Debridement Size (cm) - Width 0 -Post Debridement Size (cm) - Depth 0 -Total Square Cm 0 -Wound/Ulcer Outcome Healed- Epithelialized 11 Left Nelson Lateral Cluster -Time 08:57 -Correct Patient Yes -Correct Side, Site, Position Yes -Correct Procedure Yes -Procedure Performed No -Post Debridement Size (cm) - Length 0 -Post Debridement Size (cm) - Width 0 -Post Debridement Size (cm) - Depth 0 -Total Square Cm 0 -Wound/Ulcer Outcome Healed- Epithelialized #9 LEFT POST. CALF -Time 08:55 -Correct Patient Yes -Correct Side, Site, Position Yes -Correct Procedure Yes -Procedure Performed Yes -Type of Procedure Debridement -Clinical Debridement Subcutaneous -Post Debridement Size (cm) - Length 0.4 -Post Debridement Size (cm) - Width 0.2 -Post Debridement Size (cm) - Depth 0.1 -Total Square Cm 0.08 -Wound/Ulcer Outcome Not Healed -Ulcer Cleansing Rinsed/ Irrigated with Saline -Foul Odor after Cleansing No -Bioengineered Tissue No -Bleeding Controlled with Pressure -Offloading No -Treatment Response Procedure Tolerated Well [See Physician Procedure note for Specifics] Pain Scale: 0-10 Numeric [Pain] -Is Patient Pain Free? Yes Musculoskeletal: No Muscle Wasting Neurological: Cranial nerves II-XII grossly intact Psych/Mental Status: Normal Affect Debridement Note Post-Debridement Measurements/Treatment WC - Nurse 2 - General Ulcer CM Notes Start: 06/26/18 08:40 Freq: Status: Active Protocol: Activity Type Activity Date Activity User E-Sign Co-Sign Detail Recorded Client Recorded Date Recorded By Document 06/26/18 09:22 MW [id number] 06/26/18 09:32 MW Document 07/03/18 08:55 MW [id number] 07/03/18 09:03 MW 06/26/18 07/03/18 09:22 08:55 Wound Center Nurse 2 # 13 Left medial LE inferior - cluster -Time 09:30 08:58 -Correct Patient Yes Yes -Correct Side, Site, Position Yes Yes -Correct Procedure Yes Yes -Procedure Performed Yes Yes -Type of Procedure Debridement Debridement -Clinical Debridement Selective Subcutaneous -Post Debridement Size (cm) - Length 6.5 0.4 -Post Debridement Size (cm) - Width 2.0 0.2 -Post Debridement Size (cm) - Depth 0.1 0.1 -Total Square Cm 13.00 0.08 -Wound/Ulcer Outcome Not Healed Not Healed -Ulcer Cleansing Rinsed/ Irrigated with Saline -Foul Odor after Cleansing No -Bioengineered Tissue No -Bleeding Controlled with Pressure -Offloading No -Treatment Response Procedure Tolerated Well #12 Left Medial LE Superior -Time 09:23 08:57 -Correct Patient Yes Yes -Correct Side, Site, Position Yes Yes -Correct Procedure Yes Yes -Procedure Performed Yes No -Type of Procedure Debridement -Clinical Debridement Selective -Post Debridement Size (cm) - Length 1.0 0 -Post Debridement Size (cm) - Width 0.9 0 -Post Debridement Size (cm) - Depth 0.1 0 -Total Square Cm 0.90 0 -Wound/Ulcer Outcome Not Healed Healed- Epithelialized -Ulcer Cleansing Rinsed/ Irrigated with Saline -Foul Odor after Cleansing No -Bioengineered Tissue No -Bleeding Controlled with Pressure -Offloading No -Treatment Response Procedure Tolerated Well 11 Left Nelson Lateral Cluster -Time 09: 08:57 -Correct Patient Yes Yes -Correct Side, Site, Position Yes Yes -Correct Procedure Yes Yes -Procedure Performed Yes No -Type of Procedure Debridement -Clinical Debridement Selective -Post Debridement Size (cm) - Length 3.0 0 -Post Debridement Size (cm) - Width 0.6 0 -Post Debridement Size (cm) - Depth 0.1 0 -Total Square Cm 1.80 0 -Wound/Ulcer Outcome Not Healed Healed- Epithelialized -Ulcer Cleansing Rinsed/ Irrigated with Saline -Foul Odor after Cleansing No -Bioengineered Tissue No -Bleeding Controlled with Pressure -Offloading No -Treatment Response Procedure Tolerated Well #9 LEFT POST. CALF -Time 09: 08:55 -Correct Patient Yes Yes -Correct Side, Site, Position Yes Yes -Correct Procedure Yes Yes -Procedure Performed Yes Yes -Type of Procedure Debridement Debridement -Clinical Debridement Subcutaneous Subcutaneous -Post Debridement Size (cm) - Length 1.3 0.4 -Post Debridement Size (cm) - Width 0.3 0.2 -Post Debridement Size (cm) - Depth 0.2 0.1 -Total Square Cm 0.39 0.08 -Wound/Ulcer Outcome Not Healed Not Healed -Ulcer Cleansing Rinsed/ Rinsed/ Irrigated with Irrigated with Saline Saline -Foul Odor after Cleansing No No -Bioengineered Tissue No No -Bleeding Controlled with Pressure Pressure -Offloading No No -Treatment Response Procedure Procedure Tolerated Well Tolerated Well Pain Scale: 0-10 Numeric Is Patient Pain Free? Yes Yes Wound debrided: Left lower extremity posterior ( Calf ) Wound Grade/Stage: Stage II Type of Debridement: Excisional debridement Anesthesia Used: 4% Lidocaine Solution Depth: Down to and including healthy tissue, in the subcutaneous layer Percentage of wound debrided: 100 Instrument Used: 3mm curette Tissue Removed: Slough and devitalized tissue Severity: Fat Layer Exposed Amount of bleeding with debridement: Mild Bleeding Controlled with: Pressure Patient tolerated procedure well - Additional Wound Wound debrided: Left lower extremity ( medial ) Wound Grade/Stage: Stage II Type of Debridement: Excisional debridement Anesthesia Used: 5% Lidocaine Gel Depth: in the subcutaneous layer Percentage of wound debrided: 100 Instrument Used: 3mm curette Tissue Removed: Slough and devitalized tissue Severity: Fat Layer Exposed Amount of bleeding with debridement: Mild Bleeding Controlled with: Pressure Patient tolerated procedure: Patient tolerated procedure well Assessment/Plan Active Problems (Last Updated 12/03/17 @ 09:34 by Chato Moran) 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 Bilateral lower extremity edema. Plan: Improved. Debridement done as documented above, procedure was well-tolerated. Continue Promogran with adaptic over top. Bilateral 3 mm for edema management. Advised to elevate his lower extremity when seated and in bed. Increased protein intake also recommended. He was advised to call with any questions or concerns. Referred to the lymphedema clinic. He will need correction follow up for management of his lower extremity edema. He has recurrent visits here due to poorly controlled swelling. He does not utilize his compression stockings appropraitely. Follow-up with me in 1 week. This note was generated with [employer] dictation software. It may contain incorrect words, spelling, and punctuation that were not noted in checking the note before signing. This note was generated with [employer] dictation software. It may contain incorrect words, spelling, and punctuation that were not noted in checking the note before signing.
--- NOTE | 2018-07-03 09:13 | PN.PCM_ITS ---
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 Swelling of both legs History of Wound: Mr. Garcia is an 82-year-old who is well-known to the wound center due to recurrent reopening of left lower extremity ulcer. He has had recurrent episodes of left lower extremity ulcers since his surgery a couple of years ago. Also has significant bilateral lower extremity edema and is not very compliant with compression. Denies any significant concerns at this time. No chills, fever or feeling of unwell. Progress of Wound: Improving. - Physical Exam Vital Signs Temp Pulse Resp BP 97.8 F 92 18 125/75 H 07/03/18 08:40 07/03/18 08:40 07/03/18 08:40 07/03/18 08:40 General: Alert, Oriented x3, Cooperative, No apparent distress HEENT: Atraumatic Oral: Moist Mucosa Neck: Supple Lungs: Normal air movement Abdomen: Non Tender Extremities: No cyanosis, Edema Skin: Ulcer/ Wound Wound Measurements and Assessment WC - Nurse 1 - General Ulcer Measurement Start: 06/26/18 08:40 Freq: Status: Active Protocol: Activity Type Activity Date Activity User E-Sign Co-Sign Detail Recorded Client Recorded Date Recorded By Document 06/30/18 08:50 DV [id number] 06/30/18 08:57 DV Document 07/03/18 08:40 DL [id number] 07/03/18 08:48 DL 06/30/18 07/03/18 08:50 08:40 Wound Center Nurse 1 [Ulcer Assessment] # 13 Left medial LE inferior - cluster -Combined with other wound No -Current Size (cm) - Length 4.5 0.6 -Current Size (cm) - Width 1.5 0.4 -Current Size (cm) - Depth 0.1 0.1 -Total Square Cm 6.75 0.24 -Photo Taken No No -Epithelialization None Present -Tunneling No -Circular Undermining No -Classification - Thickness Full Thickness without Exposed Support Structure -Exudate Amt Large (67-100%) Small (1-33%) -Exudate Type Serosanguineous Sanguineous -Wound Margin Distinct, Outline Attached -Granulation Amt Small (1-33%) Large (67-100%) -Granulation Quality Red Red -Slough/Fibrin Yes -Necrosis Amt Large (67-100%) None Present (0 %) -Necrotic Tissue Type Adherent Slough -Structure Exposed None/Limited to N/A Skin Breakdown -Texture (Elisa-wound Skin Appearance) Assessed Scarring Scarring -Moisture (Elisa-wound Skin Appearance Assessed No Abnormality ) Weeping -Color (Elisa-wound Skin Appearance) Assessed No Abnormality Erythema -Temperature (Elisa-wound Skin No Abnormality No Abnormality Appearance) (Pt Warm) (Pt Warm) -Tenderness on Palpation (Elisa-wound No Skin Appearance) -Ulcer Cleansing Rinsed/ Wound Cleanser Irrigated with Saline -Foul Odor after Cleansing No No -Anesthetic Used 4% Lidocaine Solution #12 Left Medial LE Superior -Combined with other wound No -Current Size (cm) - Length 0.5 0.1 -Current Size (cm) - Width 0.5 0.1 -Current Size (cm) - Depth 0.1 0.1 -Total Square Cm 0.25 0.01 -Photo Taken No No -Epithelialization None Present -Tunneling No -Undermining/Tunneling No -Circular Undermining No -Classification - Thickness Full Thickness without Exposed Support Structure -Exudate Amt Medium (34-66%) None Present (0 %) -Exudate Type Serosanguineous -Wound Margin Indistinct, Non Indistinct, Non -Visible -Visible -Granulation Amt Small (1-33%) Large (67-100%) -Granulation Quality Red [place] -Slough/Fibrin Yes -Necrosis Amt Medium (34-66%) None Present (0 %) -Necrotic Tissue Type Adherent Slough -Structure Exposed None/Limited to N/A Skin Breakdown -Texture (Elisa-wound Skin Appearance) Assessed Scarring Scarring -Moisture (Elisa-wound Skin Appearance Assessed No Abnormality ) Weeping -Color (Elisa-wound Skin Appearance) Assessed No Abnormality Erythema -Temperature (Elisa-wound Skin No Abnormality No Abnormality Appearance) (Pt Warm) (Pt Warm) -Tenderness on Palpation (Elisa-wound No Skin Appearance) -Ulcer Cleansing Rinsed/ Wound Cleanser Irrigated with Saline -Foul Odor after Cleansing No No -Anesthetic Used 4% Lidocaine 5% Lidocaine Solution Gel 11 Left Nelson Lateral Cluster -Current Size (cm) - Length 0.1 -Current Size (cm) - Width 0.1 -Current Size (cm) - Depth 1 -Total Square Cm 0.01 -Photo Taken No -Exudate Amt None Present (0 %) -Wound Margin Flat & Intact -Granulation Amt Large (67-100%) -Granulation Quality Pale -Necrosis Amt Small (1-33%) -Necrotic Tissue Type Adherent Slough -Structure Exposed N/A -Texture (Elisa-wound Skin Appearance) Scarring -Moisture (Elisa-wound Skin Appearance Dry/Scaly ) -Color (Elisa-wound Skin Appearance) No Abnormality -Temperature (Elisa-wound Skin No Abnormality Appearance) (Pt Warm) -Tenderness on Palpation (Elisa-wound No Skin Appearance) -Ulcer Cleansing Wound Cleanser -Foul Odor after Cleansing No -Anesthetic Used 4% Lidocaine Solution #9 LEFT POST. CALF -Combined with other wound No -Current Size (cm) - Length 2.5 0.1 -Current Size (cm) - Width 0.3 0.1 -Current Size (cm) - Depth 0.1 0.1 -Total Square Cm 0.75 0.01 -Photo Taken No No -Epithelialization None Present -Tunneling No -Undermining/Tunneling No -Classification - Thickness Full Thickness without Exposed Support Structure -Exudate Amt Medium (34-66%) None Present (0 %) -Exudate Type Serosanguineous -Wound Margin Indistinct, Non Flat & Intact -Visible -Granulation Amt None Present (0 Large (67-100%) %) -Granulation Quality N/A [place] -Slough/Fibrin Yes -Necrosis Amt Large (67-100%) Small (1-33%) -Necrotic Tissue Type Eschar Adherent Slough -Structure Exposed N/A N/A -Texture (Elisa-wound Skin Appearance) Assessed Scarring Scarring -Moisture (Elisa-wound Skin Appearance Assessed No Abnormality ) Dry/Scaly -Color (Elisa-wound Skin Appearance) Assessed No Abnormality Erythema -Temperature (Elisa-wound Skin No Abnormality No Abnormality Appearance) (Pt Warm) (Pt Warm) -Tenderness on Palpation (Elisa-wound No No Skin Appearance) -Ulcer Cleansing Rinsed/ Wound Cleanser Irrigated with Saline -Foul Odor after Cleansing No No -Anesthetic Used 5% Lidocaine Gel [Edema Assessment] -Lower Limb Edema Present No -Right Calf (cm) 34 33.5 -Point of measurement (cm from the 0 medial instep) -Right Ankle (cm) 23.5 22.2 -Point of Measurement (cm from the 30.5 distal point) -Left Calf (cm) 31.0 -Point of measurement (cm from the 21 medial instep) -Left Ankle (cm) 23.5 WC - Nurse 2 - General Ulcer CM Notes Start: 06/26/18 08:40 Freq: Status: Active Protocol: Activity Type Activity Date Activity User E-Sign Co-Sign Detail Recorded Client Recorded Date Recorded By Document 07/03/18 08:55 MW [id number] 07/03/18 09:03 MW 07/03/18 08:55 Wound Center Nurse 2 [Procedure/Treatment] # 13 Left medial LE inferior - cluster -Time 08:58 -Correct Patient Yes -Correct Side, Site, Position Yes -Correct Procedure Yes -Procedure Performed Yes -Type of Procedure Debridement -Clinical Debridement Subcutaneous -Post Debridement Size (cm) - Length 0.4 -Post Debridement Size (cm) - Width 0.2 -Post Debridement Size (cm) - Depth 0.1 -Total Square Cm 0.08 -Wound/Ulcer Outcome Not Healed #12 Left Medial LE Superior -Time 08:57 -Correct Patient Yes -Correct Side, Site, Position Yes -Correct Procedure Yes -Procedure Performed No -Post Debridement Size (cm) - Length 0 -Post Debridement Size (cm) - Width 0 -Post Debridement Size (cm) - Depth 0 -Total Square Cm 0 -Wound/Ulcer Outcome Healed- Epithelialized 11 Left Nelson Lateral Cluster -Time 08:57 -Correct Patient Yes -Correct Side, Site, Position Yes -Correct Procedure Yes -Procedure Performed No -Post Debridement Size (cm) - Length 0 -Post Debridement Size (cm) - Width 0 -Post Debridement Size (cm) - Depth 0 -Total Square Cm 0 -Wound/Ulcer Outcome Healed- Epithelialized #9 LEFT POST. CALF -Time 08:55 -Correct Patient Yes -Correct Side, Site, Position Yes -Correct Procedure Yes -Procedure Performed Yes -Type of Procedure Debridement -Clinical Debridement Subcutaneous -Post Debridement Size (cm) - Length 0.4 -Post Debridement Size (cm) - Width 0.2 -Post Debridement Size (cm) - Depth 0.1 -Total Square Cm 0.08 -Wound/Ulcer Outcome Not Healed -Ulcer Cleansing Rinsed/ Irrigated with Saline -Foul Odor after Cleansing No -Bioengineered Tissue No -Bleeding Controlled with Pressure -Offloading No -Treatment Response Procedure Tolerated Well [See Physician Procedure note for Specifics] Pain Scale: 0-10 Numeric [Pain] -Is Patient Pain Free? Yes Musculoskeletal: No Muscle Wasting Neurological: Cranial nerves II-XII grossly intact Psych/Mental Status: Normal Affect Debridement Note Post-Debridement Measurements/Treatment WC - Nurse 2 - General Ulcer CM Notes Start: 06/26/18 08:40 Freq: Status: Active Protocol: Activity Type Activity Date Activity User E-Sign Co-Sign Detail Recorded Client Recorded Date Recorded By Document 06/26/18 09:22 MW [id number] 06/26/18 09:32 MW Document 07/03/18 08:55 MW [id number] 07/03/18 09:03 MW 06/26/18 07/03/18 09:22 08:55 Wound Center Nurse 2 # 13 Left medial LE inferior - cluster -Time 09:30 08:58 -Correct Patient Yes Yes -Correct Side, Site, Position Yes Yes -Correct Procedure Yes Yes -Procedure Performed Yes Yes -Type of Procedure Debridement Debridement -Clinical Debridement Selective Subcutaneous -Post Debridement Size (cm) - Length 6.5 0.4 -Post Debridement Size (cm) - Width 2.0 0.2 -Post Debridement Size (cm) - Depth 0.1 0.1 -Total Square Cm 13.00 0.08 -Wound/Ulcer Outcome Not Healed Not Healed -Ulcer Cleansing Rinsed/ Irrigated with Saline -Foul Odor after Cleansing No -Bioengineered Tissue No -Bleeding Controlled with Pressure -Offloading No -Treatment Response Procedure Tolerated Well #12 Left Medial LE Superior -Time 09:23 08:57 -Correct Patient Yes Yes -Correct Side, Site, Position Yes Yes -Correct Procedure Yes Yes -Procedure Performed Yes No -Type of Procedure Debridement -Clinical Debridement Selective -Post Debridement Size (cm) - Length 1.0 0 -Post Debridement Size (cm) - Width 0.9 0 -Post Debridement Size (cm) - Depth 0.1 0 -Total Square Cm 0.90 0 -Wound/Ulcer Outcome Not Healed Healed- Epithelialized -Ulcer Cleansing Rinsed/ Irrigated with Saline -Foul Odor after Cleansing No -Bioengineered Tissue No -Bleeding Controlled with Pressure -Offloading No -Treatment Response Procedure Tolerated Well 11 Left Nelson Lateral Cluster -Time 09: 08:57 -Correct Patient Yes Yes -Correct Side, Site, Position Yes Yes -Correct Procedure Yes Yes -Procedure Performed Yes No -Type of Procedure Debridement -Clinical Debridement Selective -Post Debridement Size (cm) - Length 3.0 0 -Post Debridement Size (cm) - Width 0.6 0 -Post Debridement Size (cm) - Depth 0.1 0 -Total Square Cm 1.80 0 -Wound/Ulcer Outcome Not Healed Healed- Epithelialized -Ulcer Cleansing Rinsed/ Irrigated with Saline -Foul Odor after Cleansing No -Bioengineered Tissue No -Bleeding Controlled with Pressure -Offloading No -Treatment Response Procedure Tolerated Well #9 LEFT POST. CALF -Time 09: 08:55 -Correct Patient Yes Yes -Correct Side, Site, Position Yes Yes -Correct Procedure Yes Yes -Procedure Performed Yes Yes -Type of Procedure Debridement Debridement -Clinical Debridement Subcutaneous Subcutaneous -Post Debridement Size (cm) - Length 1.3 0.4 -Post Debridement Size (cm) - Width 0.3 0.2 -Post Debridement Size (cm) - Depth 0.2 0.1 -Total Square Cm 0.39 0.08 -Wound/Ulcer Outcome Not Healed Not Healed -Ulcer Cleansing Rinsed/ Rinsed/ Irrigated with Irrigated with Saline Saline -Foul Odor after Cleansing No No -Bioengineered Tissue No No -Bleeding Controlled with Pressure Pressure -Offloading No No -Treatment Response Procedure Procedure Tolerated Well Tolerated Well Pain Scale: 0-10 Numeric Is Patient Pain Free? Yes Yes Wound debrided: Left lower extremity posterior ( Calf ) Wound Grade/Stage: Stage II Type of Debridement: Excisional debridement Anesthesia Used: 4% Lidocaine Solution Depth: Down to and including healthy tissue, in the subcutaneous layer Percentage of wound debrided: 100 Instrument Used: 3mm curette Tissue Removed: Slough and devitalized tissue Severity: Fat Layer Exposed Amount of bleeding with debridement: Mild Bleeding Controlled with: Pressure Patient tolerated procedure well - Additional Wound Wound debrided: Left lower extremity ( medial ) Wound Grade/Stage: Stage II Type of Debridement: Excisional debridement Anesthesia Used: 5% Lidocaine Gel Depth: in the subcutaneous layer Percentage of wound debrided: 100 Instrument Used: 3mm curette Tissue Removed: Slough and devitalized tissue Severity: Fat Layer Exposed Amount of bleeding with debridement: Mild Bleeding Controlled with: Pressure Patient tolerated procedure: Patient tolerated procedure well Assessment/Plan Active Problems (Last Updated 12/03/17 @ 09:34 by Chato Moran) 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 Bilateral lower extremity edema. Plan: Improved. Debridement done as documented above, procedure was well- tolerated. Continue Promogran with adaptic over top. Bilateral 3 mm for edema management. Advised to elevate his lower extremity when seated and in bed. Increased protein intake also recommended. He was advised to call with any questions or concerns. Referred to the lymphedema clinic. 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 He has recurrent visits here due to poorly controlled swelling. He does not utilize his compression stockings appropraitely. Follow-up with me in 1 week. This note was generated with [employer] dictation software. It may contain incorrect words, spelling, and punctuation that were not noted in checking the note before signing. This note was generated with [employer] dictation software. It may contain incorrect words, spelling, and punctuation that were not noted in checking the note before signing.
[2018-07-11 11:57] VITALS: BP 145/72; PULSE 88; RESP 18; TEMP 36.6; BMI 24.4
--- OUTSIDE RECORDS SUMMARY | 2018-08-12 01:35 | XMS RPT_ITS ---
:1935 Author Organization OHIP Support Name Relationship Address Phone R Unavailable Unavailable Unavailable GILA, SHAINA (POA) Unavailable Unavailable + [place] [address] R Unavailable Unavailable Unavailable GILA, SHAINA (POA) Unavailable Unavailable + [place] [address] R Unavailable Unavailable Unavailable GILA, SHAINA (POA) Unavailable Unavailable + [place] [address] R Unavailable Unavailable Unavailable GILA, SHAINA (POA) Unavailable Unavailable + [place] [address] R Unavailable Unavailable Unavailable GILA, SHAINA (POA) Unavailable Unavailable + [place] [address] R Unavailable Unavailable Unavailable GILA, SHAINA (POA) Unavailable Unavailable + [place] [address] R Unavailable Unavailable Unavailable GILA, SHAINA (POA) Unavailable Unavailable + [place] [address] R Unavailable Unavailable Unavailable GILA, SHAINA (POA) Unavailable Unavailable + [place] [address] R Unavailable Unavailable Unavailable GILA, SHAINA (POA) Unavailable Unavailable + [place] [address] R Unavailable Unavailable Unavailable GILA, SHAINA (POA) Unavailable Unavailable + [place] [address] R Unavailable Unavailable Unavailable GILA, SHAINA (POA) Unavailable Unavailable + [place] [address] R Unavailable Unavailable Unavailable GILA, SHAINA (POA) Unavailable Unavailable + [place] [address] R Unavailable Unavailable Unavailable GILA, SHAINA (POA) Unavailable Unavailable + [place] [address] R Unavailable Unavailable Unavailable GILA, SHAINA (POA) Unavailable Unavailable + [place] [address] R Unavailable Unavailable Unavailable GILA, SHAINA (POA) Unavailable Unavailable + [place] [address] R Unavailable Unavailable Unavailable GILA, SHAINA (POA) Unavailable Unavailable + [place] [address] R Unavailable Unavailable Unavailable GILA, SHAINA (POA) Unavailable Unavailable + [place] [address] R Unavailable Unavailable Unavailable GILA, SHAINA (POA) Unavailable Unavailable + [place] [address] R Unavailable Unavailable Unavailable GILA, SHAINA (POA) Unavailable Unavailable + [place] [address] R Unavailable Unavailable Unavailable GLIA, SHAINA (POA) Unavailable Unavailable + [place] [address] R Unavailable Unavailable Unavailable GILA, SHAINA (POA) Unavailable Unavailable + [place] [address] R Unavailable Unavailable Unavailable GILA, SHAINA (POA) Unavailable Unavailable + [place] [address] R Unavailable Unavailable Unavailable GILA, SHAINA (POA) Unavailable Unavailable + [place] [address] R Unavailable Unavailable Unavailable GILA, SHAINA (POA) Unavailable Unavailable + [place] [address] R Unavailable Unavailable Unavailable GILA, SHAINA (POA) Unavailable Unavailable + [place] [address] R Unavailable Unavailable Unavailable GILA, SHAINA (POA) Unavailable Unavailable + [place] [address] R Unavailable Unavailable Unavailable GILA, SHAINA (POA) Unavailable Unavailable + [place] [address] R Unavailable Unavailable Unavailable GILA, SHAINA (POA) Unavailable Unavailable + [place] [address] R Unavailable Unavailable Unavailable GILA, SHAINA (POA) Unavailable Unavailable + [place] [address] R Unavailable Unavailable Unavailable GILA, SHAINA (POA) Unavailable Unavailable + [place] [address] R Unavailable Unavailable Unavailable GILA, SHAINA (POA) Unavailable Unavailable + [place] [address] R Unavailable Unavailable Unavailable GILA, SHAINA (POA) Unavailable Unavailable + [place] [address] R Unavailable Unavailable Unavailable GILA, SHAINA (POA) Unavailable Unavailable + [place] [address] R Unavailable Unavailable Unavailable GILA, SHAINA (POA) Unavailable Unavailable + [place] [address] R Unavailable Unavailable Unavailable GILA, SHAINA (POA) Unavailable Unavailable + [place] [address] R Unavailable Unavailable Unavailable GILA, SHAINA (POA) Unavailable Unavailable + [place] [address] R Unavailable Unavailable Unavailable GILA, SHAINA (POA) Unavailable . + [place] [address] R Unavailable Unavailable Unavailable GILA, SHAINA (POA) Unavailable . + [place] [address] R Unavailable Unavailable Unavailable GILA, SHAINA (POA) Unavailable . + [place] [address] R Unavailable Unavailable Unavailable GILA, SHAINA (POA) Unavailable . + [place] [address] R Unavailable Unavailable Unavailable GILA, SHAINA (POA) Unavailable Unavailable + R Unavailable Unavailable Unavailable GILA, SHAINA (POA) Unavailable Unavailable + R Unavailable Unavailable Unavailable R Unavailable Unavailable Unavailable R Unavailable Unavailable Unavailable R Unavailable Unavailable Unavailable R Unavailable Unavailable Unavailable BRAYAN BETTS Unavailable . + ., [place] [address] R Unavailable Unavailable Unavailable Care Team Providers Name Role Phone Katie Morganbe Attending Unavailable Oleghe, Efewongbe Referring Unavailable Olejoele Efewongbe Attending Unavailable Edd, Hardik Chi Primary Care Unavailable Oleghe, Efewongbe Attending Unavailable Oleghe, Efewongbe Referring Unavailable Terrance Cervantes Attending Unavailable Terrance Cervantes Referring Unavailable Edd, Hardik Chi Primary Care Unavailable Terrance Cervantes Attending Unavailable Edd, Hardik Chi Primary Care Unavailable Edd, Hardik Chi Primary Care Unavailable Gurdeep, Hong Admitting Unavailable Gurdeep, Hong Attending Unavailable Edd, Hardik Chi Attending Unavailable Edd, Hardik Chi Primary Care Unavailable Oleghe, Efewongbe Attending Unavailable Edd, Hardik Chi Primary Care Unavailable Oleghe, Efewongbe Attending Unavailable Edd, Hardik Chi Primary Care Unavailable Oleghe, Efewongbe Attending Unavailable Edd, Hardik Chi Primary Care Unavailable Roof, Elmer H Attending Unavailable Edd, Hardik Chi Referring Unavailable Edd, Hardik Chi Primary Care Unavailable Gurdeep, Hong Admitting Unavailable Gurdeep, Hong Attending Unavailable Edd, Hardik Chi Primary Care Unavailable Gurdeep, Hong Consulting Unavailable Gurdeep, Hong Admitting Unavailable Gurdeep, Hong Attending Unavailable Edd, Hardik Chi Primary Care Unavailable Gurdeep, Hong Consulting Unavailable Chato Moran Attending Unavailable Ko Reddy Attending Unavailable Edd, Hardik Chi Referring Unavailable Edd, Hardik Chi Primary Care Unavailable Kilner Jojo Attending Unavailable Edd, Hardik Chi Primary Care Unavailable JosephColtono Attending Unavailable Edd, Hardik Chi Attending Unavailable Edd, Hardik Chi Primary Care Unavailable Edd, Hardik Chi Attending Unavailable Edd, Hardik Chi Primary Care Unavailable Roof, Elmer H Attending Unavailable Edd, Hardik Chi Referring Unavailable Edd, Hardik Chi Primary Care Unavailable Roof, Elmer H Attending Unavailable Kilner, Jojo Attending Unavailable Oleghe, Efewongbe Attending Unavailable Oleghe, Efewongbe Referring Unavailable Edd, Hardik Chi Attending Unavailable Edd, Hardik Chi Primary Care Unavailable Oleghe, Efewongbe Attending Unavailable Oleghe, Efewongbe Referring Unavailable Oleghe, Efewongbe Attending Unavailable Oleghe, Efewongbe Referring Unavailable Oleghe, Efewongbe Attending Unavailable Oleghe, Efewongbe Referring Unavailable Oleghe, Efewongbe Attending Unavailable Oleghe, Efewongbe Referring Unavailable Edd, Hardik Chi Attending Unavailable Edd, Hardik Chi Primary Care Unavailable Oleghe, Efewongbe Attending Unavailable Edd, Hardik Chi Primary Care Unavailable Oleghe, Efewongbe Attending Unavailable Oleghe, Efewongbe Attending Unavailable Oleghe, Efewongbe Attending Unavailable Oleghe, Efewongbe Attending Unavailable Edd, Hardik Chi Primary Care Unavailable Oleghe, Efewongbe Attending Unavailable Oleghe, Efewongbe Attending Unavailable Oleghe, Efewongbe Attending Unavailable Oleghe, Efewongbe Attending Unavailable Oleghe, Efewongbe Attending Unavailable Oleghe, Efewongbe Referring Unavailable Oleghe, Efewongbe Attending Unavailable Oleghe, Efewongbe Referring Unavailable Oleghe, Efewongbe Attending Unavailable Oleghe, Efewongbe Referring Unavailable Oleghe, Efewongbe Attending Unavailable Edd, Hardik Chi Primary Care Unavailable Davidson, Ko Attending Unavailable Gurdeep, Hong Referring Unavailable Edd, Hardik Chi Attending Unavailable Edd, Hardik Chi Primary Care Unavailable Jasmyn Paez Attending Unavailable Oleghe, Efewongbe Attending Unavailable Oleghe, Efewongbe Referring Unavailable Gurdeep, Hong Admitting Unavailable Gurdeep, Hong Attending Unavailable Edd, Hardik Chi Primary Care Unavailable Gurdeep, Hong Consulting Unavailable PROBLEMS PROBLEMS DATE TYPE CONDITION / CODE ATTENDING STATUS SOURCE 07/16/2018 Unknown 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, Active [place] chronic ulcer of [facility] unspecified part of Hospital left lower leg with Repository fat layer exposed / L97.922(ICD-10) 07/16/2018 Unknown L97.921 - Non-pressure Oleghe, Active [place] chronic ulcer of [facility] unspecified part of Hospital left lower leg limited Repository to breakdown of skin / L97.921(ICD-10) 07/16/2018 Unknown R60.0 - Localized Oleghe, Active [place] edema / R60.0(ICD-10) [facility] Hospital Repository 01/03/2018 Unknown I25.810 - Davidson, Bethel Active [place] Atherosclerosis of Community coronary artery bypass Hospital graft(s) without Repository angina pectoris / I25.810(ICD-10) 01/03/2018 Unknown I48.0 - Paroxysmal Davidson, Ko Active [place] atrial fibrillation / Community I48.0(ICD-10) Hospital Repository 01/03/2018 Unknown R94.31 - Abnormal Davidson, [place]hel Active [place] electrocardiogram Community [ECG] [EKG] / Hospital R94.31(ICD-10) Repository 01/03/2018 Unknown I50.22 - Chronic Davidson, Ko Active [place] systolic (congestive) Community heart failure / Hospital I50.22(ICD-10) Repository 10/02/2017 Unknown R54 - Age-related Davidson, Ko Active [place] physical debility / Community R54(ICD-10) Hospital Repository 10/02/2017 Unknown I10 - Essential Davidson, [place] Active [place] (primary) hypertension Community / I10(ICD-10) Hospital Repository 10/02/2017 Unknown I50.9 - Heart failure, Davidson, Ko Active [place] unspecified / Community I50.9(ICD-10) Hospital Repository 08/30/2017 Unknown D64.9 - Anemia, Edd, Hardik Chi Active [place] unspecified / Community D64.9(ICD-10) Hospital Repository 08/12/2017 Unknown I25.10 - Elmer Martin Active [place] Atherosclerotic heart [facility] disease [facility] coronary artery Repository without angina pectoris / I25.10(ICD-10) 08/12/2017 Unknown I25.5 - Ischemic Elmer Martin Active [place] cardiomyopathy / Community I25.5(ICD-10) Hospital Repository 08/12/2017 Unknown I38 - Endocarditis, 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 / Community I38(ICD-10) Hospital Repository 08/12/2017 Unknown E78.5 - Elmer Martin Active [place] Hyperlipidemia, Community unspecified / Hospital E78.5(ICD-10) Repository PROCEDURES PROCEDURES No Procedure Records FoundRESULTS RESULTS CBC W/DIFF, AUTOMATED Collected: 07/01/2018 Status: F Source: [place] 3:38 PM [facility] HOSPITAL REPOSITORY TYPE CODE TESTS RESULT OUT OF RANGE REFERENCE UNITS LAB L100.1000 4.4-11.0 K/mm3 Normal WBC 4.7 LAB L100.1200 4.6-6.2 M/mm3 Low RBC 4.05 LAB L100.1300 13.0-16.5 g/dl Low HGB 11.4 LAB L100.1400 40-54 % Low HCT 36.2 LAB L100.1500 80-94 fL Normal MCV 89.4 LAB L100.1600 27.0-32.0 pg Normal MCH 28.1 LAB L100.1700 32-36 g/gl Low MCHC 31.5 LAB L100.1810 11.6-14.6 % High RDW CV 16.7 LAB L100.1820 35.1-43.9 fl High RDW SD 53.5 LAB L100.1900 150-450 K/mm3 Normal PLT 169 LAB L100.2000 6.2-12.0 fl Normal MPV 10.7 LAB L100.2100 47-70 % Normal NEUT% 68.3 LAB L100.2200 19-41 % Normal LY% 19.6 LAB L100.2300 0-10 % High MONO% 10.8 LAB L100.2400 0-5 % Normal EO% 1.1 LAB L100.2500 0-1 % Normal BASO% 0.2 LAB L100.2550 0.0-0.9 % Normal IM GRAN % 0.000 Result Comment: IG% - Immature Granulocytes (promyelocytes, myelocytes and metamyelocytes) > 1% indicates that a LEFT SHIFT is Present. LAB L100.2620 2.0-7.7 X10 3/uL Normal Absolute Neut 3.2 LAB L100.2720 0.83-4.51 X10 3/ul Normal Absolute Lymph 0.91 Performed By: #### L100.0100 #### [facility] [address] [place], [place], [address] VITAMIN D,25 HYDROXY Collected: 07/01/2018 Status: F Source: [place] 3:38 PM [facility] [place] TYPE CODE TESTS RESULT OUT OF REFERENCE UNITS RANGE LAB L506.1000 29.95-100.01 ng/mL Low Vitamin D 27.3 25-OH Result Comment: Vitamin D 25(OH) Status Range Deficiency <20 ng/mL (50nmol/L) Insuffciency 20 - 30 ng/mL (50 - 75 nmol/L) Sufficiency 30 - 100 ng/mL (75 - 250 nmol/L) Toxicity >100 ng/mL (>250 nmol/L) Performed By: #### L506.1000 #### [facility] [address] [place], [address] COMPREHENSIVE METABOLIC Collected: 07/01/2018 Status: F Source: [facility] 3:38 PM [facility] [place] TYPE CODE TESTS RESULT OUT OF RANGE REFERENCE UNITS LAB L501.0100 74-106 mg/dL Normal GLU 75 Result Comment: Please note revised GLUCOSE reference range effective 2017. LAB L501.1000 7-18 mg/dL High BUN 25 LAB L501.1100 0.70-1.30 mg/dL High CREAT,SERUM 1.44 Result Comment: The validity of the calculated GFR AND GFRAA in patients over 70 years has not been determined. Clinical correlation is essential. LAB L501.1110 >60 mL/min Low EST GFR 50 Result Comment: Non- GFR Calc LAB L501.1115 >60 mL/min Normal EST GFR - AA 60 Result Comment: GFR Calc LAB L501.1300 10-20 RATIO Normal BUN/CRE 17.4 LAB L501.1500 6.4-8.2 g/dL T Normal PROT 7.2 LAB L501.1800 3.2-5.0 g/dL Normal ALB 3.6 LAB L501.1950 2.2-4.2 g/dL Normal GLOB 3.6 LAB L501.2000 0.9-2.4 RATIO Normal A/G 1.0 LAB L501.2200 8.5-10.1 mg/dL CA Normal 9.0 LAB L501.4100 15-37 U/L Normal AST 23 LAB L501.4305 45-117 U/L High ALK P 168 LAB L501.4405 16-61 U/L Normal ALT 31 LAB L501.4600 0.20-1.00 mg/dL T Normal BILI 0.90 LAB L501.5300 136-145 mmol/L NA Normal 141 LAB L501.5600 3.5-5.1 mmol/L K Normal 4.6 LAB L501.5900 98-107 mmol/L CL Normal 103 LAB L501.6100 21.0-32.0 mmol/L Normal CO2 29.0 LAB L501.6200 5-15 Normal GAP 9 Performed By: #### L500.4050, L501.9520 #### [facility] [address] [place], [place], [address] THYROID STIM HORMONE Collected: 07/01/2018 Status: F Source: [place] (TSH) 3:38 PM [facility] [place] TYPE CODE TESTS RESULT OUT OF RANGE REFERENCE UNITS LAB L501.9520 0.358-3.74 uIU/mL Normal TSH 3.20 Performed By: #### L500.4050, L501.9520 #### [facility] [address] [place], [address] WOUND CTR HISTORY Observed: 05/20/2018 Status: F Source: [place] AND PHYSICAL 4:53 PM [facility] HOSPITAL REPOSITORY [facility] [address] [place] [address] Wound Ctr History AND Physical 05/15/18 1157 MR#: [id number] Acct: [id number] Name: KEIKO GARCIA Rep #: [id number] : 1935 82 From: Jignesh Morgan MD PCP: Edd WALDRON,Hardik Chi Status: REG RCR Y Location: WC (1) Bilateral lower extremity edema Status: Chronic Current Visit: Yes Code(s): R60.0 - Localized edema (2) Ulcer of left lower extremity with fat layer exposed Status: Chronic Current Visit: Yes Code(s): L97.922 - Non-pressure chronic ulcer of unspecified part of left lower leg with fat layer exposed History of Present Illness Chief Complaint: nonpressure ulcer left lower extremity. Swelling of both legs History of Wound: Mr. Garcia is an 82-year-old who is well- known to the wound center due to recurrent reopening of left lower extremity ulcer. He has had recurrent episodes of left lower extremity ulcers since his surgery a couple of years ago. Also has significant bilateral lower extremity edema and is not very compliant with compression. Denies any significant concerns at this time. No chills, fever or feeling of unwell. 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) Nonrheumatic mitral valve insufficiency (Chronic) Non-rheumatic tricuspid valve insufficiency (Chronic) Acute blood loss anemia (Chronic) Scalp laceration with hemorrhage (Chronic) Fall (Chronic) Bilateral lower extremity edema (Chronic) Paroxysmal atrial fibrillation (Chronic) DCCV January 2000; Atherosclerosis of [place] coronary artery of hughes heart without angina pectoris (Chronic) CABG 01/22/2000 NGO to LAD, reverse SVG as a sequential graft to DX and LCX, reverse SVG to the two ventricular branches of the right Ischemic cardiomyopathy (Chronic) Chronic ulcer of left leg, 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) Dyslipidemia (Chronic) 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) CAB01/22/2000 NGO to LAD, reverse SVG as a sequential graft to DX and LCX, reverse SVG to the two ventricular branches of the right Hypertension (Chronic) Anemia (Chronic) Surgical History: coronary bypass surgery, - Allergies/Adverse Reactions: Allergies No Known Allergies Allergy (Verified 12/03/17 09:40) Home Medications: Ambulatory Orders Medication Instructions Recorded acetaminophen 325 mg tablet 650 mg PO Q4H PRN 08/08/17 atorvastatin 20 mg tablet 20 mg PO QDAY 08/08/17 - Family History Paternal Family History: Family History (Last Reviewed 12/03/17 @ 09:39 by Chato Moran) Mother CVA (cerebral vascular accident) CAD (coronary artery disease) Myocardial infarction Father CAD (coronary artery disease) Myocardial infarction Brother CAD (coronary artery disease) Myocardial infarction Brother CAD (coronary artery disease) Myocardial infarction High Cholesterol, Heart Disease, Hypertension, - Smoking Status: Never smoker Review of Systems Constitutional: Denies: Anorexia, Chills, Fever Eyes: Denies: Pain, Redness Cardiovascular: Denies: Chest Pain, Chest Tightness Respiratory: Denies: Cough, Hemoptysis Gastrointestinal: Denies: Abdominal Pain, Hematemesis, Vomiting Skin: Denies: Jaundice - Physical Exam Vital Signs Temp Pulse Resp BP 97.7 F L 81 16 116/83 H 05/15/18 08:56 05/15/18 08:56 05/15/18 08:56 05/15/18 08:56 General: Alert, Oriented x3, Cooperative, No apparent distress HEENT: Atraumatic Oral: Moist Mucosa Neck: Supple Lungs: Normal air movement Abdomen: Non Tender Extremities: No cyanosis, Edema Skin: Ulcer/ Wound Wound Measurements and Assessment WC - Nurse 1 - General Ulcer Measurement Start: 05/15/18 08:56 Freq: Status: Active Protocol: Activity Type Activity Date Activity User E-Sign Co-Sign Detail Recorded Client Recorded Date Recorded By Document 05/15/18 08:56 [id number] 05/15/18 09:04 Wound Center Nurse 1 [Ulcer Assessment] #10 LEFT [place]LL[place] LATERAL -Combined with other wound No -Current Size (cm) - Length 0.3 WC - Nurse 2 - General Ulcer CM Notes Start: 05/15/18 08:56 Freq: Status: Active Protocol: Activity Type Activity Date Activity User E-Sign Co-Sign Detail Recorded Client Recorded Date Recorded By Document 05/15/18 09:21 MW [id number] 05/15/18 09:24 MW Wound Center Nurse 2 [Procedure/Treatment] Musculoskeletal: No Muscle Wasting Neurological: Cranial nerves II-XII grossly intact Psych/Mental Status: Normal Affect Debridement Note Post-Debridement Measurements/Treatment WC - Nurse 2 - General Ulcer CM Notes Start: 05/15/18 08:56 Freq: Status: Active Protocol: Activity Type Activity Date Activity User E-Sign Co-Sign Detail Recorded Client Recorded Date Recorded By Document 05/15/18 09:21 MW [id number] 05/15/18 09:24 MW Wound Center Nurse 2 #10 LEFT HOLLIS LATERAL -Time 09:22 -Correct Patient Yes -Correct Side, Site, Position Yes Wound debrided: Left lower extremity Wound Grade/Stage: Stage II Type of Debridement: Excisional debridement Anesthesia Used: 4% Lidocaine Solution Depth: Down to and including healthy tissue, in the subcutaneous layer Percentage of wound debrided: 100 Instrument Used: 7mm curette Tissue Removed: Slough and devitalized tissue Severity: Fat Layer Exposed Amount of bleeding with debridement: Mild Bleeding Controlled with: Pressure Patient tolerated procedure well Assessment/Plan Active Problems (Last Updated 12/03/17 @ 09:34 by Chato Moran) 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 Bilateral lower extremity edema. Plan: Back with reopening of his left lower extremity ulcer. Also has bilateral lower extremity edema. He admits to not being very compliant with compression. Debridement done as documented above, procedure was well-tolerated. Promogran with Adaptic over top and bilateral 3M wraps. Follow-up on Saturday for a nurse visit and in 1 week with me. We will subsequently leave wraps on for a week. Elevate lower extremity when seated and in bed. Increased protein intake recommended. Avoid idle standing. Exercise as tolerated. Follow-up in 1 week. All his questions were answered and he was asked to call with any further questions or concerns. This note was generated with [employer] software. It may contain incorrect words, spelling, and punctuation that were not noted in checking the note before signing. This note was generated with [employer] software. It may contain incorrect words, spelling, and punctuation that were not noted in checking the note before signing. 05/20/18 1653 <Electronically signed by Jignesh Morgan MD> Date Jignesh Morgan MD CC: Signed CBC W/DIFF, AUTOMATED Collected: 05/05/2018 Status: F Source: [place] 10:02 AM [facility] [place] TYPE CODE TESTS RESULT OUT OF RANGE REFERENCE UNITS LAB L100.1000 4.4-11.0 K/mm3 Normal WBC 5.4 LAB L100.1200 4.6-6.2 M/mm3 Low RBC 4.28 LAB L100.1300 13.0-16.5 g/dl Low HGB 12.2 LAB L100.1400 40-54 % Low HCT 39.0 LAB L100.1500 80-94 fL Normal MCV 91.1 LAB L100.1600 27.0-32.0 pg Normal MCH 28.5 LAB L100.1700 32-36 g/gl Low MCHC 31.3 LAB L100.1810 11.6-14.6 % High RDW CV 15.6 LAB L100.1820 35.1-43.9 fl High RDW SD 51.2 LAB L100.1900 150-450 K/mm3 Normal PLT 161 LAB L100.2000 6.2-12.0 fl Normal MPV 11.0 LAB L100.2100 47-70 % Normal NEUT% 67.4 LAB L100.2200 19-41 % Normal LY% 20.9 LAB L100.2300 0-10 % High MONO% 10.2 LAB L100.2400 0-5 % Normal EO% 1.1 LAB L100.2500 0-1 % Normal BASO% 0.2 LAB L100.2550 0.0-0.9 % Normal IM GRAN % 0.200 Result Comment: IG% - Immature Granulocytes (promyelocytes, myelocytes and metamyelocytes) > 1% indicates that a LEFT SHIFT is Present. LAB L100.2620 2.0-7.7 X10 3/uL Normal Absolute Neut 3.6 LAB L100.2720 0.83-4.51 X10 3/ul Normal Absolute Lymph 1.12 Performed By: #### L100.0100 #### [facility] [address]. [place], [place], [address] BASIC METABOLIC Collected: 05/05/2018 Status: F Source: [place] PROFILE (BMP) 10:02 AM [facility] [place] TYPE CODE TESTS RESULT OUT OF RANGE REFERENCE UNITS LAB L501.0100 74-106 mg/dL High GLU 109 Result Comment: Fasting Glucose result from 100 to 125 mg/dL suggests IMPAIRED HOMEOSTASIS per A.D.A. criteria. Please note revised GLUCOSE reference range effective 2017. LAB L501.1000 7-18 mg/dL High BUN 21 LAB L501.1100 0.70-1.30 mg/dL Normal CREAT,SERUM 1.25 Result Comment: The validity of the calculated GFR AND GFRAA in patients over 70 years has not been determined. Clinical correlation is essential. LAB L501.1110 >60 mL/min Low EST GFR 59 Result Comment: Non- GFR Calc LAB L501.1115 >60 mL/min Normal EST GFR - AA 71 Result Comment: GFR Calc LAB L501.1300 10-20 RATIO Normal BUN/CRE 16.8 LAB L501.2200 8.5-10.1 mg/dL CA Normal 9.1 LAB L501.5300 136-145 mmol/L NA Normal 141 LAB L501.5600 3.5-5.1 mmol/L K Normal 3.8 LAB L501.5900 98-107 mmol/L CL Normal 104 LAB L501.6100 21.0-32.0 mmol/L Normal CO2 29.0 LAB L501.6200 5-15 Normal GAP 8 Performed By: #### L500.2500 #### [facility] [address]. [place], [place], [address] MRSA WOUND DNA BY Collected: 05/05/2018 Status: F Source: [place] PCR 10:02 AM [facility] [place] Order Comment: Specimen Source? LEFT LEG TYPE CODE TESTS RESULT OUT OF RANGE REFERENCE UNITS LAB L8200.1100 Negative Normal MRSA Negative RESULT LAB L8200.1150 Negative High SA RESULT POSITIVE Performed By: #### L8200.1075 #### [facility] [address] [place], [address] Observed: 05/05/2018 Status: F Source: [place] CULTURE, WOUND 10:02 AM [facility] [place] RE[place] Gram Stain Gram Stain 4+ Gram positive cocci 3+ White Blood Cells No Epithelial cells Wound Culture ORGANISM 1: Staphylococcus aureus Amount Growth 3+ Staphylococcus aureus: REACTION Benzylpenicillin NF >=0.5 R Cefoxitin *NF - Clindamycin $$ <=0.25 S Inducable Clindamycin Resistan - Erythromycin $ >=8 R Gentamicin $ <=0.5 S Levofloxacin $ 4 I Linezolid $$$$ 1 S Moxifloxicin *NF 1 S Oxacillin NF 0.5 S Tigecycline $$$$ <=0.12 S Rifampin $$ <=0.5 S Tetracycline NF <=1 S Trimethoprim/Sulfametho $ <=10 S Vancomycin $ <=0.5 S (NF) indicates non-formulary drug at [facility]. Approval by Infectious Disease Specialist required before non-formulary drugs may be ordered and/or dispensed. * CLSI guidelines does not recommend testing of cephalosporins. This interpretation is deduced from Beta-lactam/penicillin results. Performed By: #### M100.1400 #### [facility] [address] [place], [address] CBC W/DIFF, AUTOMATED Collected: 04/03/2018 Status: F Source: [place] 11:48 AM [facility] [place] TYPE CODE TESTS RESULT OUT OF RANGE REFERENCE UNITS LAB L100.1000 4.4-11.0 K/mm3 Normal WBC 5.8 LAB L100.1200 4.6-6.2 M/mm3 Low RBC 3.84 LAB L100.1300 13.0-16.5 g/dl Low HGB 10.9 LAB L100.1400 40-54 % Low HCT 34.6 LAB L100.1500 80-94 fL Normal MCV 90.1 LAB L100.1600 27.0-32.0 pg Normal MCH 28.4 LAB L100.1700 32-36 g/gl Low MCHC 31.5 LAB L100.1810 11.6-14.6 % High RDW CV 17.4 LAB L100.1820 35.1-43.9 fl High RDW SD 57.4 LAB L100.1900 150-450 K/mm3 Normal PLT 179 LAB L100.2000 6.2-12.0 fl Normal MPV 9.8 LAB L100.2100 47-70 % Normal NEUT% 68.8 LAB L100.2200 19-41 % Low LY% 18.7 LAB L100.2300 0-10 % High MONO% 11.1 LAB L100.2400 0-5 % Normal EO% 1.4 LAB L100.2500 0-1 % Normal BASO% 0.0 LAB L100.2550 0.0-0.9 % Normal IM GRAN % 0.000 Result Comment: IG% - Immature Granulocytes (promyelocytes, myelocytes and metamyelocytes) > 1% indicates that a LEFT SHIFT is Present. LAB L100.2620 2.0-7.7 X10 3/uL Normal Absolute Neut 4.0 LAB L100.2720 0.83-4.51 X10 3/ul Normal Absolute Lymph 1.08 Performed By: #### L100.0100 #### [facility] [address] [place] [address], 925461 VITAMIN D,25 HYDROXY Collected: 04/03/2018 Status: F Source: [place] 11:48 AM [facility] [place] CODE TESTS RESULT OUT OF REFERENCE UNITS RANGE LAB L506.1000 29.95-100.01 ng/mL Low Vitamin D 24.3 25-OH Result Comment: Vitamin D 25(OH) Status Range Deficiency <20 ng/mL (50nmol/L) Insuffciency 20 - 30 ng/mL (50 - 75 nmol/L) Sufficiency 30 - 100 ng/mL (75 - 250 nmol/L) Toxicity >100 ng/mL (>250 nmol/L) Performed By: #### L506.1000 #### [facility] [address] [place], [place], [address] COMPREHENSIVE METABOLIC Collected: 04/03/2018 Status: F Source: [place] 11:48 AM [facility] [place] TYPE CODE TESTS RESULT OUT OF RANGE REFERENCE UNITS LAB L501.0100 74-106 mg/dL High GLU 146 Result Comment: Fasting Glucose result greater than or equal to 126 mg/dL suggests DIABETES MELLITUS per A.D.A. criteria. Please note revised GLUCOSE reference range effective 2017. LAB L501.1000 7-18 mg/dL High BUN 29 LAB L501.1100 0.70-1.30 mg/dL High CREAT,SERUM 1.42 Result Comment: The validity of the calculated GFR AND GFRAA in patients over 70 years has not been determined. Clinical correlation is essential. LAB L501.1110 >60 mL/min Low EST GFR 51 Result Comment: Non- GFR Calc LAB L501.1115 >60 mL/min Normal EST GFR - AA 61 Result Comment: GFR Calc LAB L501.1300 10-20 RATIO High BUN/CRE 20.4 LAB L501.1500 6.4-8.2 g/dL T Normal PROT 7.3 LAB L501.1800 3.2-5.0 g/dL Normal ALB 3.7 LAB L501.1950 2.2-4.2 g/dL Normal GLOB 3.6 LAB L501.2000 0.9-2.4 RATIO Normal A/G 1.0 LAB L501.2200 8.5-10.1 mg/dL CA Normal 9.2 LAB L501.4100 15-37 U/L Normal AST 15 LAB L501.4305 45-117 U/L High ALK P 156 LAB L501.4405 16-61 U/L Normal ALT 18 LAB L501.4600 0.20-1.00 mg/dL High T BILI 1.10 LAB L501.5300 136-145 mmol/L NA Normal 140 LAB L501.5600 3.5-5.1 mmol/L K Normal 4.6 LAB L501.5900 98-107 mmol/L CL Normal 104 LAB L501.6100 21.0-32.0 mmol/L Normal CO2 25.0 LAB L501.6200 5-15 Normal GAP 11 Performed By: #### L500.4050, L501.9520 #### [facility] [address] [place], [address] THYROID STIM HORMONE Collected: 04/03/2018 Status: F Source: [place] (T[place]) 11:48 AM [facility] [place] TYPE CODE TESTS RESULT OUT OF RANGE REFERENCE UNITS LAB L501.9520 0.358-3.74 uIU/mL Normal TSH 3.57 Performed By: #### L500.4050, L501.9520 #### [facility] [address] [place], [address] CBC W/DIFF, AUTOMATED Collected: 01/02/2018 Status: F Source: [place] 11:36 AM [facility] [place] TYPE CODE TESTS RESULT OUT OF RANGE REFERENCE UNITS LAB L100.1000 4.4-11.0 K/mm3 Normal WBC 5.0 LAB L100.1200 4.6-6.2 M/mm3 Low RBC 3.70 LAB L100.1300 13.0-16.5 g/dl Low HGB 10.6 LAB L100.1400 40-54 % Low HCT 32.8 LAB L100.1500 80-94 fL Normal MCV 88.6 LAB L100.1600 27.0-32.0 pg Normal MCH 28.6 LAB L100.1700 32-36 g/gl Normal MCHC 32.3 LAB L100.1810 11.6-14.6 % High RDW CV 16.6 LAB L100.1820 35.1-43.9 fl High RDW SD 52.8 LAB L100.1900 150-450 K/mm3 Normal PLT 187 LAB L100.2000 6.2-12.0 fl Normal MPV 10.7 LAB L100.2100 47-70 % High NEUT% 71.8 LAB L100.2200 19-41 % Low LY% 17.3 LAB L100.2300 0-10 % Normal MONO% 9.1 LAB L100.2400 0-5 % Normal EO% 1.4 LAB L100.2500 0-1 % Normal BASO% 0.2 LAB L100.2550 0.0-0.9 % Normal IM GRAN % 0.200 Result Comment: IG% - Immature Granulocytes (promyelocytes, myelocytes and metamyelocytes) > 1% indicates that a LEFT SHIFT is Present. LAB L100.2620 2.0-7.7 X10 3/uL Normal Absolute Neut 3.6 LAB L100.2720 0.83-4.51 X10 3/ul Normal Absolute Lymph 0.86 Performed By: #### L100.0100 #### [facility] [address] [place], [address] COMPREHENSIVE METABOLIC Collected: 01/02/2018 Status: F Source: [place] [facility] 11:36 AM [facility] [place] TYPE CODE TESTS RESULT OUT OF RANGE REFERENCE UNITS LAB L501.0100 74-106 mg/dL High GLU 142 Result Comment: Fasting Glucose result greater than or equal to 126 mg/dL suggests DIABETES MELLITUS per A.D.A. criteria. Please note revised GLUCOSE reference range effective 2017. LAB L501.1000 7-18 mg/dL High BUN 29 LAB L501.1100 0.70-1.30 mg/dL High CREAT,SERUM 1.31 Result Comment: The validity of the calculated GFR AND GFRAA in patients over 70 years has not been determined. Clinical correlation is essential. LAB L501.1110 >60 mL/min Low EST GFR 56 Result Comment: Non- GFR Calc LAB L501.1115 >60 mL/min Normal EST GFR - AA 67 Result Comment: GFR Calc LAB L501.1300 10-20 RATIO High BUN/CRE 22.1 LAB L501.1500 6.4-8.2 g/dL T Normal PROT 7.0 LAB L501.1800 3.2-5.0 g/dL Normal ALB 3.4 LAB L501.1950 2.2-4.2 g/dL Normal GLOB 3.6 LAB L501.2000 0.9-2.4 RATIO Normal A/G 0.9 LAB L501.2200 8.5-10.1 mg/dL CA Normal 8.9 LAB L501.4100 15-37 U/L High AST 39 LAB L501.4305 45-117 U/L High ALK P 174 LAB L501.4405 16-61 U/L Normal ALT 38 LAB L501.4600 0.20-1.00 mg/dL T Normal BILI 0.80 LAB L501.5300 136-145 mmol/L NA Normal 137 LAB L501.5600 3.5-5.1 mmol/L K Normal 3.7 LAB L501.5900 98-107 mmol/L CL Normal 102 LAB L501.6100 21.0-32.0 mmol/L Normal CO2 28.0 LAB L501.6200 5-15 Normal GAP 7 Performed By: #### L500.4050, L501.9520 #### [facility] [address] [place], [address] THYROID STIM HORMONE Collected: 01/02/2018 Status: F Source: [place] ([place]) 11:36 AM [facility] [place] TYPE CODE TESTS RESULT OUT OF RANGE REFERENCE UNITS LAB L501.9520 0.358-3.74 uIU/mL Normal TSH 2.90 Performed By: #### L500.4050, L501.9520 #### [facility] [address] [place], [address] VITAMIN D,25 HYDROXY Collected: 01/02/2018 Status: F Source: [place] 11:36 AM [facility] [place] TYPE CODE TESTS RESULT OUT OF REFERENCE UNITS RANGE LAB L506.1000 29.95-100.01 ng/mL Low Vitamin D 23.1 25-OH Result Comment: Vitamin D 25(OH) Status Range Deficiency <20 ng/mL (50nmol/L) Insuffciency 20 - 30 ng/mL (50 - 75 nmol/L) Sufficiency 30 - 100 ng/mL (75 - 250 nmol/L) Toxicity >100 ng/mL (>250 nmol/L) Performed By: #### L506.1000 #### [facility] [address] [place], [address] CARDIOLOGY VISIT Observed: 12/04/2017 Status: F Source: [place] 10:55 AM [facility] [place] [facility] [address] [place] [address] OFFICE VISIT Date of Service: 12/03/17 MR#: [id number] Acct: [id number] Name: KEIKO GARCIA Rep #: [id number] : 1935 Provider: RIAN Martin Age/Sex: 81/M [place] [facility] [place] Status: Signed HPI HPI Details: KEIKO GARCIA, is a 81 M who presents to the office today for a cardiovascular outpatient follow-up status post recent emergency department visit. Patient is a history of coronary artery disease status post of and bypass surgery in 1999 with NGO to LAD, SVG sequential to the diagonal and circumflex, and SVG to the right ventricular branches. He also has history of paroxysmal atrial fibrillation, ischemic cardiomyopathy, and valvular heart disease. He presented to [facility] emergency department in November 2017 after a mechanical fall and injury to his head requiring sutures. He was ultimately discharged home. He now lives with his sister who is helping provide care. Pt. denies chest, arm, jaw, or neck discomfort. His exercise tolerance is stable via a walker. Pt. denies symptoms of CHF, palpitations, lightheadedness, dizziness, near syncope, or syncopal episodes. Pt. denies edema or claudication issues. Pt. denies orthopnea, PND, fever, chills, blood in urine, blood in stool, myalgia, or unexplainable fatigue. Intake Vital Signs12/03/17 Height 6 ft 12/03/17 Weight: 190 lb 12/03/17 Body Mass Index (BMI) 25.7 12/03/17 Blood Pressure 112/70 12/03/17 Blood Pressure Location Lt brachial Intake Visit Reasons: DC PCU 5-10, also 2 M FU Silk Presser Required: No Accompanied by: Sister Is patient in pain?: No Allergies No Known Allergies Allergy (Verified 12/03/17 09:40) Medications acetaminophen 325 mg tablet 650 mg PO Q4H PRN 08/08/17 [History Confirmed 11/19/17] atorvastatin 20 mg tablet 20 mg PO QDAY 08/08/17 [History Confirmed 11/19/17] carvedilol 6.25 mg tablet 6.25 mg PO BID 08/08/17 [History Confirmed 11/19/17] pantoprazole 40 mg tablet,delayed release 40 mg PO QDAY 08/08/17 [History Confirmed 11/19/17] Citalopram [Celexa] 10 mg PO DAILY 09/27/17 [History Confirmed 11/19/17] Furosemide [Lasix] 80 mg PO DAILY 11/19/17 [History Confirmed 11/19/17] Apixaban [Eliquis] 2.5 mg PO BID #180 tab 11/21/17 [Rx Confirmed 11/19/17] Aspirin [Aspirin, Baby] 81 mg PO DAILY@0800 #30 tab.chew 11/21/17 [Rx Confirmed 11/19/17] Ferrous Sulfate [Iron] 325 mg PO DAILY #60 tab 11/21/17 [Rx] Ejection fraction %: 45 to 49 (47% per echo 06/27/[address] [facility]) COUNTS INCLUDE 234 BEDS AT THE [facility] Medical History Nonrheumatic mitral valve insufficiency (Chronic) Non-rheumatic tricuspid valve insufficiency (Chronic) Acute blood loss anemia (Chronic) Scalp laceration with hemorrhage (Chronic) Fall (Chronic) Bilateral lower extremity edema (Chronic) Paroxysmal atrial fibrillation (Chronic) Atherosclerosis of hughes coronary artery of hughes heart without angina pectoris (Chronic) Ischemic cardiomyopathy (Chronic) Chronic ulcer of left leg, 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) Dyslipidemia (Chronic) 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) Hypertension (Chronic) Anemia (Chronic) Atrial flutter (Chronic) BPH (benign prostatic hyperplasia) (Chronic) CAD (coronary artery disease) (Chronic) Chronic diastolic (congestive) heart failure (Chronic) PUD (peptic ulcer disease) (Chronic) Cellulitis (Resolved) Infected wound (Resolved) Ulcer of left knee (Resolved) Ulcer of leg, chronic, left (Resolved) Atrial fibrillation with rapid ventricular response (Inactive) Chronic ulcer of right leg (Inactive) Coagulation defect (Inactive) Deep disruption or dehiscence of operation wound (Inactive) Edema of left lower extremity (Inactive) Surgical History History of hand surgery (Chronic) History of hernia repair (Chronic) History of left heart catheterization (LHC) (Chronic) 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) hx left quad repair (Chronic 04/27/16) Family History Mother CVA (cerebral vascular accident) CAD (coronary artery disease) <65 Myocardial infarction Father CAD (coronary artery disease) Myocardial infarction Brother CAD (coronary artery disease) Myocardial infarction Brother CAD (coronary artery disease) Myocardial infarction Social History Smoking Status: Never smoker alcohol intake: never substance use type: does not use caffeine: Yes Type: coffee Number of servings: 2 what type of physical activity do you participate in: other details: PT frequency: daily duration: 15-30 minutes/day seatbelt use: always do you feel safe at home: Yes ROS Const Const: Negative for fatigue, weakness, body ache, fever(s) or chills ENT ENT: Negative for dizziness Cardio Chest Pain: No Palpitations: No Edema: None Muscle aches with walking: None Resp Respiratory: Negative for SOB with activity, SOB at rest, SOB orthopnea\SOB lying down or paroxysmal nocturnal dyspnea GI GI: Negative nausea, black,tarry stools, bright, red blood in stools or vomiting blood/hematemesis : Negative for hematuria or frequent nighttime urination/ nocturia Musc Musc: Negative for muscle aches/ myalgia Skin Skin: Negative non-healing lesions or rash Neuro Neuro: Negative for weakness, dizziness, lightheadedness, near syncope, syncope or orthostatic symptoms Endo Endo: Negative for fatigue Allergy Allergy/Immunology: Negative for rash Cardiology Exam Const Appearance: cooperative, well developed, well groomed, no acute distress and ill appearing Nutritional Appearance: average body habitus and malnourished Orientation: alert, awake and oriented x3 Head Head: normal to inspection, normocephalic and atraumatic Ears: hearing grossly normal bilaterally and external ears normal Nose: external nose normal, nasal mucous membranes and turbinates normal, nares normal, septum normal, no nasal discharge Face and Sinus: face symmetric Mouth: oral mucosae normal, tongue normal, oropharynx normal and moist mucous membranes Teeth and gingiva: dentition normal Throat: posterior oropharynx normal, tonsils normal and uvula midline Eyes General: appearance normal, both eyes and all related structures Eyelids: eyelids normal Conjunctivae: conjunctivae normal Pupils: PERRL, normal by confrontation and accommodation normal EOM: EOM intact bilaterally Neck Neck: normal visual inspection, trachea midline and no JVD JVD: +5 Carotids: normal carotid upstroke and bounding pulses Chest Chest inspection: normal inspection of the chest, symmetric chest movement and normal respiratory effort Auscultation: Bilateral: Clear to Auscultation Cardio Palpation: normal PMI Rhythm: irregular rhythm Heart sounds: S1 normal and S2 normal GI GI: normal to inspection, soft, no hepatosplenomegaly and bowel sounds present Neuro General: alert, awake, oriented x3, no focal sensory deficit, gait normal and moves all extremities Skin Skin: no rashes or lesions noted Extremities Pulses: Normal: Right Dorsalis Pedis Pulse, Left Dorsalis Pedis Pulse, Right Posterior Tibial Pulse, Left Posterior Tibial Pulse, Right Radial Pulse, Left Radial Pulse Lower Extremity Edema: +1: Bilateral Musculoskel Musculoskeletal: No joint tenderness Psych Psychological: normal affect Supplemental Info Echocardiogram from June 2017 showed estimated ejection fraction of 47%, normal LV size, postoperative septal motion, mild mitral annular calcification, mild mitral valve insufficiency, and mild tricuspid valve insufficiency. Heart catheterization from March 2005 showed angiographically minimal disease of left main coronary artery, LAD which is severely diseased in the proximal section and totally occluded in the mid section, LCx which totally occluded, RCA which is severely diffusely diseased throughout its course, SVG to diagonal and LCx is patent with slow flow, SVG to RCA is patent with slow flow, NGO to LAD is patent, and preserved left ventricular ejection fraction. Assessment AND Plan 1. Atherosclerosis of hughes coronary artery of hughes heart without angina pectoris I25.10 CABG 01/22/2000 NGO to LAD, reverse SVG as a sequential graft to DX and LCX, reverse SVG to the two ventricular branches of the right KANCHAN Robb Echocardiogram from June 2017 showed an ejection fraction of 47%. His heart catherization from March 2005 showed patent bypass grafts. Patient denies any chest pain, arm pain, jaw pain, neck pain, shortness of breath, or fatigue suggestive of angina at this time. We will continue to monitor this. We will not make any medication regimen changes and will continue risk factor modification. 2. Paroxysmal atrial fibrillation I48.0 DCCV January 2000; KANCHAN Robb Patient's most recent EKG while admitted to hospital in November 2017 showed atrial fibrillation at a rate of 82 bpm. He will continue current medications which include beta-rashawn and factor Xa inhibitor. Certainly with his recent fall this does raise some concern regarding anticoagulation. We will continue to assess safety component of this depending on his overall treatment course. 3. Ischemic cardiomyopathy I25.5 KANCHAN Robb Echocardiogram from June 2017 showed and estimated ejection fraction of 47%. Patient denies any shortness of breath, activity intolerance, or lower extremity pedal edema. His kidney function is much improved since diuretic adjustment at last office visit. He will continue current medications. We will continue to monitor this. 4. Essential hypertension I10 KANCHAN Robb Patient's blood pressure is well-controlled today in the office. We will continue to monitor this. We will not make any medication regimen changes. 5. Dyslipidemia E78.5 Plan - KANCHAN Cedeno He will continue current statin medication. 6. Nonrheumatic mitral valve insufficiency I34.0 Plan - KANCHAN Cedeno Echocardiogram from June 2017 showed mild mitral annular calcification and mild mitral valve insufficiency. Patient will continue current medications and we will continue to monitor this. 7. Non-rheumatic tricuspid valve insufficiency I36.1 Plan - KANCHAN Cedeno Echocardiogram from June 2017 showed mild tricuspid valve insufficiency. Patient denies any shortness of breath or activity intolerance. We will continue to monitor this through history, exam, and repeat echocardiogram. We will not make any medication regimen changes. Plan Detail Additional Comments - KANCHAN Cedeno Discussed the above patient with Dr. Reddy, he agrees with the plan of care. Thank you for allowing us to participate in the patients plan of care, if you have any questions please do not hesitate to call. This note was generated using a voice recognition system and there may be incorrect words, spelling or punctuation that were not noted when reviewing the office note prior to saving. 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 MANAGER) 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 Paroxysmal atrial fibrillation I48.0 Ischemic cardiomyopathy I25.5 Essential hypertension I10 Hypertension type: essential hypertension Dyslipidemia E78.5 Nonrheumatic mitral valve insufficiency I34.0 Non-rheumatic tricuspid valve insufficiency I36.1 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 Paroxysmal atrial fibrillation I48.0 Ischemic cardiomyopathy I25.5 Essential hypertension I10 Hypertension type: essential hypertension Dyslipidemia E78.5 Nonrheumatic mitral valve insufficiency I34.0 Non-rheumatic tricuspid valve insufficiency I36.1 12/03/17 1301 <Electronically signed by Elmer HEMPHILL> Date Elmer HEMPHILL 12/04/17 1055<Electronically signed by Ko Reddy MD> Cosigner Signature: Date (if applicable) Ko Reddy MD CC: Hardik Puga MD 12 LEAD ELECTROCARDIOGRAM Observed: 11/26/2017 Status: F Source: [place] 2:16 PM [facility] REPOSIT[facility] Cardiovascular Services [address] [place] [address] 12 Lead EKG 11/19/17 1307 MR#: [id number] Acct: [id number] Name: KEIKO GARCIA Rep #: [id number] : 1935 81 From: Ko Reddy MD Attending Dr: Hong Kaplan MD Status: DIS IN Ordering Dr: Hong Kaplan MD Date: 11/19/17 Location: [facility] Sex: M C Admitted: 11/19/17 Test Reason : ADM EKG Blood Pressure : / mmHG Vent. Rate : 082 BPM Atrial Rate : 214 BPM P-R Int : 000 ms QRS Dur : 102 ms QT Int : 400 ms P-R-T Axes : 000 -02 189 degrees QTc Int : 467 ms Atrial fibrillation with premature ventricular or aberrantly conducted complexes T wave abnormality, consider anterolateral ischemia Prolonged QT Abnormal ECG Confirmed by KO REDDY MD ([id number]), communications editor JAYLA BLOOD ([id number]) on 11/26/2017 2:16:35 PM Referred By: GURDEEP Confirmed By:KO REDDY MD 11/26/17 1416 Date Ko Reddy MD CC: Hong Kaplan MD; Hardik Puga MD Signed DISCHARGE SUMMARY Observed: 11/22/2017 Status: F Source: [place] 4:09 PM [facility] [place] [facility] Medical Records Department [address] [place] [address] Discharge Summary 11/21/17 1056 MR#: [id number] Acct: [id number] Name: KEIKO GARCIA Rep #: [id number] : 1935 81 From: Hong Kaplan MD PCP: Edd WALDRON,Hardik Escalona Status: DIS IN Y Location: [place] [id number] Discharge Date and Diagnosis Date of Admission: 11/19/17 Date of Discharge: 11/21/17 - Primary Discharge Diagnosis Active and Suspected Problems (Last Reviewed 10/02/17 @ 11:33 by Meredith Velasquez) 1. Fall with major scalp laceration with active arterial bleed, consistent with head injury; present on admission: 2. Acute blood loss anemia secondary to scalp laceration and external hemorrhage - Secondary Discharge Diagnosis Chronic Problems (Last Reviewed 10/02/17 @ 11:33 by Meredith Velasquez) Bilateral lower extremity edema (Chronic) Chronic systolic (congestive) heart failure (Chronic) Paroxysmal atrial fibrillation (Chronic) DCCV January 2000; Atherosclerosis of hughes coronary artery of hughes heart without angina pectoris (Chronic) CABG 01/22/2000 NGO to LAD, reverse SVG as a sequential graft to DX and LCX, reverse SVG to the two ventricular branches of the right Ischemic cardiomyopathy (Chronic) Chronic ulcer of left leg, 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) Dyslipidemia (Chronic) 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) CAB01/22/2000 NGO to LAD, reverse SVG as a sequential graft to DX and LCX, reverse SVG to the two ventricular branches of the right Hypertension (Chronic) Anemia (Chronic) Hospital Course and Treatment Consultations 11/19/17 11:43 Consult: Onc/Wound/routing clerk Routine Comment: Reason for Consult:: Leg wound, Head laceration Operations: None Summary of Care Provided: [] The patient is a 81 year old M with multiple comorbidities including paroxysmal A. fib on Eliquis 2.5 mg twice daily, chronic systolic heart failure with marked lower extremity edema was brought in to ER by squad after he had fall and hit his head on the TV stand. He said he did not feel dizzy, lightheaded or arrhythmia but he lost the balance that caused a fall. He had multiple, about 6 surgeries in the left knee and thigh including myocutaneous flap/graft artery after he had kneecap fracture and then infection possible septic arthritis in the past. In ED, his blood pressure was low 107/68, heart rate 82 but no hypoxia. Per ER physician, Dr. Lind he had about 12 cm laceration on left frontoparietal area for he had a oni. Later on in the ER dressing was soaked with blood and was found that he has arterial bleed which was tied and bleeding was controlled. CT head does not show intracranial bleed. Chest x-ray shows bilateral pleural effusion and scarring and atelectasis. H AND H dropped from 9.8 g percent to 8.4%. The patient had 1 L of normal saline bolus in the ER. Patient was seen and examined. H AND H is stable. Denies near syncope symptoms. General: Alert, Oriented x3, Cooperative HEENT: Atraumatic, PERRLA, EOMI, Normocephalic Neck: Supple, No JVD, Negative Carotid Bruits Lungs: Clear to auscultation, Normal air movement Cardiovascular: Regular rate, Normal S1, Normal S2, No murmurs Abdomen: Bowel Sounds Present, Soft, Non Tender, Non-Distended Extremities: No edema, Capillary Refill Less than 3 Seconds Skin: Ulcer/ Wound - Large stapled lacerated wound in left frontoparietal region. No active bleeding Musculoskeletal: No Tenderness to Palpation of Joints or Extremities Neurological: Cranial nerves II-XII grossly intact, Neuro grossly intact Psych/Mental Status: Normal Affect, Appropriate 1. Fall with major scalp laceration with active arterial bleed, consistent with head injury; present on admission: Seems fall was mainly mechanical after he lost balance on walker. Denies near syncope or syncope symptoms. PT and OT was done and patient walked good. Does not require SNF placement as per PT recommendation. 2. Acute blood loss anemia secondary to scalp laceration and external hemorrhage: Hemoglobin dropped from 9.8-7.5 and and had 2 units of PRBC transfusion over 2 days. Posttransfusion H AND H 9.6 and 8.8 g percent. Patient was given 200 grams IV Venofer. Patient had adequate resuscitation. Patient was resumed on diuretics. Monitor intake and output. 3. Cardiac disease: Coronary artery disease status post CABG, paroxysmal A. fi status post cardioversion in 1999 and chronic systolic heart failure: Currently, denies active chest symptoms. On cafeteria monitor. Twelve-lead EKG ordered. Troponin ordered. Aspirin and Eliquis on hold in view of major hemorrhage. 2D echo done in June 2017 shows EF 47% with normal LV size. Left atrium mildly enlarged RA mildly enlarged. Normal RV size and systolic function. Mild TR, RVSP 28 mmHg. Mild eccentric MR. Mild diffuse mitral valve thickening with mild annular calcification. Mild diffuse aortic wall thickening. 4. Subacute/chronic diarrhea; most probably from stool softener/laxative: Stool for occult blood and lactoferrin negative. 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 Hold antihypertensive medication. Blood pressure profile is better today. DVT prophylaxis on bilateral SCDs. Pharmacological prophylaxis contraindicated. Patient follows Dr. reddy. Via great holding aspirin aspirin for 5 days and Eliquis for 7 days. Follow with PCP in 1-[address] Reddy. Prescription for ferrous sulfate given. Discharge medication reconciliation done. Discharge follow- up instructions completed. Total time spent, exact 35 minutes on discharge meds reconciliation, examination, review of imaging and blood test and discussion with the patient on follow-up instructions. Discharge Activity: May Not Drive Home Medications: Medications to take at Discharge acetaminophen 325 mg tablet 650 mg PO Q4H PRN 08/08/17 atorvastatin 20 mg tablet 20 mg PO QDAY 08/08/17 carvedilol 6.25 mg tablet 6.25 mg PO BID 08/08/17 pantoprazole 40 mg tablet,delayed release 40 mg PO QDAY 08/08/17 Citalopram [Celexa] 10 mg PO DAILY 09/27/17 Furosemide [Lasix] 80 mg PO DAILY 11/19/17 Apixaban [Eliquis] 2.5 mg PO BID #180 tab 11/21/17 Aspirin [Aspirin, Baby] 81 mg PO DAILY@0800 #30 tab.chew 11/21/17 Ferrous Sulfate [Iron] 325 mg PO DAILY #60 tab 11/21/17 Following Prescrptions Were Given to Patient: Ferrous Sulfate [Iron] 325 mg PO DAILY #60 tab Primary Care Physician: Hardik Puga Chi, MD [Primary Care Provider] - Please follow up with your Primary Care Physician in: [place] 1- 2 weeks Please Follow Up With: Ko Reddy MD When: big lac wound on eliquis Medical Necessity - Tobacco Use Smoking Status: Never smoker Meaningful Use Info Meaningful Use Diagnoses (Choose all that apply): None applicable Code Visit Inpatient E RADHIKA M: [id number] Disch Hosp 11/22/17 1609 <Electronically signed by Hong Kaplan MD> Date Hong Kaplan MD Cosigner Signature (if applicable): Date CC: Hong Kaplan MD; Hardik Puga MD Signed DISCHARGE INSTRUCTION Observed: 11/21/2017 Status: F Source: [place] 10:56 AM [facility] [place] [facility] Medical Records Department [address] [place] [address] Instructions for Home/Discharge Instructions 11/21/17 1053 MR#: [id number] Acct: [id number] Name: LOANKEIKO Rep #: [id number] : 1935 81 From: Hong Kaplan MD PCP: Hardik Puga MD, Chi Status: ADM IN - Discharge Diagnoses Current Active Problems: Current Active and Chronic Problems (Last Reviewed 10/02/17 @ 11:33 by Meredith Velasquez) Acute blood loss anemia (Acute) Scalp laceration with hemorrhage (Acute) Fall (Acute) You will use the following diet at home:: Cardiac Your food should be the consistency of: Regular Discharge Activity: May Not Drive Additional Instructions: Outpatient PT and OT rehab. Need removal of scalp oni after 6 days Allergies/Adverse Reactions: Allergies No Known Allergies Allergy (Verified 10/02/17 11:34) Medications to take at Discharge acetaminophen 325 mg tablet 650 mg PO Q4H PRN 08/08/17 atorvastatin 20 mg tablet 20 mg PO QDAY 08/08/17 carvedilol 6.25 mg tablet 6.25 mg PO BID 08/08/17 pantoprazole 40 mg tablet,delayed release 40 mg PO QDAY 08/08/17 Citalopram [Celexa] 10 mg PO DAILY 09/27/17 Furosemide [Lasix] 80 mg PO DAILY 11/19/17 Apixaban [Eliquis] 2.5 mg PO BID #180 tab 11/21/17 Aspirin [Aspirin, Baby] 81 mg PO DAILY@0800 #30 tab.chew 11/21/17 Ferrous Sulfate [Iron] 325 mg PO DAILY #60 tab 11/21/17 The following prescriptions were given: Ferrous Sulfate [Iron] 325 mg PO DAILY #60 tab Primary Care Physician: Hardik Puga Chi, MD [Primary Care Provider] - Please follow up with your Primary Care Physician in: [place] 1- 2 weeks Please Follow Up With: Ko Reddy MD When: big lac wound on eliquis 11/21/17 1056 <Electronically signed by Hong Kaplan MD> Date Hong Kaplan MD CC: Hardik Puga MD CBC W/DIFF, AUTOMATED Collected: 11/21/2017 Status: F Source: [place] 5:30 AM [facility] [place] TYPE CODE TESTS RESULT OUT OF RANGE REFERENCE UNITS LAB L100.1000 4.4-11.0 K/mm3 Normal WBC 6.3 LAB L100.1200 4.6-6.2 M/mm3 Low RBC 3.17 LAB L100.1300 13.0-16.5 g/dl Low HGB 8.8 LAB L100.1400 40-54 % Low HCT 27.9 LAB L100.1500 80-94 fL Normal MCV 88.0 LAB L100.1600 27.0-32.0 pg Normal MCH 27.8 LAB L100.1700 32-36 g/gl Low MCHC 31.5 LAB L100.1810 11.6-14.6 % High RDW CV 18.5 LAB L100.1820 35.1-43.9 fl High RDW SD 57.5 LAB L100.1900 150-450 K/mm3 Normal PLT 159 LAB L100.2000 6.2-12.0 fl Normal MPV 10.7 LAB L100.2100 47-70 % High NEUT% 70.2 LAB L100.2200 19-41 % Low LY% 18.4 LAB L100.2300 0-10 % Normal MONO% 10.0 LAB L100.2400 0-5 % Normal EO% 1.1 LAB L100.2500 0-1 % Normal BASO% 0.0 LAB L100.2550 0.0-0.9 % Normal IM GRAN % 0.300 Result Comment: IG% - Immature Granulocytes (promyelocytes, myelocytes and metamyelocytes) > 1% indicates that a LEFT SHIFT is Present. LAB L100.2620 2.0-7.7 X10 3/uL Normal Absolute Neut 4.4 LAB L100.2720 0.83-4.51 X10 3/ul Normal Absolute Lymph 1.16 Performed By: #### L100.0100 #### [facility] [address] [place], [place], [address] BASIC METABOLIC Collected: 11/21/2017 Status: F Source: [place] PROFILE (BMP) 5:30 AM [facility] [place] [facility] TYPE CODE TESTS RESULT OUT OF RANGE REFERENCE UNITS LAB L501.0100 74-106 mg/dL High GLU 145 Result Comment: Fasting Glucose result greater than or equal to 126 mg/dL suggests DIABETES MELLITUS per A.D.A. criteria. Please note revised GLUCOSE reference range effective 2017. LAB L501.1000 7-18 mg/dL High BUN 27 LAB L501.1100 0.70-1.30 mg/dL Normal CREAT,SERUM 1.26 Result Comment: The validity of the calculated GFR AND GFRAA in patients over 70 years has not been determined. Clinical correlation is essential. LAB L501.1110 >60 mL/min Low EST GFR 58 Result Comment: Non- GFR Calc LAB L501.1115 >60 mL/min Normal EST GFR - AA 70 Result Comment: GFR Calc LAB L501.1255 ml/min Normal Estimated CRCL 49.61 LAB L501.1300 10-20 RATIO High BUN/CRE 21.4 LAB L501.2200 8.5-10 mg/dL Normal .1 CA 8.6 LAB L501.5300 136-14 mmol/L Normal 5 NA 141 LAB L501.5600 3.5-5. mmol/L Normal 1 K 4.2 LAB L501.5900 98-107 mmol/L Normal CL 105 LAB L501.6100 21.0-3 mmol/L Normal 2.0 CO2 28.0 LAB L501.6200 5-15 Normal GAP 8 Performed By: #### L500.2500 #### [facility] [address] [place], [address] HH, HEMOGLOBIN AND Collected: 11/20/2017 Status: F Source: [place] HEMATOCRIT 8:19 PM [facility] [place] Order Comment: Comments: Posttransfusion H AND H after second unit TYPE CODE TESTS RESULT OUT OF RANGE REFERENCE UNITS LAB L100.1300 13.0-16.5 g/dl Low HGB 9.6 LAB L100.1400 40-54 % Low HCT 29.8 Performed By: #### L100.0600 #### [facility] [place], [address] STOOL Observed: 11/20/2017 Status: F Source: [place] LACTOFERRIN/WBC 1:10 PM [facility] Stool Lacto/WBC Normal Reference Range = Negative Fecal WBC Lactoferrin Negative: No Fecal WBC Lactoferrin present Performed By: #### M100.0605 #### [facility] [place], [address] Observed: 11/20/2017 Status: F Source: [place] STOOL OCCULT BLOOD 1:10 PM [facility] [place] STOB iFOB Occult Blood Negative Performed By: #### M100.7900 #### [facility] [place], [address] Observed: 11/20/2017 Status: F Source: [place] CDIFF (MOLECULAR) 1:10 PM [facility] Cdiff-Molecular Normal Reference Range = Negative C. Diff DNA Negative- No toxigenic C. Diff DNA Detected NAAT METHOD Testing was performed using nucleic acid amplification Performed By: #### M100.6796 #### [facility] [place], [address] HISTORY AND PHYSICAL Observed: 11/20/2017 Status: F Source: [place] EXAM 7:27 AM [facility] [place] Medical Records Department [address] [place] [id number] History and Physical 11/19/17 1140 MR#: [id number] Acct: [id number] Name: KEIKO GARCIA Rep #: [id number] : 1935 81 From: Hong Kaplan MD PCP: Hardik Puga MD, Chi Status: ADM IN Y Location: [place] [address] ADDENDUM by Hong Kaplan MD on 11/20/17 at 0727 Code Visit Back note from 11/19/2017 The patient is status was changed to inpatient at the time of admission from director of casework. 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 Qualified Code(s): D50.0 - Iron deficiency anemia secondary to blood loss (chronic) (4) Atherosclerosis of hughes coronary artery of hughes heart without angina pectoris Status: Chronic Comment: CABG 01/22/2000 NGO to LAD, reverse SVG as a sequential graft to DX and LCX, reverse SVG to the two ventricular branches of the right (5) Bilateral lower extremity edema Status: Chronic (6) Chronic systolic (congestive) heart failure Status: Chronic (7) Chronic ulcer of left leg, limited to breakdown of skin Status: Chronic (8) Coronary artery disease involving autologous artery coronary bypass graft Status: Chronic Qualifiers: Comment: CAB01/22/2000 NGO to LAD, reverse SVG as a sequential graft to DX and LCX, reverse SVG to the two ventricular branches of the right (9) Dyslipidemia Status: Chronic (10) Hypertension Status: Chronic Qualifiers: Hypertension type: essential hypertension Qualified Code(s): I10 - Essential (primary) hypertension (11) Ischemic cardiomyopathy Status: Chronic (12) Paroxysmal atrial fibrillation Status: Chronic Comment: [facility] January 2000; (13) Fall Status: Acute History of Present Illness Date of Admission: 11/19/17 Chief Complaint: Fall and head injury The patient is a 81 year old M with multiple comorbidities including paroxysmal A. fib on Eliquis 2.5 mg twice daily, chronic systolic heart failure with marked lower extremity edema was brought in to ER by squad after he had fall and hit his head on the TV stand. He said he did not feel dizzy, lightheaded or arrhythmia but he lost the balance that caused a fall. He had multiple, about 6 surgeries in the left knee and thigh including myocutaneous flap/graft artery after he had kneecap fracture and then infection possible septic arthritis in the past. In ED, his blood pressure was low 107/68, heart rate 82 but no hypoxia. Per ER physician, Dr. Lind he had about 12 cm laceration on left frontoparietal area for he had a oni. Later on in the ER dressing was soaked with blood and was found that he has arterial bleed which was tied and bleeding was controlled. CT head does not show intracranial bleed. Chest x-ray shows bilateral pleural effusion and scarring and atelectasis. H AND H dropped from 9.8 g percent to 8.4%. Past Medical History Past Medical History (Chronic Problems): Chronic Problems (Last Reviewed 10/02/17 @ 11:33 by Meredith Velasquez) Bilateral lower extremity edema (Chronic) Chronic systolic (congestive) heart failure (Chronic) Paroxysmal atrial fibrillation (Chronic) [facility] January 2000; Atherosclerosis of hughes coronary artery of hughes heart without angina pectoris (Chronic) CABG 01/22/2000 NGO to LAD, reverse SVG as a sequential graft to DX and LCX, reverse SVG to the two ventricular branches of the right Ischemic cardiomyopathy (Chronic) Chronic ulcer of left leg, 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) Dyslipidemia (Chronic) 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) CAB01/22/2000 NGO to LAD, reverse SVG as a sequential graft to DX and LCX, reverse SVG to the two ventricular branches of the right Hypertension (Chronic) Anemia (Chronic) Allergies No Known Allergies Allergy (Verified 10/02/17 11:34) Home Medications: Ambulatory Orders Medication Instructions Recorded Aspirin [Aspirin, Baby] 81 mg PO DAILY@0800 #30 tab.chew 10/10/14 acetaminophen 325 mg tablet 650 mg PO Q4H PRN 08/08/17 Surgical History: coronary bypass surgery, - Smoking Status: Never smoker - *Family History Paternal History Items: High Cholesterol, Heart Disease, Hypertension, - Review of Systems Constitutional: Denies: Chills, Fever, Weight Change HEENT: Reports: Head Aches. Denies: Sinus Congestion, Sinus Drainage Cardiovascular: Denies: Chest Pain, Palpitations Respiratory: Denies: Cough, Shortness of breath at rest, Sputum production Gastrointestinal: Denies: Abdominal Pain, Nausea, Vomiting Genitourinary: Denies: Dysuria Musculoskeletal: Reports: Joint Pain. Denies: Joint Tenderness Skin: Denies: Rash, Wounds Neurological: Denies: Numbness, Tingling, Focal weakness Psychiatric: Denies: Anxiety, Depression, Homicidal Ideations, Suicidal Ideations Hematologic/ Lymphatic: Reports: Easy Bruising, Easy Bleeding VTE Information - Inpt Only VTE Present on Admission: No VTE Pharm Prophylaxis ordered?: No Reason prophylaxis not ordered:: Medical Contraindication - Active scalp hemorrhage Patient Problems: Active and Suspected Problems (Last Reviewed 10/02/17 @ 11:33 by Meredith Velasquez) Acute blood loss anemia (Acute) Scalp laceration with hemorrhage (Acute) Fall (Acute) - Physical Exam General: Alert, Oriented x3, Cooperative HEENT: Atraumatic, PERRLA, EOMI, Normocephalic Oral: Dry Mucosa Neck: Supple, No JVD, Negative Carotid Bruits Lungs: Clear to auscultation, Diminished - In both lower lobes of lung Cardiovascular: Normal S1, Normal S2, No murmurs, Irregular Rate, - - CABG scar Abdomen: Bowel Sounds Present, Soft, Non Tender, Non-Distended Extremities: Capillary Refill Less than 3 Seconds, Edema Skin: - - Scar promise of chronic wound with myocutaneous flap at left knee joint and thigh Musculoskeletal: No Tenderness to Palpation of Joints or Extremities, Arthritic Changes Neurological: Cranial nerves II-XII grossly intact, - - No obvious signs of a stroke including new or exacerbated muscle weakness, numbness or tingling or hemianopia, diplopia or dysarthria or dysphagia Psych/Mental Status: Normal Affect, Appropriate Vital Signs Temp Pulse Resp BP Pulse Ox 98.5 F 91 17 106/58 L 96 11/19/17 10:55 11/19/17 10:55 11/19/17 10:55 11/19/17 10:55 11/19/17 10:55 Oxygen Delivery Method Room Air Weight: 178 lb 5.663 oz Body Mass Index (BMI) 24.2 Assessment/Plan Active and Suspected Problems (Last Reviewed 10/02/17 @ 11:33 by Meredith Velasquez) Acute blood loss anemia (Acute) Scalp laceration with hemorrhage (Acute) Fall (Acute) The patient is a 81 year old M with multiple comorbidities including paroxysmal A. fib on Eliquis 2.5 mg twice daily, chronic systolic heart failure with marked lower extremity edema was brought in to ER by squad after he had fall and hit his head on the TV stand. He said he did not feel dizzy, lightheaded or arrhythmia but he lost the balance that caused a fall. He had multiple, about 6 surgeries in the left knee and thigh including myocutaneous flap/graft artery after he had kneecap fracture and then infection possible septic arthritis in the past. In ED, his blood pressure was low 107/68, heart rate 82 but no hypoxia. Per ER physician, Dr. Lind he had about 12 cm laceration on left frontoparietal area for he had a oni. Later on in the ER dressing was soaked with blood and was found that he has arterial bleed which was tied and bleeding was controlled. CT head does not show intracranial bleed. Chest x-ray shows bilateral pleural effusion and scarring and atelectasis. H AND H dropped from 9.8 g percent to 8.4%. The patient had 1 L of normal saline bolus in the ER 1. Fall with major scalp laceration consistent with head injury: Seems fall was mainly mechanical after he lost balance on walker. Denies near syncope or syncope symptoms. 2. Cardiac disease: Coronary artery disease status post CABG, paroxysmal A. fi status post cardioversion in 1999 and chronic systolic heart failure: Currently, denies active chest symptoms. On cafeteria monitor. Twelve-lead EKG ordered. Troponin ordered. Aspirin and Eliquis on hold in view of major hemorrhage. 2D echo done in June 2017 shows EF 47% with normal LV size. Left atrium mildly enlarged RA mildly enlarged. Normal RV size and systolic function. Mild TR, RVSP 28 mmHg. Mild eccentric MR. Mild diffuse mitral valve thickening with mild annular calcification. Mild diffuse aortic wall thickening. Resume Lasix from tomorrow. 3. Acute blood loss anemia secondary to scalp laceration and external hemorrhage: H AND H monitoring every 6 hourly and if hemoglobin drops less than 8 g percent we will transfuse PRBC. On IV fluid normal saline 100 mL/h. Monitor intake and output. Avoid fluid overload/pulmonary edema as he has heart failure. 4. 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 Blood pressure is running on the lower side. Hold antihypertensive medication. DVT prophylaxis on bilateral SCDs. Pharmacological prophylaxis contraindicated This note was generated with [employer] dictation software. Every effort was made to ensure accuracy, however computerized creel operator mistakes may persist. Code Visit Inpatient E AND M: [id number] Init Hosp L3 11/19/17 1214 <Electronically signed by Hong Kaplan MD> Date Hong Kaplan MD Cosigner Signature: Date (if applicable) CC: Hong Kaplan MD; Hardik Puga MD Signed CBC-COMPLETE BLOOD CNT Collected: 11/20/2017 Status: F Source: [place] NO DIFF 5:10 AM [facility] [place] [facility] TYPE CODE TESTS RESULT OUT OF RANGE REFERENCE UNITS LAB L100.1000 4.4-11.0 K/mm3 Normal WBC 7.0 LAB L100.1200 4.6-6.2 M/mm3 Low RBC 2.92 LAB L100.1300 13.0-16.5 g/dl Low HGB 8.2 LAB L100.1400 40-54 % Low HCT 25.5 LAB L100.1500 80-94 fL Normal MCV 87.3 LAB L100.1600 27.0-32.0 pg Normal MCH 28.1 LAB L100.1700 32-36 g/gl Normal MCHC 32.2 LAB L100.1810 11.6-14.6 % High RDW CV 18.5 LAB L100.1820 35.1-43.9 fl High RDW SD 58.0 LAB L100.1900 150-450 K/mm3 Normal PLT 159 LAB L100.2000 6.2-12.0 fl Normal MPV 10.2 Performed By: #### L100.0500 #### [facility] [address] [place], [address] BASIC METABOLIC Collected: 11/20/2017 Status: F Source: [place] PROFILE (BMP) 5:10 AM [facility] [place] [facility] TYPE CODE TESTS RESULT OUT OF RANGE REFERENCE UNITS LAB L501.0100 74-106 mg/dL High GLU 138 Result Comment: Fasting Glucose result greater than or equal to 126 mg/dL suggests DIABETES MELLITUS per A.D.A. criteria. Please note revised GLUCOSE reference range effective 2017. LAB L501.1000 7-18 mg/dL High BUN 29 LAB L501.1100 0.70-1.30 mg/dL High CREAT,SERUM 1.36 Result Comment: The validity of the calculated GFR AND GFRAA in patients over 70 years has not been determined. Clinical correlation is essential. LAB L501.1110 >60 mL/min Low EST GFR 53 Result Comment: Non- GFR Calc LAB L501.1115 >60 mL/min Normal EST GFR - AA 64 Result Comment: GFR Calc LAB L501.1255 ml/min Normal Estimated CRCL 45.96 LAB L501.1300 10-20 RATIO High BUN/CRE 21.3 LAB L501.2200 8.5-10 mg/dL Low .1 CA 8.3 LAB L501.5300 136-14 mmol/L Normal 5 NA 143 LAB L501.5600 3.5-5. mmol/L Normal 1 K 4.1 LAB L501.5900 98-107 mmol/L Normal CL 107 LAB L501.6100 21.0-3 mmol/L Normal 2.0 CO2 27.0 LAB L501.6200 5-15 Normal GAP 9 Performed By: #### L500.2500 #### [facility] [address] [facility] [place], [address] MAGNESIUM Collected: 11/20/2017 Status: F Source: [place] 5:10 AM [facility] [place] [facility] TYPE CODE TESTS RESULT OUT OF RANGE REFERENCE UNITS LAB L501.5200 1.6-2.6 mg/dL Normal MG 2.1 Performed By: #### L501.5200 #### [facility] [address] [place], [address] HH, HEMOGLOBIN AND Collected: 11/20/2017 Status: F Source: [place] HEMATOCRIT 12:49 AM [facility] [place] [facility] TYPE CODE TESTS RESULT OUT OF RANGE REFERENCE UNITS LAB L100.1300 13.0-16.5 g/dl Low HGB 8.3 LAB L100.1400 40-54 % Low HCT 26.0 Performed By: #### L100.0600 #### [facility] [address] [place], [address] BRAIN/HEAD WITHOUT Observed: 11/20/2017 Status: F Source: [place] CONTRAST 12:00 AM [facility] [place] Imaging Services [address] [place] [address] Brain/Head without Contrast MR#: [id number] Acct: [id number] Name: KEIKO GARCIA Rep #: [id number] : 1935 M 81 From: Carlos Moore DO PCP: Edd WALDRON,Hardik Escalona Status: ADM IN Study: Brain/Head without Contrast Date of Exam: 11/20/17 Exam# [id number] Ordering Dr: Hong Kaplan MD STUDY: CT BRAIN WITHOUT CONTRAST REASON FOR EXAM: Male, 81 years old. Trauma, status post fall RADIATION DOSAGE (If Supplied By Facility): CTDIvol = ( 44.99 ) mGy, DLP = ( 762.36 ) mGycm TECHNIQUE: Transaxial CT imaging of the brain was performed without administration of intravenous contrast material. Sagittal and coronal reconstructed images are provided and reviewed. Individualized dose optimization techniques were used for this CT. COMPARISON: 11/19/2017 FINDINGS: Oni project over the left frontal and parietal scalp. Normal calvarium. There is mild cerebral atrophy with widening of the extra- axial spaces and ventricular dilatation. There are areas of decreased attenuation within the white matter tracts of the supratentorial brain, consistent with microvascular disease changes. Normal basal ganglia and thalami. Normal brainstem. Normal cerebellum. There is no intracranial hemorrhage. There are no findings of an acute ischemic infarction. Normal visualized paranasal sinuses. CT/Brain/Head without Contrast IMPRESSION: Chronic involutional changes. No acute intracranial abnormality. Oni are seen along the left scalp laceration. Electronically Signed: Carlos Moore DO at 8:21 EDT Tel , Service support , CC: Hong Kaplan MD; Hardik Puga MD Machine Operator Picker: Signed HH, HEMOGLOBIN AND Collected: 11/19/2017 Status: F Source: [place] HEMATOCRIT 7:14 PM [facility] [place] TYPE CODE TESTS RESULT OUT OF RANGE REFERENCE UNITS LAB L100.1300 13.0-16.5 g/dl Low HGB 7.5 LAB L100.1400 40-54 % Low HCT 23.9 Performed By: #### L100.0600 #### [facility] [address] [place], [address] EMERGENCY DEPARTMENT Observed: 11/19/2017 Status: F Source: [place] SUMMARY 4:19 PM [facility] [place] [facility] Medical Records Department [address] [place] [address] Emergency Department Summary 11/19/17 0745 MR#: [id number] Acct: [id number] Name: KEIKO GARCIA Rep #: [id number] : 1935 81 From: Aracelis Miller MD PCP: Edd WALDRON,Hardik Escalona Status: ADM ENEIDA - ER Visit Summary Date of Service: 11/19/17 Chief Complaint: Head injury History of Present Illness: The patient is a 81 M who presents via EMS with head injury. Patient states he got up to walk to the bathroom early this morning and fell, striking his head on a TV stand. He has a large laceration noted to the left side of his head. He denies loss of consciousness. Other than headache he denies any other complaints. Patient is currently on blood thinners and per computer report appears to be Eliquis. Physical Examination: Vital signs are unremarkable. Head neck examination reveals saturated dressing placed around the head. He has no C-spine tenderness. Heart is irregular. Lung sounds are clear. Abdomen is soft nontender. Neuro exam reveals no focal deficits. Test Results: CBC is significant for hemoglobin of 9.8 and hematocrit of 30.9. Hemoglobin was 11.1 in October. Chemistry studies reveal mild renal insufficiency with a creatinine 1.32. His INR is 1.7 and PTT is 38.2. Emergency Department Course and Treatment: Suture setup is undertaken and dressing is slowly pulled down from his wound. He appears to have a 12 cm laceration. Wound is injected with lidocaine with epinephrine locally. Wound is stapled and Surgifoam was placed over the wound with dressing. Patient was given a liter of IV fluids. On repeat evaluation blood has soaked through the dressing. It is taken back down and 3 oni were removed from the wound. Arterial bleeders were noted and tied off. Dressing is replaced. Repeat hemoglobin is obtained and is 8.2. On final repeat evaluation at this time dressing is dry. Blood pressure and heart rate have remained stable throughout his stay. I have recommended observation to monitor his hemoglobin counts and wound. Type and screen order has been placed. Dr. Kaplan presented to the emergency room to evaluate the patient. He will admit the patient to PCU for further monitoring. Treatment Plan: [] Disposition: Admit Impression: 1. Mechanical fall 2. Closed head injury 3. Scalp laceration 4. Anemia 5. Coagulopathy secondary to Eliquis This note was generated with Dragon dictation software. It may contain incorrect words, spelling, and punctuation that were not noted in review of the chart prior to signing ED Disposition - Plan for ED Patient: Chief Complaint: Laceration Referrals: Hardik Puga Chi, MD [Primary Care Provider] - What to do if you have Problems For any increased pain, shortness of breath, bleeding, nausea or vomiting, chest pain, or any unexpected problems, contact your Primary Care Provider. Call [facility] ([phone]) or report to the closest Emergency Room. Call 911 if necessary. 11/19/17 1619 <Electronically signed by Aracelis Miller MD> Date Aracelis Miller MD Cosigner Signature (If Indicated): Date CC: Hardik Puga MD HH, HEMOGLOBIN AND Collected: 11/19/2017 Status: F Source: [place] HEMATOCRIT 1:05 PM [facility] [place] TYPE CODE TESTS RESULT OUT OF RANGE REFERENCE UNITS LAB L100.1300 13.0-16.5 g/dl Low HGB 7.7 LAB L100.1400 40-54 % Low HCT 25.0 Performed By: #### L100.0600 #### [facility] [address] [place], [address] CHEST 1 VIEW Observed: 11/19/2017 Status: F Source: [place] (PORTABLE) 11:17 AM [facility] [place] [facility] Imaging Services [address] [place] [address] Chest 1 View (Portable) MR#: [id number] Acct: [id number] Name: KEIKO GARCIA Rep #: [id number] : 1935 M 81 From: Carlos Moore DO PCP: Hardik Puga MD, Chi Status: ADM ENEIDA Study: Chest 1 View (Portable) Date of Exam: 11/19/17 Exam# [id number] Ordering Dr: Hong Kaplan MD STUDY: X-RAY CHEST REASON FOR EXAM: Male, 81 years old. Pleural effusion TECHNIQUE: Single AP portable view of the chest. COMPARISON: 09/27/2017 FINDINGS: Cardiac monitoring leads overlie the chest. The lungs are clear and expanded. There are bilateral pleural effusions. Sternal cerclage wires and vascular clips are present from a prior sternotomy and coronary artery bypass graft procedure (CABG). Normal mediastinum and johny. Normal visualized pulmonary arteries. Normal visualized aortic arch and descending thoracic aorta. Normal visualized thoracic spine. Normal visualized ribs, clavicles, and shoulders. There is no demonstrated abnormality of the visualized soft tissue structures of the upper abdomen. RAD/Chest 1 View (Portable) IMPRESSION: Bilateral pleural effusions. Postoperative changes of coronary artery bypass graft. Electronically Signed: Carlos Moore DO at 12:24 EDT Tel , Service support , CC: Hong Kaplan MD; Hardik Puga MD Machine Operator Picker: Signed HEMOGLOBIN Collected: 11/19/2017 Status: F Source: [place] 9:20 AM [facility] [place] TYPE CODE TESTS RESULT OUT OF RANGE REFERENCE UNITS LAB L100.1300 13.0-16.5 g/dl Low HGB 8.4 Performed By: #### L100.1300 #### [facility] [address] [place], [place], [address] SPINE CERVICAL Observed: 11/19/2017 Status: F Source: [place] WITHOUT CONTRAS 7:22 AM [facility] [place] [facility] Imaging Services [address] [place] [address] Spine Cervical without Contras MR#: [id number] Acct: [id number] Name: KEIKO GARCIA Rep #: [id number] : 1935 M 81 From: Camilo Deras MD PCP: Edd WALDRON,[employer] Status: REG ER Study: Spine Cervical without Contras Date of Exam: 11/19/17 Exam# [id number] Ordering Dr: Aracelis Miller MD STUDY: CT CERVICAL SPINE WITHOUT CONTRAST REASON FOR EXAM: Male, 81 years old. History of fall. Large left scalp laceration. RADIATION DOSAGE (If Supplied By Facility): CTDIvol = ( 21.93 ) mGy, DLP = ( 401.10 ) mGycm TECHNIQUE: High resolution transaxial imaging was performed without contrast material. Sagittal and coronal images were reconstructed. Individualized dose optimization techniques were used for this CT. COMPARISON: None FINDINGS: Normal craniovertebral junction. Normal anterior atlantoaxial articulation. Normal odontoid process. Normal cervical lordosis. Multilevel spondylosis. C2-3: Moderate degree of disc space narrowing. Spondylosis. Uncovertebral arthrosis. Facet joint osteoarthritis. C3-4: Marked degree of disc space narrowing with spondylosis and uncovertebral arthrosis. Facet joint osteoarthritis. Bilateral neural foraminal stenosis. C4-5: Marked degree of disc space narrowing with spondylosis and uncovertebral arthrosis. Facet joint osteoarthritis and hypertrophy with the neural foraminal stenosis bilaterally. C5-6: Marked degree of disc space narrowing with spondylosis. Uncovertebral arthrosis. Bilateral neural foraminal stenosis. Facet joint osteoarthritis and hypertrophy. C6-7: Marked degree of narrowing. Spondylosis. Uncovertebral arthrosis and facet joint osteoarthritis. C7-T1: Marked degree of disc space narrowing with spondylosis. Facet joint osteoarthritis. Atherosclerotic plaque seen in the right vertebral artery and the carotid bifurcations bilaterally. Bilateral pleural effusions with the scarring in the upper lobes. CT/Spine Cervical without Contras IMPRESSION: Multilevel degenerative changes, as described above. Bilateral pleural effusions and scarring in both upper lobes. Electronically Signed: Camilo Deras MD at 8:32 EDT Tel [phone], Service support , CC: Aracelis Miller MD; Hardik Puga MD Machine Operator Picker: Signed BRAIN/HEAD WITHOUT Observed: 11/19/2017 Status: F Source: [place] CONTRAST 7:22 AM [facility] [place] [facility] Imaging Services [address] [place] [address] Brain/Head without Contrast MR#: [id number] Acct: [id number] Name: KEIKO GARCIA Rep #: [id number] : 1935 M 81 From: Camilo Deras MD PCP: Hardik Puga MD, Chi Status: REG ER Study: Brain/Head without Contrast Date of Exam: 11/19/17 Exam# [id number] Ordering Dr: Aracelis Miller MD STUDY: CT BRAIN WITHOUT CONTRAST REASON FOR EXAM: Male, 81 years old. History of fall. Large left scalp laceration. RADIATION DOSAGE (If Supplied By Facility): CTDIvol = ( 44.99 ) mGy, DLP = ( 779.24 ) mGycm TECHNIQUE: Transaxial CT imaging of the brain was performed without administration of intravenous contrast material. Individualized dose optimization techniques were used for this CT. COMPARISON: Comparison is made with prior study dated October 09, 2014. FINDINGS: There is evidence of scalp laceration with oni overlying the left frontal parietal bone. Normal calvarium. There is mild cerebral atrophy with widening of the extra- axial spaces and ventricular dilatation. There are areas of decreased attenuation within the white matter tracts of the supratentorial brain, consistent with microvascular disease changes. Normal basal ganglia and thalami. Normal brainstem. Normal cerebellum. There is no intracranial hemorrhage. There are no findings of an acute ischemic infarction. Atherosclerotic calcification of the vertebral arteries and cavernous portions of the internal carotid arteries bilaterally. Normal visualized paranasal sinuses. CT/Brain/Head without Contrast IMPRESSION: Chronic involutional changes of the brain. Scalp laceration with metallic sutures overlying the left frontal parietal bones. Electronically Signed: Camilo Deras MD at 8:46 EDT Tel [phone], Service support , CC: Aracelis Miller MD; Hardik Puga MD Machine Operator Picker: Signed CBC W/DIFF, AUTOMATED Collected: 11/19/2017 Status: F Source: [place] 7:05 AM [facility] [place] TYPE CODE TESTS RESULT OUT OF RANGE REFERENCE UNITS LAB L100.1000 4.4-11.0 K/mm3 Normal WBC 5.7 LAB L100.1200 4.6-6.2 M/mm3 Low RBC 3.55 LAB L100.1300 13.0-16.5 g/dl Low HGB 9.8 LAB L100.1400 40-54 % Low HCT 30.9 LAB L100.1500 80-94 fL Normal MCV 87.0 LAB L100.1600 27.0-32.0 pg Normal MCH 27.6 LAB L100.1700 32-36 g/gl Low MCHC 31.7 LAB L100.1810 11.6-14.6 % High RDW CV 19.3 LAB L100.1820 35.1-43.9 fl High RDW SD 59.6 LAB L100.1900 150-450 K/mm3 Normal PLT 195 LAB L100.2000 6.2-12.0 fl Normal MPV 10.3 LAB L100.2100 47-70 % Normal NEUT% 63.7 LAB L100.2200 19-41 % Normal LY% 22.6 LAB L100.2300 0-10 % High MONO% 12.1 LAB L100.2400 0-5 % Normal EO% 1.2 LAB L100.2500 0-1 % Normal BASO% 0.2 LAB L100.2550 0.0-0.9 % Normal IM GRAN % 0.200 Result Comment: IG% - Immature Granulocytes (promyelocytes, myelocytes and metamyelocytes) > 1% indicates that a LEFT SHIFT is Present. LAB L100.2620 2.0-7.7 X10 3/uL Normal Absolute Neut 3.6 LAB L100.2720 0.83-4.51 X10 3/ul Normal Absolute Lymph 1.29 Performed By: #### L100.0100 #### [facility] [address] [place], [address] BASIC METABOLIC Collected: 11/19/2017 Status: F Source: [place] PROFILE (BMP) 7:05 AM [facility] [place] TYPE CODE TESTS RESULT OUT OF RANGE REFERENCE UNITS LAB L501.0100 74-106 mg/dL High GLU 126 Result Comment: Fasting Glucose result greater than or equal to 126 mg/dL suggests DIABETES MELLITUS per A.D.A. criteria. Please note revised GLUCOSE reference range effective 2017. LAB L501.1000 7-18 mg/dL High BUN 33 LAB L501.1100 0.70-1.30 mg/dL High CREAT,SERUM 1.32 Result Comment: The validity of the calculated GFR AND GFRAA in patients over 70 years has not been determined. Clinical correlation is essential. LAB L501.1110 >60 mL/min Low EST GFR 55 Result Comment: Non- GFR Calc LAB L501.1115 >60 mL/min Normal EST GFR - AA 67 Result Comment: GFR Calc LAB L501.1255 ml/min Normal Estimated CRCL 44.55 LAB L501.1300 10-20 RATIO High BUN/CRE 25.0 LAB L501.2200 8.5-10 mg/dL Normal .1 CA 8.8 LAB L501.5300 136-14 mmol/L Normal 5 NA 139 LAB L501.5600 3.5-5. mmol/L Normal 1 K 4.6 LAB L501.5900 98-107 mmol/L Normal CL 103 LAB L501.6100 21.0-3 mmol/L Normal 2.0 CO2 30.0 LAB L501.6200 5-15 Normal GAP 6 Performed By: #### L500.2500 #### [facility] [address] [place], [address] PROTHROMBIN TIME W/INR Collected: 11/19/2017 Status: F Source: [place] 7:05 AM [facility] [place] TYPE CODE TESTS RESULT OUT OF RANGE REFERENCE UNITS LAB L300.4150 11.7-14.9 SECONDS High PROTIME 19.8 LAB L300.4200 Normal INR 1.7 Performed By: #### L300.3900, L300.4310 #### [facility] [address] [place], [address] PARTIAL THROMBOPLAST Collected: 11/19/2017 Status: F Source: [place] TIME 7:05 AM [facility] [place] TYPE CODE TESTS RESULT OUT OF REFERENCE UNITS RANGE LAB L300.4310 24.1-36.2 Seconds High PTT 38.2 Performed By: #### L300.3900, L300.4310 #### [facility] [address] [place], [address] TYPE AND SCREEN Collected: 11/19/2017 Status: F Source: [place] 7:05 AM [facility] [place] Order Comment: Reason for Type AND Screen/Red Cells: TRAUMA TYPE CODE TESTS RESULT OUT OF RANGE REFERENCE UNITS LAB B10.0800 A Normal BLOOD TYPE GEL POSITIVE LAB B100.4000 Normal Antibody NEGATIVE Screen Performed By: #### B101.7450 #### [facility] [place], [address] TROPONIN-I Collected: 11/19/2017 Status: F Source: [place] 7:05 AM [facility] [place] Order Comment: 'TROP' Serial specimen #1, #2, #3, or #4: 1 TYPE CODE TESTS RESULT OUT OF RANGE REFERENCE UNITS LAB L501.4010 <0.06 ng/mL Normal < 0.02 TROPONIN-I Result Comment: TROPONIN-I EXPECTED VALUES <0.05 NEGATIVE 0.06 - 0.59 AT RISK OF MO > OR = 0.60 SUGGEST MO Performed By: #### L501.4010 #### [facility] [address] [place], [address] RC Collected: 11/19/2017 Status: F Source: [place] 7:05 AM [facility] [place] TYPE CODE TESTS RESULT OUT OF REFERENCE UNITS RANGE LAB U100.0000 [id number] TRANSFUSED PRODUCT: T AND S with Crossmatch, Red Cells COUNT: 2 Performed By: #### U100.0000 #### [facility] - refer to report for specific site CBC W/DIFF, AUTOMATED Collected: 10/28/2017 Status: F Source: [place] 11:59 AM [facility] [place] TYPE CODE TESTS RESULT OUT OF RANGE REFERENCE UNITS LAB L100.1000 4.4-11.0 K/mm3 Normal WBC 6.8 LAB L100.1200 4.6-6.2 M/mm3 Low RBC 4.09 LAB L100.1300 13.0-16.5 g/dl Low HGB 11.1 LAB L100.1400 40-54 % Low HCT 34.9 LAB L100.1500 80-94 fL Normal MCV 85.3 LAB L100.1600 27.0-32.0 pg Normal MCH 27.1 LAB L100.1700 32-36 g/gl Low MCHC 31.8 LAB L100.1810 11.6-14.6 % High RDW CV 18.9 LAB L100.1820 35.1-43.9 fl High RDW SD 58.8 LAB L100.1900 150-450 K/mm3 Normal PLT 285 LAB L100.2000 6.2-12.0 fl Normal MPV 10.2 LAB L100.2100 47-70 % High NEUT% 72.7 LAB L100.2200 19-41 % Low LY% 16.1 LAB L100.2300 0-10 % Normal MONO% 10.0 LAB L100.2400 0-5 % Normal EO% 1.0 LAB L100.2500 0-1 % Normal BASO% 0.1 LAB L100.2550 0.0-0.9 % Normal IM GRAN % 0.100 Result Comment: IG% - Immature Granulocytes (promyelocytes, myelocytes and metamyelocytes) > 1% indicates that a LEFT SHIFT is Present. LAB L100.2620 2.0-7.7 X10 3/uL Normal Absolute Neut 4.9 LAB L100.2720 0.83-4.51 X10 3/ul Normal Absolute Lymph 1.09 Performed By: #### L100.0100 #### [facility] [address] [place], [place], [address] IRON Collected: 10/28/2017 Status: F Source: [place] 11:59 AM [facility] [place] TYPE CODE TESTS RESULT OUT OF RANGE REFERENCE UNITS LAB L503.6150 65-175 ug/dL Low IRON 60 Performed By: #### L503.6150, L503.6550 #### [facility] [address] [place], [address] FERRITIN Collected: 10/28/2017 Status: F Source: [place] 11:59 AM [facility] [place] TYPE CODE TESTS RESULT OUT OF RANGE REFERENCE UNITS LAB L503.6550 26-388 ng/mL Normal FERRITIN 41 Performed By: #### L503.6150, L503.6550 #### [facility] [address] [place], [address] CARDIOLOGY VISIT Observed: 10/02/2017 Status: F Source: [place] REPORT 12:11 PM [facility] [place] [address] [place] [address] OFFICE VISIT Date of Service: 10/02/17 MR#: [id number] Acct: [id number] Name: KEIKO GARCIA Rep #: [id number] : 1935 Provider: Ko Reddy MD Age/Sex: 81/M Location[place] [facility] [place] Status: Signed HPI HPI Chief Complaint: Follow up visit Details: KEIKO GARCIA, is a 81 M who presents to the office today for a follow-up visit. He was recently in the emergency room and was noted to be in congestive heart failure he was treated with diuretics and discharged home. He is a gentleman with a history of coronary artery disease status post carotid bypass surgery in 1999 he had a left internal mammary artery to the left anterior descending artery saphenous vein graft sequential to the diagonal circumflex artery and saphenous vein graft to right ventricular branches. He also has a history of atrial fibrillation. He unfortunately continues to stay at home by himself and clearly is not able to take care of himself he denies any chest pain but he has had mild shortness of breath as well as pedal edema. He has lost some weight he does not have any palpitations no chest pain no chest heaviness. He has had no dizziness or diaphoresis. He was brought in today by his neighbor. His physical exam demonstrated cachexia clear lung tinoco irregular heart rate and 1+ pitting edema. Intake Vital Signs10/02/17 Height 6 ft 10/02/17 Weight: 187 lb 10/02/17 Body Mass Index (BMI) 25.3 10/02/17 Blood Pressure 90/40 10/02/17 Blood Pressure Location Lt brachial Intake Visit Reasons: ER 3-16, Eliquis AND Lasix changed Accompanied by: neighbor Is patient in pain?: No Allergies No Known Allergies Allergy (Verified 10/02/17 11:34) Medications Aspirin [Aspirin, Baby] 81 mg PO DAILY@0800 #30 tab.chew 10/10/14 [Rx Confirmed 09/27/17] acetaminophen 325 mg tablet 650 mg PO Q4H PRN 08/08/17 [History Confirmed 09/27/17] atorvastatin 20 mg tablet 20 mg PO QDAY 08/08/17 [History Confirmed 09/27/17] carvedilol 6.25 mg tablet 6.25 mg PO BID 08/08/17 [History Confirmed 09/27/17] pantoprazole 40 mg tablet,delayed release 40 mg PO QDAY 08/08/17 [History Confirmed 09/27/17] Citalopram [Celexa] 10 mg PO DAILY 09/27/17 [History Confirmed 09/27/17] Ferrous Sulfate [Iron] 325 mg PO DAILY 09/27/17 [History Confirmed 09/27/17] apixaban 2.5 mg tablet 2.5 mg PO BID #180 tab 10/02/17 [Rx Confirmed 10/02/17] furosemide 80 mg tablet 80 mg PO ONCE #90 tab 10/02/17 [Rx Confirmed 10/02/17] Ejection fraction %: 45 to 49 (47% per echo June 2017) COUNTS INCLUDE [facility] BEDS AT THE [facility] Medical History Chronic systolic (congestive) heart failure (Chronic) Paroxysmal atrial fibrillation (Chronic) Atherosclerosis of hughes coronary artery of hughes heart without angina pectoris (Chronic) Ischemic cardiomyopathy (Chronic) Chronic ulcer of left leg, 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) Dyslipidemia (Chronic) 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) Hypertension (Chronic) Anemia (Chronic) Cellulitis (Resolved) Infected wound (Resolved) Ulcer of left knee (Resolved) Ulcer of leg, chronic, left (Resolved) Atrial fibrillation with rapid ventricular response (Inactive) Chronic ulcer of right leg (Inactive) Coagulation defect (Inactive) Deep disruption or dehiscence of operation wound (Inactive) Edema of left lower extremity (Inactive) Surgical History History of left heart catheterization (LHC) (Chronic) 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) Family History Mother CVA (cerebral vascular accident) CAD (coronary artery disease) <65 Myocardial infarction Father CAD (coronary artery disease) Myocardial infarction Brother CAD (coronary artery disease) Myocardial infarction Brother CAD (coronary artery disease) Myocardial infarction Social History Smoking Status: Never smoker alcohol intake: never substance use type: does not use caffeine: Yes Type: coffee Number of servings: 2 what type of physical activity do you participate in: other details: PT frequency: daily duration: 15-30 minutes/day seatbelt use: always do you feel safe at home: Yes ROS Const Const: Positive for weakness, other (Fell saturday, has open wound top of left hand and bruises around left eye), frequent falls and fatigue; negative for body ache, fever(s), headache(s), chills, night sweats, daytime sleepiness, difficulty sleeping, excessive sweating, weight gain, weight loss, increased appetite, poor appetite or anorexia Eyes Eyes: Negative for blind spots, loss of peripheral vision, transient loss of vision, blurry vision, change in vision, double vision, floaters, tunnel vision or other ENT ENT: Positive for balance problems and dizziness (occasional); negative for headache(s), tongue swelling or lip swelling Cardio Chest Pain: No Palpitations: No Edema: Bilateral (Pitting edema to knees bilaterally: last Saturday was to scrotum) Muscle aches with walking: None Resp Respiratory: Positive for SOB with activity (Pulse ox 96 room air, lungs clear, faint expiratory wheeze in apices); negative for SOB at rest, SOB orthopnea\SOB lying down, Coughing up blood/hemoptysis, chest congestion, pain on inspiration, snoring, stridor, wheezing, crackles, paroxysmal nocturnal dyspnea or other GI GI: Negative nausea, vomiting, heartburn, constipation, belching, bloating, cramping, vomiting blood/hematemesis, bright, red blood in stools, black,tarry stools, loose stools, Difficulty Swallowing or other : Negative for hematuria, frequent nighttime urination/ nocturia, erectile dysfunction or abnormal vaginal bleeding Musc Musc: Positive for muscle weakness, joint pain and balance problems; negative for muscle aches/ myalgia Skin Skin: Negative redness, non-healing lesions, rash, unusual bruising, skin ulcer, wounds, jaundice or other Neuro Neuro: Positive for weakness, frequent falls and dizziness (occasional); negative for headache(s), blurry vision or double vision Richard Hematologic/Lymphatic: Negative for easy bleeding, easy bruising, enlarged lymph nodes or other Endo Endo: Positive for fatigue; negative for excessive sweating Psych Psych: Negative for anxiety, depression, thoughts of harming anyone, thoughts of harming yourself, visual hallucinations, panic attacks or audible hallucinations Allergy Allergy/Immunology: Negative for rash, Negative for throat swelling, Negative for tongue swelling, Negative for hives, Negative for lip swelling Cardiology Exam Const Appearance: cooperative, well developed, well groomed, no acute distress and ill appearing Nutritional Appearance: average body habitus and malnourished Orientation: alert, awake and oriented x3 Head Head: normal to inspection, normocephalic and atraumatic Ears: hearing grossly normal bilaterally and external ears normal Nose: external nose normal, nasal mucous membranes and turbinates normal, nares normal, septum normal, no nasal discharge Face and Sinus: face symmetric Mouth: oral mucosae normal, tongue normal, oropharynx normal and moist mucous membranes Teeth and gingiva: dentition normal Throat: posterior oropharynx normal, tonsils normal and uvula midline Eyes General: appearance normal, both eyes and all related structures Eyelids: eyelids normal Conjunctivae: conjunctivae normal Pupils: PERRL, normal by confrontation and accommodation normal EOM: EOM intact bilaterally Neck Neck: normal visual inspection, trachea midline and no JVD JVD: +5 Carotids: normal carotid upstroke and bounding pulses Chest Chest inspection: normal inspection of the chest, symmetric chest movement and normal respiratory effort Auscultation: Bilateral: Clear to Auscultation Cardio Palpation: normal PMI Rhythm: irregular rhythm Heart sounds: S1 normal and S2 normal GI GI: normal to inspection, soft, no hepatosplenomegaly and bowel sounds present Neuro General: alert, awake, oriented x3, no focal sensory deficit, gait normal and moves all extremities Skin Skin: no rashes or lesions noted Extremities Pulses: Normal: Right Femoral Pulse, Left Femoral Pulse, Right Dorsalis Pedis Pulse, Left Dorsalis Pedis Pulse, Right Posterior Tibial Pulse, Left Posterior Tibial Pulse, Right Radial Pulse, Left Radial Pulse Lower Extremity Edema: None: Bilateral Musculoskel Musculoskeletal: No joint tenderness Psych Psychological: normal affect Assessment AND Plan 1. Frailty R54 Plan Mr. Garcia is noted to be frail at this time. This is likely a multitude of factors. I would recommend that we have a discussion with his family about probably putting him at an assisted care living. He also had a fall a few days ago and I would recommend making some changes to his medications noted below. I discussed this with him as well as his neighbor and this be passed on to his relatives. 2. Essential hypertension I10 Plan His blood pressure appears to be low at this time I would recommend discontinuing his ARIANA inhibitor in keeping him on the Coreg at the same dose. His last echocardiogram had demonstrated an ejection fraction which was normal at 55% with mild biatrial enlargement mild mitral regurgitation and mild tricuspid regurgitation. He did have mild aortic sclerosis present. 3. Coronary artery disease involving autologous artery coronary bypass graft without angina pectoris I25.810 CAB01/22/2000 NGO to LAD, reverse SVG as a sequential graft to DX and LCX, reverse SVG to the two ventricular branches of the right Plan He does have a history of coronary artery disease status post carotid bypass grafting he has not had any angina and the plan at this time would be to continue him on the same medications. 4. Congestive heart failure (CHF) I50.9 Plan He does have a history of diastolic heart failure with renal insufficiency. His last creatinine was noted to be 2.86 with an estimated GFR of 23. My recommendation will be to change his Lasix dose to 80 mg once a day. We will continue to monitor this closely. 5. Paroxysmal atrial fibrillation I48.0 DCCV January 2000; Plan He is currently in chronic persistent atrial fibrillation with a controlled ventricular response rate my recommendation will be to reduce the dose of his anticoagulation to Eliquis 2.5 mg twice a day due to his renal dysfunction. Thank you for allowing me to participate in the care of this rather complicated patient. I like to see him again in approximately 2 months. Plan Detail Other Medications New: Discontinued: furosemide Discontinued Reason: Order Cha40 mg PO bid X 5 days ending 10/01/17 then qd; nged plus, an additional dose for weight gain of 2 pounds in 1 day, or 3 pounds in 1 week. 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 I25.810 Congestive heart failure (CHF) I50.9 Paroxysmal atrial fibrillation I48.0 10/02/17 1211 <Electronically signed by Ko Reddy MD> Date Ko Reddy MD Cosigner Signature: Date (if applicable) CC: Hardik Puga MD 12 LEAD ELECTROCARDIOGRAM Observed: 09/30/2017 Status: F Source: [place] 1:35 PM [facility] [place] [facility] Cardiovascular Services [address] [place] [address] 12 Lead EKG 09/27/17 1159 MR#: [id number] Acct: [id number] Name: KEIKO GARCIA Rep #: [id number] : 1935 81 From: Ulises Kessler MD Attending Dr: Status: DEP ER Ordering Dr: Roland Joseph MD Date: 09/27/17 Location: ED Sex: M C Admitted: Test Reason : SOB Blood Pressure : / mmHG Vent. Rate : 082 BPM Atrial Rate : 048 BPM P-R Int : 000 ms QRS Dur : 110 ms QT Int : 402 ms P-R-T Axes : 000 -17 227 degrees QTc Int : 469 ms Atrial fibrillation with premature ventricular or aberrantly conducted complexes ST AND T wave abnormality, consider inferolateral ischemia Prolonged QT Abnormal ECG Confirmed by ULISES KESSLER ([id number]), communications editor JAYLA BLOOD ([id number]) on 09/30/2017 1:34:46 PM Referred By: Confirmed By:ULISES KESSLER 09/30/17 1334 Date Ulises Kessler MD CC: Hardik Puga MD; Roland Joseph MD Signed EMERGENCY DEPARTMENT Observed: 09/27/2017 Status: F Source: [place] SUMMARY 1:50 PM [facility] [place] Medical Records Department [address] [place] [address] Emergency Department Summary 09/27/17 1214 MR#: [id number] Acct: [id number] Name: KEIKO GARCIA Rep #: [id number] : 1935 81 From: Roland Joseph MD PCP: Hardik Puga MD, Chi Status: REG ER - ER Visit Summary Date of Service: 09/27/17 Chief Complaint: Increasing shortness of breath over the past 1 week History of Present Illness: The patient is a 81 M who is status post MO complicated by cardia pulmonary arrest 1 month ago who presents with increased shortness of breath over the past 1 week. He does report leg swelling, which is abnormal for him. He denies discoloration or pain. He denies any type of chest discomfort. He denies fever, chills night sweats. He denies runny nose, earache, sore throat postnasal drainage. He denies cough. He does complain of dyspnea on exertion. Denies orthopnea or PND. He denies any abdominal pain or back pain. He denies black or maroon stool. He denies any urologic symptoms. He denies history of PE or DVT. He is on Eliquis. He states he is compliant with his medication. Records from the [facility] were received and reviewed. Physical Examination: Vital signs remarkable blood pressure 96/61 rest rate 22. He is not hypoxic, febrile or tachycardic. Review of prior records and specifically the past 3 months his blood pressure has varied between 82 systolic to a high of 97. Head is atraumatic normocephalic. Pupils are equal round reactive. Extraocular muscles are intact. TMs are pearly white with landmarks noted. Nares patent with no drainage. Posterior pharynx without erythema or exudate. Uvula is midline. There is no dysphonia or dysphasia. Trachea is midline. There is no stridor with auscultation of the neck. Heart is irregularly regular. Lungs are clear to auscultation without rales, rhonchi or wheezing. Abdomen is soft nontender. He has a well-healed midsternal scar noted. There is no palpable subtle mass of the abdominal aorta and there is no bruit. He does have 1-2+ pitting edema of the right and left lower extremity distal to the knees. He is hard of hearing. He is alert he is oriented 3. Motor sensory are intact. Did not assess gait. Test Results: EKG reveals atrial fibrillation with ST-T wave changes inferolateral leads which is unchanged from prior EKG dated July 06, 2017. At that time the video production coordinator interpreted him in to have a sinus rhythm. His rhythm was irregular. Chest x-ray reveals normal cardiac silhouette with bilateral pleural effusions and mild venous congestion. H AND H 10.5 and 34.8. BUN is 48 with a creatinine of 2.86. Troponin is indeterminate at 0.20. BNP is 703. His indeterminate troponin could be related to his recent MO and CHF. Emergency Department Course and Treatment: To evaluate patient's increasing shortness breath over the past month chest x-ray was obtained to evaluate for CHF, pneumonia or pneumothorax, pleural effusion. With gradual onset and gradual becoming worse with edema unlikely pulmonary embolus. And as previously documented patient states he is compliant with his Eliquis. Treatment Plan: 80 mg of Lasix p.o. and 2.5 mg of Zaroxolyn p.o. in the emergency department and increase Lasix to 80 mg a day for the next 5 days and follow-up with Dr. Reddy within the next 5-7 days Disposition: Discharged to home Impression: 1. Exacerbation of CHF with bilateral pleural effusions 2. Atrial fibrillation, chronic History of ischemic cardiomyopathy History of hypertension History of hypercholesterolemia History of coronary disease status post cardiopulmonary arrest This note was generated with [employer] software. It may contain incorrect words, spelling, and punctuation that were not noted in review of the chart prior to signing ED Disposition - Plan for ED Patient: Disposition: Home or Assisted Living Chief Complaint: Shortness of Breath Instructions: ED CHF General Referrals: Hardik Puga Chi, MD [Primary Care Provider] - Ko Reddy MD [STAFF PHYSICIAN] - 5-7 Days Additional Instructions: Increase Lasix to 80 mg a day for the next [address] Reddy's office to be seen next week. What to do if you have Problems For any increased pain, shortness of breath, bleeding, nausea or vomiting, chest pain, or any unexpected problems, contact your Primary Care Provider. Call [facility] ([phone]) or report to the closest Emergency Room. Call 911 if necessary. 09/27/17 1350 <Electronically signed by Roland Joseph MD> Date Roland Joseph MD Cosigner Signature (If Indicated): Date CC: Ko Reddy MD; Hardik Puga MD CBC W/DIFF, AUTOMATED Collected: 09/27/2017 Status: F Source: [place] 12:10 PM [facility] TYPE CODE TESTS RESULT OUT OF RANGE REFERENCE UNITS LAB L100.1000 4.4-11.0 K/mm3 Normal WBC 5.8 LAB L100.1200 4.6-6.2 M/mm3 Low RBC 4.09 LAB L100.1300 13.0-16.5 g/dl Low HGB 10.5 LAB L100.1400 40-54 % Low HCT 34.8 LAB L100.1500 80-94 fL Normal MCV 85.1 LAB L100.1600 27.0-32.0 pg Low MCH 25.7 LAB L100.1700 32-36 g/gl Low MCHC 30.2 LAB L100.1810 11.6-14.6 % High RDW CV 21.0 LAB L100.1820 35.1-43.9 fl High RDW SD 64.3 LAB L100.1900 150-450 K/mm3 Normal PLT 193 LAB L100.2000 6.2-12.0 fl Normal MPV 10.3 LAB L100.2100 47-70 % High NEUT% 73.9 LAB L100.2200 19-41 % Low LY% 15.2 LAB L100.2300 0-10 % High MONO% 10.3 LAB L100.2400 0-5 % Normal EO% 0.2 LAB L100.2500 0-1 % Normal BASO% 0.2 LAB L100.2550 0.0-0.9 % Normal IM GRAN % 0.200 Result Comment: IG% - Immature Granulocytes (promyelocytes, myelocytes and metamyelocytes) > 1% indicates that a LEFT SHIFT is Present. LAB L100.2620 2.0-7.7 X10 3/uL Absolute Normal Neut 4.3 LAB L100.2720 0.83-4.51 X10 3/ul Absolute Normal Lymph 0.88 LAB L100.5500 ADEQ PLT EST Normal SLT DEC LAB L100.7200 WARREN CELLS Normal RARE LAB L100.7300 ANISO Normal 1+ LAB L100.8000 ACANTHOCYTE Normal RARE LAB L100.8200 OVALOCYTE Normal RARE Performed By: #### L100.0100 #### [facility] [address] [place], [place], [address] BASIC METABOLIC Collected: 09/27/2017 Status: F Source: [place] PROFILE (BMP) 12:10 PM [facility] Order Comment: 'TROP' Serial specimen #1, #2, #3, or #4: 1 TYPE CODE TESTS RESULT OUT OF RANGE REFERENCE UNITS LAB L501.0100 74-106 mg/dL Normal GLU 94 Result Comment: Please note revised GLUCOSE reference range effective 2017. LAB L501.1000 7-18 mg/dL High BUN 48 LAB L501.1100 0.70-1.30 mg/dL High CREAT,SERUM 2.86 Result Comment: The validity of the calculated GFR AND GFRAA in patients over 70 years has not been determined. Clinical correlation is essential. LAB L501.1110 >60 mL/min Low EST GFR 23 Result Comment: Non- GFR Calc LAB L501.1115 >60 mL/min Low EST GFR - AA 27 Result Comment: GFR Calc LAB L501.1255 ml/min Normal Estimated CRCL 21.86 LAB L501.1300 10-20 RATIO Normal BUN/CRE 16.8 LAB L501.2200 8.5-10 mg/dL Normal .1 CA 9.2 LAB L501.5300 136-14 mmol/L Normal 5 NA 138 LAB L501.5600 3.5-5. mmol/L Normal 1 K 5.0 LAB L501.5900 98-107 mmol/L Normal CL 104 LAB L501.6100 21.0-3 mmol/L Low 2.0 CO2 20.0 LAB L501.6200 5-15 Normal GAP 14 Performed By: #### L500.2500, L501.4010 #### [facility] [address] [place], [address] TROPONIN-I Collected: 09/27/2017 Status: F Source: [place] 12:10 PM [facility] Order Comment: 'TROP' Serial specimen #1, #2, #3, or #4: 1 TYPE CODE TESTS RESULT OUT OF RANGE REFERENCE UNITS LAB L501.4010 <0.06 ng/mL High 0.20 TROPONIN-I Result Comment: TROPONIN-I EXPECTED VALUES <0.05 NEGATIVE 0.06 - 0.59 AT RISK OF MO > OR = 0.60 SUGGEST MO Performed By: #### L500.2500, L501.4010 #### [facility] [address] [place], [place], [address] BNP,B-TYPE NATRIURETIC Collected: 09/27/2017 Status: F Source: [place] PEPTIDE 12:10 PM [facility] TYPE CODE TESTS RESULT OUT OF RANGE REFERENCE UNITS LAB L503.6620 0-100 pg/mL High B-TYPE 703.8 YKA PEP Performed By: #### L503.6620 #### [facility] [address] [place], [place], [address] CHEST PA AND LATERAL Observed: 09/27/2017 Status: F Source: [place] 12:08 PM [facility] Imaging Services [address] [place] [address] Chest PA and Lateral MR#: [id number] Acct: [id number] Name: KEIKO GARCIA Rep #: [id number] : 1935 M 81 From: Camilo Deras MD PCP: Hardik Puga MD, Chi Status: REG ER Study: Chest PA and Lateral Date of Exam: 09/27/17 Exam# [id number] Ordering Dr: Roland Joseph MD STUDY: X-RAY CHEST REASON FOR EXAM: Male, 81 years old. Shortness of breath. TECHNIQUE: AP and lateral views of the chest. COMPARISON: Comparison is made with prior examination dated July 06, 2017. FINDINGS: EKG electrodes are seen. Mild increase in the left pleural effusion with left basilar atelectasis. Blunting of the right costophrenic angle. Sternal cerclage wires and vascular clips are present from a prior sternotomy and coronary artery bypass graft procedure (CABG). Borderline cardiomegaly. Normal mediastinum and johny. Normal visualized pulmonary arteries. There is atherosclerotic calcification of the aortic arch with tortuosity. There are diffuse degenerative changes of the visualized thoracic spine. Normal visualized ribs, clavicles, and shoulders. There is no demonstrated abnormality of the visualized soft tissue structures of the upper abdomen. RAD/Chest PA and Lateral IMPRESSION: Increased small left pleural effusion with left basilar atelectasis. Blunting of the right costophrenic angle. Electronically Signed: Camilo Deras MD at 13:03 EDT Tel [phone], Service support , CC: Hardik Puga MD; Roland Joseph MD Machine Operator Picker: Signed CBC W/DIFF, AUTOMATED Collected: 09/16/2017 Status: F Source: [place] 10:07 AM [facility] TYPE CODE TESTS RESULT OUT OF RANGE REFERENCE UNITS LAB L100.1000 4.4-11.0 K/mm3 Normal WBC 6.1 LAB L100.1200 4.6-6.2 M/mm3 Low RBC 3.73 LAB L100.1300 13.0-16.5 g/dl Low HGB 9.4 LAB L100.1400 40-54 % Low HCT 30.4 LAB L100.1500 80-94 fL Normal MCV 81.5 LAB L100.1600 27.0-32.0 pg Low MCH 25.2 LAB L100.1700 32-36 g/gl Low MCHC 30.9 LAB L100.1810 11.6-14.6 % High RDW CV 18.5 LAB L100.1820 35.1-43.9 fl High RDW SD 55.3 LAB L100.1900 150-450 K/mm3 Normal PLT 211 LAB L100.2000 6.2-12.0 fl Normal MPV 9.7 LAB L100.2100 47-70 % High NEUT% 71.9 LAB L100.2200 19-41 % Low LY% 17.9 LAB L100.2300 0-10 % Normal MONO% 9.3 LAB L100.2400 0-5 % Normal EO% 0.7 LAB L100.2500 0-1 % Normal BASO% 0.0 LAB L100.2550 0.0-0.9 % Normal IM GRAN % 0.200 Result Comment: IG% - Immature Granulocytes (promyelocytes, myelocytes and metamyelocytes) > 1% indicates that a LEFT SHIFT is Present. LAB L100.2620 2.0-7.7 X10 3/uL Normal Absolute Neut 4.4 LAB L100.2720 0.83-4.51 X10 3/ul Normal Absolute Lymph 1.08 Performed By: #### L100.0100 #### [facility] [address] [place], [place], [id number] COMPREHENSIVE METABOLIC Collected: 09/16/2017 Status: F Source: [facility] 10:07 AM [facility] TYPE CODE TESTS RESULT OUT OF RANGE REFERENCE UNITS LAB L501.0100 74-106 mg/dL High GLU 112 Result Comment: Fasting Glucose result from 100 to 125 mg/dL suggests IMPAIRED HOMEOSTASIS per A.D.A. criteria. Please note revised GLUCOSE reference range effective 2017. LAB L501.1000 7-18 mg/dL High BUN 36 LAB L501.1100 0.70-1.30 mg/dL High CREAT,SERUM 1.63 Result Comment: The validity of the calculated GFR AND GFRAA in patients over 70 years has not been determined. Clinical correlation is essential. LAB L501.1110 >60 mL/min Low EST GFR 43 Result Comment: Non- GFR Calc LAB L501.1115 >60 mL/min Low EST GFR - AA 52 Result Comment: GFR Calc LAB L501.1300 10-20 RATIO High BUN/CRE 22.1 LAB L501.1500 6.4-8.2 g/dL T Normal PROT 6.8 LAB L501.1800 3.2-5.0 g/dL Normal ALB 3.4 LAB L501.1950 2.2-4.2 g/dL Normal GLOB 3.4 LAB L501.2000 0.9-2.4 RATIO Normal A/G 1.0 LAB L501.2200 8.5-10.1 mg/dL CA Normal 8.7 LAB L501.4100 15-37 U/L Normal AST 17 LAB L501.4305 45-117 U/L High ALK P 130 LAB L501.4405 16-61 U/L Low ALT 15 Result Comment: Please note revised ALT reference range effective 2017. LAB L501.4600 0.20-1.00 mg/dL Normal T BILI 0.70 LAB L501.5300 136-145 mmol/L Normal NA 138 LAB L501.5600 3.5-5.1 mmol/L Normal K 3.8 LAB L501.5900 98-107 mmol/L Normal CL 105 LAB L501.6100 21.0-32.0 mmol/L Normal CO2 25.0 LAB L501.6200 5-15 Normal GAP 8 Performed By: #### L500.4050, L501.9520 #### [facility] [address] [place], [place], [id number] THYROID STIM HORMONE Collected: 09/16/2017 Status: F Source: [place] (TSH) 10:07 AM [facility] TYPE CODE TESTS RESULT OUT OF RANGE REFERENCE UNITS LAB L501.9520 0.358-3.74 uIU/mL Normal TSH 3.49 Performed By: #### L500.4050, L501.9520 #### [facility] [address] [place], [address] IRON Collected: 09/11/2017 Status: F Source: [place] 12:35 PM [facility] TYPE CODE TESTS RESULT OUT OF RANGE REFERENCE UNITS LAB L503.6150 65-175 ug/dL Low IRON 30 Performed By: #### L503.6150, L503.6550 #### [facility] [address] [place], [address] FERRITIN Collected: 09/11/2017 Status: F Source: [place] 12:35 PM [facility] TYPE CODE TESTS RESULT OUT OF REFERENCE UNITS RANGE LAB L503.6550 26-388 ng/mL Low FERRITIN 17 Performed By: #### L503.6150, L503.6550 #### [facility] [address] [facility] [place], [place], [address] CBC-COMPLETE BLOOD CNT Collected: 09/11/2017 Status: F Source: [place] NO DIFF 12:35 PM [facility] TYPE CODE TESTS RESULT OUT OF RANGE REFERENCE UNITS LAB L100.1000 4.4-11.0 K/mm3 Normal WBC 5.5 LAB L100.1200 4.6-6.2 M/mm3 Low RBC 3.79 LAB L100.1300 13.0-16.5 g/dl Low HGB 9.6 LAB L100.1400 40-54 % Low HCT 31.2 LAB L100.1500 80-94 fL Normal MCV 82.3 LAB L100.1600 27.0-32.0 pg Low MCH 25.3 LAB L100.1700 32-36 g/gl Low MCHC 30.8 LAB L100.1810 11.6-14.6 % High RDW CV 18.1 LAB L100.1820 35.1-43.9 fl High RDW SD 54.8 LAB L100.1900 150-450 K/mm3 Normal PLT 220 LAB L100.2000 6.2-12.0 fl Normal MPV 10.1 Performed By: #### L100.0500, L100.9950, L100.4500 #### [facility] [address] [place], [address] RETIC PANEL Collected: 09/11/2017 Status: F Source: [place] 12:35 PM [facility] TYPE CODE TESTS RESULT OUT OF RANGE REFERENCE UNITS LAB L101.0000 0.5-1.5 % High RETIC 1.60 LAB L101.0060 3.00-15.90 % IM Normal RET FRACTION 10.00 LAB L101.0090 30-35 pg Low RET-HE 19.5 LAB L101.0110 1.0-7.9 % Normal IPF 3.8 Result Comment: Low PLT + Low IPF suggest a bone marrow production disorder Low PLT + high IPF suggests peripheral destruction (e.g.ITP, TTP, HIT, DIC, autoimmune) or bone marrow recovery Trending of serial IPF measurements is recommended when evaluating for bone marrow respones Value above normal range indicates an increase in RBC cellular response from bone marrow. Performed By: #### L100.0500, L100.9950, L100.4500 #### [facility] [address] [place], [address] DIFFERENTIAL COMMENT Collected: 09/11/2017 Status: F Source: [place] 12:35 PM [facility] TYPE CODE TESTS RESULT OUT OF RANGE REFERENCE UNITS LAB L100.4500 Normal SMEAR COMMENT COMMENT Result Comment: SLIDE SCANNED - RARE SCHISTOCYTES, 1+ TARGET CELLS, 1+ HYPOCHROMIA. Performed By: #### L100.0500, L100.9950, L100.4500 #### [facility] [address] [place], [address] CBC W/DIFF, AUTOMATED Collected: 08/29/2017 Status: F Source: [place] 12:04 PM [facility] TYPE CODE TESTS RESULT OUT OF RANGE REFERENCE UNITS LAB L100.1000 4.4-11.0 K/mm3 Normal WBC 6.3 LAB L100.1200 4.6-6.2 M/mm3 Low RBC 3.61 LAB L100.1300 13.0-16.5 g/dl Low HGB 9.4 LAB L100.1400 40-54 % Low HCT 30.3 LAB L100.1500 80-94 fL Normal MCV 83.9 LAB L100.1600 27.0-32.0 pg Low MCH 26.0 LAB L100.1700 32-36 g/gl Low MCHC 31.0 LAB L100.1810 11.6-14.6 % High RDW CV 19.3 LAB L100.1820 35.1-43.9 fl High RDW SD 59.4 LAB L100.1900 150-450 K/mm3 Normal PLT 216 LAB L100.2000 6.2-12.0 fl Normal MPV 10.6 LAB L100.2100 47-70 % High NEUT% 71.6 LAB L100.2200 19-41 % Low LY% 18.6 LAB L100.2300 0-10 % Normal MONO% 8.6 LAB L100.2400 0-5 % Normal EO% 0.8 LAB L100.2500 0-1 % Normal BASO% 0.2 LAB L100.2550 0.0-0.9 % Normal IM GRAN % 0.200 Result Comment: IG% - Immature Granulocytes (promyelocytes, myelocytes and metamyelocytes) > 1% indicates that a LEFT SHIFT is Present. LAB L100.2620 2.0-7.7 X10 3/uL Normal Absolute Neut 4.5 LAB L100.2720 0.83-4.51 X10 3/ul Normal Absolute Lymph 1.17 Performed By: #### L100.0100 #### [facility] [address] [facility] [place], [place], [address] CARDIOLOGY VISIT Observed: 08/08/2017 Status: F Source: [place] REPORT 4:44 PM [facility] [address] [place] [address] OFFICE VISIT Date of Service: 08/08/17 MR#: [id number] Acct: [id number] Name: KEIKO GARCIA Rep #: [id number] : 1935 Provider: RIAN Martin Age/Sex: 81/M Location[place] [facility] [place] Status: Signed HPI [facility] ER 07/06/17: Details: KEIKO GARCIA, is a 81 M who presents to the office today for a cardiovascular outpatient follow-up status post recent emergency department visit. Patient is a history of coronary artery disease status post of and bypass surgery in 1999 with NGO to LAD, SVG sequential to the diagonal and circumflex, and SVG to the right ventricular branches. He also has history of atrial fibrillation. Patient presented to [facility] in June 2017 after having multiple falls at home. Patient was found to have a upper GI bleed. Patient was also found to be hypotensive and required 4 L of normal saline. He was transferred for [facility] for further treatment/evaluation. Pt. is currently a resident at [facility]. He is undergoing physical therapy, which he states is going well. He currently uses his cane to help with ambulation. When asked regarding admission to [facility], he states he had a heart attack and that he he . These records are not available for review and will be requested. Pt. denies chest, arm, jaw, or neck discomfort. His exercise tolerance is stable. Pt. denies symptoms of CHF, palpitations, lightheadedness, dizziness, near syncope, or syncopal episodes. Pt. denies edema or claudication issues. Pt. denies orthopnea, PND, fever, chills, blood in urine, blood in stool, myalgia, or unexplainable fatigue. Heart catheterization from August 2005 showed a patent SVG to diagonal vessel with slow flow, patent SVG to RCA with slow flow, patent NGO to LAD, and preserved ejection fraction. Step Daughter Florence Silver Intake Vital Signs08/08/17 Height 6 ft 08/08/17 Weight: 180 lb 08/08/17 Body Mass Index (BMI) 24.4 08/08/17 Blood Pressure 110/62 08/08/17 Blood Pressure Location Lt brachial Intake Visit Reasons: [facility] ER 07/06/17 Silk Presser Required: No Accompanied by: None Is patient in pain?: No Allergies No Known Allergies Allergy (Verified 08/08/17 09:12) Medications Aspirin [Aspirin, Baby] 81 mg PO DAILY@0800 #30 tab.chew 10/10/14 [Rx Confirmed 07/31/17] Apixaban [Eliquis] 5 mg PO BID 11/19/14 [History Confirmed 07/31/17] Lisinopril [Zestril] 5 mg PO DAILY 07/07/17 [History Confirmed 07/31/17] acetaminophen 325 mg tablet 650 mg PO Q4H PRN 08/08/17 [History Confirmed 08/08/17] atorvastatin 20 mg tablet 20 mg PO QDAY 08/08/17 [History Confirmed 08/08/17] carvedilol 6.25 mg tablet 6.25 mg PO BID 08/08/17 [History Confirmed 08/08/17] furosemide 40 mg tablet 40 mg PO DAILY tab 08/08/17 [History Confirmed 08/08/17] pantoprazole 40 mg tablet,delayed release 40 mg PO QDAY 08/08/17 [History Confirmed 08/08/17] Ejection fraction %: 55 to 59 PFSH Medical History Paroxysmal atrial fibrillation (Chronic) Atherosclerosis of hughes coronary artery of hughes heart without angina pectoris (Chronic) Ischemic cardiomyopathy (Chronic) Ulcer of leg, chronic, left (Chronic) 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) Chronic ulcer of left leg, limited to breakdown of skin (Acute) CHF (congestive heart failure) (Chronic) Dyslipidemia (Chronic) 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) Hypertension (Chronic) Atrial fibrillation with rapid ventricular response (Chronic) Deep disruption or dehiscence of operation wound (Acute) Infected wound (Acute) Anemia (Chronic) Edema of left lower extremity (Chronic) Cellulitis (Acute) Surgical History History of left heart catheterization (LHC) (Chronic) 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) Family History Mother CVA (cerebral vascular accident) CAD (coronary artery disease) <65 Myocardial infarction Father CAD (coronary artery disease) Myocardial infarction Brother CAD (coronary artery disease) Myocardial infarction Brother CAD (coronary artery disease) Myocardial infarction Social History Smoking Status: Never smoker alcohol intake: never substance use type: does not use caffeine: Yes Type: coffee Number of servings: 2 what type of physical activity do you participate in: other details: PT frequency: daily duration: 15-30 minutes/day seatbelt use: always do you feel safe at home: Yes ROS Const Const: Negative for weakness, body ache, fever(s), chills or fatigue ENT ENT: Negative for dizziness Cardio Chest Pain: No Palpitations: Positive for No Edema: None Muscle aches with walking: None Resp Respiratory: Negative for SOB with activity, SOB at rest, SOB orthopnea\SOB lying down or paroxysmal nocturnal dyspnea GI GI: Negative nausea, black,tarry stools, bright, red blood in stools or vomiting blood/hematemesis : Negative for hematuria or frequent nighttime urination/ nocturia Musc Musc: Negative for muscle aches/ myalgia Neuro Neuro: Negative for lightheadedness, Negative for near syncope, Negative for syncope, Negative for orthostatic symptoms, Negative for weakness, Negative for dizziness Endo Endo: Negative for fatigue Cardiology Exam Const Appearance: cooperative, healthy appearing, comfortable and no acute distress Orientation: alert, awake and oriented x3 Head Head: normal to inspection Mouth: oral mucosae normal Neck Neck: no JVD and normal visual inspection Carotids: normal carotid upstroke Chest Chest inspection: normal inspection of the chest and normal respiratory effort Auscultation: Bilateral: Clear to Auscultation Cardio Rate: regular rate Rhythm: irregular rhythm Heart sounds: S1 normal and S2 normal; negative rub or gallop GI GI: normal to inspection Neuro General: alert, awake, oriented x3 and CN's II-XI intact bilaterally Skin Skin: no rashes or lesions noted Extremities Pulses: Normal: Right Posterior Tibial Pulse, Left Posterior Tibial Pulse, Right Radial Pulse, Left Radial Pulse Lower Extremity Edema: None: Bilateral Psych Psychological: normal affect Assessment AND Plan 1. 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 We will continue to monitor this. We will not make any medication regimen changes and will continue risk factor modification. Records from [facility] will be requested for further review. After review of his visit, it will be decided if further testing is needed to evaluate. 2. Paroxysmal atrial fibrillation I48.0 DCCV January 2000; KANCHAN Robb This appears stable. Patient's heart rate is well controlled. We will continue to monitor this. We will continue current medications which include beta-rashawn and factor Xa inhibitor. 3. Ischemic cardiomyopathy I25.5 KANCHAN Robb Patient's most recent echocardiogram from June 2017 showed an estimated ejection fraction of 47%. Patient denies any acute decompensation from this. When reviewing his laboratory work from [facility] it appears at some point since discharge he had an elevated BTNP. It is unclear what adjustments were made based on this laboratory test. We will continue current medications which include ARIANA inhibitor, beta rashawn, and diuretic. 4. Valvular heart disease I38 Plan - KANCHAN Cedeno Echocardiogram from June 2017 showed mild mitral valve insufficiency and mild tricuspid valve insufficiency. We will continue to monitor this. We will not make any medication regimen changes. 5. Essential hypertension I10 Plan - KANCHAN Cedeno Patient's blood pressure is well-controlled today in the office. We will continue to monitor this. We will not make any medication regimen changes. 6. Dyslipidemia E78.5 Plan - KANCHAN Cedeno Patient is uninsured last time his lipid panel has been drawn. This will request will be sent to [facility] to have drawn with his next lab draw. We will wait for the results of this test for further recommendation. Patient will continue current cholesterol lowering medication. Plan Detail Other Medications New: Discontinued: Additional Comments - KANCHAN Cedeno Patient will keep November [address] Reddy for further evaluation. Discussed the above patient with Dr. Reddy, he agrees with the plan of care. Thank you for allowing us to participate in the patients plan of care, if you have any questions please do not hesitate to call. This note was generated using a voice recognition system and there may be incorrect words, spelling or punctuation that were not noted when reviewing the office note prior to saving. 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 Paroxysmal atrial fibrillation I48.0 Ischemic cardiomyopathy I25.5 Valvular heart disease I38 Essential hypertension I10 Hypertension type: essential hypertension Dyslipidemia E78.5 08/08/17 1101 <Electronically signed by Elmer HEMPHILL> Date Elmer HEMPHILL 08/08/17 1644<Electronically signed by Ko Reddy MD> Cosigner Signature: Date (if applicable) Ko Reddy MD CC: Hardik Puga MD ALLERGIES ALLERGIES DATE TYPE / CODE NAME / CODE REACTION SEVERITY SOURCE 12/03/2017 Drug No Known Unknown [facility] Allergy/4160 Allergies/F00 Hospital 10167(SNOMED 0335848(RXNOR Repository CT) M) ENCOUNTERS ENCOUNTERS ADMIT/DISCHARGE ACCOUNT ADMITTING ENCOUNTER LOCATION SOURCE NUMBER CLASS 08/06/2018 [id number] Ambulatory [place] 8 [facility]: Repository 07/22/2018 [id number] Ambulatory BMSBuilding:B [place] 4 [facility] Repository 07/11/2018/ [id number] Ambulatory [place] 9 [facility] Hospital ing: Repository 07/03/2018 [id number] Ambulatory BMSBuilding:W [place] 4 [facility] Hospital Repository 07/01/2018 [id number] Ambulatory [place] 6 [facility] Hospital ing:POLAB3 Repository 06/26/2018 [id number] Ambulatory BMSBuilding:W [place] 1 [facility] Hospital Repository 06/12/2018 [id number] Ambulatory BMSBuilding:W [place] 3 [facility] Hospital Repository 06/12/2018/ [id number] Ambulatory [place] 0 [facility] Hospital ing: Repository 06/04/2018 [id number] Ambulatory BMSBuilding:W [place] 4 [facility] Hospital Repository 05/29/2018 [id number] Ambulatory BMSBuilding:W [place] 9 [facility] Hospital Repository 05/22/2018 [id number] Ambulatory BMSBuilding:W [place] 8 [facility] Hospital Repository 05/15/2018 [id number] Ambulatory BMSBuilding:W [place] 6 [facility] Hospital Repository 05/05/2018 [id number] Ambulatory [place] 1 [facility] Hospital ing:POLAB3 Repository 04/03/2018 [id number] Ambulatory [place] 3 [facility] Hospital ing:POLAB3 Repository 04/02/2018/ [id number] Ambulatory [place] 8 1 [facility] Hospital ing:WC Repository 04/02/2018 [id number] Ambulatory BMSBuilding:W [place] 9 [facility] Hospital Repository 03/20/2018 [id number] Ambulatory BMSBuilding:W [place] 1 [facility] Hospital Repository 03/13/2018 [id number] Ambulatory BMSBuilding:W [place] 8 [facility] Hospital Repository 03/13/2018/ [id number] Ambulatory [place] 8 7 [facility] Hospital ing: Repository 03/06/2018 [id number] Ambulatory BMSBuilding:W [place] 7 [facility] Hospital Repository 02/27/2018 [id number] Ambulatory BMSBuilding:W [place] 5 [facility] Hospital Repository 02/20/2018 [id number] Ambulatory BMSBuilding:W [place] 0 [facility] Hospital Repository 02/13/2018 [id number] Ambulatory BMSBuilding:W [place] 9 [facility] Hospital Repository 02/06/2018/ [id number] Ambulatory [place] 8 2 [facility] Hospital ing: Repository 02/06/2018 [id number] Ambulatory BMSBuilding:W [place] 7 [facility] Hospital Repository 01/30/2018 [id number] Ambulatory BMSBuilding:W [place] 6 [facility] Hospital Repository 01/23/2018 [id number] Ambulatory BMSBuilding:W [place] 5 [facility] Hospital Repository 01/16/2018 [id number] Ambulatory BMSBuilding:W [place] 4 [facility] Hospital Repository 01/02/2018 [id number] Ambulatory [place] 5 [facility] Hospital ing:POLAB3 Repository 01/01/2018/ [id number] Ambulatory [place] 8 [facility] Hospital ing: Repository 12/03/2017/ [id number] Ambulatory BMSBuilding:B [place] 8 4 [facility] Hospital Repository 11/26/2017 [id number] Ambulatory BMS [place] 3 [facility] Repository 11/19/2017/ [id number] Gurdeep, Inpatient [place] 8 6 [facility] Hospital ing:PCURoom: Repository MIK692Ntj: 1 11/19/2017 [id number] Gurdeep, Ambulatory BMSBuilding:B [place] 0 [place] Repository 11/19/2017 [id number] Gurdeep, Ambulatory BMSBuilding:B [place] 7 [place] Repository 11/19/2017/ [id number] Ambulatory BMSBuilding:W [place] 8 9 [facility] Repository 11/19/2017 [id number] Gurdeep, Ambulatory BMSBuilding:B [place] 4 [place] Repository 11/08/2017 [id number] Ambulatory BMSBuilding:B [place] 2 [facility] Repository 10/28/2017 [id number] Ambulatory [place] 0 [facility] Hospital ing:LAB.FUTUR Repository E 10/02/2017/ [id number] Ambulatory BMSBuilding:B [place] 8 4 [facility] Repository 10/01/2017 [id number] Ambulatory BMSBuilding:B [place] 9 [facility] Repository 09/27/2017/ [id number] Emergency [place] 5 [facility] Hospital ing:ED Repository 09/16/2017 [id number] Ambulatory [place] 9 [facility] Hospital ing:POLAB3 Repository 09/11/2017 [id number] Ambulatory [place] 1 [facility] Hospital ing:MTLAB Repository 08/29/2017 [id number] Ambulatory [place] 8 [facility] Hospital ing:POLAB3 Repository 08/08/2017/ [id number] Ambulatory BMSBuilding:B [place] 3 [facility] Repository 08/07/2017 [id number] Ambulatory BMSBuilding:B [place] 1 [facility] Repository PAYERS PAYERS ENCOUNTER GUARANTOR PAYER SUBSCRIBER SOURCE 08/06/2018 KEIKO [id number] Primary Insurance:AEKIESHA GARCIADOB: [place] [facility] Number: [id number] Date:8692-41-38PA BOX Repository [address]Amf: [phone] [place], [place] [phone] (HP) [phone]: 08/06/2018 Secondary NOT GIVENUNK [place] Insurance:SELF PAY Community INSURANCEPolicy Number: Hospital Effective Repository Date:2018-07-15 07/22/2018 KEIKO B [id number] Primary Insurance:AETNA KEIKO B TRACYDOB: [place] FROST MCRPolicy Number: [id number] Date:1752-02-72RA BOX Repository [address]Hgc: [phone] [place], [place] [phone] (HP) [address]JN: 07/22/2018 Secondary NOT GIVENUNK [place] Insurance:SELF PAY Community INSURANCEPolicy Number: Hospital Effective Repository Date:2018-07-22 07/11/2018 KEIKO B [id number] Primary Insurance:AETNA KEIKO B TRACYDOB: [place] FROST MCRPolicy Number: [id number] Date:9981-60-39EE BOX Repository 398[address]Thd: [phone] [place], [place] [phone] (HP) [phone]: 07/11/2018 Secondary NOT GIVENUNK [place] Insurance:SELF PAY Community INSURANCEPolicy Number: Hospital Effective Repository Date:2018-06-14 07/03/2018 KEIKO B [id number] Primary Insurance:AETNA KEIKO B TRACYDOB: [place] FROST MCRPolicy Number: [id number] Date:2887-26-84FJ BOX Repository [address]Eqe: [phone] [place], [place] [phone] (HP) [phone]: 07/03/2018 Secondary NOT GIVENUNK [place] Insurance:SELF PAY Community INSURANCEPolicy Number: Hospital Effective Repository Date:2018-07-03 07/01/2018 KEIKO B [id number] Primary Insurance:AETNA KEIKO B TRACYDOB: [place] FROST MCRPolicy Number: [id number] [address] Date:0606-75-02ZE BOX Repository [address]Lci: [phone] [place] [phone] (HP) [address]AY: 07/01/2018 Secondary KEIKO B TRACYDOB: [place] Insurance:MEDICARE PART [id number] [facility] A BPolicy Number: Hospital [id number] Repository Date:2018-07-01 07/01/2018 Tertiary Insurance:SELF NOT GIVENUNK [place] PAY INSURANCEPolicy Community Number: Effective Hospital Date:2018-07-01 Repository 06/26/2018 KEIKO B [id number] Primary Insurance:AETNA KEIKO B TRACYDOB: [place] FROST MCRPolicy Number: [id number] [address], [place] Date:5999-89-70VG BOX Repository [address]Sku: [phone] [place] [phone] (HP) [phone]: 06/26/2018 Secondary NOT GIVENUNK [place] Insurance:SELF PAY Community INSURANCEPolicy Number: Hospital Effective Repository Date:2018-06-26 06/12/2018 KEIKO B [id number] Primary Insurance:AETNA KEIKO B TRACYDOB: [place] FROST MCRPolicy Number: [id number] [address], [place] Date:7633-35-19MH BOX Repository [address]Htg: [phone] [place] [phone] (HP) [phone]: 06/12/2018 Secondary NOT GIVENUNK [place] Insurance:SELF PAY Community INSURANCEPolicy Number: Hospital Effective Repository Date:2018-06-12 06/12/2018 KEIKO B [id number] Primary Insurance:AETNA KEIKO B TRACYDOB: [place] FROST MCRPolicy Number: [id number] [address], [place] Date:8093-00-61KF BOX Repository [address]Xqs: [phone] [place] [phone] () [phone]: 06/12/2018 Secondary NOT GIVENUNK [place] Insurance:SELF PAY Community INSURANCEPolicy Number: Hospital Effective Repository Date:2018-04-14 06/04/2018 KEIKO B [id number] Primary Insurance:AETNA KEIKO B TRACYDOB: [place] FROST MCRPolicy Number: [id number] [address], [place] Date:1019-02-44RD BOX Repository [address]Hya: [phone] [place] [phone] () [phone]: 06/04/2018 Secondary NOT GIVENUNK [place] Insurance:SELF PAY Community INSURANCEPolicy Number: Hospital Effective Repository Date:2018-06-04 05/29/2018 KEIKO B [id number] Primary Insurance:AETNA KEIKO B TRACYDOB: [place] FROST MCRPolicy Number: [id number] [address], [place] Date:5280-41-41GA BOX Repository [address]Xbe: [phone] [place] [phone] (HP) [phone]: 05/29/2018 Secondary NOT GIVENUNK [place] Insurance:SELF PAY Community INSURANCEPolicy Number: Hospital Effective Repository Date:2018-05-29 05/22/2018 KEIKO B [id number] Primary Insurance:AETNA KEIKO B TRACYDOB: [place] FROST MCRPolicy Number: [id number] [address], [place] Date:4864-07-97OW BOX Repository [address]Xol: [phone] [place] [phone] (HP) [phone]: 05/22/2018 Secondary NOT GIVENUNK [place] Insurance:SELF PAY Community INSURANCEPolicy Number: Hospital Effective Repository Date:2018-05-22 05/15/2018 KEIKO B [id number] Primary Insurance:AETNA KEIKO B TRACYDOB: [place] FROST MCRPolicy Number: [id number], [place] Date:6757-31-89SV BOX Repository [address]Wzi: [phone] [place], [place] [phone] (HP) [phone]: 05/15/2018 Secondary NOT GIVENUNK [place] Insurance:SELF PAY Community INSURANCEPolicy Number: Hospital Effective Repository Date:2018-05-15 05/05/2018 KEIKO B [id number] Primary Insurance:AETNA KEIKO B TRACYDOB: [place] FROST MCRPolicy Number: [id number] Date:3636-20-84SC BOX Repository [address]Ayb: [phone] [place], [place] [phone] (HP) [phone]: 05/05/2018 Secondary NOT GIVENUNK [place] Insurance:SELF PAY Community INSURANCEPolicy Number: Hospital Effective Repository Date:2018-05-05 04/03/2018 KEIKO B [id number] Primary Insurance:AETNA KEIKO B TRACYDOB: [place] FROST MCRPolicy Number: [id number] [place] Date:3674-24-56HL BOX Repository [address]Kyl: [phone] [place], [place] [phone] (HP) [phone]: 04/03/2018 Secondary NOT GIVENUNK [place] Insurance:SELF PAY Community INSURANCEPolicy Number: Hospital Effective Repository Date:2018-04-03 04/02/2018 KEIKO B [id number] Primary Insurance:AETNA KEIKO B TRACYDOB: [place] FROST MCRPolicy Number: [id number] Date:5600-08-81YZ BOX Repository [address]Bkp: [phone] [place] [phone] (HP) [phone]: 04/02/2018 Secondary NOT GIVENUNK [place] Insurance:SELF PAY Community INSURANCEPolicy Number: Hospital Effective Repository Date:2018-03-15 04/02/2018 KEIKO B [id number] Primary Insurance:AETNA KEIKO B TRACYDOB: [place] FROST MCRPolicy Number: [id number] [address], [place] Date:0449-05-50ZH BOX Repository [address]Pbi: [phone] [place] [phone] (HP) [phone]: 04/02/2018 Secondary NOT GIVENUNK [place] Insurance:SELF PAY Community INSURANCEPolicy Number: Hospital Effective Repository Date:2018-04-02 03/20/2018 KEIKO B [id number] Primary Insurance:AETNA KEIKO B TRACYDOB: [place] FR[place] MCRPolicy Number: [id number] [address], [place] Date:2039-53-89ZU BOX Repository [address]Wzu: [phone] [place], [place] [phone] (HP) [phone]: 03/20/2018 Secondary NOT GIVENUNK [place] Insurance:SELF PAY Community INSURANCEPolicy Number: Hospital Effective Repository Date:2018-03-20 03/13/2018 KEIKO B [id number] Primary Insurance:AETNA KEIKO B TRACYDOB: [place] MCRPolicy Number: [id number] Date:9477-55-65WW BOX Repository [address]Lki: [phone] [place], [place] [phone] (HP) [phone]: 03/13/2018 Secondary NOT GIVENUNK [place] Insurance:SELF PAY Community INSURANCEPolicy Number: Hospital Effective Repository Date:2018-03-13 03/13/2018 KEIKO B [id number] Primary Insurance:AETNA KEIKO B TRACYDOB: [place] FR[place] MCRPolicy Number: [id number] Date:9081-04-11MR BOX Repository [address]Kfa: [phone] [place], [place] [phone] (HP) [phone]: 03/13/2018 Secondary NOT GIVENUNK [place] Insurance:SELF PAY Community INSURANCEPolicy Number: Hospital Effective Repository Date:2018-02-12 03/06/2018 KEIKO B [id number] Primary Insurance:AETNA KEIKO B TRACYDOB: [place] FR[place] MCRPolicy Number: [id number] Date:7675-77-65RK BOX Repository [address]Ckp: [phone] [place] [phone] (HP) [phone]: 03/06/2018 Secondary NOT GIVENUNK [place] Insurance:SELF PAY Community INSURANCEPolicy Number: Hospital Effective Repository Date:2018-03-06 02/27/2018 KEIKO B [id number] Primary Insurance:AETNA KEIKO B TRACYDOB: [place] FROST MCRPolicy Number: [id number] Date:6687-92-43PE BOX Repository [address]Aww: [phone] [place] [phone] (HP) [phone]: 02/27/2018 Secondary NOT GIVENUNK [place] Insurance:SELF PAY Community INSURANCEPolicy Number: Hospital Effective Repository Date:2018-02-27 02/20/2018 KEIKO B [id number] Primary Insurance:AETNA KEIKO B TRACYDOB: [place] FR[place] MCRPolicy Number: [id number] Date:7239-71-94UL BOX Repository [address]Vfv: [phone] [place] [phone] (HP) [phone]: 02/20/2018 Secondary NOT GIVENUNK [place] Insurance:SELF PAY Community INSURANCEPolicy Number: Hospital Effective Repository Date:2018-02-20 02/13/2018 KEIKO B [id number] Primary Insurance:AETNA KEIKO B TRACYDOB: [place] FROST MCRPolicy Number: [id number] [address], [place] Date:4900-76-99MK BOX Repository [address]Oou: [phone] [place] [phone] (HP) [phone]: 02/13/2018 Secondary NOT GIVENUNK [place] Insurance:SELF PAY Community INSURANCEPolicy Number: Hospital Effective Repository Date:2018-02-13 02/06/2018 KEIKO B [id number] Primary Insurance:AETNA KEIKO B TRACYDOB: [place] FROST MCRPolicy Number: [id number] Date:3851-07-84DG BOX Repository [address]Rob: [phone] [place] [phone] (HP) [phone]: 02/06/2018 Secondary NOT GIVENUNK [place] Insurance:SELF PAY Community INSURANCEPolicy Number: Hospital Effective Repository Date:2018-01-12 02/06/2018 KEIKO B [id number] Primary Insurance:AETNA KEIKO B TRACYDOB: [place] FROST MCRPolicy Number: [id number] [address], [place] Date:6912-77-47SX BOX Repository [address]Vzp: [phone] [place] [phone] (HP) [phone]: 02/06/2018 Secondary NOT GIVENUNK [place] Insurance:SELF PAY Community INSURANCEPolicy Number: Hospital Effective Repository Date:2018-02-06 01/30/2018 KEIKO B [id number] Primary Insurance:AETNA KEIKO B TRACYDOB: [place] FROST MCRPolicy Number: [id number] Date:4817-46-18MT BOX Repository 1979[address]Rgw: [phone] [place] [phone] (HP) [phone]: 01/30/2018 Secondary NOT GIVENUNK [place] Insurance:SELF PAY Community INSURANCEPolicy Number: Hospital Effective Repository Date:2018-01-30 01/23/2018 KEIKO B [id number] Primary Insurance:AETNA KEIKO B TRACYDOB: [place] FROST MCRPolicy Number: [id number] [address], [place] Date:3399-89-05VT BOX Repository [address]Ubn: [phone] [id number] [place] [phone] (HP) [address]XZ: 01/23/2018 Secondary NOT GIVENUNK [place] Insurance:SELF PAY Community INSURANCEPolicy Number: Hospital Effective Repository Date:2018-01-23 01/16/2018 KEIKO B [id number] Primary Insurance:AETNA KEIKO B TRACYDOB: [place] FROST MCRPolicy Number: [id number], [place] Date:6955-27-58FV BOX Repository [address]10[address]Osp: [phone] [place] [phone] (HP) [address]ME: 01/16/2018 Secondary NOT GIVENUNK [place] Insurance:SELF PAY Community INSURANCEPolicy Number: Hospital Effective Repository Date:2018-01-16 01/02/2018 KEIKO B [id number] Primary Insurance:AETNA KEIKO B TRACYDOB: [place] FROST MCRPolicy Number: [id number], [place] Date:5499-68-76QF BOX Repository 57[address]Urt: [phone] [id number] JOSELYN [place] [phone] (HP) [address]AK: 01/02/2018 Secondary NOT GIVENUNK [place] Insurance:SELF PAY Community INSURANCEPolicy Number: Hospital Effective Repository Date:2018-01-02 01/01/2018 KEIKO B [id number] Primary Insurance:AETNA KEIKO B TRACYDOB: [place] FROST MCRPolicy Number: [id number], [place] Date:8609-58-31QS BOX Repository [address]Dsf: [phone] [place] [phone] (HP) [address]XM: 01/01/2018 Secondary NOT GIVENUNK [place] Insurance:SELF PAY Community INSURANCEPolicy Number: Hospital Effective Repository Date:2017-12-25 12/03/2017 KEIKO B [id number] Primary Insurance:AETNA KEIKO B TRACYDOB: [place] FROST MCRPolicy Number: [id number], [place] Date:0329-04-41GJ BOX Repository 18[address]Xad: [phone] [place] [phone] (HP) [address]RR: 12/03/2017 Secondary NOT GIVENUNK [place] Insurance:SELF PAY Community INSURANCEPolicy Number: Hospital Effective Repository Date:2017-11-08 11/26/2017 KEIKO B [id number] Primary Insurance:AETNA KEIKO B TRACYDOB: [place] LEIGH MCRPolicy Number: [id number] [address] [address]Hcs: (330) Date:1130-32-04UO BOX Repository [phone] (HP) [id number] [place] [address]NL: 11/26/2017 Secondary NOT GIVENUNK [place] Insurance:SELF PAY Community INSURANCEPolicy Number: Hospital Effective Repository Date:2017-11-26 11/19/2017 KEIKO B [id number] Primary Insurance:AETNA KEIKO B TRACYDOB: [place] LEIGH MCRPolicy Number: [id number] [address] [address]Jzo: (330) Date:8392-08-66RD BOX Repository [phone] (HP) [id number] [place] [address]TB: 11/19/2017 Secondary NOT GIVENUNK [place] Insurance:SELF PAY Community INSURANCEPolicy Number: Hospital Effective Repository Date:2017-11-19 11/19/2017 KEIKO B [id number] Primary Insurance:AETNA KEIKO B TRACYDOB: [place] LEIGH MCRPolicy Number: [id number] [address] [address]Rtc: (330) Date:6850-26-94AC BOX Repository [phone] (HP) [id number] [place] [address]II: 11/19/2017 Secondary NOT GIVENUNK [place] Insurance:SELF PAY Community INSURANCEPolicy Number: Hospital Effective Repository Date:2017-11-19 11/19/2017 KEIKO B [id number] Primary Insurance:AETNA KEIKO B TRACYDOB: [place] LEIGH MCRPolicy Number: [id number] [address] [address]Jqa: (330) Date:9416-86-95ZX BOX Repository [phone] (HP) 103962XBJOSELYN [place] [address]LA: 11/19/2017 Secondary NOT GIVENUNK [place] Insurance:SELF PAY Community INSURANCEPolicy Number: Hospital Effective Repository Date:2017-11-19 11/19/2017 KEIKO B [id number] Primary Insurance:AETNA KEIKO B TRACYDOB: [place] FROST MCRPolicy Number: [id number] Date:2743-98-56CI BOX Repository [address]Ree: [phone] [place] [phone] (HP) [address]UZ: 11/19/2017 Secondary NOT GIVENUNK [place] Insurance:SELF PAY Community INSURANCEPolicy Number: Hospital Effective Repository Date:2017-11-19 11/19/2017 KEIKO B [id number] Primary Insurance:AETNA KEIKO B TRACYDOB: [place] [facility] MCRPolicy Number: [id number] [address] [address]Tcr: (330) Date:0195-96-35YO BOX Repository [phone] (HP) [id number] [place] [address]NI: 11/19/2017 Secondary NOT GIVENUNK [place] Insurance:SELF PAY Community INSURANCEPolicy Number: Hospital Effective Repository Date:2017-11-19 11/08/2017 KEIKO B [id number] Primary Insurance:AETNA KEIKO B TRACYDOB: [place] [facility] MCRPolicy Number: [id number] [address]Vrb: (330) Date:3954-39-26QS BOX Repository [phone] (HP) [id number] [place] [address]OD: 11/08/2017 Secondary NOT GIVENUNK [place] Insurance:SELF PAY Community INSURANCEPolicy Number: Hospital Effective Repository Date:2017-11-08 10/28/2017 KEIKO B [id number] Primary Insurance:AETNA KEIKO B TRACYDOB: [place] LEIGH MCRPolicy Number: [id number] [address] [address]Zkg: (330) Date:1418-28-29RO BOX Repository [phone] () [id number] JOSELYN KNAPP [address]SX: 10/28/2017 Secondary NOT GIVENUNK [place] Insurance:SELF PAY Community INSURANCEPolicy Number: Hospital Effective Repository Date:2017-10-28 10/02/2017 KEIKO B [id number] Primary Insurance:AETNA KEIKO B TRACYDOB: [place] LEIGH MCRPolicy Number: [id number] [place] [id number]: (330) Date:4395-96-42DV BOX Repository [phone] () [id number] [place] [address]PN: 10/02/2017 Secondary NOT GIVENUNK [place] Insurance:SELF PAY Community INSURANCEPolicy Number: Hospital Effective Repository Date:2017-10-02 10/01/2017 KEIKO B [id number] Primary Insurance:AETNA KEIKO B TRACYDOB: [place] LEIGH MCRPolicy Number: [id number] [place] [id number]: (330) Date:4797-90-10SE BOX Repository [phone] (HP) 254930OC [place] [address]JW: 10/01/2017 Secondary NOT GIVENUNK [place] Insurance:SELF PAY Community INSURANCEPolicy Number: Hospital Effective Repository Date:2017-10-01 09/27/2017 KEIKO B [id number] Primary Insurance:AETNA KEIKO B TRACYDOB: [place] LEIGH MCRPolicy Number: [id number] [place] [id number]: (330) Date:5443-59-52UF BOX Repository [phone] (HP) 746736EEJOSELYN [place] [address]RF: 09/27/2017 Secondary NOT GIVENUNK [place] Insurance:SELF PAY Community INSURANCEPolicy Number: Hospital Effective Repository Date:2017-09-27 09/16/2017 KEIKO B [id number] Primary Insurance:AETNA KEIKO B TRACYDOB: [place] FROST RDLOT MCRPolicy Number: [id number] [address]Olo: (330) Date:1545-55-41AX BOX Repository [phone] (HP) 744534VQJOESLYN [place] [address]GO: 09/16/2017 Secondary NOT GIVENUNK [place] Insurance:SELF PAY Community INSURANCEPolicy Number: Hospital Effective Repository Date:2017-09-16 09/11/2017 KEIKO B [id number] Primary Insurance:AETNA KEIKO B TRACYDOB: [place] FROST ANDRESSALOT MCRPolicy Number: [id number] [address]Kqa: (330) Date:2633-52-93VD BOX Repository [phone] (HP) 190463OVJOSELYN [place] [address]ND: 09/11/2017 Secondary NOT GIVENUNK [place] Insurance:SELF PAY Community INSURANCEPolicy Number: Hospital Effective Repository Date:2017-09-11 08/29/2017 KEIKO B [id number] Primary Insurance:AETNA KEIKO B TRACYDOB: [place] FROST RDLOT MCRPolicy Number: [id number] [address]Wqg: (330) Date:3258-74-95NH BOX Repository [phone] (HP) [id number] [place] [address]VY: 08/29/2017 Secondary NOT GIVENUNK [place] Insurance:SELF PAY Community INSURANCEPolicy Number: Hospital Effective Repository Date:2017-08-29 08/08/2017 KEIKO B [id number] Primary Insurance:AETNA KEIKO B TRACYDOB: [place] FROST RDLOT MCRPolicy Number: [id number] [address] [facility] [address]Omk: (330) Date:7384-75-54SF BOX Repository [phone] () [id number] [place] [address]TG: 08/08/2017 Secondary NOT GIVENUNK [place] Insurance:SELF PAY Community INSURANCEPolicy Number: Hospital Effective Repository Date:2017-07-24 08/07/2017 Keiko B [id number] Primary Keiko B TracyDOB: [place] RdLot Insurance:MEDICARE PART [id number] [address] A BPolicy Number: Hospital [id number]: [phone] [id number] Repository [phone] () Date:2017-08-07 08/07/2017 Secondary Keiko B TracyDOB: [place] Insurance:[employer] [id number] Community Number: Hospital [id number] Repository Date:8471-94-85[address]FG, [place] [address]EK: 08/07/2017 Tertiary Insurance:SELF NOT GIVENUNK [place] PAY INSURANCEPolicy Community Number: Effective Hospital Date:2017-08-07 Repository
== END 2018-07-14 23:59 ==
LOC: WC 09:45
PROVIDERS: Family Provider Family Medicine Geriatric Medicine; PCP Family Medicine Geriatric Medicine; Visit Provider Internal Medicine
DX: L97.822 Non-pressure chronic ulcer of other part of left lower leg with fat layer exposed (principal); R60.0 Localized edema; M79.89 Other specified soft tissue disorders; L97.821 Non-pressure chronic ulcer of other part of left lower leg limited to breakdown of skin
CPT/HCPCS: 11042; 29581; 97597; 99213; G0463

== ENCOUNTER 2018-08-06 11:30 | Outpatient (RCR) | payer MEDICARE, SELFPAY ==
[2018-07-15 00:25] VITALS: BP 145/72; PULSE 88; RESP 18; TEMP 36.6
[2018-07-18 09:06] VITALS: BP 119/85; PULSE 77; RESP 18; TEMP 36.8; BMI 24.4
--- NOTE | 2018-07-18 10:32 | PCM.WC.PN ---
(1) Blister (nonthermal), right lower leg, initial encounter Status: Acute Current Visit: Yes Code(s): S80.821A - Blister (nonthermal), right lower leg, initial encounter (2) Ulcer of left lower extremity, limited to breakdown of skin Status: Acute Current Visit: Yes Code(s): L97.921 - Non-pressure chronic ulcer of unspecified part of left lower leg limited to breakdown of skin Type of Wound Chief Complaint: nonpressure ulcer left lower extremity. Swelling of both legs History of Wound: Mr. Garcia is an 82-year-old who is well-known to the wound center due to recurrent reopening of left lower extremity ulcer. He has had recurrent episodes of left lower extremity ulcers since his surgery a couple of years ago. Also has significant bilateral lower extremity edema and is not very compliant with compression. Denies any significant concerns at this time. No chills, fever or feeling of unwell. Progress of Wound: Left lower leg is healed posterior and anterior and medial. Today developed a blister on the right lower medial leg about the size of a nickel. Superficial relatively clean did debride. Continue to wrap the leg and clinic [facility]. - Physical Exam Vital Signs Temp Pulse Resp BP 98.2 F 77 18 119/85 H 07/18/18 09:06 07/18/18 09:06 07/18/18 09:06 07/18/18 09:06 General: Oriented x3, Cooperative, Well developed HEENT: Atraumatic, PERRLA Oral: Moist Mucosa Neck: Supple, No JVD Lungs: Clear to auscultation, Normal air movement Cardiovascular: Regular rate, Regular Rhythm Abdomen: Bowel Sounds Present, Soft, Non Tender, No Hepato-splenomegaly Extremities: No clubbing, No edema Skin: Ulcer/ Wound - Left lower leg ulcers healed right medial lower leg blister Wound Measurements and Assessment WC - Nurse 1 - General Ulcer Measurement Start: 07/18/18 09:06 Freq: Status: Active Protocol: Activity Type Activity Date Activity User E-Sign Co-Sign Detail Recorded Client Recorded Date Recorded By Document 07/18/18 09:06 AN [id number] 07/18/18 09:33 AN 07/18/18 09:06 Wound Center Nurse 1 [Ulcer Assessment] #14 right medial lower leg -Current Size (cm) - Length 1.2 -Current Size (cm) - Width 1.2 -Current Size (cm) - Depth 0.1 -Total Square Cm 1.44 -Date of Last Picture (Recall this 07/18/18 field) -Photo Taken Yes -Epithelialization None Present -Tunneling No -Undermining/Tunneling No -Circular Undermining No -Exudate Amt None Present (0 %) -Wound Margin Distinct, Outline Attached -Granulation Amt None Present (0 %) -Slough/Fibrin Yes -Necrosis Amt Large (67-100%) -Necrotic Tissue Type Adherent Slough -Structure Exposed None/Limited to Skin Breakdown -Texture (Elisa-wound Skin Appearance) No Abnormality Assessed -Moisture (Elisa-wound Skin Appearance No Abnormality ) Assessed -Color (Elisa-wound Skin Appearance) No Abnormality Assessed -Temperature (Elisa-wound Skin No Abnormality Appearance) (Pt Warm) -Tenderness on Palpation (Elisa-wound No Skin Appearance) -Ulcer Cleansing soap and water -Foul Odor after Cleansing No [Edema Assessment] -Right Calf (cm) 33.5 -Right Ankle (cm) 25.0 -Left Calf (cm) 29.0 -Left Ankle (cm) 23.5 WC - Nurse 2 - General Ulcer CM Notes Start: 07/18/18 09:06 Freq: Status: Active Protocol: Activity Type Activity Date Activity User E-Sign Co-Sign Detail Recorded Client Recorded Date Recorded By Document 07/18/18 09:40 MW [id number] 07/18/18 09:43 MW 07/18/18 09:40 Wound Center Nurse 2 [Procedure/Treatment] #14 right medial lower leg -Time 09:40 -Correct Patient Yes -Correct Side, Site, Position Yes -Correct Procedure Yes -Procedure Performed Yes -Type of Procedure Debridement -Clinical Debridement Subcutaneous -Post Debridement Size (cm) - Length 1.3 -Post Debridement Size (cm) - Width 1.3 -Post Debridement Size (cm) - Depth 0.1 -Total Square Cm 1.69 -Wound/Ulcer Outcome Not Healed -Ulcer Cleansing Rinsed/ Irrigated with Saline -Foul Odor after Cleansing No -Bioengineered Tissue No -Bleeding Controlled with Pressure -Offloading No -Treatment Response Procedure Tolerated Well # 13 Left medial LE inferior - cluster -Time 09:41 -Correct Patient Yes -Correct Side, Site, Position Yes -Correct Procedure Yes -Procedure Performed No -Post Debridement Size (cm) - Length 0 -Post Debridement Size (cm) - Width 0 -Post Debridement Size (cm) - Depth 0 -Total Square Cm 0 -Wound/Ulcer Outcome Healed- Epithelialized -Ulcer Cleansing Not Cleansed -Foul Odor after Cleansing No -Bioengineered Tissue No -Offloading No -Treatment Response Procedure Tolerated Well #12 Left Medial LE Superior -Time 09:41 -Correct Patient Yes -Correct Side, Site, Position Yes -Correct Procedure Yes -Procedure Performed No -Post Debridement Size (cm) - Length 0 -Post Debridement Size (cm) - Width 0 -Post Debridement Size (cm) - Depth 0 -Total Square Cm 0 -Wound/Ulcer Outcome Healed- Epithelialized -Ulcer Cleansing Not Cleansed -Foul Odor after Cleansing No -Bioengineered Tissue No -Bleeding Controlled with NA -Offloading No -Treatment Response Procedure Tolerated Well 11 Left Nelson Lateral Cluster -Time 09:41 -Correct Patient Yes -Correct Side, Site, Position Yes -Correct Procedure Yes -Procedure Performed No -Post Debridement Size (cm) - Length 0 -Post Debridement Size (cm) - Width 0 -Post Debridement Size (cm) - Depth 0 -Total Square Cm 0 -Wound/Ulcer Outcome Healed- Epithelialized #9 LEFT POST. CALF -Time 09:42 -Correct Patient Yes -Correct Side, Site, Position Yes -Correct Procedure Yes -Procedure Performed No -Post Debridement Size (cm) - Length 0 -Post Debridement Size (cm) - Width 0 -Post Debridement Size (cm) - Depth 0 -Total Square Cm 0 -Wound/Ulcer Outcome Healed- Epithelialized [See Physician Procedure note for Specifics] Pain Scale: 0-10 Numeric [Pain] -Is Patient Pain Free? Yes Musculoskeletal: No Tenderness to Palpation of Joints or Extremities Lymphatic: No Cervical, Supraclavicular, or Inguinal Adenopathy Neurological: Cranial nerves II-XII grossly intact, Neuro grossly intact Psych/Mental Status: Normal Affect, Appropriate Debridement Note Post-Debridement Measurements/Treatment WC - Nurse 2 - General Ulcer CM Notes Start: 07/18/18 09:06 Freq: Status: Active Protocol: Activity Type Activity Date Activity User E-Sign Co-Sign Detail Recorded Client Recorded Date Recorded By Document 07/18/18 09:40 MW [id number] 07/18/18 09:43 MW 07/18/18 09:40 Wound Center Nurse 2 #14 right medial lower leg -Time 09:40 -Correct Patient Yes -Correct Side, Site, Position Yes -Correct Procedure Yes -Procedure Performed Yes -Type of Procedure Debridement -Clinical Debridement Subcutaneous -Post Debridement Size (cm) - Length 1.3 -Post Debridement Size (cm) - Width 1.3 -Post Debridement Size (cm) - Depth 0.1 -Total Square Cm 1.69 -Wound/Ulcer Outcome Not Healed -Ulcer Cleansing Rinsed/ Irrigated with Saline -Foul Odor after Cleansing No -Bioengineered Tissue No -Bleeding Controlled with Pressure -Offloading No -Treatment Response Procedure Tolerated Well # 13 Left medial LE inferior - cluster -Time 09:41 -Correct Patient Yes -Correct Side, Site, Position Yes -Correct Procedure Yes -Procedure Performed No -Post Debridement Size (cm) - Length 0 -Post Debridement Size (cm) - Width 0 -Post Debridement Size (cm) - Depth 0 -Total Square Cm 0 -Wound/Ulcer Outcome Healed- Epithelialized -Ulcer Cleansing Not Cleansed -Foul Odor after Cleansing No -Bioengineered Tissue No -Offloading No -Treatment Response Procedure Tolerated Well #12 Left Medial LE Superior -Time 09:41 -Correct Patient Yes -Correct Side, Site, Position Yes -Correct Procedure Yes -Procedure Performed No -Post Debridement Size (cm) - Length 0 -Post Debridement Size (cm) - Width 0 -Post Debridement Size (cm) - Depth 0 -Total Square Cm 0 -Wound/Ulcer Outcome Healed- Epithelialized -Ulcer Cleansing Not Cleansed -Foul Odor after Cleansing No -Bioengineered Tissue No -Bleeding Controlled with NA -Offloading No -Treatment Response Procedure Tolerated Well 11 Left Nelson Lateral Cluster -Time 09:41 -Correct Patient Yes -Correct Side, Site, Position Yes -Correct Procedure Yes -Procedure Performed No -Post Debridement Size (cm) - Length 0 -Post Debridement Size (cm) - Width 0 -Post Debridement Size (cm) - Depth 0 -Total Square Cm 0 -Wound/Ulcer Outcome Healed- Epithelialized #9 LEFT POST. CALF -Time 09:42 -Correct Patient Yes -Correct Side, Site, Position Yes -Correct Procedure Yes -Procedure Performed No -Post Debridement Size (cm) - Length 0 -Post Debridement Size (cm) - Width 0 -Post Debridement Size (cm) - Depth 0 -Total Square Cm 0 -Wound/Ulcer Outcome Healed- Epithelialized Pain Scale: 0-10 Numeric Is Patient Pain Free? Yes Wound debrided: Right medial lower leg blister Type of Debridement: Excisional debridement Anesthesia Used: 4% Lidocaine Solution, 5% Lidocaine Gel Depth: Down to and including healthy tissue, in the subcutaneous layer Percentage of wound debrided: 100 Instrument Used: 7mm curette Tissue Removed: Fibrin and some slough devitalized tissue Severity: Limited To Skin Breakdown Amount of bleeding with debridement: Mild Patient tolerated procedure well Assessment/Plan Active Problems (Last Updated 12/03/17 @ 09:34 by Chato Moran) Ulcer of left lower extremity, limited to breakdown of skin (Acute) Blister (nonthermal), right lower leg, initial encounter (Acute) Assessment: Recurrent left lower extremity ulcer. Resolved. Bilateral lower extremity edema. Lower medial nonhealing ulcer Plan: Right lower leg wash with antibacterial soap and apply Xeroform dressing to the open ulcer area cover with gauze daily. Continue the compression wraps to left lower leg until seen in clinic. Follow-up with in 1 week
[2018-08-06 11:31] VITALS: BP 120/72; PULSE 94; RESP 18; TEMP 37; BMI 24.4
--- NOTE | 2018-08-06 12:18 | PCM.WC.PN ---
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 Swelling of both legs History of Wound: Mr. Garcia is an 82-year-old who is well-known to the wound center due to recurrent reopening of left lower extremity ulcer. He has had recurrent episodes of left lower extremity ulcers since his surgery a couple of years ago. Also has significant bilateral lower extremity edema and is not very compliant with compression. Denies any significant concerns at this time. No chills, fever or feeling of unwell. Progress of Wound: Healed. No concerns at this time. - Physical Exam Vital Signs Temp Pulse Resp BP 98.6 F 94 18 120/72 08/06/18 11:31 08/06/18 11:31 08/06/18 11:31 08/06/18 11:31 General: Alert, Oriented x3, Cooperative, No apparent distress HEENT: Atraumatic, Normocephalic Oral: Moist Mucosa Neck: Supple Lungs: Normal air movement Abdomen: Non Tender Extremities: No cyanosis, Edema Wound Measurements and Assessment WC - Nurse 1 - General Ulcer Measurement Start: 07/18/18 09:06 Freq: Status: Active Protocol: Activity Type Activity Date Activity User E-Sign Co-Sign Detail Recorded Client Recorded Date Recorded By Document 08/06/18 11:31 [id number] 08/06/18 11:34 08/06/18 11:31 Wound Center Nurse 1 [Ulcer Assessment] #14 right medial lower leg -Combined with other wound No -Current Size (cm) - Length 0.1 -Current Size (cm) - Width 0.1 -Current Size (cm) - Depth 0.1 -Total Square Cm 0.01 -Epithelialization Large 67-100% -Tunneling No -Undermining/Tunneling No -Circular Undermining No -Exudate Amt None Present -Wound Margin Distinct, Outline Attached -Granulation Amt Large (67-100%) -Granulation Quality [place] -Necrosis Amt None Present (0 %) -Structure Exposed N/A -Texture (Elisa-wound Skin Appearance) Assessed -Moisture (Elisa-wound Skin Appearance Assessed ) -Color (Elisa-wound Skin Appearance) Assessed -Temperature (Elisa-wound Skin No Abnormality Appearance) (Pt Warm) -Tenderness on Palpation (Elisa-wound No Skin Appearance) -Ulcer Cleansing Rinsed/ Irrigated with Saline -Foul Odor after Cleansing No [Edema Assessment] -Lower Limb Edema Present Yes -Right Calf (cm) 37 -Right Ankle (cm) 25.5 WC - Nurse 2 - General Ulcer CM Notes Start: 07/18/18 09:06 Freq: Status: Active Protocol: Activity Type Activity Date Activity User E-Sign Co-Sign Detail Recorded Client Recorded Date Recorded By Document 08/06/18 11:40 MW [id number] 08/06/18 11:41 MW 08/06/18 11:40 Wound Center Nurse 2 [Procedure/Treatment] #14 right medial lower leg -Time 11:40 -Correct Patient Yes -Correct Side, Site, Position Yes -Correct Procedure Yes -Procedure Performed No -Post Debridement Size (cm) - Length 0 -Post Debridement Size (cm) - Width 0 -Post Debridement Size (cm) - Depth 0 -Total Square Cm 0 -Wound/Ulcer Outcome Healed- Epithelialized -Ulcer Cleansing Not Cleansed -Foul Odor after Cleansing No -Bleeding Controlled with NA -Offloading No -Treatment Response Procedure Tolerated Well [See Physician Procedure note for Specifics] Pain Scale: 0-10 Numeric [Pain] -Is Patient Pain Free? Yes Neurological: Cranial nerves II-XII grossly intact Psych/Mental Status: Normal Affect Debridement Note Post-Debridement Measurements/Treatment WC - Nurse 2 - General Ulcer CM Notes Start: 07/18/18 09:06 Freq: Status: Active Protocol: Activity Type Activity Date Activity User E-Sign Co-Sign Detail Recorded Client Recorded Date Recorded By Document 07/18/18 09:40 MW [id number] 07/18/18 09:43 MW Document 08/06/18 11:40 MW [id number] 08/06/18 11:41 MW 07/18/18 08/06/18 09:40 11:40 Wound Center Nurse 2 #14 right medial lower leg -Time 09:40 11:40 -Correct Patient Yes Yes -Correct Side, Site, Position Yes Yes -Correct Procedure Yes Yes -Procedure Performed Yes No -Type of Procedure Debridement -Clinical Debridement Subcutaneous -Post Debridement Size (cm) - Length 1.3 0 -Post Debridement Size (cm) - Width 1.3 0 -Post Debridement Size (cm) - Depth 0.1 0 -Total Square Cm 1.69 0 -Wound/Ulcer Outcome Not Healed Healed- Epithelialized -Ulcer Cleansing Rinsed/ Not Cleansed Irrigated with Saline -Foul Odor after Cleansing No No -Bioengineered Tissue No -Bleeding Controlled with Pressure NA -Offloading No No -Treatment Response Procedure Procedure Tolerated Well Tolerated Well # 13 Left medial LE inferior - cluster -Time 09:41 -Correct Patient Yes -Correct Side, Site, Position Yes -Correct Procedure Yes -Procedure Performed No -Post Debridement Size (cm) - Length 0 -Post Debridement Size (cm) - Width 0 -Post Debridement Size (cm) - Depth 0 -Total Square Cm 0 -Wound/Ulcer Outcome Healed- Epithelialized -Ulcer Cleansing Not Cleansed -Foul Odor after Cleansing No -Bioengineered Tissue No -Offloading No -Treatment Response Procedure Tolerated Well #12 Left Medial LE Superior -Time 09:41 -Correct Patient Yes -Correct Side, Site, Position Yes -Correct Procedure Yes -Procedure Performed No -Post Debridement Size (cm) - Length 0 -Post Debridement Size (cm) - Width 0 -Post Debridement Size (cm) - Depth 0 -Total Square Cm 0 -Wound/Ulcer Outcome Healed- Epithelialized -Ulcer Cleansing Not Cleansed -Foul Odor after Cleansing No -Bioengineered Tissue No -Bleeding Controlled with NA -Offloading No -Treatment Response Procedure Tolerated Well 11 Left [place] Lateral Cluster -Time 09:41 -Correct Patient Yes -Correct Side, Site, Position Yes -Correct Procedure Yes -Procedure Performed No -Post Debridement Size (cm) - Length 0 -Post Debridement Size (cm) - Width 0 -Post Debridement Size (cm) - Depth 0 -Total Square Cm 0 -Wound/Ulcer Outcome Healed- Epithelialized #9 LEFT POST. CALF -Time 09:42 -Correct Patient Yes -Correct Side, Site, Position Yes -Correct Procedure Yes -Procedure Performed No -Post Debridement Size (cm) - Length 0 -Post Debridement Size (cm) - Width 0 -Post Debridement Size (cm) - Depth 0 -Total Square Cm 0 -Wound/Ulcer Outcome Healed- Epithelialized Pain Scale: 0-10 Numeric Is Patient Pain Free? Yes Yes No debridement was completed today Assessment/Plan Assessment: Recurrent left lower extremity ulcer. Resolved. Bilateral lower extremity edema. Lower medial nonhealing ulcer Plan: Left lower extremity ulcers stay healed. Right lower extremity ulcer healed. No concerns at this time. He is yet to schedule an appointment at the lymphedema clinic. He was encouraged to. Double layer Tubigrip's. Wear daily. Elevate lower extremities when sitted and in bed. He was advised to call with any questions or concerns. Discharged from the wound clinic. This note was generated with [employer] dictation software. It may contain incorrect words, spelling, and punctuation that were not noted in checking the note before signing.
--- NOTE | 2018-08-06 12:21 | PN.PCM_ITS ---
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 Swelling of both legs History of Wound: Mr. Garcia is an 82-year-old who is well-known to the wound center due to recurrent reopening of left lower extremity ulcer. He has had recurrent episodes of left lower extremity ulcers since his surgery a couple of years ago. Also has significant bilateral lower extremity edema and is not very compliant with compression. Denies any significant concerns at this time. No chills, fever or feeling of unwell. Progress of Wound: Healed. No concerns at this time. - Physical Exam Vital Signs Temp Pulse Resp BP 98.6 F 94 18 120/72 08/06/18 11:31 08/06/18 11:31 08/06/18 11:31 08/06/18 11:31 General: Alert, Oriented x3, Cooperative, No apparent distress HEENT: Atraumatic, Normocephalic Oral: Moist Mucosa Neck: Supple Lungs: Normal air movement Abdomen: Non Tender Extremities: No cyanosis, Edema Wound Measurements and Assessment WC - Nurse 1 - General Ulcer Measurement Start: 07/18/18 09:06 Freq: Status: Active Protocol: Activity Type Activity Date Activity User E-Sign Co-Sign Detail Recorded Client Recorded Date Recorded By Document 08/06/18 11:31 [id number] 08/06/18 11:34 08/06/18 11:31 Wound Center Nurse 1 [Ulcer Assessment] #14 right medial lower leg -Combined with other wound No -Current Size (cm) - Length 0.1 -Current Size (cm) - Width 0.1 -Current Size (cm) - Depth 0.1 -Total Square Cm 0.01 -Epithelialization Large 67-100% -Tunneling No -Undermining/Tunneling No -Circular Undermining No -Exudate Amt None Present -Wound Margin Distinct, Outline Attached -Granulation Amt Large (67-100%) -Granulation Quality [place] -Necrosis Amt None Present (0 %) -Structure Exposed N/A -Texture (Elisa-wound Skin Appearance) Assessed -Moisture (Elisa-wound Skin Appearance Assessed ) -Color (Elisa-wound Skin Appearance) Assessed -Temperature (Elisa-wound Skin No Abnormality Appearance) (Pt Warm) -Tenderness on Palpation (Elisa-wound No Skin Appearance) -Ulcer Cleansing Rinsed/ Irrigated with Saline -Foul Odor after Cleansing No [Edema Assessment] -Lower Limb Edema Present Yes -Right Calf (cm) 37 -Right Ankle (cm) 25.5 WC - Nurse 2 - General Ulcer CM Notes Start: 07/18/18 09:06 Freq: Status: Active Protocol: Activity Type Activity Date Activity User E-Sign Co-Sign Detail Recorded Client Recorded Date Recorded By Document 08/06/18 11:40 MW [id number] 08/06/18 11:41 MW 08/06/18 11:40 Wound Center Nurse 2 [Procedure/Treatment] #14 right medial lower leg -Time 11:40 -Correct Patient Yes -Correct Side, Site, Position Yes -Correct Procedure Yes -Procedure Performed No -Post Debridement Size (cm) - Length 0 -Post Debridement Size (cm) - Width 0 -Post Debridement Size (cm) - Depth 0 -Total Square Cm 0 -Wound/Ulcer Outcome Healed- Epithelialized -Ulcer Cleansing Not Cleansed -Foul Odor after Cleansing No -Bleeding Controlled with NA -Offloading No -Treatment Response Procedure Tolerated Well [See Physician Procedure note for Specifics] Pain Scale: 0-10 Numeric [Pain] -Is Patient Pain Free? Yes Neurological: Cranial nerves II-XII grossly intact Psych/Mental Status: Normal Affect Debridement Note Post-Debridement Measurements/Treatment WC - Nurse 2 - General Ulcer CM Notes Start: 07/18/18 09:06 Freq: Status: Active Protocol: Activity Type Activity Date Activity User E-Sign Co-Sign Detail Recorded Client Recorded Date Recorded By Document 07/18/18 09:40 MW [id number] 07/18/18 09:43 MW Document 08/06/18 11:40 MW [id number] 08/06/18 11:41 MW 07/18/18 08/06/18 09:40 11:40 Wound Center Nurse 2 #14 right medial lower leg -Time 09:40 11:40 -Correct Patient Yes Yes -Correct Side, Site, Position Yes Yes -Correct Procedure Yes Yes -Procedure Performed Yes No -Type of Procedure Debridement -Clinical Debridement Subcutaneous -Post Debridement Size (cm) - Length 1.3 0 -Post Debridement Size (cm) - Width 1.3 0 -Post Debridement Size (cm) - Depth 0.1 0 -Total Square Cm 1.69 0 -Wound/Ulcer Outcome Not Healed Healed- Epithelialized -Ulcer Cleansing Rinsed/ Not Cleansed Irrigated with Saline -Foul Odor after Cleansing No No -Bioengineered Tissue No -Bleeding Controlled with Pressure NA -Offloading No No -Treatment Response Procedure Procedure Tolerated Well Tolerated Well # 13 Left medial LE inferior - cluster -Time 09:41 -Correct Patient Yes -Correct Side, Site, Position Yes -Correct Procedure Yes -Procedure Performed No -Post Debridement Size (cm) - Length 0 -Post Debridement Size (cm) - Width 0 -Post Debridement Size (cm) - Depth 0 -Total Square Cm 0 -Wound/Ulcer Outcome Healed- Epithelialized -Ulcer Cleansing Not Cleansed -Foul Odor after Cleansing No -Bioengineered Tissue No -Offloading No -Treatment Response Procedure Tolerated Well #12 Left Medial LE Superior -Time 09:41 -Correct Patient Yes -Correct Side, Site, Position Yes -Correct Procedure Yes -Procedure Performed No -Post Debridement Size (cm) - Length 0 -Post Debridement Size (cm) - Width 0 -Post Debridement Size (cm) - Depth 0 -Total Square Cm 0 -Wound/Ulcer Outcome Healed- Epithelialized -Ulcer Cleansing Not Cleansed -Foul Odor after Cleansing No -Bioengineered Tissue No -Bleeding Controlled with NA -Offloading No -Treatment Response Procedure Tolerated Well 11 Left [place] Lateral Cluster -Time 09:41 -Correct Patient Yes -Correct Side, Site, Position Yes -Correct Procedure Yes -Procedure Performed No -Post Debridement Size (cm) - Length 0 -Post Debridement Size (cm) - Width 0 -Post Debridement Size (cm) - Depth 0 -Total Square Cm 0 -Wound/Ulcer Outcome Healed- Epithelialized #9 LEFT POST. CALF -Time 09:42 -Correct Patient Yes -Correct Side, Site, Position Yes -Correct Procedure Yes -Procedure Performed No -Post Debridement Size (cm) - Length 0 -Post Debridement Size (cm) - Width 0 -Post Debridement Size (cm) - Depth 0 -Total Square Cm 0 -Wound/Ulcer Outcome Healed- Epithelialized Pain Scale: 0-10 Numeric Is Patient Pain Free? Yes Yes No debridement was completed today Assessment/Plan Assessment: Recurrent left lower extremity ulcer. Resolved. Bilateral lower extremity edema. Lower medial nonhealing ulcer Plan: Left lower extremity ulcers stay healed. Right lower extremity ulcer healed. No concerns at this time. He is yet to schedule an appointment at the lymphedema clinic. He was encouraged to. Double layer Tubigrip's. Wear daily. Elevate lower extremities when sitted and in bed. He was advised to call with any questions or concerns. Discharged from the wound clinic. This note was generated with [employer] dictation software. It may contain incorrect words, spelling, and punctuation that were not noted in checking the note before signing.
== END 2018-08-14 23:59 ==
LOC: WC 11:30
PROVIDERS: Family Provider Family Medicine Geriatric Medicine; PCP Family Medicine Geriatric Medicine; Visit Provider Internal Medicine
DX: L97.811 Non-pressure chronic ulcer of other part of right lower leg limited to breakdown of skin (principal); R60.0 Localized edema; M79.89 Other specified soft tissue disorders
CPT/HCPCS: 11042; 29581; 99212; G0463

== ENCOUNTER → 2018-10-08 14:44 | Outpatient (CLI) | payer MEDICARE, SELFPAY ==
[2018-10-08 15:35] LABS: Absolute Neutrophil Count 4.1 X10^3/uL (2.0-7.7); Basophil# 0.01 X10^3/uL; Basophil% 0.2 % (0-1); Eosinophil# 0.07 X10^3/uL; Eosinophils% 1.2 % (0-5); Hematocrit 36.8 % (40-54); Hemoglobin 11.8 g/dl (13.0-16.5); Lymphocyte % 18.6 % (19-41); Mean Corp Hgb Conc 32.1 g/gl (32-36); Mean Corpuscular Hgb 29.6 pg (27.0-32.0); Mean Corpuscular Volume 92.5 fL (80-94); Monocyte# 0.62 X10^3/uL; Monocyte% 10.5 % (0-10); Neutrophil % 69.2 % (47-70); Platelet Count 182 K/mm3 (150-450); RBC Distribution Width CV 15.4 % (11.6-14.6); RBC Distribution Width SD 52.5 fl (35.1-43.9); Red Blood Count 3.98 M/mm3 (4.6-6.2); White Blood Count 5.9 K/mm3 (4.4-11.0)
[2018-10-08 15:48] LABS: POSITIVE COUNT NO; POSITIVE DIFFERENTIAL NO; POSITIVE MORPHOLOGY NO
[2018-10-08 16:08] LABS: Vitamin D,25 Hydroxy 23.9 ng/mL (29.95-100.01)
[2018-10-08 16:09] LABS: ALB/GLOB Ratio 1.2 RATIO (0.9-2.4); AST(SGOT) 19 U/L (15-37); Alanine Aminotransfer ALT/SGPT 25 U/L (16-61); Alkaline Phosphatase 151 U/L (45-117); Anion Gap 5 (5-15); BUN 23 mg/dL (7-18); BUN/Creat Ratio 16.7 RATIO (10-20); Chloride 106 mmol/L (98-107); Creatinine, Serum 1.38 mg/dL (0.70-1.30); EST Glomerular Filtration Rate 52 mL/min (>60); Est Glom Filt Rate - Afr Amer 63 mL/min (>60); Globulin 3.4 g/dL (2.2-4.2); Glucose 102 mg/dL (74-106); Potassium 4.1 mmol/L (3.5-5.1); Protein, Total 7.4 g/dL (6.4-8.2); Sodium Level 140 mmol/L (136-145); Thyroid Stim Hormone (TSH) 4.35 uIU/mL (0.358-3.74)
== END ==
PROVIDERS: Family Provider Family Medicine Geriatric Medicine; PCP Family Medicine Geriatric Medicine; Visit Provider Family Medicine Geriatric Medicine
DX: E55.9 Vitamin D deficiency, unspecified (principal); I10 Essential (primary) hypertension
CPT/HCPCS: 36415; 80053; 82306; 84443; 85025

== ENCOUNTER → 2018-10-23 17:05 | Outpatient (CLI) | payer MEDICARE, SELFPAY | PROVIDERS: Family Provider Family Medicine Geriatric Medicine; PCP Family Medicine Geriatric Medicine; Visit Provider Family Medicine Geriatric Medicine | DX: E03.9 Hypothyroidism, unspecified (principal) ==

== ENCOUNTER → 2019-01-12 | Outpatient (CLI) | payer MEDICARE, SELFPAY ==
--- NOTE | 2019-01-12 14:10 | RAD_ITS ---
STUDY: X-RAY - LUMBAR SPINE REASON FOR EXAM: Male, 83 years old. Severe low back pain. TECHNIQUE: 3 view(s) of the lumbar spine were obtained. COMPARISON: None FINDINGS: Normal lumbar lordosis. There is a 9-10 degree dextroscoliosis of the lumbar spine centered at L2-3. There is mild rightward subluxation of L3 on L4. There are borderline retrolistheses of L2 on L3, L3 on L4, and L5 on S1. There is multilevel endplate spondylosis of the lumbar vertebrae. There is multi-level degenerative disc disease with multi-level disc space narrowing. There is a moderate compression deformity of the T12 vertebra, which is virtually inseparable from L1. Operative degenerative arthroses noted in the mid to lower lumbar facet joints. There are early degenerative changes of the bilateral sacroiliac joints. There is atherosclerotic calcification of the abdominal aorta without a demonstrated aneurysm. There are also atherosclerotic calcifications in the splenic and bilateral iliac arteries. RAD/Lumbar Spine 2 or 3 Views IMPRESSION: 1. Degenerative changes of the spine, as detailed above. 2. Compression deformity of the T12 vertebra, which is inseparable from L1. This is likely chronic. 3. Atherosclerotic vascular calcifications present. There is no demonstrated aortic aneurysm. Electronically Signed: Huy West MD at 15:36 EDT , Service support ,
[2019-01-12 15:38] LABS: Absolute Lymphocyte Count 1.34 X10^3/ul (0.83-4.51); Absolute Neutrophil Count 4.6 X10^3/uL (2.0-7.7); Basophil# 0.01 X10^3/uL; Basophil% 0.2 % (0-1); Eosinophil# 0.06 X10^3/uL; Eosinophils% 0.9 % (0-5); Hematocrit 35.6 % (40-54); Hemoglobin 11.6 g/dl (13.0-16.5); Lymphocyte # 1.34 X10^3/ul (4.0); Lymphocyte % 20.3 % (19-41); Mean Corp Hgb Conc 32.6 g/gl (32-36); Mean Corpuscular Hgb 28.8 pg (27.0-32.0); Mean Corpuscular Volume 88.3 fL (80-94); Mean Platelet Vol. 10.4 fl (6.2-12.0); Monocyte# 0.59 X10^3/uL; Neutrophil # 4.58 X10^3/uL (2.7-7.7); Neutrophil % 69.4 % (47-70); POSITIVE COUNT NO; POSITIVE DIFFERENTIAL NO; POSITIVE MORPHOLOGY NO; Platelet Count 296 K/mm3 (150-450); RBC Distribution Width CV 15.9 % (11.6-14.6); RBC Distribution Width SD 51.4 fl (35.1-43.9); Red Blood Count 4.03 M/mm3 (4.6-6.2); White Blood Count 6.6 K/mm3 (4.4-11.0)
[2019-01-12 15:49] LABS: AST(SGOT) 28 U/L (15-37); Alanine Aminotransfer ALT/SGPT 50 U/L (16-61); Albumin, Serum 3.6 g/dL (3.2-5.0); Alkaline Phosphatase 174 U/L (45-117); Anion Gap 10 (5-15); BUN 34 mg/dL (7-18); BUN/Creat Ratio 26.2 RATIO (10-20); Calcium,Total 9.3 mg/dL (8.5-10.1); Chloride 103 mmol/L (98-107); EST Glomerular Filtration Rate 56 mL/min (>60); Est Glom Filt Rate - Afr Amer 68 mL/min (>60); Globulin 3.6 g/dL (2.2-4.2); Glucose 94 mg/dL (74-106); Potassium 4.2 mmol/L (3.5-5.1); Protein, Total 7.2 g/dL (6.4-8.2); Sodium Level 139 mmol/L (136-145); Thyroid Stim Hormone (TSH) 2.86 uIU/mL (0.358-3.74)
[2019-01-12 15:50] LABS: Vitamin D,25 Hydroxy 25.7 ng/mL (29.95-100.01)
== END | disposition home or self-care (01) ==
LOC: POLAB3 12:06 → RAD 13:56
PROVIDERS: Family Provider Family Medicine Geriatric Medicine; PCP Family Medicine Geriatric Medicine; Visit Provider Family Medicine Geriatric Medicine
DX: M54.5 Low back pain (principal); E55.9 Vitamin D deficiency, unspecified; I10 Essential (primary) hypertension
CPT/HCPCS: 36415; 72100; 80053; 82306; 84443; 85025

== ENCOUNTER → 2019-04-14 10:51 | Outpatient (CLI) | payer MEDICARE, SELFPAY ==
[2019-03-19 14:41] VITALS: BMI 23.7
[2019-04-14 12:45] LABS: Absolute Lymphocyte Count 1.19 X10^3/uL (0.83-4.51); Absolute Neutrophil Count 4.1 X10^3/uL (2.0-7.7); Basophil# 0.01 X10^3/uL; Basophil% 0.2 % (0-1); Eosinophil# 0.07 X10^3/uL; Eosinophils% 1.2 % (0-5); Hematocrit 37.3 % (40-54); Hemoglobin 11.9 g/dL (13.0-16.5); Lymphocyte # 1.19 X10^3/ul (4.0); Lymphocyte % 20.1 % (19-41); Mean Corp Hgb Conc 31.9 g/dL (32-36); Mean Corpuscular Hgb 30.2 pg (27.0-32.0); Mean Corpuscular Volume 94.7 fL (80-94); Mean Platelet Vol. 11.2 fl (6.2-12.0); Monocyte# 0.53 X10^3/uL; NRBC Flagged by Analyzer 0 % (0-5); Neutrophil # 4.11 X10^3/uL (2.7-7.7); Neutrophil % 69.3 % (47-70); Platelet Count 192 K/mm3 (150-450); RBC Distribution Width CV 13.2 % (11.6-14.6); RBC Distribution Width SD 47.2 fl (35.1-43.9); Red Blood Count 3.94 M/mm3 (4.6-6.2); White Blood Count 5.9 K/mm3 (4.4-11.0)
[2019-04-14 13:01] LABS: Vitamin D,25 Hydroxy 37.7 ng/mL (29.95-100.01)
[2019-04-14 13:31] LABS: ALB/GLOB Ratio 1.2 RATIO (0.9-2.4); AST(SGOT) 15 U/L (15-37); Alanine Aminotransfer ALT/SGPT 21 U/L (16-61); Albumin, Serum 4.1 g/dL (3.2-5.0); Alkaline Phosphatase 148 U/L (45-117); Anion Gap 7 (5-15); BUN 29 mg/dL (7-18); BUN/Creat Ratio 19.2 RATIO (10-20); Calcium,Total 9.3 mg/dL (8.5-10.1); Chloride 104 mmol/L (98-107); Creatinine, Serum 1.51 mg/dL (0.70-1.30); EST Glomerular Filtration Rate 47 mL/min (>60); Est Glom Filt Rate - Afr Amer 57 mL/min (>60); Globulin 3.5 g/dL (2.2-4.2); Glucose 101 mg/dL (74-106); Potassium 3.9 mmol/L (3.5-5.1); Protein, Total 7.6 g/dL (6.4-8.2); Sodium Level 139 mmol/L (136-145); Thyroid Stim Hormone (TSH) 2.88 uIU/mL (0.358-3.74)
== END ==
PROVIDERS: Family Provider Family Medicine Geriatric Medicine; PCP Family Medicine Geriatric Medicine; Visit Provider Family Medicine Geriatric Medicine
DX: E55.9 Vitamin D deficiency, unspecified (principal); I10 Essential (primary) hypertension
CPT/HCPCS: 36415; 80053; 82306; 84443; 85025

== ENCOUNTER → 2019-06-02 10:41 | Outpatient (CLI) | payer MEDICARE, SELFPAY ==
[2019-03-19 14:41] VITALS: BMI 23.7
--- NOTE | 2019-06-02 10:44 | RAD_ITS ---
STUDY: X-RAY - LUMBAR SPINE REASON FOR EXAM: Male, 83 years old. Chronic low back pain. TECHNIQUE: 3 view(s) of the lumbar spine were obtained. COMPARISON: 01/12/2019 FINDINGS: Normal lumbar lordosis. There is no substantial scoliosis. There is a normal alignment of the vertebrae. There is multilevel endplate spondylosis of the lumbar vertebrae. There is multi-level degenerative disc disease with multi-level disc space narrowing. Degenerative disc disease most pronounced at L3-L4 and L5-S1. Stable severe compression fracture of T12 which is fused against L1. No acute compression fractures. There is atherosclerotic calcification of the abdominal aorta without a demonstrated aneurysm. RAD/Lumbar Spine 2 or 3 Views IMPRESSION: No change. No acute abnormality. Prominent degenerative changes. Electronically Signed: Shahzad Estrada MD at 17:19 EST , Service support ,
== END ==
PROVIDERS: Family Provider Family Medicine Geriatric Medicine; PCP Family Medicine Geriatric Medicine; Referring Provider Anesthesiology Pain Medicine; Visit Provider Anesthesiology Pain Medicine
DX: M54.9 Dorsalgia, unspecified (principal)
CPT/HCPCS: 72100

== ENCOUNTER → 2019-07-02 12:12 | Outpatient (CLI) | payer MEDICARE, SELFPAY ==
[2019-03-19 14:41] VITALS: BMI 23.7
[2019-07-02 12:36] LABS: Absolute Lymphocyte Count 1.27 X10^3/uL (0.83-4.51); Absolute Neutrophil Count 5.1 X10^3/uL (2.0-7.7); Basophil# 0.01 X10^3/uL; Basophil% 0.1 % (0-1); Eosinophil# 0.05 X10^3/uL; Eosinophils% 0.7 % (0-5); Hematocrit 39.6 % (40-54); Hemoglobin 13.1 g/dL (13.0-16.5); Lymphocyte # 1.27 X10^3/ul (4.0); Lymphocyte % 18.4 % (19-41); Mean Corp Hgb Conc 33.1 g/dL (32-36); Mean Corpuscular Hgb 29.8 pg (27.0-32.0); Mean Platelet Vol. 10.4 fl (6.2-12.0); Monocyte# 0.48 X10^3/uL; NRBC Flagged by Analyzer 0 % (0-5); Neutrophil # 5.05 X10^3/uL (2.7-7.7); Neutrophil % 73.2 % (47-70); Platelet Count 203 K/mm3 (150-450); RBC Distribution Width CV 15.4 % (11.6-14.6); RBC Distribution Width SD 50.7 fl (35.1-43.9); White Blood Count 6.9 K/mm3 (4.4-11.0)
[2019-07-02 12:50] LABS: Vitamin D,25 Hydroxy 15.8 ng/mL (29.95-100.01)
[2019-07-02 12:55] LABS: ALB/GLOB Ratio 1.1 RATIO (0.9-2.4); AST(SGOT) 43 U/L (15-37); Alanine Aminotransfer ALT/SGPT 70 U/L (16-61); Albumin, Serum 3.8 g/dL (3.2-5.0); Alkaline Phosphatase 126 U/L (45-117); Anion Gap 6 (5-15); BUN 25 mg/dL (7-18); BUN/Creat Ratio 17.2 RATIO (10-20); Calcium,Total 9.5 mg/dL (8.5-10.1); Chloride 103 mmol/L (98-107); Creatinine, Serum 1.45 mg/dL (0.70-1.30); EST Glomerular Filtration Rate 49 mL/min (>60); Est Glom Filt Rate - Afr Amer 60 mL/min (>60); Globulin 3.5 g/dL (2.2-4.2); Glucose 135 mg/dL (74-106); Protein, Total 7.3 g/dL (6.4-8.2); Sodium Level 138 mmol/L (136-145); Thyroid Stim Hormone (TSH) 3.09 uIU/mL (0.358-3.74)
== END ==
PROVIDERS: Family Provider Family Medicine Geriatric Medicine; PCP Family Medicine Geriatric Medicine; Visit Provider Family Medicine Geriatric Medicine
DX: E55.9 Vitamin D deficiency, unspecified (principal); I10 Essential (primary) hypertension
CPT/HCPCS: 36415; 80053; 82306; 84443; 85025

== ENCOUNTER → 2019-08-10 13:48 | Outpatient (CLI) | payer MEDICARE, SELFPAY ==
[2019-03-19 14:41] VITALS: BMI 23.7
[2019-08-10 17:57] LABS: ALB/GLOB Ratio 1.2 RATIO (0.9-2.4); AST(SGOT) 19 U/L (15-37); Alanine Aminotransfer ALT/SGPT 30 U/L (16-61); Albumin, Serum 3.7 g/dL (3.2-5.0); Alkaline Phosphatase 112 U/L (45-117); Anion Gap 6 (5-15); BUN 20 mg/dL (7-18); Calcium,Total 9.3 mg/dL (8.5-10.1); Chloride 105 mmol/L (98-107); Creatinine, Serum 1.43 mg/dL (0.70-1.30); EST Glomerular Filtration Rate 50 mL/min (>60); Est Glom Filt Rate - Afr Amer 61 mL/min (>60); Globulin 3.2 g/dL (2.2-4.2); Glucose 111 mg/dL (74-106); Potassium 4.2 mmol/L (3.5-5.1); Protein, Total 6.9 g/dL (6.4-8.2); Sodium Level 136 mmol/L (136-145)
== END ==
PROVIDERS: Family Provider Family Medicine Geriatric Medicine; PCP Family Medicine Geriatric Medicine; Visit Provider Family Medicine Geriatric Medicine
DX: R68.89 Other general symptoms and signs (principal)
CPT/HCPCS: 36415; 80053

== ENCOUNTER 2020-08-19 22:50 | Emergency (ER) | payer MEDICARE, SELFPAY ==
[2019-03-19 14:41] VITALS: BMI 23.7
[2020-08-19 22:58] VITALS: BP 177/111; PULSE 102; O2SAT 88
--- NOTE | 2020-08-19 23:01 | CT_ITS ---
STUDY: CT HEAD STROKE PROTOCOL W/O CONTRAST INJECTION REASON FOR EXAM: Male, 84 years old. Possible stroke. TECHNIQUE: Transaxial CT imaging of the brain was performed without administration of intravenous contrast material. Individualized dose optimization techniques were used for this CT. COMPARISON: CT abdomen, 11/20/2017. FINDINGS: Normal soft tissue structures. Normal calvarium. There is mild cerebral atrophy with widening of the extra-axial spaces and ventricular dilatation. There are areas of decreased attenuation within the white matter tracts of the supratentorial brain, consistent with microvascular disease changes. Normal basal ganglia and thalami. Normal brainstem. Normal cerebellum. There is no intracranial hemorrhage. There are no findings of an acute ischemic infarction. Normal visualized paranasal sinuses. ASPECT score: 10 CT/STROKE Brain/Head without Cont IMPRESSION: Chronic no major interval change. N.B. : The above information has been verbally conveyed by Lee White DO to Iam Garcia MD, on 08/19/2020 23:14:54 (ET). Electronically Signed: Lee White DO at 23:15 EST Tel [phone], Service support ,
--- NOTE | 2020-08-19 23:01 | EKG12_ITS ---
Test Reason : STROKE ALERT Blood Pressure : / mmHG Vent. Rate : 127 BPM Atrial Rate : 156 BPM P-R Int : 000 ms QRS Dur : 102 ms QT Int : 346 ms P-R-T Axes : 000 -24 120 degrees QTc Int : 502 ms Atrial fibrillation with rapid ventricular response ST & T wave abnormality, consider lateral ischemia Abnormal ECG Confirmed by ALEJANRDA WALDRON, BÁRBARA ([id number]), writer editor NARAYAN VILLANUEVA ([id number]) on 08/22/2020 2:20:43 PM Referred By: Confirmed By:BÁRBARA ROBERTS MD
--- NOTE | 2020-08-19 23:02 | CT_ITS ---
STUDY: CTA HEAD AND NECK WITH CONTRAST REASON FOR EXAM: Male, 84 years old. Stroke alert. RADIATION DOSAGE (If Supplied By Facility): CTDIvol = ( 16.72 ) mGy, DLP = ( 662.84 ) mGycm TECHNIQUE: CT angiography was performed with a multi-detector CT scanner. Data acquisition was obtained from the skull base through the vertex following intravenous administration of IV 100mL Isovue-370. MIP images were reconstructed from the axial data set. Post-processing of the angiographic images was performed, with multiplanar reformation and 3D reconstruction. Individualized dose optimization techniques were used for this CT. COMPARISON: CT of the head, 08/19/2020. FINDINGS: Normal bilateral petrous carotid arteries. There is calcified plaque formation of the right cavernous carotid artery, without a cross-sectional luminal stenosis. There is calcified plaque formation of the left cavernous carotid artery, without a cross-sectional luminal stenosis. Normal right A1 segments of the anterior cerebral artery. Normal left A1 segments of the anterior cerebral artery. Normal intact anterior communicating artery (ACOM). Normal bilateral A2 segments of the anterior cerebral arteries. Normal right M1 and M2 segments of the middle cerebral arteries, with a normal M1 bifurcation. Normal left M1 and M2 segments of the middle cerebral arteries, with a normal M1 bifurcation. There is non-visualization of the right posterior communicating artery (PCOM). There is non-visualization of the left posterior communicating artery (PCOM). Dominant right vertebral artery. Normal basilar artery with a normal basilar bifurcation. The visualized bilateral superior cerebellar (SCA) arteries are normal. Normal bilateral P1, P2 and visualized P3 segments of the posterior cerebral arteries. There is no demonstrated aneurysm of the [place]. There is no demonstrated abnormality of the visualized brain. AORTIC ARCH: Atherosclerotic changes of the aortic arch without aneurysm or dissection. Normal origins of the brachiocephalic, left common carotid, and left subclavian arteries. RIGHT CAROTID ARTERIES: Scattered atherosclerotic plaque along the course of the tortuous right common carotid artery (CCA). There is no significant stenosis. There is calcific plaque at the carotid bifurcation with approximately 50% stenosis. This extends upward into the carotid bulb. Approximate 50% stenosis of the origin of the right internal carotid (ICA) artery without a hemodynamically significant stenosis. Normal visualized cervical portion of the right internal carotid artery. Atherosclerotic plaque at the origin of the right external carotid artery (ECA) without stenosis. LEFT CAROTID ARTERIES: There is atherosclerotic plaque scattered along the course of the tortuous left common carotid artery (CCA). There is no significant stenosis. There is calcific plaque at the carotid bifurcation with less than 50% stenosis. Minimal plaque extends into the carotid bulb. Normal left common carotid bulb. Normal origin of the left internal carotid (ICA) artery without a hemodynamically significant stenosis. Normal visualized cervical portion of the left internal carotid artery. Atherosclerotic plaque at the origin of the left external carotid artery (ECA) without significant stenosis.. VERTEBRAL ARTERIES: Normal bilateral vertebral arteries. CT/STROKE CTA Head AND Neck W/Con IMPRESSION: 1. Bilateral, hemodynamically insignificant carotid plaque by an acid criteria. 2. Normal [place]. N.B. : The above information has been verbally conveyed by Lee White DO to Iam Garcia MD, on 08/19/2020 23:22:43 (ET). Electronically Signed: Lee White DO at 23:23 EST Tel [phone], Service support ,
--- NOTE | 2020-08-19 23:11 | ED.DCSUM_ITS ---
History of Present Illness Chief Complaint: Neuro S/Sx Informant: Patient, Drapery Cutter Narrative: EMS called prehospital stroke team on 84-year-old male. He lives with family. They told EMS that he began to have weakness after lunch. Patient can tell me that he took his Eliquis yesterday but not today. He has a history of atrial fibrillation. EMS notes him to be tachycardic from 100-1 30. They note him to be 88% on room air. Reportedly does not wear home oxygen. He does have a histo ry of CHF. Med list states that he is no longer taking furosemide. Patient lives at home with his sister who has dementia and reportedly he is the primary caregiver for. He has a stepson who is his power of state attorney. I did speak with the stepson during this visit. We talked about his CODE STATUS. At the current time they had not had any discussions regarding his end-of-life wishes. We will proceed and make him a full code at this time. - Past Medical History (1) Atherosclerosis of [place] coronary artery of [place] heart without angina pectoris Status: Chronic Comment: CABG x 5 NGO to LAD, SVG as a sequential graft to D1 and LCx, SVG to the two ventricular branches of the right 01/22/2000 (2) Cardiomyopathy Status: Chronic (3) Chronic diastolic (congestive) heart failure Status: Chronic (4) DDD (degenerative disc disease), lumbar Status: Chronic (5) Dyslipidemia Status: Chronic (6) Essential (primary) hypertension Status: Chronic (7) Non-rheumatic tricuspid valve insufficiency Status: Chronic (8) Nonrheumatic mitral valve insufficiency Status: Chronic (9) Paroxysmal atrial fibrillation Status: Chronic (10) H/O coronary artery bypass surgery Status: Resolved Comment: CABG x 5 NGO to LAD, Sequential SVG- D1 and LCx, SVG-two ventricular branches of the right 01/22/2000 Past Medical History - Allergies and Home Meds Allergies/Adverse Reactions: Allergies No Known Allergies Allergy (Verified 08/19/20 23:29) Primary Care Physician: Hardik Puga Chi, MD [Primary Care Provider] - Surgical History: coronary bypass surgery, - Lives: With Family Smoking Status: Never smoker Drugs: None - Family History Paternal Family History: Family History (Last Reviewed 04/13/19 @ 13:53 by Pat Stacy) Mother CVA (cerebral vascular accident) CAD (coronary artery disease) Myocardial infarction Father CAD (coronary artery disease) Myocardial infarction Brother CAD (coronary artery disease) Myocardial infarction Brother CAD (coronary artery disease) Myocardial infarction Family History: Reports: High Cholesterol, Heart Disease, Hypertension, - Review of Systems ROS: Unable to Obtain STROKE Vital Signs/Narrative: Vital Signs Pulse BP Pulse Ox 08/19/20 22:58 102 H 177/111 H 88 Inital Vital Signs reviewed: Yes - Irregular - NIHSS Initial 1a Level of Consciousness: 0 1b LOC Questions (Score 2 if aphasic/stupor): 1 1c LOC Commands (Only score 1st attempt): 0 2 Best Gaze (If aphasic, use reflexive mvmts.): 1 3 Visual: 3 4 Facial Palsy: 1 5 Motor Arm Right (UN = amputation/fusion): 1 5 Motor Arm Left: 4 6 Motor Leg Right: 1 6 Motor Leg Left: 4 7 Limb ataxia (Only + if out of proportion): 1 8 Sensory (Aphasia/stupor=0 or 1, coma=2): 2 9 Best Language: 2 10 Dysarthria (mute, coma=2, intubated=UN): 2 11 Extinction and Inattention (only scored if +): 2 Total Score: 25 General: Well nourished, Well developed Head: Normocephalic, Atraumatic Eyes: Perrl, EOMI ENT: Moist mucous membranes, No rhinorrhea Neck: Supple, Nontender Cardiovascular: No murmurs, Irregular, Tachycardia Respiratory: No distress, CTA bilaterally, Chest nontender Abdomen: Soft, Nontender, Nondistended, Normal bowel sounds Back: Nontender, Normal Inspection Extremities: Nontender, Edema - 2+ pitting Skin: Normal color, No rash Neurological: Alert Diagnostic/Tx/Re-eval Clinical Impression(s) from Imaging Studies Brain CT 08/19/20 23:01 IMPRESSION: Chronic no major interval change. N.B. : The above information has been verbally conveyed by Lee White DO to Iam Garcia MD, on 08/19/2020 23:14:54 (ET). Electronically Signed: Lee White DO at 23:15 EST Tel [phone], Service support , ADDENDUM: 08/19/20 2322 IMPRESSION: Chronic no major interval change. N.B. : The above information has been verbally conveyed by Lee White DO to Iam Garcia MD, on 08/19/2020 23:14:54 (ET). Electronically Signed: Lee White DO at 23:15 EST Tel [phone], Service support , Head/Neck CTA 08/19/20 23:02 IMPRESSION: 1. Bilateral, hemodynamically insignificant carotid plaque by an acid criteria. 2. Normal [place]. N.B. : The above information has been verbally conveyed by Lee White DO to Iam Garcia MD, on 08/19/2020 23:22:43 (ET). Electronically Signed: Lee White DO at 23:23 EST Tel [phone], Service support , ADDENDUM: 08/19/20 2330 IMPRESSION: 1. Bilateral, hemodynamically insignificant carotid plaque by an acid criteria. 2. Normal [place]. N.B. : The above information has been verbally conveyed by Lee White DO to Iam Garcia MD, on 08/19/2020 23:22:43 (ET). Electronically Signed: Lee White DO at 23:23 EST Tel [phone], Service support , Chest X-Ray 08/19/20 23:55 IMPRESSION: Likely left lower lobe collapse with left pleural effusion. Small amount of right pleural fluid suspected. Right airspace consolidation and airspace disease. Pulmonary edema. . at 0058 Reported and signed by: Davi Brady MD Electronically Signed: Davi Brady MD at 0:57 EST Tel , Service support , Laboratory Last Values WBC 6.6 K/mm3 (4.4-11.0) 08/19/20 23:00 RBC 5.31 M/mm3 (4.6-6.2) 08/19/20 23:00 Hgb 15.0 g/dL (13.0-16.5) 08/19/20 23:00 Hct 48.5 % (40-54) 08/19/20 23:00 MCV 91.3 fL (80-94) 08/19/20 23:00 MCH 28.2 pg (27.0-32.0) 08/19/20 23:00 MCHC 30.9 g/dL (32-36) L 08/19/20 23:00 RDW Std Deviation 56.0 fl (35.1-43.9) H 08/19/20 23:00 RDW Coeff of [place] 16.9 % (11.6-14.6) H 08/19/20 23:00 Plt Count 286 K/mm3 (150-450) 08/19/20 23:00 MPV 10.4 fl (6.2-12.0) 08/19/20 23:00 Immature Gran % (Auto) 1.400 % (0.0-0.9) H 08/19/20 23:00 Neut % (Auto) 81.6 % (47-70) H 08/19/20 23:00 Lymph % (Auto) 10.6 % (19-41) L 08/19/20 23:00 [place] % (Auto) 5.9 % (0-10) 08/19/20 23:00 Eos % (Auto) 0.2 % (0-5) 08/19/20 23:00 Baso % (Auto) 0.3 % (0-1) 08/19/20 23:00 Absolute Neuts (auto) 5.4 X10^3/uL (2.0-7.7) 08/19/20 23:00 Absolute Lymphs (auto) 0.70 X10^3/uL (0.83-4.51) L 08/19/20 23:00 Nucleated RBC % 0 % (0-5) 08/19/20 23:00 PT 20.1 SECONDS (11.7-14.9) H 08/19/20 23:00 INR 1.8 08/19/20 23:00 APTT 33.4 Seconds (24.1-36.2) 08/19/20 23:00 Sodium 140 mmol/L (136-145) 08/19/20 23:00 Potassium 4.1 mmol/L (3.5-5.1) 08/19/20 23:00 Chloride 106 mmol/L (98-107) 08/19/20 23:00 Carbon Dioxide 24.0 mmol/L (21.0-32.0) 08/19/20 23:00 Anion Gap 10 (5-15) 08/19/20 23:00 BUN 15 mg/dL (7-18) 08/19/20 23:00 Creatinine 1.23 mg/dL (0.70-1.30) 08/19/20 23:00 Estim Creat Clear Calc 48.19 ml/min 08/19/20 23:00 Est GFR (MDRD) Af Amer 72 mL/min (>60) 08/19/20 23:00 Est GFR (MDRD) Non-Af 59 mL/min (>60) L 08/19/20 23:00 BUN/Creatinine Ratio 12.2 RATIO (10-20) 08/19/20 23:00 Glucose 203 mg/dL (74-106) H 08/19/20 23:00 Calcium 9.2 mg/dL (8.5-10.1) 08/19/20 23:00 Troponin I < 0.015 ng/mL (<0.045) 08/19/20 23:00 Urine Color [place] (Yellow) 08/20/20 00:50 Urine Clarity Clear (Clear) 08/20/20 00:50 Urine pH 5.0 (5.0 - 8.0) 08/20/20 00:50 Ur Specific [place] 1.030 (1.002-1.030) 08/20/20 00:50 Urine Protein 100 mg/dl (Negative) H 08/20/20 00:50 Urine Glucose (UA) Normal mg/dl (Normal) 08/20/20 00:50 Urine Ketones 5 mg/dl (Negative) H 08/20/20 00:50 Urine Occult Blood 10 /ul (Negative) H 08/20/20 00:50 Urine Nitrite Negative (Negative) 08/20/20 00:50 Urine Bilirubin 1 mg/dL (Negative) H 08/20/20 00:50 Urine Urobilinogen 4 mg/dl (Normal) H 08/20/20 00:50 Ur Leukocyte Esterase 25 /ul (Negative) H 08/20/20 00:50 Urine RBC 0-5 SEEN /hpf (0-5) 08/20/20 00:50 Urine WBC 0 SEEN /hpf (0-5) 08/20/20 00:50 Ur Squamous Epith Cells 0 SEEN /hpf (0-5) 08/20/20 00:50 Urine Bacteria 0 SEEN /hpf (None Seen) 08/20/20 00:50 Urine Mucus 0 SEEN /hpf (<or=2+) 08/20/20 00:50 - EKG Initial EKG Interpretation: Atrial Fibrillation - A. fib with RVR at a rate of 127 - Medical Decision Making Stroke Team Activated: Yes Reviewed Inclusion/Exclusion criteria: Yes Was Patient considered for Endovascular Intervention?: Yes - Not candidate for CTA IV Alteplase (t-PA) Administered: No No contraindications for IV Alteplase (t-PA) administration.: No Alteplase (t-PA) risks, benefits, alternative discussed: No Not given: Patient refusal: No After CT patient developed focal seizures involving the left face left arm and left leg. After 1 mg of Ativan seizures persisted and he was loaded with 2 g of Keppra. He was still ventilating and maintaining oxygen using supplemental Do mask, though somnolent he appeared to still be protecting his airway.. He continued to have focal seizure activity involving left face arm and leg and a second milligram was needed. This resulted in hypoventilation and increased sedation. After discussing with his power of state attorney his stepson decision was made to place him on a ventilator. He received 30 mg of etomidate and an 8- 0endotracheal tube was placed on the first attempt without any difficulty. Confirmation of placement was made with auscultation, chest x-ray, and color change capnography. He was placed on a Versed drip. Seizing appears to have stopped. No paralytics have been given. [facility] contacted and plan will be transfer. [facility] is in route to take the patient. Critical care time (excluding procedures): 30-74 minutes - 35 minutes ED Disposition - Plan for ED Patient: Disposition: [facility] Diagnosis: Acute ischemic stroke, Status epilepticus, Respiratory failure Referrals: Hardik Puga Chi, MD [Primary Care Provider] -
[2020-08-19 23:13] VITALS: BP 158/115; PULSE 113; RESP 16; O2SAT 96
[2020-08-19 23:23] LABS: Absolute Neutrophil Count 5.4 X10^3/uL (2.0-7.7); Basophil# 0.02 X10^3/uL; Basophil% 0.3 % (0-1); Eosinophil# 0.01 X10^3/uL; Eosinophils% 0.2 % (0-5); Hematocrit 48.5 % (40-54); Lymphocyte % 10.6 % (19-41); Mean Corp Hgb Conc 30.9 g/dL (32-36); Mean Corpuscular Hgb 28.2 pg (27.0-32.0); Mean Corpuscular Volume 91.3 fL (80-94); Mean Platelet Vol. 10.4 fl (6.2-12.0); Monocyte# 0.39 X10^3/uL; Monocyte% 5.9 % (0-10); NRBC Flagged by Analyzer 0 % (0-5); Neutrophil % 81.6 % (47-70); Platelet Count 286 K/mm3 (150-450); RBC Distribution Width CV 16.9 % (11.6-14.6); Red Blood Count 5.31 M/mm3 (4.6-6.2); White Blood Count 6.6 K/mm3 (4.4-11.0)
[2020-08-19 23:28] LABS: International Normalized Ratio 1.8; Prothrombin Time (Protime)PT. 20.1 SECONDS (11.7-14.9)
[2020-08-19 23:29] VITALS: BP 157/111; PULSE 123; RESP 13; O2SAT 92; BMI 28.8
[2020-08-19 23:29] LABS: Partial Thromboplast Time 33.4 Seconds (24.1-36.2)
[2020-08-19 23:30] VITALS: BP 181/132; PULSE 118; RESP 20; TEMP 36.1; O2SAT 92; BMI 28.8
[2020-08-19 23:39] LABS: Anion Gap 10 (5-15); BUN 15 mg/dL (7-18); BUN/Creat Ratio 12.2 RATIO (10-20); Calcium,Total 9.2 mg/dL (8.5-10.1); Chloride 106 mmol/L (98-107); Creatinine, Serum 1.23 mg/dL (0.70-1.30); EST Glomerular Filtration Rate 59 mL/min (>60); Est Glom Filt Rate - Afr Amer 72 mL/min (>60); Estimated Creatinine Clearance 48.19 ml/min; Glucose 203 mg/dL (74-106); Potassium 4.1 mmol/L (3.5-5.1); Sodium Level 140 mmol/L (136-145)
[2020-08-19] MEDS: LORazepam 2 MG/ML Syringe 1 MG IV (23:44)
[2020-08-19 23:45] VITALS: PULSE 118; RESP 17; O2SAT 93
--- NOTE | 2020-08-19 23:55 | RAD_ITS ---
HISTORY: stroke alert. left side weakness. EXAM: XR Chest 1 View: COMPARISON: November 19, 2017 FINDINGS: # of images incl. paperwork: 1 Sternal wires persists. Mediastinal clips persists. Calcific plaque within the aortic arch remains. Pulmonary hypoexpansion. Pulmonary edema. Basilar atelectasis. Left auriculectomy diaphragm are obscured Heart is not enlarged. Thoracic spondylosis remains mild Pulmonary vascularity is indistinct. Bilateral pleural effusions. Pleural fluid is much greater on the left and right. RAD/Chest 1 View IMPRESSION: Likely left lower lobe collapse with left pleural effusion. Small amount of right pleural fluid suspected. Right airspace consolidation and airspace disease. Pulmonary edema. . at 0058 Reported and signed by: Davi Brady MD Electronically Signed: Davi Brady MD at 0:57 EST Tel , Service support ,
[2020-08-19] MEDS: levETIRAcetam IV 1,000 MG/100 ML BAG 400 MG IV (23:57)
[2020-08-20] VITALS (12 sets, daily range): BP systolic 120–148; BP diastolic 81–96; PULSE 85–122; RESP 12–28; O2SAT 90–97
[2020-08-20] MEDS: levETIRAcetam IV 1,000 MG/100 ML BAG 400 MG IV (00:13)
[2020-08-20] MEDS: LORazepam 2 MG/ML Syringe 1 MG IV (00:16)
[2020-08-20] MEDS: Etomidate 20 MG/10 ML Vial 28.8 MG IV (00:35)
--- NOTE | 2020-08-20 00:45 | RAD_ITS ---
HISTORY: ETT placement EXAM: XR Chest 1 View: COMPARISON: Yesterday FINDINGS: # of images incl. paperwork: 1 The endotracheal tube terminates superimposed over the trachea, below the level of the clavicular heads, and above the rachael. Esophagogastric tube's tip is below the diaphragm. Heart is borderline enlarged. Sternal wires and mediastinal clips persist. Bilateral pleural effusions larger on the left than right. Left lower lobe collapse. Pulmonary venous congestion Pulmonary vascularity is indistinct. Bilateral effusions. RAD/Chest 1 View (Portable) IMPRESSION: Adequate position of endotracheal and esophagogastric tubes. Persistent left pleural effusion and left lower lobe collapse. at 0130 Reported and signed by: Davi Brady MD Electronically Signed: Davi Brady MD at 1:29 EST Tel , Service support ,
[2020-08-20 00:55] LABS: Bacteria 0 SEEN /hpf (None Seen); Mucous, Urine 0 SEEN /hpf (<or=2+); Squamous Epithelial Cells - UA 0 SEEN /hpf (0-5); White Blood Cells 0 SEEN /hpf (0-5)
--- NOTE | 2020-08-20 00:55 | RAD_ITS ---
HISTORY: NG tube placement FINDINGS: # of images incl. paperwork: 1 Frontal view of the chest and abdomen demonstrates a nasogastric tube in the stomach in adequate position. RAD/Abdomen Single View (Portable) IMPRESSION: NGT in adequate position. at 0131 Reported and signed by: Davi Brady MD Electronically Signed: Davi Brday MD at 1:29 EST Tel , Service support ,
[2020-08-20 00:59] LABS: Color, Urine Amber (Yellow); Glucose, Dipstick Normal (Normal); Ketone-Dipstick 5 mg/dl (Negative); Leukocyte Esterase-Dipstick 25 /ul (Negative); Nitrite-Dipstick Negative (Negative); Occult Blood-Urine 10 /ul (Negative); Protein-Dipstick 100 mg/dl (Negative); Urine Clarity Clear (Clear); Urine Urobilinogen 4 mg/dl (Normal)
[2020-08-20 01:01] LABS: Urine Bilirubin Dipstick 1 mg/dL (Negative)
[2020-08-20 01:05] LABS: Red Blood Cells-Urine 0-5 SEEN /hpf (0-5)
[2020-08-20 01:51] LABS: Bedside Glucose 141 mg/dL (70-110)
--- NOTE | 2020-08-20 02:02 | ED.RN ---
after first dose of ativan pt became tired and less responsive. pt was having episodes of apnea, oxygen saturation remained 89-92% with nasal cannula. respiratory therapy placed venti mask and dr. lubin made aware. pt still responding with repeated verbal stimulation. due to seizure continuing, second dose of ativan was ordered and pt had further respiratory depression. shallow respirations, remained 88-94% on venti mask but still having episodes of apnea and not responding to voice or sternal rubs while seizing. POA was called and spoke with Dr Lubin. post intubation, POA made aware of pt transfer to [facility] and consent received with 2 nurses present.
== END 2020-08-20 01:47 | disposition short-term general hospital (02) ==
PROVIDERS: Emergency Provider Emergency Medicine; PCP Family Medicine Geriatric Medicine
DX: I63.9 Cerebral infarction, unspecified (principal); R29.725 NIHSS score 25; G40.901 Epilepsy, unspecified, not intractable, with status epilepticus; J96.90 Respiratory failure, unspecified, unspecified whether with hypoxia or hypercapnia; I25.10 Atherosclerotic heart disease of native coronary artery without angina pectoris; I11.0 Hypertensive heart disease with heart failure; E78.5 Hyperlipidemia, unspecified; I42.9 Cardiomyopathy, unspecified; I48.0 Paroxysmal atrial fibrillation; I36.1 Nonrheumatic tricuspid (valve) insufficiency; I34.0 Nonrheumatic mitral (valve) insufficiency; M51.36 Other intervertebral disc degeneration, lumbar region; I50.32 Chronic diastolic (congestive) heart failure; Z95.1 Presence of aortocoronary bypass graft; Z79.01 Long term (current) use of anticoagulants; Z79.899 Other long term (current) drug therapy
CPT/HCPCS: 31500; 51702; 70450; 70496; 70498; 71045; 74018; 80048; 81001; 82962; 84484; 85025; 85610; 85730; 93005; 94002; 96365; 96367; 96375; 99251; 99285; J7030; Q9967; A4216; G0463